=== PATIENT | female | born 1995 | race Caucasian/White ===

== ENCOUNTER 2019-04-26 07:29 | Inpatient (IN) | payer OTHER, SELFPAY ==
[2019-04-26] VITALS (140 sets, daily range): BP systolic 74–145; BP diastolic 38–105; PULSE 49–146; TEMP 36.6–37.9; O2SAT 97–100; BMI 32.9
--- NOTE | 2019-04-26 07:29 | OBADM ---
This patient, Kaylee Melchor, admitted to the OB room Labor/Delivery/Recovery 105 for observation. Patient/family oriented to hospital policies and general routines including ID bracelet, bed and alarms, visiting hours, pain management, procedures, bathroom and other care routines, personal items, smoking policy, room service/diet, and visiting hours. Patient/Family are encouraged to report perceived risks to care and to ask questions if they do not understand what they are told or what they should do.
[2019-04-26 09:44] LABS: Add Urine Microscopic? YES; Appearance Urine Clear (Clear); Bilirubin Urine Negative (Negative); Blood Urine 2+ (Negative); Color Urine Straw (Yellow); Glucose Urine UA Negative (Negative); Ketones Urine Negative (Negative); Leukocyte Esterase Ur Negative LEU/UL (NEGATIVE); Nitrate Urine Negative (Negative); Protein Urine Negative (Negative); RBC Urine 0-2 /hpf (0-2); Specific Grav Ur 1.003 (1.001-1.035); Squamous Epithelial Cell Urine Rare /hpf (Few); Urobilinogen Urine Negative mg/dL (<2.0); WBC Urine 0-3 /hpf (0-3)
[2019-04-26] MEDS: LACTATED RINGERS 1,000 ML 999 ML IV CONT (10:00)
[2019-04-26] MEDS: ONDANSETRON INJ 4 MG/2 ML VIAL IV PUSH (13:13)
[2019-04-26 13:25] LABS: Basophils Percent Auto 0.2 % (0.2-1.2); Eosinophils Absolute Auto 0.1 K/mm3 (0-0.3); Eosinophils Percent Auto 0.3 % (0-4.4); Hematocrit 37.3 % (37.0-47.0); Hemoglobin 12.7 g/dL (12.0-15.0); Immature Granulocyte Absolute 0.07 K/mm3 (0.00-0.031); Immature Granulocyte Percent A 0.4 % (0-0.5); Lymphocytes Absolute Auto 1.53 K/mm3 (0.9-3.2); Lymphocytes Percent Auto 8.5 % (18.3-44.2); Mean Corpuscular Hemoglobin 29.3 pg (26-34); Mean Corpuscular Volume 86.1 fl (80-100); Monocytes Absolute Auto 0.8 K/mm3 (0.1-0.6); Monocytes Percent Auto 4.3 % (2.6-8.5); Neutrophils Absolute Auto 15.6 K/mm3 (1.3-6.7); Neutrophils Percent Auto 86.3 % (45.5-73.1); Platelet Count Result 179 k/mm3 (150-375); Red Blood Count 4.33 M/mm3 (4.2-5.4); Red Cell Distribution Width 13.1 % (11.5-14.5); White Blood Count 18.1 K/mm3 (4.5-10.0)
[2019-04-26] MEDS: LACTATED RINGERS 1,000 ML 125 ML IV CONT ×3 (14:30→19:30)
--- NOTE | 2019-04-26 15:24 | WPDHPUPDATE1 ---
History and Physical Update Update Date/Time: 04/26/19 15:24 23 yo at 39w1d who present with regular contractions. She denies vaginal bleeding or LOF. FHT were non-reactive. Pt was extremely uncomfortable and tearful. History and Physical has been reviewed, including an updated exam of the patient. There are NO changes in the patient's condition. Risks, benefits, and alternatives have been discussed and questions answered. Patient agrees to proceed with procedure. A/P: 23 yo at 39w1d admitted for early labor with non-reactive FHT at term admit to L&D routine admission orders Rh + GBS neg FHT 145, mod ty, neg acels, neg decels pt painfully miguel cvx 250/-3 expectant managmeent
--- NOTE | 2019-04-26 15:46 | WPDANESEPP ---
Anes - Eval Pre Procedure Procedure: labor epidural Date/Time: 04/26/19 15:46 Surgeon: yariel Pre Op Diagnosis: Contractions Patient Data Age: 23 Gender: F Height: 1.63 m Weight: 87 kg Last Vital Signs Pulse 74 04/26/19 15:43 BP 74/61 L 04/26/19 15:43 Pulse Ox 100 04/26/19 15:41 Allergies Allergy/AdvReac Type Severity Reaction Status Date / Time No Known Allergies Allergy Verified 04/09/19 12:41 Home Medications Medication Instructions Recorded Confirmed Type PNV cmb#95-ferrous fumarate-FA 1 tablet PO DAILY 04/09/19 04/26/19 History [] Laboratory Tests 04/26/19 04/26/19 04/26/19 09:34 13:03 13:03 WBC 18.1 K/mm3 H K/mm3 (4.5-10.0) RBC 4.33 M/mm3 M/mm3 (4.2-5.4) Hgb 12.7 g/dL g/dL (12.0-15.0) Hct 37.3 % % (37.0-47.0) MCV 86.1 fl fl (80-100) MCH 29.3 pg pg (26-34) MCHC 34.0 g/dl g/dl (32-36) RDW 13.1 % % (11.5-14.5) Plt Count 179 k/mm3 k/mm3 (150-375) MPV 13.0 fl H fl (7.4-10.4) Immature Gran % (Auto) 0.4 % % (0-0.5) Neut % (Auto) 86.3 % H % (45.5-73.1) Lymph % (Auto) 8.5 % L % (18.3-44.2) [place] % (Auto) 4.3 % % (2.6-8.5) Eos % (Auto) 0.3 % % (0-4.4) Baso % (Auto) 0.2 % % (0.2-1.2) Lymph # (Auto) 1.53 K/mm3 K/mm3 (0.9-3.2) [place] # (Auto) 0.8 K/mm3 H K/mm3 (0.1-0.6) Eos # (Auto) 0.1 K/mm3 K/mm3 (0-0.3) Baso # (Auto) 0.0 K/mm3 K/mm3 (0.0-0.1) Abs Immat Gran (auto) 0.07 K/mm3 H K/mm3 (0.00-0.031) Absolute Neuts (auto) 15.6 K/mm3 H K/mm3 (1.3-6.7) Absolute Nucleated RBC 0.0 K/mm3 K/mm3 (0.0-0.012) Nucleated RBC % 0.0 % % (0.0-0.2) Urine Color Straw (Yellow) Urine Appearance Clear (Clear) Urine pH 7.0 (5.0-9.0) Ur Specific [place] 1.003 (1.001-1.035) Urine Protein Negative mg/dL mg/dL (Negative) Urine Glucose (UA) Negative mg/dL mg/dL (Negative) Urine Ketones Negative mg/dL mg/dL (Negative) Ur Blood (Man) 2+ H (Negative) Urine Nitrate Negative (Negative) Urine Bilirubin Negative (Negative) Urine Urobilinogen Negative mg/dL mg/dL (<2.0) Ur Leukocyte Esterase Negative KATIE/UL KATIE/UL (NEGATIVE) Urine RBC 0-2 /hpf /hpf (0-2) Urine WBC 0-3 /hpf /hpf (0-3) Ur Squamous Epith Cells Rare /hpf /hpf (Few) RPR Pending Blood Type Antibody Screen 04/26/19 13:03 WBC RBC Hgb Hct MCV MCH MCHC RDW Plt Count MPV Immature Gran % (Auto) Neut % (Auto) Lymph % (Auto) [place] % (Auto) Eos % (Auto) Baso % (Auto) Lymph # (Auto) [place] # (Auto) Eos # (Auto) Baso # (Auto) Abs Immat Gran (auto) Absolute Neuts (auto) Absolute Nucleated RBC Nucleated RBC % Urine Color Urine Appearance Urine pH Ur Specific [place] Urine Protein Urine Glucose (UA) Urine Ketones Ur Blood (Man) Urine Nitrate Urine Bilirubin Urine Urobilinogen Ur Leukocyte Esterase Urine RBC Urine WBC Ur Squamous Epith Cells RPR Blood Type A Positive Antibody Screen Negative Patient hx anesthesia problems: none Family hx anesthesia problems: none [facility] Family History Family History (Updated 04/09/19 @ 12:42 by Kirill Steve RN) Father Hypertension Social History Social History Smoking status: Never smoker Second hand tobacco smoke exposure: No Substance use: never Gender identity (if verbalized by the patient): Female Exam Day of Procedure 04/26/19 1
--- NOTE | 2019-04-26 19:42 | PM.OBPNLAB ---
Pain Control Date/time seen: 04/26/19 19:12 Pain control: epidural Pelvic Exam Dilation (cm): 4 Effacement (%): 90 station: -2 Amniotic membrane status: Intact Contractions Monitor mode: External Contraction frequency: 5 Contraction pattern: Regular Status status: Category ll Assessment and Plan Assessment: active labor Plan: continuous present management and begin patient augmentation (AROM for clear fluid, IUPC placed)
--- NOTE | 2019-04-26 22:57 | PM.OBPRVD ---
OB - Delivery Note Procedure Procedure: Patient pushed for a spontaneous vaginal delivery. The fetus was delivered atraumatically and placed on the maternal abdomen. The cord was clamped and cut after 1 minute of life. The cord was double clamped and cut and a segment of cord was collected for cord gases. Cord blood was collected for blood type and Coomb's testing. The placenta delivered spontaneously and was noted to be intact. The perineum was inspected and there were no lacerations noted. The uterus was firm and good hemostasis was noted. The patient and fetus were stable in the delivery room. events: Labor Augmentation Intrapartal events: None and Deceleration Induction method: none Delivery augmentation: rupture of membranes and pitocin Delivery monitor: external FHT and internal uterine Route of delivery: Episiotomy description: None Laceration description: None Specimen: No Estimated blood loss (mL): 200 Anesthesia type: Epidural Disposition: floor () Complications: No immediate complications [place] Baby Date of : 04/26/19 Time of : 22:49 Weeks of gestation at delivery: 39 Infant gender: Male Weight (pounds): 6 Weight (ounces): 15 presentation: vertex position: Right Occiput Anterior Placenta delivery description: Spontaneous cord vessel description: 3 Vessels score one minute: 9 score five minutes: 9
[2019-04-27 01:33] VITALS: BP 99/51; PULSE 74
[2019-04-27 01:45] VITALS: BP 114/65; PULSE 86; RESP 16; TEMP 36.9; O2SAT 100
--- NOTE | 2019-04-27 01:45 | OBPPTRN ---
Patient transferred to post room #286 via wheelchair. Support person present. Oriented to unit, room, information board, rooming in, admission packet and security measures. Patient verbalizes understanding. in nursery downstairs, getting a bath.
[2019-04-27 05:37] LABS: Hematocrit 33.1 % (37.0-47.0); Hemoglobin 11.3 g/dL (12.0-15.0)
--- NOTE | 2019-04-27 06:53 | PM.OBPNVD ---
OB - PN: Subj Subjective Date/time seen: 04/27/19 06:53 Patient comments: no complaints, pain well controlled and tolerating diet feeding status: exclusively breast feeding Narrative: patient doing well this AM. No complaints. Pain is well controlled. She reports minimal bleeding. She is ambulating and voiding without difficulty. She is tolerating PO. She denies N/V, fever, chills. OB - PN: Obj Data Labs CBC & Chem 7: 04/27/19 04:08 Labs: Laboratory Results - last 24 hr 04/26/19 04/26/19 04/26/19 09:34 13:03 13:03 WBC 18.1 H RBC 4.33 Hgb 12.7 Hct 37.3 MCV 86.1 MCH 29.3 MCHC 34.0 RDW 13.1 Plt Count 179 MPV 13.0 H Immature Gran % (Auto) 0.4 Neut % (Auto) 86.3 H Lymph % (Auto) 8.5 L [place] % (Auto) 4.3 Eos % (Auto) 0.3 Baso % (Auto) 0.2 Lymph # (Auto) 1.53 [place] # (Auto) 0.8 H Eos # (Auto) 0.1 Baso # (Auto) 0.0 Abs Immat Gran (auto) 0.07 H Absolute Neuts (auto) 15.6 H Absolute Nucleated RBC 0.0 Nucleated RBC % 0.0 Urine Color Straw Urine Appearance Clear Urine pH 7.0 Ur Specific [place] 1.003 Urine Protein Negative Urine Glucose (UA) Negative Urine Ketones Negative Ur Blood (Man) 2+ H Urine Nitrate Negative Urine Bilirubin Negative Urine Urobilinogen Negative Ur Leukocyte Esterase Negative Urine RBC 0-2 Urine WBC 0-3 Ur Squamous Epith Cells Rare Blood Type A Positive Antibody Screen Negative 04/27/19 04:08 WBC RBC Hgb 11.3 L Hct 33.1 L MCV MCH MCHC RDW Plt Count MPV Immature Gran % (Auto) Neut % (Auto) Lymph % (Auto) [place] % (Auto) Eos % (Auto) Baso % (Auto) Lymph # (Auto) [place] # (Auto) Eos # (Auto) Baso # (Auto) Abs Immat Gran (auto) Absolute Neuts (auto) Absolute Nucleated RBC Nucleated RBC % Urine Color Urine Appearance Urine pH Ur Specific [place] Urine Protein Urine Glucose (UA) Urine Ketones Ur Blood (Man) Urine Nitrate Urine Bilirubin Urine Urobilinogen Ur Leukocyte Esterase Urine RBC Urine WBC Ur Squamous Epith Cells Blood Type Antibody Screen OB - PN A/P Plan day: 1 Plan: routine care Comments: patient doing well H/H stable plan for infant circumcision today anticipate d/c tomorrow continue routine care Time Spent With Patient Time: Total time spent is greater than 50% in coordination of care (as documented) at patient's floor/unit and/or counseling patient: Time with patient: less than 15 minutes Review of Systems Review of Systems: All systems reviewed & are unremarkable except as noted in HPI and below Exam Const: General: comfortable and no acute distress Resp: Effort & Inspection: normal respiratory effort Cardio: Rate: regular rate GI: GI Palp: Yes Soft to palpation and No Tenderness to palpation present (GI) Auscultation: normal bowel sounds Other: fundus firm and below umbilicus. Psych: Affect: normal affect
[2019-04-27 07:26] LABS: Rapid Plasma Reagin Non-Reactive (NonReactive)
[2019-04-27 08:00] VITALS: BP 107/66; PULSE 69; RESP 18; TEMP 36.4; O2SAT 100
[2019-04-27] MEDS: IBUPROFEN 600 MG TABLET PO ×2 (10:02→16:09)
[2019-04-27] MEDS: DOCUSATE SODIUM 100 MG CAPSULE PO ×2 (10:03→16:10)
[2019-04-27] MEDS: MULTIVIT/MIN/PREN/FOL AC/IRON TABLET 1 TAB PO (10:03)
[2019-04-27] MEDS: LANOLIN (LANSINOH) 7.5 GM CREAM 1 APPLIC TOPICAL (10:03)
--- NOTE | 2019-04-27 10:58 | WPDANLDPN2 ---
Anes-Prog Note L&D Date/Time: 04/27/19 10:58 Comfortable throughout: labor and delivery Neuraxial method: epidural Epidural/Spinal procedure site: clean & non-tender Neuro status: Neuro function grossly intact. Cardiovascular status: normal Respiratory status: normal Airway patency: baseline Mental status: baseline Post-Op hydration status: normal Vital Signs: Last Vital Signs Temp 36.4 C 04/27/19 08:00 Pulse 69 04/27/19 08:00 Resp 18 04/27/19 08:00 BP 107/66 04/27/19 08:00 Pulse Ox 100 04/27/19 08:00 I/O: Intake & Output 04/26/19 04/27/19 04/27/19 23:59 07:59 15:59 Intake Total 1000 600 Output Total 60 Balance 1000 540 Patient feedback: Patient satisfied with anesthetic care.
[2019-04-27 21:47] VITALS: BP 95/54; PULSE 60; RESP 17; TEMP 37.2
--- NOTE | 2019-04-28 07:51 | P.DS_ITS ---
OB - DS: Summary OB Procedures : None OB Procedures Intrapartum: Spontaneous Vag Delivery OB Procedures: : None Status at Discharge Functional status at discharge: independent ambulation Overall status at discharge: patient is back to baseline Time Spent with Patient Time attestation: Total time spent providing and/or coordinating discharge services: Time spent: Less than 30 minutes Exam Const: General: comfortable and no acute distress Resp: Effort & Inspection: normal respiratory effort Auscultation: clear to auscultation bilaterally Cardio: Rate: regular rate GI: GI Palp: Yes Soft to palpation Auscultation: normal bowel sounds Other: Fundus firm below umbilicus Psych: Appearance: grossly normal Mental Status: mental status grossly normal Affect: normal affect Discharge Plan Discharge Discharging Clinician: Placido Patel Patient Disposition: Home, Self-Care Activity: as tolerated and pelvic rest Diet: regular Discharge Instructions: call office for bleeding >2 pad/hr for 2 hrs, pain not controlled by medications, fever > 100.4, signs/symptoms of mastitis Patient Instructions: Antibiotic Form Stand Alone Forms: General Discharge Information Follow-up/Referrals: Emory Erazo MD [Physician] - 4 Weeks Discharge Medications: New acetaminophen [Mapap (acetaminophen)] 325 mg Tablet 650 mg PO Q6H PRN (Reason: Mild Pain (1-3) Or Headache) Qty: 30 RF: 0 ibuprofen 600 mg Tablet 600 mg PO Q6H PRN (Reason: Cramping) Qty: 30 RF: 0 Amu-A-Rvgarz Cream 1 applic topical PRN PRN (Reason: Sore Nipples) Qty: 1 RF: 0 Continued PNV cmb#95-ferrous fumarate-FA [] 28 mg iron- 800 mcg Tablet 1 tablet PO DAILY RF: 0 Date of admission: 04/26/19 07:30 Primary Care Provider: PHYSICIAN,SENIOR UX DEVELOPER Admitting Provider: Emory Erazo Attending physician on admission: Emory Erazo
[2019-04-28 08:00] VITALS: BP 120/66; PULSE 60; RESP 20; TEMP 36.4; O2SAT 100
[2019-04-28] MEDS: MULTIVIT/MIN/PREN/FOL AC/IRON TABLET 1 TAB PO (08:21)
[2019-04-28] MEDS: DOCUSATE SODIUM 100 MG CAPSULE PO (08:21)
[2019-04-28] MEDS: IBUPROFEN 600 MG TABLET PO (08:21)
--- NOTE | 2019-04-28 10:08 | PC.NURSE ---
Self care and infant care discharge instructions given including follow up visit date and time. Mother verbalized understanding. No questions or concerns verbalized. Very pleasant and cooperative.
[2019-04-28] MEDS: TETANUS,DIPHTHERIA,AC PERTUSSIS ADULT 0.5 ML (ADACEL) IM (11:34)
[2019-04-29 08:46] VITALS: BP 114/63; PULSE 67; RESP 16; TEMP 36.8
== END 2019-04-28 12:00 | disposition home or self-care (01) | DRG 807 ==
LOC: ANHLDR 10:16 → ANHOB2 04-27 11:30 → ANHLDR 04-29 08:33 → ANHOB2 04-29 08:33
PROVIDERS: Admitting Provider Student in an Organized Health Care Education/Training Program; Visit Provider Student in an Organized Health Care Education/Training Program
DX: O36.8330 Maternal care for abnormalities of the fetal heart rate or rhythm, third trimester, not applicable or unspecified (principal); Z37.0 Single live birth; Z3A.39 39 weeks gestation of pregnancy
CPT/HCPCS: 36415; 81001; 85014; 85018; 85025; 86592; 86850; 86900; 86901; 87086; 87088; 90715; A9270; J2405; J2590; J2795; J3010; J7120

== ENCOUNTER 2024-02-16 10:28 | Outpatient (CLI) | payer SELFPAY ==
--- NOTE | 2024-02-16 11:58 | ECG_ITS ---
Test Date: 2024-02-16 12:37:09 Measurements Intervals [place] Rate: 77 P: 27 OR: 130 QRS: 23 QRSD: 80 T: 3 QT: 378 QTc: 429 Interpretive Statements SINUS RHYTHM NONSPECIFIC T-WAVE ABNORMALITY No previous ECG available for comparison Electronically Signed On 02-16-2024 15:04:53 [employer] by Neo Shane M.D.
--- NOTE | 2024-02-16 12:09 | PC.NURSE ---
Dr. Erazo notified of patient's arrival on unit with complaints of back pain, pressure, nausea, and feeling weird . SVE 360/-2. Reactive NST and minimal contractions noted on tracing. Belly soft. Declines leaking of fluid and vaginal bleeding. Patient with history of elevated HR this . Orders received per Dr. Erazo to send UA, CMP, and CBC. Ordered 12 lead EKG.
[2024-02-16 12:12] LABS: Basophils Percent Auto 0.2 % (0.2-1.2); Eosinophils Absolute Auto 0.1 K/mm3 (0-0.3); Eosinophils Percent Auto 0.5 % (0-4.4); Hematocrit 34.5 % (37.0-47.0); Hemoglobin 11.9 g/dL (12.0-15.0); Immature Granulocyte Absolute 0.08 K/mm3 (0.00-0.031); Immature Granulocyte Percent A 0.7 % (0-0.5); Lymphocytes Absolute Auto 1.48 K/mm3 (0.9-3.2); Lymphocytes Percent Auto 13.1 % (18.3-44.2); Mean Corpuscular HGB Conc 34.5 g/dl (32-36); Mean Corpuscular Hemoglobin 29.7 pg (26-34); Mean Platelet Volume 11.8 fl (7.4-10.4); Monocytes Absolute Auto 0.7 K/mm3 (0.1-0.6); Monocytes Percent Auto 6.1 % (2.6-8.5); Neutrophils Percent Auto 79.4 % (45.5-73.1); Platelet Count Result 195 k/mm3 (150-375); Red Blood Count 4.01 M/mm3 (4.2-5.4); Red Cell Distribution Width 13.6 % (11.5-14.5); White Blood Count 11.3 K/mm3 (4.5-10.0)
[2024-02-16 12:22] LABS: Alanine Aminotransferase 26 U/L (6-35); Albumin Level 3.8 g/dL (3.5-5.1); Alkaline Phosphatase 163 U/L (38-126); Anion Gap 5 mmol/L (4-12); Aspartate Amino Transferase 41 U/L (14-36); Bilirubin,Total 0.7 mg/dL (0.2-1.3); Blood Urea Nitrogen 5 mg/dL (7-17); Carbon Dioxide 20 mmol/L (22-30); Chloride 110 mmol/L (98-107); Estimated Glomerular Filt Rate > 60; Glucose 80 mg/dL (65-110); Potassium 3.9 mmol/L (3.4-5.0); Sodium 135 mmol/L (137-145)
[2024-02-16 12:27] LABS: Add Urine Microscopic? YES; Appearance Urine Cloudy (Clear); Bacteria Urine None Seen /hpf; Bilirubin Urine Negative (Negative); Blood Urine Negative (Negative); Color Urine Yellow (Yellow); Glucose Urine UA Negative (Negative); Ketones Urine 2+ mg/dL (Negative); Leukocyte Esterase Ur Negative LEU/UL (Negative); Need Manual Microscopic Reviewed; Nitrate Urine Negative (Negative); Protein Urine 3+ mg/dL (Negative); RBC Urine 0-2 /hpf (0-2); Specific Grav Ur 1.012 (1.001-1.035); Squamous Epithelial Cell Urine Occasional /hpf (Few); Urobilinogen Urine 0.2 mg/dL (<2.0); pH Urine 7.5 (5.0-9.0)
[2024-02-16 12:51] LABS: Creatinine Urine 45.7 mg/dL
[2024-02-16 13:10] LABS: Total Protein Urine Random 441 mg/dL; Ur Ttl Prot Creatinine Ratio 9.65 mg/mg (0-0.20)
--- NOTE | 2024-02-16 13:54 | PC.NURSE ---
Dr. Erazo updated on lab results, SVE, FHT and increase back pain. Orders received to discharge patient with 24 hour urine, precautions given. Patient has appt with provider on 02/17.
== END 2024-02-16 13:55 | disposition home or self-care (01) ==
PROVIDERS: Visit Provider Obstetrics & Gynecology
DX: R80.9 Proteinuria, unspecified (principal)
CPT/HCPCS: 36415; 80053; 81001; 82570; 84156; 85025; 87086; 93005

== ENCOUNTER 2024-02-17 13:00 | Outpatient (NON) | payer SELFPAY ==
[2024-02-17 13:33] VITALS: BMI 36.9
[2024-02-17 15:20] LABS: Total Volume 24 Hour Urine 1850 ml
[2024-02-17 15:29] LABS: Total Protein Urine 24 Hr 259 mg/24hr (28-141); Total Protein Urine Random 14 mg/dL
== END 2024-02-17 13:01 | disposition home or self-care (01) ==
LOC: ANHOBOP 13:09
PROVIDERS: Visit Provider Obstetrics & Gynecology
DX: R80.9 Proteinuria, unspecified (principal)
CPT/HCPCS: 81050; 84156

== ENCOUNTER 2024-02-19 00:49 | Inpatient (IN) | payer OTHER, SELFPAY ==
[2024-02-19] VITALS (200 sets, daily range): BP systolic 62–128; BP diastolic 17–96; PULSE 28–176; RESP 14–16; TEMP 36.4–37.1; O2SAT 76–100; BMI 36.3
[2024-02-19 01:24] LABS: Basophils Percent Auto 0.2 % (0.2-1.2); Eosinophils Absolute Auto 0.1 K/mm3 (0-0.3); Eosinophils Percent Auto 0.9 % (0-4.4); Hematocrit 34.2 % (37.0-47.0); Hemoglobin 11.8 g/dL (12.0-15.0); Immature Granulocyte Absolute 0.08 K/mm3 (0.00-0.031); Immature Granulocyte Percent A 0.6 % (0-0.5); Lymphocytes Absolute Auto 2.04 K/mm3 (0.9-3.2); Lymphocytes Percent Auto 15.4 % (18.3-44.2); Mean Corpuscular HGB Conc 34.5 g/dl (32-36); Mean Corpuscular Hemoglobin 29.4 pg (26-34); Mean Corpuscular Volume 85.3 fl (80-100); Mean Platelet Volume 12.2 fl (7.4-10.4); Monocytes Absolute Auto 0.9 K/mm3 (0.1-0.6); Monocytes Percent Auto 6.7 % (2.6-8.5); Neutrophils Absolute Auto 10.1 K/mm3 (1.3-6.7); Neutrophils Percent Auto 76.2 % (45.5-73.1); Platelet Count Result 207 k/mm3 (150-375); Red Blood Count 4.01 M/mm3 (4.2-5.4); Red Cell Distribution Width 13.6 % (11.5-14.5); White Blood Count 13.2 K/mm3 (4.5-10.0)
--- NOTE | 2024-02-19 01:24 | PC.NURSE ---
Patient arrives to OB unit with complaints of blurred vision, headache, and back pain. Patient states she has been diagnosed with pre-clampsia with this based off a 24 hour urine that was done. Patient states her headache is a 4/10 and took tylenol at 1800 yesterday. Patient states her blurred vision comes and goes and has been consistent for about a week. Patient states her back pain is a 2/10 at rest, but 7/10 at most. Patient states she had mucous blood discharge yesterday, but no other vaginal bleeding. Patient states she has no leaking of fluid and has positive movement.
[2024-02-19 01:35] LABS: Alanine Aminotransferase 19 U/L (6-35); Albumin Level 3.7 g/dL (3.5-5.1); Alkaline Phosphatase 155 U/L (38-126); Anion Gap 6 mmol/L (4-12); Aspartate Amino Transferase 23 U/L (14-36); Bilirubin,Total 0.5 mg/dL (0.2-1.3); Blood Urea Nitrogen 9 mg/dL (7-17); Calcium 9.1 mg/dL (8.4-10.2); Carbon Dioxide 18 mmol/L (22-30); Chloride 110 mmol/L (98-107); Estimated Glomerular Filt Rate > 60; Glucose 89 mg/dL (65-110); Potassium 3.8 mmol/L (3.4-5.0); Sodium 134 mmol/L (137-145)
[2024-02-19 01:44] LABS: Uric Acid 4.2 mg/dL (2.5-7.5)
[2024-02-19] MEDS: LACTATED RINGERS 500 ML 999 ML IV CONT (01:45)
[2024-02-19] MEDS: ACETAMINOPHEN/BUTALBITAL/CAFFEINE 325-50-40 MG TABLET (FIORICET) 2 TAB PO (02:02)
[2024-02-19 02:03] LABS: Rapid Plasma Reagin Non-Reactive (NonReactive)
[2024-02-19] MEDS: LACTATED RINGERS 1,000 ML 125 ML IV CONT ×3 (02:05→10:20)
--- NOTE | 2024-02-19 02:12 | P.PNAN_ITS ---
Anes - Initial Pre Proc Eval Procedure: labor epidural Date/Time: 02/19/24 02:12 Surgeon: Emory Erazo MD Pre Op Diagnosis: labor pain Pre Op Diagnosis: IOL Patient Data Age: 28 Gender: F Height: Weight: Last Vital Signs Pulse 67 02/19/24 02:05 BP 113/68 02/19/24 02:05 Pulse Ox 84 L 02/19/24 02:07 Allergies Allergy/AdvReac Type Severity Reaction Status Date / Time No Known Allergies Allergy Verified 02/19/24 02:13 Home Medications ?Medication ?Instructions ?Recorded ?Confirmed ?Type vit no.95-ferrous 1 tablet PO DAILY 04/09/19 01/29/24 History fumarate 28 mg-folic acid 800 mcg tablet () fluoxetine 40 mg capsule 40 mg PO DAILY 01/29/24 01/29/24 History Laboratory Tests 02/19/24 01:17 WBC 13.2 H K/mm3 (4.5-10.0) RBC 4.01 L M/mm3 (4.2-5.4) Hgb 11.8 L g/dL (12.0-15.0) Hct 34.2 L % (37.0-47.0) MCV 85.3 fl (80-100) MCH 29.4 pg (26-34) MCHC 34.5 g/dl (32-36) RDW 13.6 % (11.5-14.5) Plt Count 207 k/mm3 (150-375) MPV 12.2 H fl (7.4-10.4) Immature Gran % (Auto) 0.6 H % (0-0.5) Neut % (Auto) 76.2 H % (45.5-73.1) Lymph % (Auto) 15.4 L % (18.3-44.2) [place] % (Auto) 6.7 % (2.6-8.5) Eos % (Auto) 0.9 % (0-4.4) Baso % (Auto) 0.2 % (0.2-1.2) Lymph # (Auto) 2.04 K/mm3 (0.9-3.2) [place] # (Auto) 0.9 H K/mm3 (0.1-0.6) Eos # (Auto) 0.1 K/mm3 (0-0.3) Baso # (Auto) 0.0 K/mm3 (0.0-0.1) Abs Immat Gran (auto) 0.08 H K/mm3 (0.00-0.031) Absolute Neuts (auto) 10.1 H K/mm3 (1.3-6.7) Absolute Nucleated RBC 0.000 K/mm3 (0.0-0.012) Nucleated RBC % 0.0 % (0.0-0.2) Sodium 134 L mmol/L (137-145) Potassium 3.8 mmol/L (3.4-5.0) Chloride 110 H mmol/L (98-107) Carbon Dioxide 18 L mmol/L (22-30) Anion Gap 6 mmol/L (4-12) BUN 9 mg/dL (7-17) Creatinine 0.40 L mg/dL (0.7-1.0) Estim Creat Clear Calc Not Reportable Estimated GFR > 60 (59 - ) Glucose 89 mg/dL (65-110) Uric Acid 4.2 mg/dL (2.5-7.5) Calcium 9.1 mg/dL (8.4-10.2) Total Bilirubin 0.5 mg/dL (0.2-1.3) AST 23 U/L (14-36) ALT 19 U/L (6-35) Alkaline Phosphatase 155 H U/L (38-126) Total Protein 7.0 g/dL (6.3-8.2) Albumin 3.7 g/dL (3.5-5.1) RPR Non-reactive (NonReactive) HIV 1&2 Ab/P24 Ag 4thGn Pending Blood Type A Positive Antibody Screen Pending Patient hx anesthesia problems: none Family hx anesthesia problems: none Results Review: All pre-operative results and documents have been reviewed as part of the pre-operative evaluation. [facility] Family History Family History Father Hypertension Diabetes mellitus Mother Depression Sibling ADHD Social History Social History Smoking status: Never smoker Second hand tobacco smoke exposure: No Substance use: never Gender identity (if verbalized by the patient): Female Spiritual care concerns: No Anes - Eval Final PreProcedure Day of Procedure 02/19/24 02:12 Heart: regular rate and rhythm Lungs: clear to auscultation and normal air movement Airway: Mallampati scale class II Neurological: alert and oriented ASA classification: II Results Review: All pre-operative results and documents have been reviewed as part of the pre- operative evaluation. Informed Consent: The patient's anesthetic plan and its attendant risks and benefits were discussed with the patient/family/POA. Questions were solicited and answers provided to the satisfaction of the patient/family/POA.
[2024-02-19 02:15] LABS: HIV 1/2 Ab P24 Ag Result Negative (Negative)
--- NOTE | 2024-02-19 02:15 | LDADM ---
This patient, Kaylee Melchor, was admitted to Labor/Delivery/Recovery 105 on 02/19/24 at 00:49. Plans for labor, pain management and were discussed with patient. Patient/family oriented to hospital policies and general routines including ID bracelet, bed and alarms, visiting hours, pain management, procedures, bathroom and other care routines, personal items, smoking policy, room service/diet and guest tray routines, security routines, and visiting hours. Patient/Family are encouraged to report perceived risks to care and to ask questions if they do not understand what they are told or what they should do. See OBIX for further documentation.
[2024-02-19] MEDS: ONDANSETRON INJ 4 MG/2 ML VIAL IV PUSH (03:16)
[2024-02-19] MEDS: OXYTOCIN 30 UNITS/NS 500 ML 30 UNITS/500 ML BAG IV CONT (05:13)
--- NOTE | 2024-02-19 08:58 | WPDOBADMIT ---
Obstetrics - Admit Note Admission Note: record reviewed. Additions to the history and/or subsequent changes in the physical findings follow. 28 y/o here with headache and contractions. Cervix found to be 4 cm. She was admitted. Now comfortable with epidural. Now augmenting labor with oxytocin. Headache resolved after a dose of Fioricet. AVSS NST reactive TOCO: contractions every 2-4 min ABD soft, nontender, gravid, vertex EXT nontender Cervix 4/90/-2. AROM with clear fluid. IUPC placed A: IUP at term with labor. P: Augment labor as needed. Anticipate .
--- NOTE | 2024-02-19 09:59 | P.PCNOB_ITS ---
OB - Vaginal Delivery Note Procedure Delivery date: 02/19/24 Events: Other (Labor at 38 6/7 weeks, headache) Induction method: None Delivery augmentation: Rupture of Membranes and Pitocin Delivery monitor: External FHT, External Uterine and Internal Uterine Route of delivery: Episiotomy description: None Laceration Description: None Specimen: Yes (cord blood) Quantitative Blood Loss (ml): 220 Anesthesia type: Epidural Disposition: PACU Complications: None Narrative: 28 y/o at 38 6/7 weeks gestation who presented to the hospital with headache and contractions. Headache responded to Fioricet. Admitted for labor. Oxytocin was administered intravenously. Amniotomy was performed with return of clear fluid. She received an epidural for pain control. Her labor progresse d and her cervix dilated completely. She pushed with good effort and delivered the 's head to the perineum, followed by the body. The nose and mouth were bulb suctioned. After a delay, the cord was clamped and cut. The infant was handed off the field. Cord blood was collected. The placenta delivered spontaneously and was grossly normal in appearance. The usual 3 vessel cord was noted. There were no lacerations. Needle and instrument counts were correct. The patient was taken to recovery room in stable condition. The went to the nursery in stable condition. I was present and scrubbed for the entire delivery. [place] Baby Date of : 02/19/24 Time of : 19:48 Gestational Age by Date: 38 Infant gender: Male presentation: vertex position: Left Occiput Anterior Placenta delivery description: Spontaneous and Normal Configuration Cord Vessel Description: 3 Vessels and Delayed Cord Clamping score one minute: 9 score five minutes: 9
--- NOTE | 2024-02-19 10:01 | PM.OBDSVD ---
DS: Admitting Diagnosis Discharge Date 02/20/24 Admitting Diagnosis IUP at 38 6/7 weeks Labor Headache DS: Discharge Diagnosis Discharge Diagnosis (1) (normal spontaneous vaginal delivery): Code(s): O80 - Encounter for full-term uncomplicated delivery Status: Acute OB - DS: Summary OB Procedures : None OB Procedures Intrapartum: Spontaneous Vag Delivery OB Procedures: : None Peripartum Data Laceration Description: None Episiotomy description: None Time Spent with Patient Time attestation: Total time spent providing and/or coordinating discharge services: DS: Data Data Completed and Pending Labs on day of discharge: Labs from last 24 hours 02/19/24 01:17 WBC 13.2 H RBC 4.01 L Hgb 11.8 L Hct 34.2 L MCV 85.3 MCH 29.4 MCHC 34.5 RDW 13.6 Plt Count 207 MPV 12.2 H Immature Gran % (Auto) 0.6 H Neut % (Auto) 76.2 H Lymph % (Auto) 15.4 L [place] % (Auto) 6.7 Eos % (Auto) 0.9 Baso % (Auto) 0.2 Lymph # (Auto) 2.04 [place] # (Auto) 0.9 H Eos # (Auto) 0.1 Baso # (Auto) 0.0 Abs Immat Gran (auto) 0.08 H Absolute Neuts (auto) 10.1 H Absolute Nucleated RBC 0.000 Nucleated RBC % 0.0 Sodium 134 L Potassium 3.8 Chloride 110 H Carbon Dioxide 18 L Anion Gap 6 BUN 9 Creatinine 0.40 L Estim Creat Clear Calc Not Reportable Estimated GFR > 60 Glucose 89 Uric Acid 4.2 Calcium 9.1 Total Bilirubin 0.5 AST 23 ALT 19 Alkaline Phosphatase 155 H Total Protein 7.0 Albumin 3.7 RPR Non-reactive HIV 1&2 Ab/P24 Ag 4thGn Negative Blood Type A Positive Antibody Screen Negative Discharge Plan Discharge Attending physician on discharge: Emory Erazo Discharging Clinician: Emory Erazo Patient Disposition: Home, Self-Care Activity: pelvic rest Diet: regular Discharge Instructions: Call or return if temperature above 100.4? F, increased abdominal pain, increased vaginal bleeding or any new problems. Patient Language: [place] Stand Alone Forms: General Discharge Information Follow-up/Referrals: Emory Erazo MD [Physician] - 6 Weeks Discharge Medications: New ibuprofen 600 mg tablet 600 mg PO Q6H PRN (Reason: cramps) Qty: 30 0RF Continued fluoxetine 40 mg Capsule 40 mg PO DAILY PNV cmb#95-ferrous fumarate-FA [] 28 mg iron- 800 mcg Tablet 1 tablet PO DAILY Date of admission: 02/19/24 00:49 Primary Care Provider: PHYSICIAN,FIELD CANE SCALER HELPER Admitting Provider: Emory Erazo Attending physician on admission: Emory Erazo Condition: Stable
[2024-02-19] MEDS: OXYTOCIN 30 UNITS/NS 500 ML 30 UNITS/500 ML BAG 125 UNITS IV CONT (10:19)
--- NOTE | 2024-02-19 12:20 | PC.NURSE ---
Patient transferred to post room #292 via wheelchair. Support person present. Oriented to unit, room, information board, rooming in, admission packet and security measures. Patient verbalizes understanding.
[2024-02-19] MEDS: IBUPROFEN 600 MG TABLET PO ×2 (14:22→22:05)
[2024-02-19] MEDS: DOCUSATE SODIUM 100 MG CAPSULE PO (16:41)
[2024-02-20] MEDS: WITCH HAZEL 40 PADS 1 PAD TOPICAL (04:31)
[2024-02-20 05:18] LABS: Hematocrit 30.6 % (37.0-47.0); Hemoglobin 10.2 g/dL (12.0-15.0)
[2024-02-20 07:25] VITALS: BP 113/59; PULSE 70; RESP 16; TEMP 36.6; O2SAT 99
--- NOTE | 2024-02-20 07:52 | WPDANLDPN2 ---
Anes-Prog Note L&D Date/Time: 02/20/24 07:52 Comfortable throughout: labor and delivery Neuraxial method: epidural Epidural/Spinal procedure site: clean & non-tender Neuro status: Neuro function grossly intact. Cardiovascular status: normal Respiratory status: normal Airway patency: baseline Mental status: baseline Post-Op hydration status: normal Vital Signs: Last Vital Signs Temp 97.9 F 02/19/24 23:46 Pulse 62 02/19/24 23:46 Resp 16 02/19/24 23:46 BP 108/61 02/19/24 23:46 Pulse Ox 100 02/19/24 23:46 O2 Del Method Room Air 02/19/24 20:00 Pain score (VAS): 0/10 I/O: Intake & Output 02/19/24 02/19/24 02/20/24 15:59 23:59 07:59 Intake Total 854.2 Output Total 420 Balance 434.2 Post-procedural complaints: none Patient feedback: Patient satisfied with anesthetic care.
[2024-02-20] MEDS: DOCUSATE SODIUM 100 MG CAPSULE PO (09:02)
[2024-02-20] MEDS: MULTIVIT/MIN/PREN/FOL AC/IRON TABLET 1 TAB PO (09:02)
[2024-02-20] MEDS: FLUoxetine HCL 20 MG CAPSULE 40 MG PO (09:02)
--- NOTE | 2024-02-20 12:51 | P.PNOB_ITS ---
OB - PN: Subj Subjective Date/time seen: 02/20/24 12:51 Narrative: Pain OK. Would like circumcision for son. Would like to go home. OB - PN: Obj Data Labs 02/20/24 04:32 02/19/24 01:17 Labs: Laboratory Results - last 24 hr 02/20/24 04:32 Hgb 10.2 L Hct 30.6 L OB - PN A/P Plan day: 1 Comments: A: PPD#1, doing well. P: Reviewed circ. Home to f/u 6 weeks. Exam 2 Psych: Other: AVSS ABD soft, nontender, fundus firm EXT nontender
--- NOTE | 2024-02-20 13:25 | PC.NURSE ---
[id number] Introductions were made, then consulted with patient to assess needs related to . Discussed with mother her?plans to feed?her infant and the?experience so far. Mother plans to exclusively breastfeed and wants assistance with latching. Mother to call out when baby is due to breastfeed. Resources provided for inpatient and outpatient services with the feeding sheet, mom/baby guide and name written on the communication board. Mother voiced understanding of information and will call if there is a request for assistance. Reported to the Primary RN. 1217 Consulted with patient to assess needs related to . Discussed with mother her successes, concerns and any questions she has. We reviewed working with the infant, supporting breast, protecting her nipples with an optimal deep latch, good positioning, and good hand washing. Encouraged understanding the benefits of skin to skin, responding to feeding cues, frequencies of feeding 8-12 times in 24 hours (approximately 2-3 hours), duration of feedings, milk production, intake/output feeding sheet and signs of adequate intake encouraging swallowing at the breast. Reviewed positioning and alignment, supporting breast, off-centered (asymmetrical latch) and leading with the chin with big, open, wide gape. Infant latched optimally to the [left] breast in [football] position. Education given to the mother of how to visualize the suckling (with good rocking jaw motion) swallows (dropping of the lower jaw) and how to listen for drinking at the breast (the ka sound). The was [able] to maintain latch without discomfort to mother for 5 mins. Nipple care reviewed with optimal latch, good positioning and using clean hands when touching her breast. Resources used to facilitate learning were used from the [visual handouts/ tool/mom and baby guide]. Mother voiced understanding of the education shared, to call for assistance if the infant does not latch or if there is discomfort with . Reported to the Primary RN.
[2024-02-22 10:10] VITALS: BP 112/62; PULSE 63; RESP 18; TEMP 36.6; O2SAT 99
== END 2024-02-20 16:20 | disposition home or self-care (01) | DRG 807 ==
LOC: ANHLDR 10:02 → ANHOB2 12:51
PROVIDERS: Admitting Provider Obstetrics & Gynecology; Visit Provider Obstetrics & Gynecology
DX: O14.94 Unspecified pre-eclampsia, complicating childbirth (principal); Z37.0 Single live birth; Z3A.38 38 weeks gestation of pregnancy
CPT/HCPCS: 36415; 80053; 84550; 85014; 85018; 85025; 86592; 86703; 86850; 86900; 86901; A9270; G0432; J2405; J2590; J2795; J7120

== ENCOUNTER 2024-03-04 16:23 | Emergency (ER) | payer OTHER, SELFPAY ==
--- NOTE | ~2024-03-04 | US_ITS ---
EXAMINATION: US pelvic complete DATE: 03/04/2024 20:20 INDICATION: bleeding. TECHNIQUE: Real-time transabdominal pelvic ultrasound was performed. COMPARISON: None. FINDINGS: The uterus measures 10.6 x 6.4 x 8.0 cm. The endometrial complex measures 26 mm in thickness with int ernal vascular flow. The right ovary measures 2.5 x 1.0 x 1.8 cm. The left ovary measures 2.8 x 1.2 x 1.5 cm. There is normal vascular flow in the ovaries. There is physiologic free fluid in the pelvis. IMPRESSION: 1. Thickened endometrial complex without internal vascular flow, consistent with retained products o f conception. Reviewed, dictated and finalized at location A. [employer] IMPRESSION: 1. Thickened endometrial complex without internal vascular flow, consistent wi th retained products of conception.
[2024-03-04 16:25] VITALS: BP 130/91; PULSE 99; RESP 18; TEMP 36.8; O2SAT 98
[2024-03-04 18:08] LABS: Basophils Percent Auto 0.4 % (0.2-1.2); Eosinophils Absolute Auto 0.2 K/mm3 (0-0.3); Hematocrit 38.4 % (37.0-47.0); Hemoglobin 12.8 g/dL (12.0-15.0); Immature Granulocyte Absolute 0.02 K/mm3 (0.00-0.031); Immature Granulocyte Percent A 0.3 % (0-0.5); Lymphocytes Absolute Auto 2.09 K/mm3 (0.9-3.2); Lymphocytes Percent Auto 27.5 % (18.3-44.2); Mean Corpuscular HGB Conc 33.3 g/dl (32-36); Mean Corpuscular Hemoglobin 28.7 pg (26-34); Mean Corpuscular Volume 86.1 fl (80-100); Mean Platelet Volume 11.3 fl (7.4-10.4); Monocytes Absolute Auto 0.6 K/mm3 (0.1-0.6); Monocytes Percent Auto 7.4 % (2.6-8.5); Neutrophils Absolute Auto 4.8 K/mm3 (1.3-6.7); Neutrophils Percent Auto 62.4 % (45.5-73.1); Platelet Count Result 238 k/mm3 (150-375); Red Blood Count 4.46 M/mm3 (4.2-5.4); Red Cell Distribution Width 12.8 % (11.5-14.5); White Blood Count 7.6 K/mm3 (4.5-10.0)
[2024-03-04 18:13] LABS: Add Urine Microscopic? YES; Appearance Urine Cloudy (Clear); Bacteria Urine None Seen /hpf; Bilirubin Urine Negative (Negative); Blood Urine 3+ (Negative); Color Urine Yellow (Yellow); Glucose Urine UA Negative (Negative); Ketones Urine Trace mg/dL (Negative); Leukocyte Esterase Ur 1+ LEU/UL (Negative); Nitrate Urine Negative (Negative); Non Pathogenic Casts 0-2; Protein Urine 1+ mg/dL (Negative); RBC Urine >100 /hpf (0-2); Specific Grav Ur 1.022 (1.001-1.035); Squamous Epithelial Cell Urine Few /hpf (Few); pH Urine 6.5 (5.0-9.0)
[2024-03-04 18:20] LABS: Alanine Aminotransferase 16 U/L (6-35); Albumin Level 4.2 g/dL (3.5-5.1); Alkaline Phosphatase 93 U/L (38-126); Anion Gap 5 mmol/L (4-12); Aspartate Amino Transferase 22 U/L (14-36); Bilirubin,Total 0.3 mg/dL (0.2-1.3); Blood Urea Nitrogen 14 mg/dL (7-17); Calcium 9.2 mg/dL (8.4-10.2); Carbon Dioxide 25 mmol/L (22-30); Chloride 108 mmol/L (98-107); Estimated CRCL calculation 98 ml/min; Estimated Glomerular Filt Rate > 60; Glucose 99 mg/dL (65-110); Sodium 138 mmol/L (137-145)
[2024-03-04 18:22] LABS: Prothrombin Time 13.6 Seconds (11.1-14.7)
[2024-03-04 18:23] LABS: Partial Thromboplastin Time 26.6 Seconds (22.3-36.8)
[2024-03-04 19:19] VITALS: BP 117/76; PULSE 64; RESP 18; O2SAT 98
--- NOTE | 2024-03-04 19:31 | ED_ITS ---
HPI - General Chief complaint: Vaginal Bleeding Stated complaint: vaginal delivery 02/18 reports heavy bleeding Time Seen by Provider: 03/04/24 17:37 Source: patient Mode of arrival: ambulatory Limitations: no limitations History of Present Illness HPI Narrative: Patient is a 28-year-old female with the ED with report of vaginal bleeding. Patient reports she is 14 days status post spontaneous vaginal delivery. This was complicated by preeclampsia, but otherwise had a normal delivery. States she has had minimal bleeding afterwards and has been doing well, but had a ?gush of vaginal bleeding today. States she has been passing large clots and going through a pad nearly every hour. OBGYN is Dr Erazo. Denies abdominal pain or cramping. Denies dizziness or lightheadedness. Denies fevers. Related Data Home Medications ?Medication ?Instructions ?Recorded ?Confirmed ?Last Taken ?Type vit no.95-ferrous 1 tablet PO DAILY 04/09/19 01/29/24 1 Day Ago History fumarate 28 mg-folic acid 800 mcg ~01/28/24 tablet () fluoxetine 40 mg capsule 40 mg PO DAILY 01/29/24 01/29/24 1 Day Ago History ~01/28/24 Allergies Allergy/AdvReac Type Severity Reaction Status Date / Time No Known Allergies Allergy Verified 02/19/24 02:13 Review of Systems 2 Review of Systems: All systems reviewed & are unremarkable except as noted in HPI. All systems reviewed & are unremarkable except as noted in HPI and below PMFSH Family History Family History Father Hypertension Diabetes mellitus Mother Depression Sibling ADHD Social History Social History Smoking status: Never smoker Second hand tobacco smoke exposure: No Substance use: never Do You Feel Safe in your Home?: Yes Lack of Transportation: No Lack of Food: Never True Current Housing: I Have Housing Concerned About Future Housing: No Difficulty Paying Gas/Electric Bills: No Difficulty Paying for Meds: No Currently Unemployed: No Education: Bachelor's Degree Difficulty w/ Childcare or Family Care: No Gender identity (if verbalized by the patient): Female Spiritual care concerns: No Exam 2 Narrative: GENERAL: Well appearing, obese with BMI of 34.2, non-toxic, in no acute distress. HEAD: Normocephalic, atraumatic. RESPIRATORY: Airway patent, respirations nonlabored. Clear to auscultation bilaterally, no rales, rhonchi, wheezing. CARDIOVASCULAR: Regular rate and rhythm without murmurs, rubs, or gallops. ABDOMINAL: Soft, no significant tenderness throughout abdomen, nondistended. Normoactive BS. MUSCULOSKELETAL: Moves all extremities. No gross deformities. SKIN: Warm, dry, normal color. NEURO: A&O X3. Speech clear. Cranial nerves II-XII grossly intact. Steady gait. No ataxic movements. PSYCHIATRIC: Appropriate mood and affect. Normal interaction. Course Vital Signs Vital signs: Vital Signs Temperature 98.2 F 03/04/24 16:25 Pulse Rate 99 03/04/24 16:25 Respiratory Rate 18 03/04/24 16:25 Blood Pressure 130/91 H 03/04/24 16:25 Pulse Oximetry 98 03/04/24 16:25 Oxygen Delivery Room Air 03/04/24 16:25 Temperature 98.2 F 03/04/24 16:25 Pulse Rate 88 03/04/24 21:43 Respiratory Rate 18 03/04/24 21:43 Blood Pressure 121/78 03/04/24 21:43 Pulse Oximetry 99 03/04/24 21:43 Oxygen Delivery Room Air 03/04/24 16:25 MDM - OB/Uterine Contractions MDM Narrative Medical decision making narrative: Patient presented to ED 14 days status post vaginal delivery, reporting heavy vaginal bleeding today. Vital signs are stable upon arrival. Patient is in no acute distress. No evidence of hemodynamic instability. Cbc is unremarkable. No leukocytosis. Stable H&H, hemoglobin 12.8. Uptrending from post delivery. CMP is unremarkable. Beta hCG is minimally elevated to 37. UA with lots of blood, no significant signs of infection. Patient's blood type is A positive. Ultrasound was obtained and consistent with retained products of conception. Discussed lab and imaging findings with patient. She does report the bleeding has improved. She continues to deny any abdominal pain or cramping. She has otherwise remained stable throughout ED stay. Will discuss with OB. Discussed case with Dr. Erazo OBGYN, advised can being normal bleeding post delivery/placental site bleeding, does fit with timeline of bleeding being 2 weeks out. Advised if patient comfortable with home and bleeding continues to be improved, can D/C home and have close follow-up in office next week. Advised to call office tomorrow to make appointment. Patient is in agreement with this plan. She feels comfortable going home. Advised to continue to monitor bleeding, given strict return precautions. Discharged in stable condition. Vital signs stable at time of D/C. Medical Records Attestation: I reviewed the patient's medical records. Lab Data Attestation: I reviewed the patient's lab results. 03/04/24 17:53 03/04/24 17:53 Labs: Lab Results 03/04/24 Range/Units 17:53 WBC 7.6 (4.5-10.0) K/mm3 RBC 4.46 (4.2-5.4) M/mm3 Hgb 12.8 (12.0-15.0) g/dL Hct 38.4 (37.0-47.0) % MCV 86.1 (80-100) fl MCH 28.7 (26-34) pg MCHC 33.3 (32-36) g/dl RDW 12.8 (11.5-14.5) % Plt Count 238 (150-375) k/mm3 MPV 11.3 H (7.4-10.4) fl Immature Gran % (Auto) 0.3 (0-0.5) % Neut % (Auto) 62.4 (45.5-73.1) % Lymph % (Auto) 27.5 (18.3-44.2) % [place] % (Auto) 7.4 (2.6-8.5) % Eos % (Auto) 2.0 (0-4.4) % Baso % (Auto) 0.4 (0.2-1.2) % Lymph # (Auto) 2.09 (0.9-3.2) K/mm3 [place] # (Auto) 0.6 (0.1-0.6) K/mm3 Eos # (Auto) 0.2 (0-0.3) K/mm3 Baso # (Auto) 0.0 (0.0-0.1) K/mm3 Abs Immat Gran (auto) 0.02 (0.00-0.031) K/mm3 Absolute Neuts (auto) 4.8 (1.3-6.7) K/mm3 Absolute Nucleated RBC 0.000 (0.0-0.012) K/mm3 Nucleated RBC % 0.0 (0.0-0.2) % PT 13.6 (11.1-14.7) Seconds INR 1.0 APTT 26.6 (22.3-36.8) Seconds Sodium 138 (137-145) mmol/L Potassium 4.0 (3.4-5.0) mmol/L Chloride 108 H (98-107) mmol/L Carbon Dioxide 25 (22-30) mmol/L Anion Gap 5 (4-12) mmol/L BUN 14 D (7-17) mg/dL Creatinine 0.80 (0.7-1.0) mg/dL Estim Creat Clear Calc 98 ml/min Estimated GFR > 60 (59 - ) Glucose 99 (65-110) mg/dL Calcium 9.2 (8.4-10.2) mg/dL Total Bilirubin 0.3 (0.2-1.3) mg/dL AST 22 (14-36) U/L ALT 16 (6-35) U/L Alkaline Phosphatase 93 (38-126) U/L Total Protein 8.0 (6.3-8.2) g/dL Albumin 4.2 (3.5-5.1) g/dL Beta HCG, Quant 37.80 mIU/ML Urine Color Yellow (Yellow) Urine Appearance Cloudy H (Clear) Urine pH 6.5 (5.0-9.0) Ur Specific [place] 1.022 (1.001-1.035) Urine Protein 1+ H (Negative) mg/dL Urine Glucose (UA) Negative (Negative) mg/dL Urine Ketones Trace H (Negative) mg/dL Ur Blood (Man) 3+ H (Negative) Urine Nitrate Negative (Negative) Urine Bilirubin Negative (Negative) Urine Urobilinogen 1.0 (<2.0) mg/dL Leukocyte Esterase Rfl 1+ H (Negative) KATIE/UL Urine RBC >100 H (0-2) /hpf Urine WBC 6-10 H (0-3) /hpf Ur Squamous Epith Cells Few (Few) /hpf Urine Bacteria None seen /hpf Urine Casts 0-2 Blood Type A Positive Antibody Screen Negative Screen TNP Doses of RhIg Required 0 Imaging Data Attestation: I personally reviewed and interpreted this imaging study as follows: Radiologist's impression: ITS Impressions Pelvis Ultrasound 03/04/24 20:31 IMPRESSION: 1. Thickened endometrial complex without internal vascular flow, consistent with retained products of conception. ADDENDUM: 03/04/242117 The impression should read, Thickened endometrial complex with internal vascular flow, consistent with retained products of conception. Discharge Plan Discharge Clinical Impression: Dysfunctional uterine bleeding, History of vaginal delivery Patient Disposition: Home, Self-Care Condition: Stable Instructions: Antibiotic Form, Abnormal (Dysfunctional) Uterine Bleeding (ED), Hemorrhage (DC) Additional Instructions: Continue to monitor bleeding. Recommend pelvic rest until seen by OBGYN - no heavy lifting or strenuous activity, intercourse, tampons. Contact [facility] office tomorrow to make follow-up appointment next week. Dr. Erazo is aware of your ED visit. Return to the ED if you experience worsening or severe bleeding, feeling dizzy or lightheaded, passing out, severe pain, unable to keep down food or drink, fevers, or any other symptoms of concern. Patient Language: Armenian Prescriptions: No Action fluoxetine 40 mg Capsule 40 mg PO DAILY ibuprofen 600 mg tablet 600 mg PO Q6H PRN (Reason: cramps) Qty: 30 0RF PNV cmb#95-ferrous fumarate-FA [] 28 mg iron- 800 mcg Tablet 1 tablet PO DAILY Follow-up/Referrals: Emory Erazo MD [Physician] - (OBGYN) PHYSICIAN,MYSQL DBA [Primary Care Provider] - Time of Disposition: 21:24
[2024-03-04 21:43] VITALS: BP 121/78; PULSE 88; RESP 18; O2SAT 99
--- OUTSIDE RECORDS SUMMARY | 2024-03-11 20:23 | XMS_ITS | Encounter Summary ---
Author Organization [facility] Address [address] [place] [address] Phone Care Team Providers Care Combat Systems Engineer Name Role Phone [place] Saavedra APRN, CNP Primary Care Provid er Emory Erazo MD Unavailable [phone] Encounter Details Date Type Department Care Team (Late st Contact Info) Description 04/08/2023 11:10 AM TRANS ROUTER Lab [facility] [address] [place] [id number] [facility] Lab/Ancillary Other fatigue Discharge Disposition: Discharged to home or Selfcare Social History Tobacco Use Types Packs/Day Years Used Date Smoking Tobacco: Never Smokeless Tobacco: Never Alcohol Use Standard Drinks/Week Comments Yes 0 (1 standard drink = 0.6 oz pur e alcohol) Social-holiday events etc [facility] Utilities Answer Date Recorded In the past 12 months has [email or web address], gas, oil, or water [employer] threatened to shut off services in your home? No 04/07/2023 Social Connection and Isolat ion Panel [NHANES] Answer Date Recorded In a typical week, how many times do you talk on the phone with family, friends, or neighbors? More than three times a week 04/07/2023 How often do you get togethe r with friends or relatives? Once a week 04/07/2023 How often do you attend [facility] or temple services? More than 4 times per year 04/07/2023 Do you belong to any clubs o r organizations such as sabianist groups, unions, fraternal or athletic groups, or school groups? Patient declined 04/07/2023 How often do you attend meet ings of the clubs or organizations you belong to? Never 04/07/2023 Are you , , di vorced, , never , or living with a partner? 04/07/2023 AUDIT-C Answer Date Recorded Q1: How often do you have a drink containing alc ohol? Monthly or less 04/07/2023 Q2: How many drinks containi ng alcohol do you have on a typical day when you are drinking? 1 or 2 04/07/2023 Q3: How often do you have si x or more drinks on one occasion? Never 04/07/2023 Overall Financial Resource Strain (CARDIA) Answe r Date Recorded How hard is it for you to pa y for the very basics like food, housing, medical care, and heating? Not very hard 04/07/2023 PHQ-2 Answer Date Recorded Total Score - Questions 1-9 0 04/0 08/2022 [facility] - Occupational Stress Questionnaire Answer Date Recorded Do you feel stress - tense, restless, nervous, or anxious, or unable to sleep at night because your mind is troubled all the time - these days? Only a little 04/07/2023 Exercise Vital Sign Answer Date Recorde d On average, how many days pe r week do you engage in moderate to strenuous exercise (like a brisk walk)? 5 days 04/07/2023 On average, how many minutes do you engage in exercise at this level? 30 min 04/07/2023 Hunger Vital Sign Answer Date Recorded Within the past 12 months, y ou worried that your food would run out before you got the money to buy more. Never true 04/07/19 24 Within the past 12 months, t he food you bought just didn't last and you didn't have money to get more. Never true 04/07/2023 PRAPARE - Transportation Answer Date Re corded In the past 12 months, has l ack of transportation kept you from medical appointments or from getting medications? No 03/12 In the past 12 months, has l ack of transportation kept you from meetings, work, or from getting things needed for daily living? No 04/07/2023 Housing Stability Vital Sign Answer Nitesh e Recorded In the last 12 months, was t here a time when you were not able to pay the mortgage or rent on time? No 04/07/2023 Number of Places Lived in the Last Year Not on f ile 04/07/2023 In the last 12 months, was t here a time when you did not have a steady place to sleep or slept in a retirement (including now)? No 04/07/2023 Education Answer Date Recorded What is the highest level of school you have completed or the highest degree you have received? Bachelor's degree (e.g., BA, AB, BS) 05/17/2021 Sexually Active Control Partners Comments Yes Implant Male Comments No Sex and Gender Information Value Date Recorded Sex Assigned at Female 04/04/2023 7:31 PM TRANS ROUTER Legal Sex Female 4:36 PM CDT Gender Identity Female 04/04/2023 7:31 PM TRANS ROUTER Sexual Orientation Not on file documented as of this encounter Progress Notes * Wiliam Velez RMA - 04/08/2023 11:10 AM CST Kaylee presents for lab draw per order of [place] Saavedra APN, IT SERVICE TECHNICIAN dated 04/08/23. Specimen collected from right antecubital without incident. QUEST: Vit D, Vit B12, TSH, CMP, CBC S ROUTER S ROUTER documented in this encounter Plan of Treatment Not on file documented as of this encounter Goals Goal Patient Goal Type Associated Problems Recent Progress Patient-Stated? Author I would like ways to control my anxiety and learn coping skills . Behavioral Health On track( 022 1:47 PM TRANS ROUTER) No Ananya Crenshaw, SAMPLES AND REPAIRS PREPARER Note: Goal Reviewed with: patient today Readiness to change: Ready to change Department associated with goal: [facility] Steps to achieve goal: will identify at least two coping skills/activities/habits that have helped to manage anxiety in the past. will identify at least three new coping skills/activities/habits that may help to prevent and/or cope with anxiety. 3. Will attend individual and/or group therapy at least 1x/month Anxiety astress Depression On track( 022 1:47 PM TRANS ROUTER) Yes Reina Laguna, SAMPLES AND REPAIRS PREPARER Note: Kaylee will report an improved management of anxiety symptoms Goal Reviewed with: patient today Readiness to change: Ready to change Department associated with goal: [facility] Steps to achieve goal: will identify at least two coping skills/activities/habits that have helped to manage anxiety in the past. will identify at least three new coping skills/activities/habits that may help to prevent and/or cope with anxiety 3. Will attend individual and/or group therapy at least 1x/month documented as of this encounter Visit Diagnoses Diagnosis Other fatigue documented in this encounter Additional Health Concerns Assessment Noted Time PHQ-9 Depression Total Score: 0 06/15/19 23 2:00 PM CDT documented as of this encounter Care Teams Combat Systems Engineer Relationship Specialty Start Date End Date [place] Saavedra APRN, KRISTINE #[address] [id number] PCP - General Advanced Practice Nurse 01/26/21 Emory Erazo MD [id number] [address] Obstetrics & Gynecology 06/30/21 documented as of this encounter
--- OUTSIDE RECORDS SUMMARY | 2024-03-11 20:23 | XMS_ITS | Encounter Summary ---
Author Organization [facility] Address [address] [place] [address] Phone Care Team Providers Care Senior It Architect Name Role Phone Jamaica Saavedra APRN, CNP Primary Care Provid er Emory Erazo MD Unavailable [phone] Reason for Visit * Reason Comments Headache She is here for a 1 month follow up for headaches Encounter Details Date Type Department Care Team (Late st Contact Info) Description 05/28/2023 5:45 PM CDT Office Visit [facility] - Family Medicine [facility] [address] [place] [address] Jamaica Saavedra APRN, CNP [address] [address] Frequent headaches (Primary Dx); Generalized anxiety disorder; Major depressive disorder, recurrent, mild (HCC) Discharge Disposition: Discharged to home or Selfcare Social History Tobacco Use Types Packs/Day Years Used Date Smoking Tobacco: Never Smokeless Tobacco: Never Tobacco Cessation:Counseling Given: Yes Alcohol Use Standard Drinks/Week Comments Yes 0 (1 standard drink = 0.6 oz pur e alcohol) Social-holiday events etc C Utilities Answer Date Recorded In the past 12 months has e electric, gas, oil, or water company threatened to shut off services in your home? No 05/28/2023 Social Connection and Isolat ion Panel [NHANES] Answer Date Recorded In a typical week, how many times do you talk on the phone with family, friends, or neighbors? More than three times a week 05/28/2023 How often do you get togethe r with friends or relatives? Twice a week 05/28/2023 How often do you attend chur ch or buddhist services? More than 4 times per year 05/28/2023 Do you belong to any clubs o r organizations such as cheondoism groups, unions, fraternal or athletic groups, or school groups? No 05/28/2023 How often do you attend meet ings of the clubs or organizations you belong to? Patient declined 05/28/2023 Are you , , di vorced, , never , or living with a partner? 05/28/2023 AUDIT-C Answer Date Recorded Q1: How often do you have a drink containing alc ohol? Monthly or less 05/28/2023 Q2: How many drinks containi ng alcohol do you have on a typical day when you are drinking? 1 or 2 05/28/2023 Q3: How often do you have si x or more drinks on one occasion? Never 05/28/2023 Overall Financial Resource Strain (CARDIA) Answe r Date Recorded How hard is it for you to pa y for the very basics like food, housing, medical care, and heating? Not hard at all 05/28/2023 PHQ-2 Answer Date Recorded Total Score - Questions 1-9 0 04/0 08/2022 [facility] - Occupational Stress Questionnaire Answer Date Recorded Do you feel stress - tense, restless, nervous, or anxious, or unable to sleep at night because your mind is troubled all the time - these days? Only a little 05/28/2023 Exercise Vital Sign Answer Date Recorde d On average, how many days pe r week do you engage in moderate to strenuous exercise (like a brisk walk)? 3 days 05/28/2023 On average, how many minutes do you engage in exercise at this level? 30 min 05/28/2023 Hunger Vital Sign Answer Date Recorded Within the past 12 months, y ou worried that your food would run out before you got the money to buy more. Never true 05/28/19 24 Within the past 12 months, t he food you bought just didn't last and you didn't have money to get more. Never true 05/28/2023 PRAPARE - Transportation Answer Date Re corded In the past 12 months, has l ack of transportation kept you from medical appointments or from getting medications? No 05/09 In the past 12 months, has l ack of transportation kept you from meetings, work, or from getting things needed for daily living? No 05/28/2023 Housing Stability Vital Sign Answer Nitesh e Recorded In the last 12 months, was t here a time when you were not able to pay the mortgage or rent on time? No 05/28/2023 Number of Places Lived in the Last Year Not on f ile 05/28/2023 In the last 12 months, was t here a time when you did not have a steady place to sleep or slept in a [facility] (including now)? No 05/28/2023 Education Answer Date Recorded What is the highest level of school you have completed or the highest degree you have received? Bachelor's degree (e.g., BA, AB, BS) 05/17/2021 Sexually Active Control Partners Comments Yes Implant Male Comments No Sex and Gender Information Value Date Recorded Sex Assigned at Female 04/04/2023 7:31 PM SEAFOOD HARVESTER Legal Sex Female 4:36 PM CDT Gender Identity Female 04/04/2023 7:31 PM SEAFOOD HARVESTER Sexual Orientation Not on file documented as of this encounter Last Filed Vital Signs Vital Sign Reading Time Taken Comments Blood Pressure 114/70 05/28/2023 5:41 PM CDT Pulse 78 05/28/2023 5:41 PM CDT Temperature 36 ??C (96.8 ??F) 05/28/2023 5:41 PM CDT Respiratory Rate 14 05/28/2023 5:41 PM CDT Oxygen Saturation 100% 05/28/2023 5:41 PM CDT Inhaled Oxygen Concentration - - Weight 90.7 kg (200 lb) 05/28/2023 5:41 PM CDT Height 162.6 cm (5' 4 ) 05/28/2023 5:41 PM CDT Body Mass Index 34.33 05/28/2023 5:41 PM CDT documented in this encounter Functional Status * Audit-C Score Answer Date of Assessment Author 1 05/28/2023 3:53 PM CDT Mychart, System Background * Within the last year, have you been humiliated or emotionally abused in other ways by your partner or ex-partner? Answer Date of Assessment Author No 05/28/2023 3:53 PM CDT Mychart, System Background * Within the last year, have you been afraid of your partner or ex-partner? Answer Date of Assessment Author No 05/28/2023 3:53 PM CDT Mychart, System Background * Within the last year, have you been raped or forced to have any kind of sexual activity by your partner or ex-partner? Answer Date of Assessment Author No 05/28/2023 3:53 PM CDT Mychart, System Background * Within the last year, have you been kicked, hit, slapped, or otherwise physically hurt by your partner or ex-partner? Answer Date of Assessment Author No 05/28/2023 3:53 PM CDT Mychart, System Background * Q1: How often do you have a drink containing alcohol? Answer Date of Assessment Author Monthly or less 05/28/2023 3:53 PM CDT Mychart, System Background * Q2: How many drinks containing alcohol do you have on a typical day when you are drinking? Answer Date of Assessment Author 1 or 2 05/28/2023 3:53 PM CDT Mychart, System Background * Q3: How often do you have six or more drinks on one occasion? Answer Date of Assessment Author Never 05/28/2023 3:53 PM CDT Mychart, System Background documented as of this encounter Progress Notes * Kathy Fierro - 05/28/2023 5:45 PM CDT Kaylee Melchor is a 27 y.o. female with current BMI: Body mass index is 34.33 kg/m??. Interventions discussed including: encourage daily physical activity and well- balanced diet. * Kathy Fierro - 05/28/2023 5:45 PM CDT Kaylee Melchor, 27 y.o., female is here for Headache (She is here for a 1 month follow up for headaches) Medication Refills: Patient reports/denies need for medication refills. Orders Pended: no Requested Prescriptions No prescriptions requested or ordered in this encounter Home Medications Medication Sig Start Date End Date Taking? Authorizing Provider azelastine (ASTELIN) 0.1 % Solution 2 Sprays by Nasal route 2 times daily. Use in each nostril as directed 06/30/21 Yes Jamaica Saavedra APRN, CNP carBAMazepine (TEGretol) 100 MG Chewable Tablet Take 1 Tablet by mouth 3 times daily. 12/15/22 Yes Provider, MD David FLUoxetine (PROZAC) 40 MG Capsule TAKE 1 CAPSULE BY MOUTH EVERY DAY 05/06/23 Yes Jamaica Saavedra APRN, CNP topiramate (TOPAMAX) 25 MG Tablet Take 1 Tablet by mouth nightly. 05/10/23 Yes Jamaica Saavedra APRN, CNP There are no discontinued medications. I have reviewed the home medication list with the patient and have reconciled discrepancies. The list is accurate to the best of my knowledge. Smoking Status: Social History Tobacco Use Smoking status: Never Smokeless tobacco: Never Vaping Use Vaping Use: Never used Substance Use Topics Alcohol use: Yes Comment: Social-holiday events etc Drug use: Never Smoking Cessation Counseling Given: yes Health Care Maintenance: Health Maintenance Due Topic Date Due Hepatitis B Immunization (1 of 3 - 3-dose series) Never done Hepatitis C Virus (HCV) Screening Never done SARS-COV-2 Immunization ( season) 2022 Orders Pended: no The following BPA's have been addressed with the patient today: Mammogram, Pap, Smoking, Depression, Fall Risk, Nutrition, Advanced Care Planning, and HCC * Jamaica Saavedra APRN, CNP - 05/28/2023 5:45 PM CDT [facility] [address] [facility] [address] Dept: [phone] Dept Loc: [phone] Loc Patient: Kaylee Melchor : 1995 Sex: female Subjective Subjective: HPI: Kaylee Melchor presents for Headache (She is here for a 1 month follow up for headaches) . Patient presents today for follow up for headaches. She was started on Topiramate for two weeks. She has chronic headaches for years. No previous workup. Reports usually temples to unilateral. Shestates she has headaches everyday but will have migraines monthly where she is has nausea, vomiting, and vison changes. She started tracking her headaches and she was having them almost daily. She has not had headaches since starting Topiramate. She continues to have dizziness, feeling that the room is spinning. She states it lasts just a few seconds. She had her Nexplanon removed on 05/03. Past Medical History Positives Diagnosis Date Frequent headaches 05/28/2023 Generalized anxiety disorder 03/27/2021 Major depressive disorder, recurrent, mild (HCC) 03/27/2021 Current Outpatient Medications on File Prior to Visit Medication Sig Dispense Refill azelastine (ASTELIN) 0.1 % Solution 2 Sprays by Nasal route 2 times daily. Use in each nostril as directed 30 mL 3 Black Elderberry 50 MG/5ML Syrup Take 200 mg by mouth daily. carBAMazepine (TEGretol) 100 MG Chewable Tablet Take 1 Tablet by mouth 3 times daily. FLUoxetine (PROZAC) 40 MG Capsule TAKE 1 CAPSULE BY MOUTH EVERY DAY 90 Capsule 1 Lackey 3 1000 MG Capsule Take 224 mg by mouth daily. topiramate (TOPAMAX) 25 MG Tablet Take 1 Tablet by mouth nightly. 90 Tablet 0 No current facility-administered medications on file prior to visit. Allergies Allergen Reactions Other-Food Allergen (Not Found In Search) Hives SKIN GLUE Prednisone Palpitations Past Surgical History: Procedure Laterality Date KNEE SURGERY Left TONSILLECTOMY Social History Tobacco Use Smoking status: Never Smokeless tobacco: Never Vaping Use Vaping Use: Never used Substance Use Topics Alcohol use: Yes Comment: Social-holiday events etc Drug use: Never Review of Systems Constitutional: Negative for activity change, appetite change, chills, diaphoresis, fatigue and fever. Respiratory: Negative for cough, chest tightness, shortness of breath and wheezing. Cardiovascular: Negative for chest pain, palpitations and leg swelling. Gastrointestinal: Negative for constipation, diarrhea, nausea and vomiting. Neurological: Positive for dizziness. Negative for tremors, seizures, syncope, speech difficulty, light-headedness and headaches. Psychiatric/Behavioral: Negative for agitation, behavioral problems, confusion, decreased concentration, dysphoric mood, hallucinations, self-injury, sleep disturbance and suicidal ideas. The patientis not nervous/anxious and is not hyperactive. Objective Objective: BP 114/70 (BP Location: Left Arm, BP Position: Sitting, BP Cuff Size: Regular) Pulse 78 Temp 96.8 ??F (36 ??C) (Temporal) Resp 14 Ht 5' 4 (1.626 m) Wt 200 lb (90.7 kg) LMP 05/28/2023 (Exact Date) SpO2 100% BMI 34.33 kg/m?? Physical Exam Constitutional: General: She is not in acute distress. Appearance: She is well-developed. She is not diaphoretic. HENT: Head: Normocephalic and atraumatic. Right Ear: External ear normal. Left Ear: External ear normal. Eyes: Pupils: Pupils are equal, round, and reactive to light. Neck: Vascular: No carotid bruit. Trachea: No tracheal deviation. Cardiovascular: Rate and Rhythm: Normal rate and regular rhythm. Pulses: Normal pulses. Heart sounds: Normal heart sounds. No murmur heard. No friction rub. No gallop. Pulmonary: Effort: Pulmonary effort is normal. No respiratory distress. Breath sounds: Normal breath sounds. No stridor. No wheezing, rhonchi or rales. Abdominal: General: Bowel sounds are normal. There is no distension. Palpations: Abdomen is soft. Tenderness: There is no abdominal tenderness. There is no guarding or rebound. Musculoskeletal: General: No tenderness. Normal range of motion. Cervical back: Normal range of motion. Skin: General: Skin is dry. Neurological: Mental Status: She is alert and oriented to person, place, and time. Mental status is at baseline. Psychiatric: Mood and Affect: Mood normal. Behavior: Behavior normal. Thought Content: Thought content normal. Judgment: Judgment normal. Medical Decision Making: Assessment & Plan Diagnoses and all orders for this visit: Frequent headaches Generalized anxiety disorder Major depressive disorder, recurrent, mild (HCC) Other orders - Black Elderberry 50 MG/5ML Syrup; Take 200 mg by mouth daily. - Lackey 3 1000 MG Capsule; Take 224 mg by mouth daily. Patient is doing well on topiramate. Dizziness likely from this. She states that she would rather being to see then have headaches so will leave her on the topiramate at current dose. Hopefully this improves over the next couple of weeks. Patient follow-up in 3 months. Return in about 3 months (around 08/28/2023). documented in this encounter Plan of Treatment Not on file documented as of this encounter Goals Goal Patient Goal Type Associated Problems Recent Progress Patient-Stated? Author I would like ways to control my anxiety and learn coping skills . Behavioral Health On track( 1:47 PM SEAFOOD HARVESTER) No Ananya Crenshaw, SENIOR WEB SERVICES DEVELOPER Note: Goal Reviewed with: patient today Readiness to change: Ready to change Department associated with goal: [facility] Steps to achieve goal: will identify at least two coping skills/activities/habits that have helped to manage anxiety in the past. will identify at least three new coping skills/activities/habits that may help to prevent and/or cope with anxiety. 3. Will attend individual and/or group therapy at least 1x/month Anxiety astress Depression On track( 1:47 PM SEAFOOD HARVESTER) Yes Reina Laguna, SENIOR WEB SERVICES DEVELOPER Note: Kaylee will report an improved management of anxiety symptoms Goal Reviewed with: patient today Readiness to change: Ready to change Department associated with goal: [facility] Steps to achieve goal: will identify at least two coping skills/activities/habits that have helped to manage anxiety in the past. will identify at least three new coping skills/activities/habits that may help to prevent and/or cope with anxiety 3. Will attend individual and/or group therapy at least 1x/month documented as of this encounter Visit Diagnoses Diagnosis Frequent headaches- Primary Generalized anxiety disorder Major depressive disorder, recurrent, mild (HCC) Major depressive disorder, recurrent episode, mild documented in this encounter Additional Health Concerns Assessment Noted Time PHQ-9 Depression Total Score: 0 06/15/19 23 2:00 PM CDT documented as of this encounter Care Teams Senior It Architect Relationship Specialty Start Date End Date Jamaica Saavedra APRN, KRISTINE [address] [address] PCP - General Advanced Practice Nurse 01/26/21 Emoyr Erazo MD [id number] [address] Obstetrics & Gynecology 06/30/21 documented as of this encounter
--- OUTSIDE RECORDS SUMMARY | 2024-03-11 20:23 | XMS_ITS | Encounter Summary ---
Author Organization [facility] Address [address] [place] [address] Phone Care Team Providers Care Metal Bonding Worker Name Role Phone Jamaica Saavedra APRN, CNP Primary Care Provid er Emory Erazo MD Unavailable [phone] Reason for Visit * Reason Comments Medication Refill Encounter Details Date Type Department Care Team (Late st Contact Info) Description 11/01/2021 Refill [facility] [address] [place] [address] Jamaica Saavedra APRN, CNP [address] [id number] Medication Refill Social History Tobacco Use Types Packs/Day Years Used Date Smoking Tobacco: Never Smokeless Tobacco: Never Alcohol Use Standard Drinks/Week Comments Yes 0 (1 standard drink = 0.6 oz pur e alcohol) Social-holiday events etc PHQ-2 Answer Date Recorded Total Score - Questions 1-9 0 03/12 Education Answer Date Recorded What is the highest level of school you have completed or the highest degree you have received? Bachelor's degree (e.g., BA, AB, BS) 05/17/2021 Sexually Active Control Partners Comments Yes Implant Male Comments No Sex and Gender Information Value Date Recorded Sex Assigned at Female 04/04/2023 7:31 PM FURNITURE ASSEMBLER Legal Sex Female 4:36 PM CDT Gender Identity Female 04/04/2023 7:31 PM FURNITURE ASSEMBLER Sexual Orientation Not on file COVID-19 Exposure Response Date Recorded In the last 10 days, have yo u been in contact with someone who was confirmed or suspected to have Coronavirus/COVID-19? No / Unsure 10/03/2021 9:58 AM CDT documented as of this encounter Miscellaneous Notes * Telephone Encounter - Reyna Frazier RN - 11/01/2021 2:04 PM CDT Medication failed the protocol, provider to review and approve the medication order if appropriate. Requested Prescriptions Pending Prescriptions Disp Refills busPIRone (BUSPAR) 5 MG Tablet [Pharmacy Med Name: busPIRone HCl 5 MG Oral Tablet] 270 Tablet 0 Sig: TAKE 1 TABLET BY MOUTH THREE TIMES DAILY Buspirone (6 Month Refill Only) Protocol Failed - 11/01/2021 11:40 AM Failed - Patient has established therapy with Buspirone for at least 6 months Passed - No test in the past 12 months or most recent test was negative Passed - No active on record Passed - Visit with relevant provider in past 6 months or upcoming 90 days Recent Visits Date Type Provider Dept 10/03/21 Office Visit Jamaica Saavedra APRN, KRISTINE [facility] [place] 06/30/21 Office Visit Jamiaca Saavedra APRN, KRISTINE [facility] [place] 05/19/21 Office Visit Jamaica Saavedra APRN, KRISTINE [facility] [place] Showing recent visits within past 182 days and meeting all other requirements Future Appointments Date Type Provider Dept 11/14/21 Appointment Jamaica Saavedra APRN, KRISTINE [facility] [place] Showing future appointments within next 90 days and meeting all other requirements Passed - Has an encounter in the past 6 months with a depression or anxiety visit diagnosis documented in this encounter Plan of Treatment Not on file documented as of this encounter Goals Goal Patient Goal Type Associated Problems Recent Progress Patient-Stated? Author I would like ways to control my anxiety and learn coping skills . Behavioral Health On track( 1:47 PM FURNITURE ASSEMBLER) No Ananya Crenshaw, MID TEACHER Note: Goal Reviewed with: patient today Readiness to change: Ready to change Department associated with goal: [facility] Steps to achieve goal: will identify at least two coping skills/activities/habits that have helped to manage anxiety in the past. will identify at least three new coping skills/activities/habits that may help to prevent and/or cope with anxiety. 3. Will attend individual and/or group therapy at least 1x/month Anxiety astress Depression On track( 1:47 PM FURNITURE ASSEMBLER) Yes Reina Laguna, MID TEACHER Note: Kaylee will report an improved management of anxiety symptoms Goal Reviewed with: patient today Readiness to change: Ready to change Department associated with goal: [facility] Steps to achieve goal: will identify at least two coping skills/activities/habits that have helped to manage anxiety in the past. will identify at least three new coping skills/activities/habits that may help to prevent and/or cope with anxiety 3. Will attend individual and/or group therapy at least 1x/month documented as of this encounter Visit Diagnoses Diagnosis Generalized anxiety disorder Major depressive disorder, recurrent, mild (HCC) Major depressive disorder, recurrent episode, mild documented in this encounter Care Teams Metal Bonding Worker Relationship Specialty Start Date End Date Jamaica Saavedra APRN, CNP #[address] [id number] PCP - General Advanced Practice Nurse 01/26/21 Emory Erazo MD [id number] [id number] Obstetrics & Gynecology 06/30/21 documented as of this encounter
--- OUTSIDE RECORDS SUMMARY | 2024-03-11 20:23 | XMS_ITS | Encounter Summary ---
Author Organization [employer] Care Team Providers Care Referral Manager Name Role Phone [place] Saavedra APRN, CNP Primary Care Provid er Emory Erazo MD Unavailable Encounter Details Date Type Department Care Team (Latest Contact Info) Description 12/13/2023 Travel Social History Tobacco Use Types Packs/Day Years Used Date Smoking Tobacco: Never Smokeless Tobacco: Never Alcohol Use Standard Drinks/Week Comments Yes 0 (1 standard drink = 0.6 oz pur e alcohol) Social-holiday events etc C Utilities Answer Date Recorded In the past 12 months has [employer] electric, gas, oil, or water company threatened [...] often do you attend chur ch or scientologist services? More than 4 times per year 05/28/2023 Do you belong to any clubs o r organizations such as taoism groups, unions, fraternal or athletic groups, or [...] Score - Questions 1-9 0 04/0 08/2022 [facility] - Occupational Stress [...] place to sleep or slept in a long term (including now)? No 05/28/2023 Education Answer Date Recorded What is the highest level of school you have completed or the highest degree you have received? Bachelor's degree (e.g., BA, AB, BS) 05/17/2021 Sexually Active Control Partners Comments Yes Implant Male Comments No Sex and Gender Information Value Date Recorded Sex Assigned at Female 04/04/2023 7:31 PM ELECTROPLATER AUTOMATIC Legal Sex Female 4:36 PM CDT Gender Identity Female 04/04/2023 7:31 PM ELECTROPLATER AUTOMATIC Sexual Orientation Not on file documented as of this encounter Plan of Treatment Not on file documented as of this encounter Goals Goal Patient Goal Type Associated Problems Recent Progress Patient-Stated? Author I would like ways to control my anxiety and learn coping skills . Behavioral Health On track( 1:47 PM ELECTROPLATER AUTOMATIC) No Ananya Crenshaw, EXPRESSIVE MUSIC THERAPIST Note: Goal Reviewed with: patient today Readiness to change: Ready to change Department associated with goal: [facility] Steps to achieve goal: will identify at least two coping skills/activities/habits that have helped to manage anxiety in the past. will identify at least three new coping skills/activities/habits that may help to prevent and/or cope with anxiety. 3. Will attend individual and/or group therapy at least 1x/month Anxiety astress Depression On track( 1:47 PM ELECTROPLATER AUTOMATIC) Yes Reina Laguna, EXPRESSIVE MUSIC THERAPIST Note: Kaylee will report an improved management of anxiety symptoms Goal Reviewed with: patient today Readiness to change: Ready to change Department associated with goal: [facility] Steps to achieve goal: will identify at least two coping skills/activities/habits that have helped to manage anxiety in the past. will identify at least three new coping skills/activities/habits that may help to prevent and/or cope with anxiety 3. Will attend individual and/or group therapy at least 1x/month documented as of this encounter Visit Diagnoses Not on filedocumented in this encounter Additional Health Concerns Assessment Noted Time PHQ-9 Depression Total Score: 0 06/15/19 23 2:00 PM CDT documented as of this encounter Care Teams Referral Manager Relationship Specialty Start Date End Date [place] Saavedra APRN, CONTINUOUS PROCESS MACHINE OPERATOR #[address] [phone] PCP - General Advanced Practice Nurse 01/26/21 Emory Erazo MD [address] [address] Obstetrics & Gynecology 06/30/21 documented as of this encounter
--- OUTSIDE RECORDS SUMMARY | 2024-03-11 20:23 | XMS_ITS | Encounter Summary ---
Author Organization [employer] Care Team Providers Care Human Resources Services Specialist Name Role Phone [place] Saavedra APRN, CNP Primary Care Provid er Emory Erazo MD Unavailable [phone] Encounter Details Date Type Department Care Team (Latest Contact Info) Description 04/07/2023 Travel Social History Tobacco Use Types Packs/Day Years Used Date Smoking Tobacco: Never Smokeless Tobacco: Never Alcohol Use Standard Drinks/Week Comments Yes 0 (1 standard drink = 0.6 oz pur e alcohol) Social-holiday events etc C Utilities Answer Date Recorded In the past 12 months has [employer] electric, gas, oil, or water company threatened [...] week 04/07/2023 How often do you attend chur ch or mosque services? More than 4 times per year [...] Score - Questions 1-9 0 04/0 08/2022 [facility] Occup[facility] ional Health - Occupational Stress [...] place to sleep or slept in a detention (including now)? No 04/07/2023 Education Answer Date Recorded What is the highest level of school you have completed or the highest degree you have received? Bachelor's degree (e.g., BA, AB, BS) 05/17/2021 Sexually Active Control Partners Comments Yes Implant Male Comments No Sex and Gender Information Value Date Recorded Sex Assigned at Female 04/04/2023 7:31 PM TOP STEEP TENDER Legal Sex Female 4:36 PM CDT Gender Identity Female 04/04/2023 7:31 PM TOP STEEP TENDER Sexual Orientation Not on file documented as of this encounter Functional Status * Audit-C Score Answer Date of Assessment Author 1 04/07/2023 5:39 PM TOP STEEP TENDER Mychart, System Background * Within the last year, have you been humiliated or emotionally abused in other ways by your partner or ex-partner? Answer Date of Assessment Author No 04/07/2023 5:39 PM TOP STEEP TENDER Mychart, System Background * Within the last year, have you been afraid of your partner or ex-partner? Answer Date of Assessment Author No 04/07/2023 5:39 PM TOP STEEP TENDER Mychart, System Background * Within the last year, have you been raped or forced to have any kind of sexual activity by your partner or ex-partner? Answer Date of Assessment Author No 04/07/2023 5:39 PM TOP STEEP TENDER Mychart, System Background * Within the last year, have you been kicked, hit, slapped, or otherwise physically hurt by your partner or ex-partner? Answer Date of Assessment Author No 04/07/2023 5:39 PM TOP STEEP TENDER Mychart, System Background * Q1: How often do you have a drink containing alcohol? Answer Date of Assessment Author Monthly or less 04/07/2023 5:39 PM TOP STEEP TENDER Mychart, System Background * Q2: How many drinks containing alcohol do you have on a typical day when you are drinking? Answer Date of Assessment Author 1 or 2 04/07/2023 5:39 PM TOP STEEP TENDER Mychart, System Background * Q3: How often do you have six or more drinks on one occasion? Answer Date of Assessment Author Never 04/07/2023 5:39 PM TOP STEEP TENDER Mychart, System Background documented as of this encounter Plan of Treatment Not on file documented as of this encounter Goals Goal Patient Goal Type Associated Problems Recent Progress Patient-Stated? Author I would like ways to control my anxiety and learn coping skills . Behavioral Health On track( 1:47 PM TOP STEEP TENDER) No Ananya Crenshaw, CHANGE CONTROL SPECIALIST Note: Goal Reviewed with: patient today Readiness to change: Ready to change Department associated with goal: [facility] Steps to achieve goal: will identify at least two coping skills/activities/habits that have helped to manage anxiety in the past. will identify at least three new coping skills/activities/habits that may help to prevent and/or cope with anxiety. 3. Will attend individual and/or group therapy at least 1x/month Anxiety astress Depression On track( 1:47 PM TOP STEEP TENDER) Yes Reina Laguna, CHANGE CONTROL SPECIALIST Note: Kaylee will report an improved management of anxiety symptoms Goal Reviewed with: patient today Readiness to change: Ready to change Department associated with goal: [facility] Steps to achieve goal: [...] documented as of this encounter Care Teams Human Resources Services Specialist Relationship Specialty Start Date End Date [place] Saavedra APRN, DAIRY MANAGER #[address] [phone] PCP - General Advanced Practice Nurse 01/26/21 Emory Erazo MD [address] [phone] Obstetrics & Gynecology 06/30/21 documented as of this encounter
--- OUTSIDE RECORDS SUMMARY | 2024-03-11 20:23 | XMS_ITS | Encounter Summary ---
Author Organization [facility] Address [address] [place] [address] Phone Care Team Providers Care S3B Multi Sensor Operator Name Role Phone [place] Saavedra APRN, CNP Primary Care Provid er Emory Erazo MD Unavailable [phone] Reason for Visit * Reason Onset Date Comments Medication Refill 04/30/2022 Encounter Details Date Type Department Care Team (Late st Contact Info) Description 04/30/2022 Refill [facility] - [facility] - [place] [address] [place] [address] [place] Saavedra APRN, CNP [address] [address] Medication Refill Social History Tobacco [...] Sex Assigned at Female 04/04/2023 7:31 PM ACID LEVELER Legal Sex Female 4:36 PM CDT Gender Identity Female 04/04/2023 7:31 PM ACID LEVELER Sexual Orientation Not on file documented as of this encounter Miscellaneous Notes * Telephone Encounter - Reyna Frazier RN - 05/01/2022 8:13 AM CST Medication(s) refilled and signed per [facility] Chronic Medication Refill Standing Order for Pediatricand Adult Patients. Requested Prescriptions Pending Prescriptions Disp Refills ??? FLUoxetine (PROZAC) 40 MG Capsule 90 Capsule 0 Sig: Take 1 Capsule by mouth daily. SSRI (6 Month Refill Only) Protocol Passed - 04/30/2022 3:53 PM Passed - No test in the past 12 months or most recent test was negative Passed - No active on record Passed - Visit with relevant provider in past 6 months or upcoming 90 days Recent Visits Date Type Provider Dept 11/14/21 Office Visit [place] Saavedra APRN, FILM SPOOLER [facility] Showing recent visits within past 182 days and meeting all other requirements Future Appointments No visits were found meeting these conditions. Showing future appointments within next 90 days and meeting all other requirements Passed - Patient has established therapy with SSRI for at least 6 months Passed - Has an encounter in the past 6 months with a depression, anxiety, adjustment disorder, OCD, or PTSD visit diagnosis Refused Prescriptions Disp Refills ??? busPIRone (BUSPAR) 5 MG Tablet 270 Tablet 0 Sig: Take 1 Tablet by mouth 3 times daily. Buspirone (6 Month Refill Only) Protocol Failed - 04/30/2022 3:53 PM Failed - Active on medication list Passed - No test in the past 12 months or most recent test was negative Passed - No active on record Passed - Visit with relevant provider in past 6 months or upcoming 90 days Recent Visits Date Type Provider Dept 11/14/21 Office Visit Jamaica Saavedra APRN, FILM SPOOLER [facility] [place] Showing recent visits within past 182 days and meeting all other requirements Future Appointments No visits were found meeting these conditions. Showing future appointments within next 90 days and meeting all other requirements Passed - Has an encounter in the past 6 months with a depression or anxiety visit diagnosis Passed - Patient has established therapy with Buspirone for at least 6 months LEVELER * Telephone Encounter - Reyna Frazier RN - 05/01/2022 8:11 AM CST busPIRone (BUSPAR) 5 MG Tablet The original prescription was discontinued on 11/14/2021 by [place] Saavedra APRN, FILM SPOOLER Per 11/14/21 [facility] note - discontinued due to side effects LEVELER * Telephone Encounter - Jeanine Crook - 04/30/2022 3:39 PM CST Pharmacy called requested refill LEVELER documented in this encounter Plan of Treatment Not on file documented as of this encounter Goals Goal Patient Goal Type Associated Problems Recent Progress Patient-Stated? Author I would like ways to control my anxiety and learn coping skills . Behavioral Health On track( 1:47 PM ACID LEVELER) No Ananya Crenshaw, CAR INSTALLATIONS SUPERVISOR Note: Goal Reviewed with: patient today Readiness to change: Ready to change Department associated with goal: [facility] Steps to achieve goal: will identify at least two coping skills/activities/habits that have helped to manage anxiety in the past. will identify at least three new coping skills/activities/habits that may help to prevent and/or cope with anxiety. 3. Will attend individual and/or group therapy at least 1x/month Anxiety astress Depression On track( 1:47 PM ACID LEVELER) Yes Reina Laguna CAR INSTALLATIONS SUPERVISOR Note: Kaylee will report an improved management of anxiety symptoms Goal Reviewed with: patient today Readiness to change: Ready to change Department associated with goal: [facility] Steps to achieve [...] mild documented in this encounter Care Teams S3B Multi Sensor Operator Relationship Specialty Start Date End Date [place] Saavedra APRN, CNP #[address] [phone] PCP - General Advanced Practice Nurse 01/26/21 Emory Erazo MD [address] [address] Obstetrics & Gynecology 06/30/21 documented as of this encounter
--- OUTSIDE RECORDS SUMMARY | 2024-03-11 20:23 | XMS_ITS | Encounter Summary ---
Author Organization [facility] Address [address] [place] [address] Phone Care Team Providers Care Solar Installation Crew Supervisor Name Role Phone Jamaica Saavedra APRN, CNP Primary Care Provid er Emory Erazo MD Unavailable [phone] Reason for Visit * Reason Comments Cough Patient is here for a cough x 3 weeks, has taken weekly covid tests all are negative Encounter Details Date Type Department Care Team (Late st Contact Info) Description 06/14/2022 3:30 PM CDT Office Visit [facility] - Family Medicine [facility] [address] [place] [phone] Jamaica Saavedra APRN, CNP [address] [phone] Bronchitis (Primary Dx) Discharge Disposition: Discharged to home or Selfcare Social History Tobacco Use Types Packs/Day Years Used Date Smoking Tobacco: Never Smokeless Tobacco: Never Tobacco Cessation:Counseling Given: Yes Alcohol Use Standard Drinks/Week Comments Yes 0 (1 standard drink = 0.6 oz pur e alcohol) Social-holiday events etc PHQ-2 Answer Date Recorded Total Score - Questions 1-9 0 0408/2022 Education Answer Date Recorded What is the highest level of school you have completed or the highest degree you have received? Bachelor's degree (e.g., BA, AB, BS) 05/17/2021 Sexually Active Control Partners Comments Yes Implant Male Comments No Sex and Gender Information Value Date Recorded Sex Assigned at Female 04/04/2023 7:31 PM NEWS WRITER Legal Sex Female 4:36 PM CDT Gender Identity Female 04/04/2023 7:31 PM NEWS WRITER Sexual Orientation Not on file COVID-19 Exposure Response Date Recorded In the last 10 days, have yo u been in contact with someone who was confirmed or suspected to have Coronavirus/COVID-19? No / Unsure 06/14/2022 2:46 PM CDT documented as of this encounter Last Filed Vital Signs Vital Sign Reading Time Taken Comments Blood Pressure 122/78 06/14/2022 2:52 PM CDT Pulse 88 06/14/2022 2:52 PM CDT Temperature 36.6 ??C (97.9 ??F) 06/14/2022 2:52 PM CD T Respiratory Rate 14 06/14/2022 2:52 PM CDT Oxygen Saturation 99% 06/14/2022 2:52 PM CDT Inhaled Oxygen Concentration - - Weight 87.1 kg (192 lb) 06/14/2022 2:52 PM CDT Height 162.6 cm (5' 4 ) 06/14/2022 2:52 PM CDT Body Mass Index 32.96 06/14/2022 2:52 PM CDT documented in this encounter Functional Status * Question Answer Date of Assessment Author Little interest or pleasure in doing things Not at all 06/14/2022 2:00 PM CDT Kathy Fierro Feeling down, depressed, or hopeless Not at all 06/14/2022 2:00 PM CDT Kathy Fierro * Over the past 2 weeks, how often have you been bothered by any of the following problems? Question Answer Date of Assessment Author Patient Health Questionnaire-2 Score 0 08/2022 2:00 PM CDT Kathy Fierro documented as of this encounter Progress Notes * Kathy Fierro - 06/14/2022 3:30 PM CDT Kaylee Darshana Melchor, 26 y.o., female is here for Cough (Patient is here for a cough x 3 weeks, has takenweekly covid tests all are negative) Medication Refills: Patient reports/denies need for medication refills. Orders Pended: no Requested Prescriptions No prescriptions requested or ordered in this encounter Home Medications Medication Sig Start Date End Date Taking? Authorizing Provider azelastine (ASTELIN) 0.1 % Solution 2 Sprays by Nasal route 2 times daily. Use in each nostril as directed 06/30/21 Yes Jamaica Saavedra APRN, CNP FLUoxetine (PROZAC) 40 MG Capsule Take 1 Capsule by mouth daily. 05/01/22 Yes Jamaica Saavedra APRN, CNP traMADol (ULTRAM) 50 MG Tablet Take 1 Tablet by mouth every 6 hours as needed for Moderate or more severe pain. Patient not taking: Reported on 06/14/2022 05/26/22 Jeffrey Rojas MD There are no discontinued medications. I have reviewed the home medication list with the patient and have reconciled discrepancies. The list is accurate to the best of my knowledge. Smoking Status: Social History Tobacco Use ??? Smoking status: Never ??? Smokeless tobacco: Never Vaping Use ??? Vaping Use: Never used Substance Use Topics ??? Alcohol use: Yes Comment: Social-holiday events etc ??? Drug use: Never Smoking Cessation Counseling Given: yes Health Care Maintenance: Health Maintenance Due Topic Date Due ??? Hepatitis B Immunization (1 of 3 - 3-dose series) Never done ??? SARS-COV-2 Immunization (4 - Booster for Pfizer series) 05/10/2021 ??? Pap Smear 10/06/2021 Orders Pended: no The following BPA's have been addressed with the patient today: Mammogram, Pap, Smoking, Depression, Fall Risk, Nutrition, Advanced Care Planning and HCC * Jamaica Saavedra APRN, CNP - 06/14/2022 3:30 PM CDT [facility] [facility] [id number] Dept: [phone] Dept Loc: [phone] Loc Patient: Kaylee Melchor : 1995 Sex: female Subjective Subjective: HPI: Kaylee Melchor presents for Cough (Patient is here for a cough x 3 weeks, has taken weekly covid tests all are negative) . Patient presents today with a productive cough and follow up for ruptured ear drum. She tested negative for COVID. She has a productive cough and ear pain still. She was placed on Augmentin for 10 days which helped but then once it was finished it came back. History reviewed. No pertinent past medical history. Current Outpatient Medications on File Prior to Visit Medication Sig Dispense Refill ??? azelastine (ASTELIN) 0.1 % Solution 2 Sprays by Nasal route 2 times daily. Use in each nostril as directed 30 mL 3 ??? FLUoxetine (PROZAC) 40 MG Capsule Take 1 Capsule by mouth daily. 90 Capsule 0 ??? traMADol (ULTRAM) 50 MG Tablet Take 1 Tablet by mouth every 6 hours as needed for Moderate or more severe pain. (Patient not taking: Reported on 06/14/2022) 20 Tablet 0 No current facility-administered medications on file prior to visit. Allergies Allergen Reactions ??? Other-Food Allergen (Not Found In Search) Hives SKIN GLUE ??? Prednisone Palpitations Past Surgical History: Procedure Laterality Date ??? KNEE SURGERY Left ??? TONSILLECTOMY Social History Tobacco Use ??? Smoking status: Never ??? Smokeless tobacco: Never Vaping Use ??? Vaping Use: Never used Substance Use Topics ??? Alcohol use: Yes Comment: Social-holiday events etc ??? Drug use: Never Review of Systems Constitutional: Positive for activity change, chills, diaphoresis and fatigue. Negative for fever. HENT: Positive for congestion, ear pain (right), postnasal drip and rhinorrhea. Negative for dentalproblem, drooling, ear discharge, facial swelling, hearing loss, mouth sores, nosebleeds, sinus pressure, sinus pain, sneezing, sore throat, tinnitus, trouble swallowing and voice change. Eyes: Negative for pain and redness. Respiratory: Positive for cough, chest tightness, shortness of breath and wheezing. Negative for choking. Cardiovascular: Negative for chest pain and palpitations. Gastrointestinal: Negative for constipation, diarrhea, nausea and vomiting. Musculoskeletal: Negative for myalgias. Neurological: Positive for headaches. Negative for dizziness and light-headedness. Objective Objective: BP 122/78 (BP Location: Left Arm, BP Position: Sitting, BP Cuff Size: Regular) Pulse 88 Temp 97.9 ??F (36.6 ??C) (Temporal) Resp 14 Ht 5' 4 (1.626 m) Wt 192 lb (87.1 kg) LMP 06/12/2022 (Exact Date) SpO2 99% BMI 32.96 kg/m?? Physical Exam Vitals and nursing note reviewed. Constitutional: General: She is not in acute distress. Appearance: Normal appearance. She is well-developed. She is not diaphoretic. HENT: Head: Normocephalic and atraumatic. Right Ear: Tympanic membrane, ear canal and external ear normal. Left Ear: Tympanic membrane, ear canal and external ear normal. Nose: Congestion and rhinorrhea present. Mouth/Throat: Mouth: Mucous membranes are moist. Pharynx: Oropharynx is clear. Posterior oropharyngeal erythema present. Eyes: Conjunctiva/sclera: Conjunctivae normal. Pupils: Pupils are equal, round, and reactive to light. Neck: Vascular: No carotid bruit. Trachea: No tracheal deviation. Cardiovascular: Rate and Rhythm: Normal rate and regular rhythm. Pulses: Normal pulses. Heart sounds: Normal heart sounds. No murmur heard. No friction rub. No gallop. Pulmonary: Effort: Pulmonary effort is normal. No respiratory distress. Breath sounds: No stridor. Examination of the right-upper field reveals wheezing. Examination of the left-upper field reveals wheezing. Wheezing present. No rhonchi or rales. Musculoskeletal: General: Normal range of motion. Cervical back: Normal range of motion and neck supple. No tenderness. Lymphadenopathy: Cervical: No cervical adenopathy. Skin: General: Skin is warm and dry. Neurological: General: No focal deficit present. Mental Status: She is alert and oriented to person, place, and time. Mental status is at baseline. Cranial Nerves: No cranial nerve deficit. Medical Decision Making: Assessment & Plan Diagnoses and all orders for this visit: Bronchitis - ipratropium-albuterol (DUO-NEB) 0.5-2.5 (3) MG/3ML nebulizer solution 3 mL - methylPREDNISolone (MEDROL DOSPACK) 4 MG Tablet Therapy Pack; Use as per instructions on package. - doxycycline hyclate (VIBRAMYCIN) 100 MG Capsule; Take 1 Capsule by mouth 2 times daily for 10 days. - Benzonatate 200 MG Capsule; Take 1 Capsule by mouth 3 times daily as needed for Cough for up to 14 days. wheezes noted, duo neb administered which improved aeration. Patient to start medrol dose pack, doxycyline and tessalon Perles. Continue OTC medication as well. Return if symptoms worsen or fail to improve. * Tova Fish MA - 06/14/2022 3:30 PM CDT Patient admistered duo neb per Jamaica Saavedra orders documented in this encounter Plan of Treatment Not on file documented as of this encounter Goals Goal Patient Goal Type Associated Problems Recent Progress Patient-Stated? Author I would like ways to control my anxiety and learn coping skills . Behavioral Health On track( 1:47 PM NEWS WRITER) No Ananya Crenshaw LCSW Note: Goal Reviewed with: patient today Readiness to change: Ready to change Department associated with goal: [facility] Steps to achieve goal: will identify at least two coping skills/activities/habits that have helped to manage anxiety in the past. will identify at least three new coping skills/activities/habits that may help to prevent and/or cope with anxiety. 3. Will attend individual and/or group therapy at least 1x/month Anxiety astress Depression On track( 1:47 PM NEWS WRITER) Yes Reina Laguna LCSW Note: Kaylee will report an improved management of anxiety symptoms Goal Reviewed with: patient today Readiness to change: Ready to change Department associated with goal: [facility] Steps to achieve goal: will identify at least two coping skills/activities/habits that have helped to manage anxiety in the past. will identify at least three new coping skills/activities/habits that may help to prevent and/or cope with anxiety 3. Will attend individual and/or group therapy at least 1x/month documented as of this encounter Visit Diagnoses Diagnosis Bronchitis- Primary Bronchitis, not specified as acute or chronic documented in this encounter Administered Medications Inactive Administered Medications - up to 3 most recent administrations Medication Order MAR Action Action Date Dose Rate Site ipratropium-albuterol (DUO-NEB) 0.5-2.5 (3) MG/3ML nebulizer solution 3 mL 3 mL, Nebulization, ONCE, 1 dose, On Angella 06/14/22 at 1530Indications:Bronchitis Given 06/14/2022 3:15 PM CDT 3 mL documented in this encounter Additional Health Concerns Assessment Noted Time PHQ-9 Depression Total Score: 0 06/15/19 23 2:00 PM CDT documented as of this encounter Care Teams Solar Installation Crew Supervisor Relationship Specialty Start Date End Date Jamaica Saavedra APRN, QA REVIEWER #[address] [phone] PCP - General Advanced Practice Nurse 01/26/21 Emory Erazo MD [address] [id number] Obstetrics & Gynecology 06/30/21 documented as of this encounter
--- OUTSIDE RECORDS SUMMARY | 2024-03-11 20:23 | XMS_ITS | Encounter Summary ---
Author Organization [facility] Address [address] [place] [address] Phone Care Team Providers Care Environmental Planning Engineer Name Role Phone Jamaica Saavedra APRN, CNP Primary Care Provid er Emory Erazo MD Unavailable [phone] Reason for Referral * Radiology Services (Routine) - Closed Specialty Diagnoses / Procedures Referred By Contac t Referred To Contact Radiology Diagnoses Gestational edema, antepartum Procedures US LEFT DUPLEX LOWER EXTREMITY VEINS Emory Erazo MD [address] [address] Phone: tel: fax: Referral ID Status Reason Start Date Expiration Date Visits Re quested Visits Authorized [id number] Closed 12/13/2023 1 1 Reason for Visit * Radiology Services (Routine) - Closed Specialty Diagnoses / Procedures Referred By Contac t Referred To Contact Radiology Diagnoses Gestational edema, antepartum Procedures US LEFT DUPLEX LOWER EXTREMITY VEINS Emory Erazo MD [address] [address] Phone: tel: fax: Referral ID Status Reason Start Date Expiration Date Visits Re quested Visits Authorized [id number] Closed 12/13/2023 1 1 Encounter Details Date Type Department Care Team (Latest Contact Info) Description 12/13/2023 4:30 PM CDT - 12/13/2023 11:59 PM CDT Hospital Encounter [facility] Ultrasound [address] [place] [address] Emory Erazo MD [address] [place] [address] Discharge Disposition: Discharged to home or Selfcare Social History Tobacco Use Types Packs/Day Years Used Date Smoking Tobacco: Never Smokeless Tobacco: Never Alcohol Use Standard Drinks/Week Comments Yes 0 (1 standard drink = 0.6 oz pur e alcohol) Social-holiday events etc [facility] Utilities Answer Date Recorded In the past 12 months has e Events Core, gas, oil, or water company threatened to [...] often do you attend chur ch or spiritism services? More than 4 times per year 05/28/2023 Do you belong to any clubs o r organizations such as restorationism groups, unions, fraternal or athletic groups, or [...] Score - Questions 1-9 0 04/0 08/2022 [facility] - Occupational Stress Questionnaire Answer Date Recorded [...] place to sleep or slept in a fdc (including now)? No 05/28/2023 Education Answer Date Recorded What is the highest level of school you have completed or the highest degree you have received? Bachelor's degree (e.g., BA, AB, BS) 05/17/2021 Sexually Active Control Partners Comments Yes Implant Male Comments No Sex and Gender Information Value Date Recorded Sex Assigned at Female 04/04/2023 7:31 PM BARREL RIFLER Legal Sex Female 4:36 PM CDT Gender Identity Female 04/04/2023 7:31 PM BARREL RIFLER Sexual Orientation Not on file documented as of this encounter Medications at Time of Discharge azelastine (ASTELIN) 0.1 % SolutionIndicatio ns:Sinus congestion 2 Sprays by Nasal route 2 times daily. Use in each nostril as directed 30 mL 3 06/30/2021 Black Elderberry 50 MG/5ML Syrup Take 200 mg by mouth daily. carBAMazepine (TEGretol) 100 MG Chewable Tablet Take 1 Tablet by mouth 3 times daily. 12/15/2022 FLUoxetine (PROZAC) 40 MG CapsuleIndication s:Generalized anxiety disorder,Major depressive disorder, recurrent, mild (HCC) TAKE 1 CAPSULE BY MOUTH EVERY DAY 90 Capsule 1 05/06/2023 Fritch 3 1000 MG Capsule Take 224 mg by mouth daily. topiramate (TOPAMAX) 25 MG TabletIndications :Frequent headaches Take 1 Tablet by mouth nightly. 90 Tablet 05/10/2023 documented as of this encounter Plan of Treatment Not on file documented as of this encounter Goals Goal Patient Goal Type Associated Problems Recent Progress Patient-Stated? Author I would like ways to control my anxiety and learn coping skills . Behavioral Health On track( 1:47 PM BARREL RIFLER) No Ananya Crenshaw LCSW Note: Goal Reviewed with: patient today Readiness to change: Ready to change Department associated with goal: [facility] Steps to achieve goal: will identify at least two coping skills/activities/habits that have helped to manage anxiety in the past. will identify at least three new coping skills/activities/habits that may help to prevent and/or cope with anxiety. 3. Will attend individual and/or group therapy at least 1x/month Anxiety astress Depression On track( 1:47 PM BARREL RIFLER) Yes Reina Laguna LCSW Note: Kaylee will report an improved management of anxiety symptoms Goal Reviewed with: patient today Readiness to change: Ready to change Department associated with goal: [facility] Steps to achieve goal: will identify at least two coping skills/activities/habits that have helped to manage anxiety in the past. will identify at least three new coping skills/activities/habits that may help to prevent and/or cope with anxiety 3. Will attend individual and/or group therapy at least 1x/month documented as of this encounter Procedures Procedure Name Priority Date/Time Associated Diagnosis Comments US LEFT DUPLEX LOWER EXTREMITY VEINS STAT 12/13/2023 4:48 PM CDT Gestational edema, antepartum documented in this encounter Results * US LEFT DUPLEX LOWER EXTREMITY VEINS (12/13/2023 4:48 PM CDT) Anatomical Region Laterality Modality vascular Left Ultrasound 12/13/2023 5:22 PM CDT Impressions 12/13/2023 5:25 PM CDT IMPRESSION: ?? No evidence of left lower extremity deep venous thrombosis. Narrative 12/13/2023 5:25 PM CDT EXAM DESCRIPTION: ?? US LEFT DUPLEX LOWER EXTREMITY VEINS REASON FOR STUDY: ?? Left leg swelling with . ??1 day TECHNIQUE: Duplex scan using the B-mode, spectral Doppler, and color-flow Doppler of the deep venous system of the ??left ??lower extremity was performed. Images stored on PACS. COMPARISON: ?? None FINDINGS: The common femoral, common femoral-saphenous vein confluence, visualized profunda femoral, superficial femoral, and popliteal veins are readily compressible with no intraluminal thrombus on rivas scale images. ??There is normal color and spectral Doppler signal, including augmentation. ??Greater saphenous vein appears patent. Visualized calf veins are patent. THIS IS AN ELECTRONICALLY VERIFIED FINAL REPORT 12/13/2023 5:22 PM - Electronically signed by ??Joe Haile M.D. LL: KORINA D: ??12/13/2023 5:22 PM T: ??12/13/2023 5:22 PM Report ID: [id number] Reading Location: ??[id number] Procedure Note Joe Haile MD - 12/13/2023 EXAM DESCRIPTION: US LEFT DUPLEX LOWER EXTREMITY VEINS REASON FOR STUDY: Left leg swelling with . 1 day TECHNIQUE: Duplex scan using the B-mode, spectral Doppler, and color-flow Doppler of the deep venous system of the left lower extremity was performed. Images stored on PACS. COMPARISON: None FINDINGS: The common femoral, common femoral-saphenous vein confluence, visualized profunda femoral, superficial femoral, and popliteal veins are readily compressible with no intraluminal thrombus on rivas scale images. There is normal color and spectral Doppler signal, including augmentation. Greater saphenous vein appears patent. Visualized calf veins are patent. THIS IS AN ELECTRONICALLY VERIFIED FINAL REPORT 12/13/2023 5:22 PM - Electronically signed by Joe Haile M.D. LL: KORINA Report ID: [id number] Reading Location: [id number] IMPRESSION: No evidence of left lower extremity deep venous thrombosis. Emory Erazo MD [facility] US ORDERABLES Final Result documented in this encounter Visit Diagnoses Diagnosis Gestational edema, antepartum Edema or excessive weight gain, antepartum documented in this encounter Additional Health Concerns Assessment Noted Time PHQ-9 Depression Total Score: 0 06/15/19 23 2:00 PM CDT documented as of this encounter Care Teams Environmental Planning Engineer Relationship Specialty Start Date End Date Jamaica Saavedra APRN, DIRECTOR AND PROFESSOR #[address] [phone] PCP - General Advanced Practice Nurse 01/26/21 Emory Erazo MD [address] [address] Obstetrics & Gynecology 06/30/21 documented as of this encounter
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
--- OUTSIDE RECORDS SUMMARY | 2024-03-11 20:23 | XMS_ITS | Encounter Summary ---
Author Organization [employer] Care Team Providers Care Microsoft Dynamics Ax Developer Name Role Phone Jamaica Saavedra APRN, CNP Primary Care Provid er Emory Erazo MD Unavailable [phone] Encounter Details Date Type Department Care Team (Latest Contact Info) Description 02/06/2022 Travel Social History Tobacco Use Types Packs/Day [...] Sex Assigned at Female 04/04/2023 7:31 PM TIRE SERVICER Legal Sex Female 4:36 PM CDT Gender Identity Female 04/04/2023 7:31 PM TIRE SERVICER Sexual Orientation Not on file COVID-19 Exposure Response Date Recorded In the last 10 days, have yo u been in contact with someone who was confirmed or suspected to have Coronavirus/COVID-19? No / Unsure 02/06/2022 12:04 PM TIRE SERVICER documented as of this encounter Plan of Treatment Not on file documented as of this encounter Goals Goal Patient Goal Type Associated Problems Recent Progress Patient-Stated? Author I would like ways to control my anxiety and learn coping skills . Behavioral Health On track( 1:47 PM TIRE SERVICER) No Ananya Crenshaw, COMMUNITY ORGANIZER Note: Goal Reviewed with: patient today Readiness to change: Ready to change Department associated with goal: [facility] Steps to achieve goal: will identify at least two coping skills/activities/habits that have helped to manage anxiety in the past. will identify at least three new coping skills/activities/habits that may help to prevent and/or cope with anxiety. 3. Will attend individual and/or group therapy at least 1x/month Anxiety astress Depression On track( 022 1:47 PM TIRE SERVICER) Yes Reina Laguna, COMMUNITY ORGANIZER Note: Kaylee will report an improved management of anxiety symptoms Goal Reviewed with: patient today Readiness to change: Ready to change Department associated with goal: [facility] Steps to achieve goal: will identify at least two coping skills/activities/habits that have helped to manage anxiety in the past. will identify at least three new coping skills/activities/habits that may help to prevent and/or cope with anxiety 3. Will attend individual and/or group therapy at least 1x/month documented as of this encounter Visit Diagnoses Not on filedocumented in this encounter Care Teams Microsoft Dynamics Ax Developer Relationship Specialty Start Date End Date Jamaica Saavedra APRN, CNP #[address] [phone] PCP - General Advanced Practice Nurse 01/26/21 Emory Erazo MD [address] [id number] Obstetrics & Gynecology 06/30/21 documented as of this encounter
--- OUTSIDE RECORDS SUMMARY | 2024-03-11 20:23 | XMS_ITS | Encounter Summary ---
Author Organization [employer] Care Team Providers Care Manager Documentation Name Role Phone Jamaica Saavedra APRN, CNP Primary Care Provid er Emory Erazo MD Unavailable [phone] Encounter Details Date Type Department Care Team (Latest Contact Info) Description 06/14/2022 Travel Social History Tobacco Use Types Packs/Day Years Used Date Smoking Tobacco: Never Smokeless Tobacco: Never Alcohol Use Standard Drinks/Week Comments Yes 0 (1 standard drink = 0.6 oz pur e alcohol) Social-holiday events etc PHQ-2 Answer Date Recorded Total Score - Questions 1-9 0 08/2022 Education Answer Date Recorded What is the highest level of school you have completed or the highest degree you have received? Bachelor's degree (e.g., BA, AB, BS) 05/17/2021 Sexually Active Control Partners Comments Yes Implant Male Comments No Sex and Gender Information Value Date Recorded Sex Assigned at Female 04/04/2023 7:31 PM GAS METER REPAIR SUPERVISOR Legal Sex Female 4:36 PM CDT Gender Identity Female 04/04/2023 7:31 PM GAS METER REPAIR SUPERVISOR Sexual Orientation Not on file COVID-19 Exposure Response Date Recorded In the last 10 days, have yo u been in contact with someone who was confirmed or suspected to have Coronavirus/COVID-19? No / Unsure 06/14/2022 2:46 PM CDT documented as of this encounter Functional Status * Question Answer Date of Assessment Author Little interest or pleasure in doing things Not at all 06/14/2022 2:00 PM CDKathy Wisdom Feeling down, depressed, or hopeless Not at all 06/14/2022 2:00 PM CDT Kathy Fierro * Over the past 2 weeks, how often have you been bothered by any of the following problems? Question Answer Date of Assessment Author Patient Health Questionnaire-2 Score 0 04/0 08/2022 2:00 PM CDT Vadim Kathysherri Mayer documented as of this encounter Plan of Treatment Not on file documented as of this encounter Goals Goal Patient Goal Type Associated Problems Recent Progress Patient-Stated? Author I would like ways to control my anxiety and learn coping skills . Behavioral Health On track( 1:47 PM GAS METER REPAIR SUPERVISOR) No Ananya Crenshaw, STONE DRILLER Note: Goal Reviewed with: patient today Readiness to change: Ready to change Department associated with goal: [facility] Steps to achieve goal: will identify at least two coping skills/activities/habits that have helped to manage anxiety in the past. will identify at least three new coping skills/activities/habits that may help to prevent and/or cope with anxiety. 3. Will attend individual and/or group therapy at least 1x/month Anxiety astress Depression On track( 1:47 PM GAS METER REPAIR SUPERVISOR) Yes Reina Laguna LCSW Note: Kaylee will report an improved management of anxiety symptoms Goal Reviewed with: patient today Readiness to change: Ready to change Department associated with goal: [facility] Steps to achieve goal: [...] documented as of this encounter Care Teams Manager Documentation Relationship Specialty Start Date End Date Jamaica Saavedra APRN, KRISTINE #[address] [phone] PCP - General Advanced Practice Nurse 01/26/21 Emory Erazo MD [address] [address] Obstetrics & Gynecology 06/30/21 documented as of this encounter
--- OUTSIDE RECORDS SUMMARY | 2024-03-11 20:23 | XMS_ITS | Encounter Summary ---
Author Organization [facility] Care Team Providers Care Workers Compensation Examiner Name Role Phone Jamaica Saavedra APRN, CNP Primary Care Provid er Emory Erazo MD Unavailable [phone] Encounter Details Date Type Department Care Team (Latest Contact Info) Description 11/14/2021 Travel Social History Tobacco Use Types Packs/Day [...] Sex Assigned at Female 04/04/2023 7:31 PM FRAME BENDER Legal Sex Female 4:36 PM CDT Gender Identity Female 04/04/2023 7:31 PM FRAME BENDER Sexual Orientation Not on file COVID-19 Exposure Response Date Recorded In the last 10 days, have yo u been in contact with someone who was confirmed or suspected to have Coronavirus/COVID-19? No / Unsure 11/14/2021 9:56 AM CDT documented as of this encounter Plan of Treatment Not on file documented as of this encounter Goals Goal Patient Goal Type Associated Problems Recent Progress Patient-Stated? Author I would like ways to control my anxiety and learn coping skills . Behavioral Health On track( 1:47 PM FRAME BENDER) No Ananya Crenshaw, TERRA COTTA SETTER Note: Goal Reviewed with: patient today Readiness to change: Ready to change Department associated with goal: [facility] Steps to achieve goal: will identify at least two coping skills/activities/habits that have helped to manage anxiety in the past. will identify at least three new coping skills/activities/habits that may help to prevent and/or cope with anxiety. 3. Will attend individual and/or group therapy at least 1x/month Anxiety astress Depression On track( 022 1:47 PM FRAME BENDER) Yes Reina Laguna, TERRA COTTA SETTER Note: Kaylee will report an improved management of anxiety symptoms Goal Reviewed with: patient today Readiness to change: Ready to change Department associated with goal: [facility] Steps to achieve goal: [...] on filedocumented in this encounter Care Teams Workers Compensation Examiner Relationship Specialty Start Date End Date Jamaica Saavedra APRN, CNP #[address] [phone] PCP - General Advanced Practice Nurse 01/26/21 Emory Erazo MD [address] [phone] Obstetrics & Gynecology 06/30/21 documented as of this encounter
--- OUTSIDE RECORDS SUMMARY | 2024-03-11 20:23 | XMS_ITS | Encounter Summary ---
Author Organization [facility] Address [address] [place] [address] Phone Care Team Providers Care Fire Alarm Repairer Name Role Phone Jamaica Saavedra APRN, CNP Primary Care Provid er Emory Erazo MD Unavailable [phone] Encounter Details Date Type Department Care Team (Late st Contact Info) Description 11/15/2021 Telephone [facility] - Family Medicine - [facility] [address] [place] [address] Jamaica Saavedra APRN, CNP #[address] [phone] Social History Tobacco Use Types Packs/Day Years [...] Sex Assigned at Female 04/04/2023 7:31 PM PATIENT MANAGER Legal Sex Female 4:36 PM CDT Gender Identity Female 04/04/2023 7:31 PM PATIENT MANAGER Sexual Orientation Not on file COVID-19 Exposure Response Date Recorded In the last 10 days, have yo u been in contact with someone who was confirmed or suspected to have Coronavirus/COVID-19? No / Unsure 11/14/2021 9:56 AM CDT documented as of this encounter Miscellaneous Notes * Telephone Encounter - Sondra Degroot RN - 11/15/2021 2:[address] Erazo office and asked for copies of patient's last pap. They stated they would fax them over. documented in this encounter Plan of Treatment Not on file documented as of this encounter Goals Goal Patient Goal Type Associated Problems Recent Progress Patient-Stated? Author I would like ways to control my anxiety and learn coping skills . Behavioral Health On track( 1:47 PM PATIENT MANAGER) No Ananya Crenshaw, CYNTHIA Note: Goal Reviewed with: patient today Readiness to change: Ready to change Department associated with goal: [facility] Steps to achieve goal: will identify at least two coping skills/activities/habits that have helped to manage anxiety in the past. will identify at least three new coping skills/activities/habits that may help to prevent and/or cope with anxiety. 3. Will attend individual and/or group therapy at least 1x/month Anxiety astress Depression On track( 022 1:47 PM PATIENT MANAGER) Yes Reina Laguna LCSW Note: Kaylee will report an improved management of anxiety symptoms Goal Reviewed with: patient today Readiness to change: Ready to change Department associated with goal: [facility] Steps to achieve [...] on filedocumented in this encounter Care Teams Fire Alarm Repairer Relationship Specialty Start Date End Date Jamaica Saavedra APRN, KRISTINE #[address] [phone] PCP - General Advanced Practice Nurse 01/26/21 Emory Erazo MD [address] [address] Obstetrics & Gynecology 06/30/21 documented as of this encounter
--- OUTSIDE RECORDS SUMMARY | 2024-03-11 20:23 | XMS_ITS | Encounter Summary ---
Author Organization [facility] Address [address] [place] [address] Phone Care Team Providers Care Group Exercise Instructor Name Role Phone Jamaica Saavedra APRN, CNP Primary Care Provid er Emory Erazo MD Unavailable [phone] Reason for Visit * Reason Comments Medication Refill Encounter Details Date Type Department Care Team (Late st Contact Info) Description 05/05/2023 [facility]ill [facility] #[address] [place] [address] Jasson Bustos MD #[address] [address] Medication Refill Social History Tobacco Use Types Packs/Day Years Used Date Smoking Tobacco: Never Smokeless Tobacco: Never Alcohol Use Standard Drinks/Week Comments Yes 0 (1 standard drink = 0.6 oz pur e alcohol) Social-holiday events etc [facility] Utilities Answer Date Recorded In the past 12 months has [employer], gas, oil, or water company threatened to shut off services in your home? No 05/07/2023 Social Connection and Isolat ion Panel [NHANES] Answer Date Recorded In a typical week, how many times do you talk on the phone with family, friends, or neighbors? More than three times a week 05/07/2023 How often do you get togethe r with friends or relatives? Twice a week 05/07/2023 How often do you attend chur ch or quaker services? More than 4 times per year 05/07/2023 Do you belong to any clubs o r organizations such as christianity groups, unions, fraternal or athletic groups, or school groups? No 05/07/2023 How often do you attend meet ings of the clubs or organizations you belong to? Patient declined 05/07/2023 Are you , , di vorced, , never , or living with a partner? 05/07/2023 AUDIT-C Answer Date Recorded Q1: How often do you have a drink containing alc ohol? Monthly or less 05/07/2023 Q2: How many drinks containi ng alcohol do you have on a typical day when you are drinking? 1 or 2 05/07/2023 Q3: How often do you have si x or more drinks on one occasion? Never 05/07/2023 Overall Financial Resource Strain (CARDIA) Answe r Date Recorded How hard is it for you to pa y for the very basics like food, housing, medical care, and heating? Not hard at all 05/07/2023 PHQ-2 Answer Date Recorded Total Score - Questions 1-9 0 04/0 08/2022 [facility] - Occupational Stress Questionnaire Answer Date Recorded Do you feel stress - tense, restless, nervous, or anxious, or unable to sleep at night because your mind is troubled all the time - these days? Only a little 05/07/2023 Exercise Vital Sign Answer Date Recorde d On average, how many days pe r week do you engage in moderate to strenuous exercise (like a brisk walk)? 3 days 05/07/2023 On average, how many minutes do you engage in exercise at this level? 30 min 05/07/2023 Hunger Vital Sign Answer Date Recorded Within the past 12 months, y ou worried that your food would run out before you got the money to buy more. Never true 05/07/19 24 Within the past 12 months, t he food you bought just didn't last and you didn't have money to get more. Never true 05/07/2023 PRAPARE - Transportation Answer Date Re corded In the past 12 months, has l ack of transportation kept you from medical appointments or from getting medications? No 04/12 In the past 12 months, has l ack of transportation kept you from meetings, work, or from getting things needed for daily living? No 05/07/2023 Housing Stability Vital Sign Answer Nitesh e Recorded In the last 12 months, was t here a time when you were not able to pay the mortgage or rent on time? No 05/07/2023 Number of Places Lived in the Last Year Not on f ile 05/07/2023 In the last 12 months, was t here a time when you did not have a steady place to sleep or slept in a jail (including now)? No 05/07/2023 Education Answer Date Recorded What is the highest level of school you have completed or the highest degree you have received? Bachelor's degree (e.g., BA, AB, BS) 05/17/2021 Sexually Active Control Partners Comments Yes Implant Male Comments No Sex and Gender Information Value Date Recorded Sex Assigned at Female 04/04/2023 7:31 PM FELLER SEAM OPERATOR Legal Sex Female 4:36 PM CDT Gender Identity Female 04/04/2023 7:31 PM FELLER SEAM OPERATOR Sexual Orientation Not on file documented as of this encounter Miscellaneous Notes * Telephone Encounter - Reyna Frazier RN - 05/06/2023 1:42 PM CST Medication(s) refilled and signed per [facility] Chronic Medication Refill Standing Order for Pediatricand Adult Patients. Requested Prescriptions Pending Prescriptions Disp Refills ??? FLUoxetine (PROZAC) 40 MG Capsule [Pharmacy Med Name: FLUOXETINE HCL 40 MG CAPSULE] 90 Capsule 1 Sig: TAKE 1 CAPSULE BY MOUTH EVERY DAY SSRI (6 Month Refill Only) Protocol Passed - 05/05/2023 2:21 PM Passed - No test in the past 12 months or most recent test was negative Passed - No active on record Passed - Visit with relevant provider in past 6 months or upcoming 90 days Recent Visits Date Type Provider Dept 04/08/23 Office Visit Jamaica Saavedra APRN, ABORIGINAL CEREMONIAL CELE[facility] Showing recent visits within past 182 days and meeting all other requirements Future Appointments Date Type Provider Dept 05/09/23 Appointment Jamaica Saavedra APRN, K[facility] Showing future appointments within next 90 days and meeting all other requirements Passed - Patient has established therapy with [facility] for at least 6 months Passed - Has an encounter in the past 6 months with a depression, anxiety, adjustment disorder, OCD, or PTSD visit diagnosis ER SEAM OPERATOR documented in this encounter Plan of Treatment Not on file documented as of this encounter Goals Goal Patient Goal Type Associated Problems Recent Progress Patient-Stated? Author I would like ways to control my anxiety and learn coping skills . Behavioral Health On track( 1:47 PM FELLER SEAM OPERATOR) No Ananya Crenshaw, ELECTRICAL AND INSTRUMENT MECHANIC Note: Goal Reviewed with: patient today Readiness to change: Ready to change Department associated with goal: [facility] Steps to achieve goal: will identify at least two coping skills/activities/habits that have helped to manage anxiety in the past. will identify at least three new coping skills/activities/habits that may help to prevent and/or cope with anxiety. 3. Will attend individual and/or group therapy at least 1x/month Anxiety astress Depression On track( 1:47 PM FELLER SEAM OPERATOR) Yes Reina Laguna, ELECTRICAL AND INSTRUMENT MECHANIC Note: Kaylee will report an improved management of anxiety symptoms Goal Reviewed with: patient today Readiness to change: Ready to change Department associated with goal: [facility] Steps to achieve [...] documented as of this encounter Care Teams Group Exercise Instructor Relationship Specialty Start Date End Date Jamaica Saavedra APRN, KRISTINE #[address] [address] PCP - General Advanced Practice Nurse 01/26/21 Emory Erazo MD [address] [id number] Obstetrics & Gynecology 06/30/21 documented as of this encounter
--- OUTSIDE RECORDS SUMMARY | 2024-03-11 20:23 | XMS_ITS | Encounter Summary ---
Author Organization [facility] Address [address] [place] [address] Phone Care Team Providers Care Cd Mixer Name Role Phone Jamaica Saavedra APRN, CNP Primary Care Provid er Emory Erazo MD Unavailable [phone] Reason for Visit * Reason Comments Depression * Auth/Cert Specialty Diagnoses / Procedures Referred By Contlara t Referred To Contact Referral ID Status Reason Start Date Expiration Date Visits Re quested Visits Authorized [id number] 1 1 Encounter Details Date Type Department Care Team (Latest Contact Info) Description 01/01/2022 10:30 AM CDT [facility] [address] [place] [phone] Estefania Valera, CASHIER SUPERVISOR Generalized anxiety disorder (Primary Dx); Major depressive [...] Sex Assigned at Female 04/04/2023 7:31 PM EMBROIDERY DESIGNER Legal Sex Female 4:36 PM CDT Gender Identity Female 04/04/2023 7:31 PM EMBROIDERY DESIGNER Sexual Orientation Not on file COVID-19 Exposure Response Date Recorded In the last 10 days, have yo u been in contact with someone who was confirmed or suspected to have Coronavirus/COVID-19? No / Unsure 01/01/2022 10:28 AM CDT documented as of this encounter Progress Notes * Estefania Valera, CASHIER SUPERVISOR - 01/01/2022 10:30 AM CDT [facility] BEHAVIOR[facility] HE[facility] CLINICAL PROGRESS NOTE NAME: Kaylee Melchor AGE: 26 y.o. DATE OF : 1995 DATE OF SERVICE: 01/01/2022 START TIME: 10:30 am END TIME: 11:15 am DIAGNOSIS: 1. Generalized anxiety disorder 2. Major depressive disorder, recurrent, mild (HCC) TREATMENT PLAN: Goals Addressed This Visit's Progress ??? I would like ways to control my anxiety and learn coping skills . On track Goal Reviewed with: patient today Readiness to change: Ready to change Department associated with goal: [facility] Steps to achieve goal: 1. will identify at least two coping skills/activities/habits that have helped to manage anxiety inthe past. 2. will identify at least three new coping skills/activities/habits that may help to prevent and/orcope with anxiety. 3. Will attend individual and/or group therapy at least 1x/month PROBLEM STATUS: Kaylee was seen today due to the following concerns: Anxiety: difficulties concentrating fatigue nervousness restlessness stress worry Depression: decreased motivation loss of interest/pleasure in activities mood regulation difficulties Based upon the presenting problem the following treatment modalities were utilized: Structured Problem Solving Psycho-education Supportive/Client Centered Therapy THERAPEUTIC INTERVENTIONS USED: This clinician provided therapeutic interventions for: Anxiety: coping skills for reducing anxiety training on use of diaphragmatic breathing training on use of grounding techniques training on use of guided imagery identifying exercise/physical activity to be implemented in daily/weekly routine identifying, verbalizing, and processing feelings effectively Depression: increasing insight into current difficulties identifying and decreasing cognitive distortions/negative automatic thoughts contributing negatively to depressed mood and behavior identifying, verbalizing, and processing feelings effectively learning positive coping skills and utilizing them at appropriate times/when needed consistent medication adherence . Kaylee verbalized an understanding and responded well to interventions provided during treatment session. PROGRESS TOWARDS GOALS: Kaylee reported slight improvement of symptoms. Kaylee is sleeping better but still experiencing a lot of anxiety. We discussed deep breathing and other tools to manage it. We also started talking about noticing her thinking that is associated with the anxious thoughts. She described three stories of her past week. The positive one was going to the pumpkin patch with her parents. They were fighting and that is typical. She reports her father being difficult and demanding and in denial. MENTAL STATUS EXAM: Kaylee is: friendly open. Affect is: appropriate to context mood congruent. Mood is: depressed. There is: no history of suicidal ideation.. There is: no history of homicidal ideation.. TREATMENT RECOMMENDATIONS/FOLLOW UP: Recommendations for follow up treatment plan: Continue individual therapy as needed for support and guidance. Estefania Valera LCSW documented in this encounter Plan of Treatment Not on file documented as of this encounter Goals Goal Patient Goal Type Associated Problems Recent Progress Patient-Stated? Author I would like ways to control my anxiety and learn coping skills . Behavioral Health On track( 1:47 PM EMBROIDERY DESIGNER) No Ananya Crenshaw LCSW Note: Goal Reviewed with: patient today Readiness to change: Ready to change Department associated with goal: [facility] Steps to achieve goal: will identify at least two coping skills/activities/habits that have helped to manage anxiety in the past. will identify at least three new coping skills/activities/habits that may help to prevent and/or cope with anxiety. 3. Will attend individual and/or group therapy at least 1x/month Anxiety astress Depression On track( 1:47 PM EMBROIDERY DESIGNER) Yes Reina Laguna LCSW Note: Kaylee will report an improved management of anxiety symptoms Goal Reviewed with: patient today Readiness to change: Ready to change Department associated with goal: [facility] Steps to achieve [...] mild documented in this encounter Care Teams Cd Mixer Relationship Specialty Start Date End Date Jamaica Saavedra APRN, CNP #[address] [phone] PCP - General Advanced Practice Nurse 01/26/21 Emory Erazo MD [address] [address] Obstetrics & Gynecology 06/30/21 documented as of this encounter
--- OUTSIDE RECORDS SUMMARY | 2024-03-11 20:23 | XMS_ITS | Encounter Summary ---
Author Organization [employer] Care Team Providers Care Medical Records Director Name Role Phone Jamaica Saavedra APRN, CNP Primary Care Provid er Emory Erazo MD Unavailable [phone] Encounter Details Date Type Department Care Team (Latest Contact Info) Description 05/28/2023 Travel Social History Tobacco Use Types Packs/Day Years Used Date Smoking Tobacco: Never Smokeless Tobacco: Never Alcohol Use Standard Drinks/Week Comments Yes 0 (1 standard drink = 0.6 oz pur e alcohol) Social-holiday events etc C Utilities Answer Date Recorded In the past 12 months has [employer] electric, gas, oil, or water company threatened [...] often do you attend chur ch or latter day services? More than 4 times per year 05/28/2023 Do you belong to any clubs o r organizations such as roman catholic groups, unions, fraternal or athletic groups, or [...] Score - Questions 1-9 0 04/0 08/2022 [facility]at [facility] Health - [...] place to sleep or slept in a chcf (including now)? No 05/28/2023 Education Answer Date Recorded What is the highest level of school you have completed or the highest degree you have received? Bachelor's degree (e.g., BA, AB, BS) 05/17/2021 Sexually Active Control Partners Comments Yes Implant Male Comments No Sex and Gender Information Value Date Recorded Sex Assigned at Female 04/04/2023 7:31 PM SALES PROJECT ADMINISTRATOR Legal Sex Female 4:36 PM CDT Gender Identity Female 04/04/2023 7:31 PM SALES PROJECT ADMINISTRATOR Sexual Orientation Not on file documented as [...] . Behavioral Health On track( 1:47 PM SALES PROJECT ADMINISTRATOR) No Ananya Crenshaw, DIRECTOR OF ENTERTAINMENT Note: Goal Reviewed with: patient today Readiness to change: Ready to change Department associated with goal: [facility] Steps to achieve goal: will identify at least two coping skills/activities/habits that have helped to manage anxiety in the past. will identify at least three new coping skills/activities/habits that may help to prevent and/or cope with anxiety. 3. Will attend individual and/or group therapy at least 1x/month Anxiety astress Depression On track( 1:47 PM SALES PROJECT ADMINISTRATOR) Yes Reina Laguna, DIRECTOR OF ENTERTAINMENT Note: Kaylee will report an improved management of anxiety symptoms Goal Reviewed with: patient today Readiness to change: Ready to change Department associated with goal: [facility] Steps to [...] documented as of this encounter Care Teams Medical Records Director Relationship Specialty Start Date End Date Jamaica Saavedra APRN, TELEMARKETER #[address] [phone] PCP - General Advanced Practice Nurse 01/26/21 Emory Erazo MD [address] [phone] Obstetrics & Gynecology 06/30/21 documented as of this encounter
--- OUTSIDE RECORDS SUMMARY | 2024-03-11 20:23 | XMS_ITS | Encounter Summary ---
Author Organization [email or web address] Care Team Providers Care Limited Radiology Technician Name Role Phone Jamaica Saavedra APRN, CNP Primary Care Provid er Emory Erazo MD Unavailable [phone] Encounter Details Date Type Department Care Team (Latest Contact Info) Description 11/29/2021 Travel Social History Tobacco Use Types Packs/Day [...] Sex Assigned at Female 04/04/2023 7:31 PM RANGE AID Legal Sex Female 4:36 PM CDT Gender Identity Female 04/04/2023 7:31 PM RANGE AID Sexual Orientation Not on file COVID-19 Exposure Response Date Recorded In the last 10 days, have yo u been in contact with someone who was confirmed or suspected to have Coronavirus/COVID-19? No / Unsure 11/29/2021 1:02 PM CDT documented as of this encounter Plan of Treatment Not on file documented as of this encounter Goals Goal Patient Goal Type Associated Problems Recent Progress Patient-Stated? Author I would like ways to control my anxiety and learn coping skills . Behavioral Health On track( 1:47 PM RANGE AID) No Ananya Crenshaw, SPECIAL NEEDS CAREGIVER Note: Goal Reviewed with: patient today Readiness to change: Ready to change Department associated with goal: [facility]IOR[facility] HE[facility] Steps to achieve goal: will identify at least two coping skills/activities/habits that have helped to manage anxiety in the past. will identify at least three new coping skills/activities/habits that may help to prevent and/or cope with anxiety. 3. Will attend individual and/or group therapy at least 1x/month Anxiety astress Depression On track( 022 1:47 PM RANGE AID) Yes Reina Laguna, SPECIAL NEEDS CAREGIVER Note: Kaylee will report an improved management of anxiety symptoms Goal Reviewed with: patient today Readiness to change: Ready to change Department associated with goal: [facility] Steps to achieve goal: [...] on filedocumented in this encounter Care Teams Limited Radiology Technician Relationship Specialty Start Date End Date Jamaica Saavedra APRN, CNP #[address] [phone] PCP - General Advanced Practice Nurse 01/26/21 Emory Erazo MD [address] [id number] Obstetrics & Gynecology 06/30/21 documented as of this encounter
--- OUTSIDE RECORDS SUMMARY | 2024-03-11 20:23 | XMS_ITS | Encounter Summary ---
Author Organization [facility] Address [address] [place] [address] Phone Care Team Providers Care Punching Machine Operator Name Role Phone Jamaica Saavedra APRN, KRISTINE Primary Care Provid er Emory Erazo MD Unavailable [phone] Reason for Visit * Reason Onset Date Comments Medication Refill 10/14/2022 Encounter Details Date Type Department Care Team (Late st Contact Info) Description 10/14/2022 MyChart RX Renewal [facility] - [facility] - [place] [address] [place] [address] Jamaica Saavedra APRN, BANK COURIER #[address] [address] Medication Renewal Reviewed Social History Tobacco Use Types Packs/Day Years [...] Sex Assigned at Female 04/04/2023 7:31 PM METAL FURNITURE GLAZIER Legal Sex Female 4:36 PM CDT Gender Identity Female 04/04/2023 7:31 PM METAL FURNITURE GLAZIER Sexual Orientation Not on file documented as of this encounter Miscellaneous Notes * Telephone Encounter - Reyna Frazier RN - 10/15/2022 11:57 AM CDT Medication failed the protocol, provider to review and approve the medication order if appropriate. Requested Prescriptions Pending Prescriptions Disp Refills FLUoxetine (PROZAC) 40 MG Capsule 90 Capsule 1 Sig: Take 1 Capsule by mouth daily. SSRI (6 Month Refill Only) Protocol Failed - 10/14/2022 4:53 PM Failed - Has an encounter in the past 6 months with a depression, anxiety, adjustment disorder, OCD, or PTSD visit diagnosis Passed - No test in the past 12 months or most recent test was negative Passed - No active on record Passed - Visit with relevant provider in past 6 months or upcoming 90 days Recent Visits Date Type Provider Dept 06/14/22 Office Visit Jamaica Saavedra, TURNER MACHINE, BANK COURIER [facility] Showing recent visits within past 182 days and meeting all other requirements Future Appointments No visits were found meeting these conditions. Showing future appointments within next 90 days and meeting all other requirements Passed - Patient has established therapy with [facility] for at least 6 months documented in this encounter Plan of Treatment Not on file documented as of this encounter Goals Goal Patient Goal Type Associated Problems Recent Progress Patient-Stated? Author I would like ways to control my anxiety and learn coping skills . Behavioral Health On track( 022 1:47 PM METAL FURNITURE GLAZIER) No Ananya Crenshaw LCSW Note: Goal Reviewed with: patient today Readiness to change: Ready to change Department associated with goal: [facility] Steps to achieve goal: will identify at least two coping skills/activities/habits that have helped to manage anxiety in the past. will identify at least three new coping skills/activities/habits that may help to prevent and/or cope with anxiety. 3. Will attend individual and/or group therapy at least 1x/month Anxiety astress Depression On track( 022 1:47 PM METAL FURNITURE GLAZIER) Yes Reina Laguna, RESEARCH ANIMAL ATTENDANT Note: Kaylee will report an improved management of anxiety symptoms Goal Reviewed with: patient today Readiness to change: Ready to change Department associated with goal: [facility] Steps to achieve [...] documented as of this encounter Care Teams Punching Machine Operator Relationship Specialty Start Date End Date Jamaica Saavedra APRN, BANK COURIER #[address] [phone] PCP - General Advanced Practice Nurse 01/26/21 Emory Erazo MD [address] [address] Obstetrics & Gynecology 06/30/21 documented as of this encounter
--- OUTSIDE RECORDS SUMMARY | 2024-03-11 20:23 | XMS_ITS | Encounter Summary ---
Author Organization [facility] Address [address] [place] [address] Phone Care Team Providers Care Book Binder Name Role Phone Jamaica Saavedra APRN, CNP Primary Care Provid er Emory Erazo MD Unavailable [phone] Reason for Visit * Reason Comments Depression Anxiety * Auth/Cert (Routine) Specialty Diagnoses / Procedures Referred By Contlara t Referred To Contact Referral ID Status Reason Start Date Expiration Date Visits Re quested Visits Authorized [id number] 1 1 Encounter Details Date Type Department Care Team (Latest Contact Info) Description 02/06/2022 1:45 PM STONE REPAIRER [facility] [address] [place] [phone] Estefania Valera, CYNTHIA Generalized anxiety disorder (Primary Dx); Major depressive [...] Sex Assigned at Female 04/04/2023 7:31 PM STONE REPAIRER Legal Sex Female 4:36 PM CDT Gender Identity Female 04/04/2023 7:31 PM STONE REPAIRER Sexual Orientation Not on file COVID-19 Exposure Response Date Recorded In the last 10 days, have yo u been in contact with someone who was confirmed or suspected to have Coronavirus/COVID-19? No / Unsure 02/06/2022 12:04 PM STONE REPAIRER documented as of this encounter Progress Notes * Estefania Valera, INSPECTOR SCREEN PRINTING - 02/06/2022 1:45 PM CST Images from the original note were not included. [facility] CLINICAL PROGRESS NOTE NAME: Kaylee Melchor AGE: 26 y.o. DATE OF : 1995 DATE OF SERVICE: 02/06/2022 START TIME: 1:45 pm END TIME: 2:30 pm DIAGNOSIS: 1. Generalized anxiety disorder 2. Major depressive disorder, recurrent, mild (HCC) TREATMENT PLAN: Goals Addressed This Visit's Progress ??? I would like ways to control my anxiety and learn coping skills . On track Goal Reviewed with: patient today Readiness to change: Ready to change Department associated with goal: [facility] Steps to achieve goal: 1. will identify at least two coping skills/activities/habits that have helped to manage anxiety inthe past. 2. will identify at least three new coping skills/activities/habits that may help to prevent and/orcope with anxiety. 3. Will attend individual and/or group therapy at least 1x/month ??? Anxiety astress (pt-stated) On track Kaylee will report an improved management of anxiety symptoms Goal Reviewed with: patient today Readiness to change: Ready to change Department associated with goal: [facility] Steps to achieve goal: 1. will identify at least two coping skills/activities/habits that have helped to manage anxiety inthe past. 2. will identify at least three new coping skills/activities/habits that may help to prevent and/orcope with anxiety 3. Will attend individual and/or [...] Kaylee reported slight improvement of symptoms. Kaylee reported struggles with family over Thanksgiving. There were two incidents, one where her dog was barking in his crate while she was shopping with her mom and another when her dad changed plans about selling her a car. Both times she described frustration with her dad but could not verbalize frustration I was just frustrated with the situtation, . We discussed getting a journal and noticing each day one time when she cared for herself and one time when she lost herself. MENTAL STATUS EXAM: Kaylee is: friendly open. Affect is: appropriate to context mood congruent. Mood is: depressed. There is: no history of suicidal ideation.. There is: no history of homicidal ideation.. TREATMENT RECOMMENDATIONS/FOLLOW UP: Recommendations for follow up treatment plan: Continue individual therapy as needed for support and guidance. Estefania Valera LCSW E REPAIRER documented in this encounter Plan of Treatment Not on file documented as of this encounter Goals Goal Patient Goal Type Associated Problems Recent Progress Patient-Stated? Author I would like ways to control my anxiety and learn coping skills . Behavioral Health On track( 022 1:47 PM STONE REPAIRER) No Ananya Crenshaw LCSW Note: Goal Reviewed with: patient today Readiness to change: Ready to change Department associated with goal: [facility] Steps to achieve goal: will identify at least two coping skills/activities/habits that have helped to manage anxiety in the past. will identify at least three new coping skills/activities/habits that may help to prevent and/or cope with anxiety. 3. Will attend individual and/or group therapy at least 1x/month Anxiety astress Depression On track( 022 1:47 PM STONE REPAIRER) Yes Reina Laguna, INSPECTOR SCREEN PRINTING Note: Kaylee will report an improved management of anxiety symptoms Goal Reviewed with: patient today Readiness to change: Ready to change Department associated with goal: [facility] Steps to [...] mild documented in this encounter Care Teams Book Binder Relationship Specialty Start Date End Date Jamaica Saavedra APRN, KRISTINE #[address] [phone] PCP - General Advanced Practice Nurse 01/26/21 Emory Erazo MD [address] [address] Obstetrics & Gynecology 06/30/21 documented as of this encounter
--- OUTSIDE RECORDS SUMMARY | 2024-03-11 20:23 | XMS_ITS | Encounter Summary ---
Author Organization [facility] Address [address] [place] [address] Phone Care Team Providers Care Manager Brand Name Role Phone Jamaica Saavedra APRN, CNP Primary Care Provid er Emory Erazo MD Unavailable [phone] Reason for Visit * Reason Comments Medication Problem She is here to discu ss side effects from medication. She says it's causing her dizziness and fatigue. Encounter Details Date Type Department Care Team (Late st Contact Info) Description 04/08/2023 9:45 AM STEAM BOX TENDER Office Visit [facility] [address] [place] [id number] Jamaica Saavedra APRN, CNP [address] [phone] Fatigue, unspecified type (Primary Dx); Generalized anxiety disorder; Frequent headaches Discharge Disposition: Discharged to home or Selfcare Social History Tobacco Use Types Packs/Day Years Used Date Smoking Tobacco: Never Smokeless Tobacco: Never Tobacco Cessation:Counseling Given: Yes Alcohol Use Standard Drinks/Week Comments Yes 0 (1 standard drink = 0.6 oz pur e alcohol) Social-holiday events etc C Utilities Answer Date Recorded In the past 12 months has [employer] electric, gas, oil, or water company threatened [...] often do you attend chur ch or jewish services? More than 4 times per year 04/07/2023 Do you belong to any clubs o r organizations such as yazdanism groups, unions, fraternal or athletic groups, or [...] Score - Questions 1-9 0 04/0 08/2022 [facility] - Occupational Stress [...] the money to buy more. Never true 01/28/20 24 Within the past 12 months, t [...] place to sleep or slept in a group home (including now)? No 04/07/2023 Education Answer Date Recorded What is the highest level of school you have completed or the highest degree you have received? Bachelor's degree (e.g., BA, AB, BS) 05/17/2021 Sexually Active Control Partners Comments Yes Implant Male Comments No Sex and Gender Information Value Date Recorded Sex Assigned at Female 04/04/2023 7:31 PM STEAM BOX TENDER Legal Sex Female 4:36 PM CDT Gender Identity Female 04/04/2023 7:31 PM STEAM BOX TENDER Sexual Orientation Not on file documented as of this encounter Last Filed Vital Signs Vital Sign Reading Time Taken Comments Blood Pressure 114/74 04/08/2023 9:47 AM STEAM BOX TENDER Pulse 66 04/08/2023 9:47 AM STEAM BOX TENDER Temperature 36.3 ??C (97.4 ??F) 04/08/2023 9:47 AM CS T Respiratory Rate 14 04/08/2023 9:47 AM STEAM BOX TENDER Oxygen Saturation 99% 04/08/2023 9:47 AM STEAM BOX TENDER Inhaled Oxygen Concentration - - Weight 91 kg (200 lb 9.6 oz) 04/08/2023 9:47 AM STEAM BOX TENDER Height 162.6 cm (5' 4 ) 04/08/2023 9:47 AM STEAM BOX TENDER Body Mass Index 34.43 04/08/2023 9:47 AM STEAM BOX TENDER documented in this encounter Progress Notes * Kathy Fierro - 04/08/2023 9:45 AM CST Kaylee Melchor, 27 y.o., female is here for Medication Problem (She is here to discuss side effectsfrom medication. She says it's causing her dizziness and fatigue. ) Medication Refills: Patient reports/denies need for medication refills. Orders Pended: no Requested Prescriptions No prescriptions requested or ordered in this encounter Home Medications Medication Sig Start Date End Date Taking? Authorizing Provider azelastine (ASTELIN) 0.1 % Solution 2 Sprays by Nasal route 2 times daily. Use in each nostril as directed 06/30/21 Jamaica Saavedra APRN, CNP FLUoxetine (PROZAC) 40 MG Capsule Take 1 Capsule by mouth daily. 10/15/22 Jasson Bustos MD traMADol (ULTRAM) 50 MG Tablet Take 1 [...] 3 - 3-dose series) Never done ??? Hepatitis C Virus (HCV) Screening Never done ??? Pap Smear 10/06/2021 ??? Influenza Immunization (1) 11/09/2022 ??? SARS-COV-2 Immunization ( season) 2022 Orders Pended: no The following BPA's have been addressed with the patient today: Mammogram, Pap, Smoking, Depression, Fall Risk, Nutrition, Advanced Care Planning and HCC M BOX TENDER * Jamaica Saavedra APRN, CNP - 04/08/2023 9:45 AM CST [facility] [address] [place] [facility] [id number] Dept: [phone] Dept Loc: [phone] Loc Patient: Kaylee Melchor : 1995 Sex: female Subjective Subjective: HPI: Kaylee Melchor presents for Medication Problem (She is here to discuss side effects from medication. She says it's causing her dizziness and fatigue. ) . Patient presents today to discuss concerns for fatigue and dizziness for the past month. She is also concerned about her weight gain. She states she has gained 20 lbs since November she was 175. Shereports that she has been monitoring her diet, working out four days a week HIIT program. She did get a new job which is less stressful. She reports the dizziness is more that she is on a boat. She reports it comes and goes. She reportsits just a couple of seconds. She does have a Nexplanon implant. She has chronic headaches for years. No previous workup. Reports usually temples to unilateral. Shestates she has headaches everyday but will have migraines monthly where she is has nausea, vomiting, and vison changes. History reviewed. No pertinent past medical history. Current Outpatient Medications on File Prior to Visit Medication Sig Dispense Refill ??? azelastine (ASTELIN) 0.1 % Solution 2 Sprays by Nasal route 2 times daily. Use in each nostril as directed 30 mL 3 ??? carBAMazepine (TEGretol) 100 MG Chewable Tablet Take 1 Tablet by mouth 3 times daily. ??? FLUoxetine (PROZAC) 40 MG Capsule Take 1 Capsule by mouth daily. 90 Capsule 1 No current facility-administered medications on file prior to visit. Allergies Allergen Reactions ??? Other-Food Allergen (Not Found In Search) Hives SKIN GLUE ??? Prednisone Palpitations Past Surgical History: Procedure Laterality Date ??? KNEE SURGERY Left ??? TONSILLECTOMY Review of Systems Constitutional: Positive for fatigue and unexpected weight change (weight gain). Negative for activity change, appetite change, chills and fever. Respiratory: Negative for cough, chest tightness, shortness of breath and wheezing. Cardiovascular: Negative for chest pain, palpitations and leg swelling. Gastrointestinal: Negative for constipation, diarrhea, nausea and vomiting. Neurological: Positive for dizziness and headaches. Negative for light-headedness. Psychiatric/Behavioral: Positive for agitation and sleep disturbance. Negative for behavioral problems, confusion, decreased concentration, dysphoric mood, hallucinations, self-injury and suicidal ideas. The patient is nervous/anxious. The patient is not hyperactive. Objective Objective: BP 114/74 (BP Location: Left Arm, BP Position: Sitting, BP Cuff Size: Regular) Pulse 66 Temp 97.4 ??F (36.3 ??C) (Temporal) Resp 14 Ht 5' 4 (1.626 m) Wt 200 lb 9.6 oz (91 kg) LMP 06/12/2022 (Exact Date) Comment: IMPLANT unsure when period was. SpO2 99% BMI 34.43 kg/m?? Physical Exam Vitals and nursing note reviewed. Constitutional: General: She is not in acute distress. Appearance: Normal appearance. She is well-developed. She is not diaphoretic. HENT: Head: Normocephalic and atraumatic. Right Ear: Tympanic membrane, ear canal and external ear normal. Left Ear: Tympanic membrane, ear canal and external ear normal. Nose: Nose normal. Mouth/Throat: Mouth: Mucous membranes are moist. Pharynx: Oropharynx is clear. Eyes: Conjunctiva/sclera: Conjunctivae normal. Pupils: Pupils are equal, round, and reactive to light. Neck: Vascular: No carotid bruit. Trachea: No tracheal deviation. Cardiovascular: Rate and Rhythm: Normal rate and regular rhythm. Pulses: Normal pulses. Heart sounds: Normal heart sounds. No murmur heard. No friction rub. Pulmonary: Effort: Pulmonary effort is normal. No respiratory distress. Breath sounds: Normal breath sounds. No stridor. No wheezing, rhonchi or rales. Abdominal: General: Bowel sounds are normal. There is no distension. Palpations: Abdomen is soft. Tenderness: There is no abdominal tenderness. There is no guarding or rebound. Musculoskeletal: General: Normal range of motion. Cervical back: Normal range of motion and neck supple. No tenderness. Lymphadenopathy: Cervical: No cervical adenopathy. Skin: General: Skin is warm and dry. Neurological: General: No focal deficit present. Mental Status: She is alert and oriented to person, place, and time. Mental status is at baseline. Cranial Nerves: No cranial nerve deficit. Motor: No weakness. Coordination: Coordination normal. Gait: Gait normal. Deep Tendon Reflexes: Reflexes normal. Psychiatric: Mood and Affect: Mood normal. Behavior: Behavior normal. Thought Content: Thought content normal. Judgment: Judgment normal. Medical Decision Making: Assessment & Plan Diagnoses and all orders for this visit: Fatigue, unspecified type - CMP (COMPREHENSIVE METABOLIC PANEL); Future - COMPLETE BLOOD COUNT (CBC) WITH DIFF; Future - THYROID STIMULATING HORMONE (TSH); Future - VITAMIN B12; Future - VITAMIN D, 25 HYDROXY TOTAL; Future - POCT URINE HCG () Generalized anxiety disorder Frequent headaches Other orders - carBAMazepine (TEGretol) 100 MG Chewable Tablet; Take 1 Tablet by mouth 3 times daily. Discussion with patient regarding symptoms. Will send her for lab workup. If labs normal will consider weaning her off Prozac as she is concerned it could be causing her symptoms. Point of care negative. Discussed with patient regarding frequent headaches. No previous workup. Discussed her monitoring her headaches and returning in 1 month with documentation to further evaluate her headaches due to lack of time. M BOX TENDER * Kathy Fierro - 04/08/2023 9:45 AM CST Urine test performed and the results were Negative. Provider informed and results enteredin the system. M BOX TENDER documented in this encounter Plan of Treatment Not on file documented as of this encounter Goals Goal Patient Goal Type Associated Problems Recent Progress Patient-Stated? Author I would like ways to control my anxiety and learn coping skills . Behavioral Health On track( 022 1:47 PM STEAM BOX TENDER) No Ananya Crenshaw, CYNTHIA Note: Goal Reviewed with: patient today Readiness to change: Ready to change Department associated with goal: [facility] Steps to achieve goal: will identify at least two coping skills/activities/habits that have helped to manage anxiety in the past. will identify at least three new coping skills/activities/habits that may help to prevent and/or cope with anxiety. 3. Will attend individual and/or group therapy at least 1x/month Anxiety astress Depression On track( 022 1:47 PM STEAM BOX TENDER) Yes Reina Laguna, CYNTHIA Note: Kaylee will report an improved management of anxiety symptoms Goal Reviewed with: patient today Readiness to change: Ready to change Department associated with goal: [facility] Steps to achieve [...] Procedure Name Priority Date/Time Associated Diagnosis Comments POCT URINE HCG () Routine 04/08/2023 10:26 AM STEAM BOX TENDER Fatigue, unspecified type documented in this encounter Results * POCT URINE HCG () (04/08/2023 10:26 AM STEAM BOX TENDER) POC URINE Negative POC URINE CONTROL Lan Specialist Pass Urine 04/08/2023 10:2 6 AM STEAM BOX TENDER Jamaica Saavedra APRN, CNP POINT OF CARE TESTIN G (MANUAL) Final Result * VITAMIN D, 25 HYDROXY TOTAL (04/08/2023) Blood 04/08/2023 Jamaica Saavedra APRN WORLD DESIGNER CHEMISTRY ORDERABLES Final Result * VITAMIN B12 (04/08/2023) Blood 04/08/2023 Jamaica Saavedra APRN, WORLD DESIGNER CHEMISTRY ORDERABLES Final Result * THYROID STIMULATING HORMONE (TSH) (04/08/2023) Blood 04/08/2023 Jamaica Saavedra APRN, CNP CHEMISTRY ORDERABLES Final Result * COMPLETE BLOOD COUNT (CBC) WITH DIFF (04/08/2023) Blood 04/08/2023 Jamaica Saavedra APRN, CNP HEMATOLOGY ORDERABLE S Final Result * CMP (COMPREHENSIVE METABOLIC PANEL) (04/08/2023) Blood 04/08/2023 Result [facility] Jamaica Saavedra APRN, CNP CHEMISTRY ORDERABLES Final Result documented in this encounter Visit Diagnoses Diagnosis Fatigue, unspecified type- Primary Generalized anxiety disorder Frequent headaches documented in this encounter Additional Health Concerns Assessment Noted Time PHQ-9 Depression Total Score: 0 06/15/19 23 2:00 PM CDT documented as of this encounter Care Teams Manager Brand Relationship Specialty Start Date End Date Jamaica Saavedra APRN, CNP #[address] [phone] PCP - General Advanced Practice Nurse 01/26/21 Emory Erazo MD [address] [address] Obstetrics & Gynecology 06/30/21 documented as of this encounter
--- OUTSIDE RECORDS SUMMARY | 2024-03-11 20:23 | XMS_ITS | Encounter Summary ---
Author Organization [employer] Care Team Providers Care Software Engineering Supervisor Name Role Phone Jamaica Saavedra APRN, CNP Primary Care Provid er Emory Erazo MD Unavailable [phone] Encounter Details Date Type Department Care Team (Latest Contact Info) Description 05/26/2022 Travel Social History Tobacco Use Types Packs/Day [...] Sex Assigned at Female 04/04/2023 7:31 PM SUPERVISOR ADVERTISING DISPATCH CLERKS Legal Sex Female 4:36 PM CDT Gender Identity Female 04/04/2023 7:31 PM SUPERVISOR ADVERTISING DISPATCH CLERKS Sexual Orientation Not on file COVID-19 Exposure Response Date Recorded In the last 10 days, have yo u been in contact with someone who was confirmed or suspected to have Coronavirus/COVID-19? No / Unsure 05/26/2022 7:07 AM CDT documented as of this encounter Plan of Treatment Not on file documented as of this encounter Goals Goal Patient Goal Type Associated Problems Recent Progress Patient-Stated? Author I would like ways to control my anxiety and learn coping skills . Behavioral Health On track( 1:47 PM SUPERVISOR ADVERTISING DISPATCH CLERKS) No Ananya Crenshaw, PROFESSOR OF ART HISTORY Note: Goal Reviewed with: patient today Readiness to change: Ready to change Department associated with goal: [facility] Steps to achieve goal: will identify at least two coping skills/activities/habits that have helped to manage anxiety in the past. will identify at least three new coping skills/activities/habits that may help to prevent and/or cope with anxiety. 3. Will attend individual and/or group therapy at least 1x/month Anxiety astress Depression On track( 022 1:47 PM SUPERVISOR ADVERTISING DISPATCH CLERKS) Yes Reina Laguna, PROFESSOR OF ART HISTORY Note: Kaylee will report an improved management of anxiety symptoms Goal Reviewed with: patient today Readiness to change: Ready to change Department associated with goal: [facility] Steps to achieve [...] on filedocumented in this encounter Care Teams Software Engineering Supervisor Relationship Specialty Start Date End Date Jamaica Saavedra APRN, CNP #[address] [phone] PCP - General Advanced Practice Nurse 01/26/21 Emory Erazo MD [address] [id number] Obstetrics & Gynecology 06/30/21 documented as of this encounter
--- OUTSIDE RECORDS SUMMARY | 2024-03-11 20:23 | XMS_ITS | Encounter Summary ---
Author Organization [facility] Address [address] [place] [address] Phone Care Team Providers Care Duty Manager Name Role Phone Jamaica Saavedra APRN, CNP Primary Care Provid er Emory Erazo MD Unavailable [phone] Reason for Visit * Reason Comments Ear Pain Cough Encounter Details Date Type Department Care Team (Late st Contact Info) Description 05/26/2022 7:11 AM CDT - 05/26/2022 7:40 AM CDT Emergency [facility] Emergency [address] [place] [id number] Jeffrey Rojas MD [address] [place] [address] Tympanic membrane perforation, marginal, right Discharge Disposition: Discharged to home or Selfcare [...] Sex Assigned at Female 04/04/2023 7:31 PM SHANK PAPERER Legal Sex Female 4:36 PM CDT Gender Identity Female 04/04/2023 7:31 PM SHANK PAPERER Sexual Orientation Not on file COVID-19 Exposure Response Date Recorded In the last 10 days, have yo u been in contact with someone who was confirmed or suspected to have Coronavirus/COVID-19? No / Unsure 05/26/2022 7:07 AM CDT documented as of this encounter Last Filed Vital Signs Vital Sign Reading Time Taken Comments Blood Pressure 127/81 05/26/2022 7:06 AM CDT Pulse 67 05/26/2022 7:06 AM CDT Temperature 36.3 ??C (97.3 ??F) 05/26/2022 7:06 AM CD T Respiratory Rate 16 05/26/2022 7:06 AM CDT Oxygen Saturation 97% 05/26/2022 7:06 AM CDT Inhaled Oxygen Concentration - - Weight 85 kg (187 lb 6.3 oz) 05/26/2022 7:06 AM CDT Height 162.6 cm (5' 4 ) 05/26/2022 7:06 AM CDT Body Mass Index 32.17 05/26/2022 7:06 AM CDT documented in this encounter Discharge Instructions * Attachments The following attachments cannot be sent through Care Everywhere. * Eardrum Rupture [id number]-[id number] (Syriac) * Otitis Media Adult Wnul-oj-Iqlj (Syriac) documented in this encounter Medications at Time of Discharge azelastine (ASTELIN) 0.1 % SolutionIndicatio ns:Sinus congestion 2 Sprays by Nasal route 2 times daily. Use in each nostril as directed 30 mL 3 06/30/2021 amoxicillin-clavu lanate (Augmentin) 875-125 MG Tablet Take 1 Tablet by mouth 2 times daily for 10 days. 20 Tablet 05/26/2022 3 FLUoxetine (PROZAC) 40 MG CapsuleIndication s:Generalized anxiety disorder,Major depressive disorder, recurrent, mild (HCC) Take 1 Capsule by mouth daily. 90 Capsule 05/01/2022 3 traMADol (ULTRAM) 50 MG TabletIndications :Acute otitis media, unspecified otitis media type,Tympanic membrane perforation, marginal, right Take 1 Tablet by mouth every 6 hours as needed for Moderate or more severe pain. 20 Tablet 05/26/2022 4 documented as of this encounter ED Notes * Kusum Ahmadi RN - 05/26/2022 7:38 AM CDT Patient discharged. Discharge instructions and patient educational material reviewed with patient; questions and concerns addressed; patient verbalizes understanding, using teach back. Patient was given 2 prescriptions. Patient was informed no drinking alcohol, driving or operating heavy machinery while taking narcotics or muscle relaxants. Patient ambulatory with steady gait; no distress noted. * Jeffrey Rojas MD - 05/26/2022 7:33 AM CDT Chief Complaint Patient presents with ??? Ear Pain ??? Cough Patient is a very pleasant 26-year-old female who presents with complaint of right ear pain that started this morning. Patient states she woke up with it. Patient also reports that she has had a cough productive of scant sputum for the last week, runny nose and URI symptoms. She reports mild shortness of breath with ambulation but none at rest. No other complaints. No current facility-administered medications for this encounter. Current Outpatient Medications Medication Sig Dispense Refill ??? amoxicillin-clavulanate (Augmentin) 875-125 MG Tablet Take 1 Tablet by mouth 2 times daily for 10 days. 20 Tablet 0 ??? azelastine (ASTELIN) 0.1 % Solution 2 Sprays by Nasal route 2 times daily. Use in each nostril as directed 30 mL 3 ??? FLUoxetine (PROZAC) 40 MG Capsule Take 1 Capsule by mouth daily. 90 Capsule 0 ??? traMADol (ULTRAM) 50 MG Tablet Take 1 Tablet by mouth every 6 hours as needed for Moderate or more severe pain. 20 Tablet 0 Allergies Allergen Reactions ??? Other-Food Allergen (Not Found In Search) Hives SKIN GLUE ??? Prednisone Palpitations History reviewed. No pertinent past medical history. Past Surgical History: Procedure Laterality Date ??? KNEE SURGERY Left ??? TONSILLECTOMY Social History Socioeconomic History ??? Marital status: Spouse name: Not on file ??? Number of children: Not on file ??? Years of education: Not on file ??? Highest education level: Bachelor's degree (e.g., BA, AB, BS) Occupational History ??? Not on file Tobacco Use ??? Smoking status: Never ??? Smokeless tobacco: Never Vaping Use ??? Vaping Use: Never used Substance and Sexual Activity ??? Alcohol use: Yes Comment: Social-holiday events etc ??? Drug use: Never ??? Sexual activity: Yes Partners: Male control/protection: Implant Other Topics Concern ??? Not on file Social History Narrative ??? Not on file BP 127/81 Pulse 67 Temp 97.3 ??F (36.3 ??C) (Tympanic) Resp 16 Ht 5' 4 (1.626 m) Wt 187 lb 6.3 oz (85 kg) LMP 05/12/2022 SpO2 97% BMI 32.17 kg/m?? Review of Systems Constitutional: Negative for chills and fatigue. All other systems reviewed and are negative. Physical Exam Vitals and nursing note reviewed. Constitutional: General: She is not in acute distress. Appearance: Normal appearance. She is well-developed. She is not ill-appearing or diaphoretic. HENT: Head: Normocephalic and atraumatic. Right Ear: Ear canal and external ear normal. Left Ear: Tympanic membrane, ear canal and external ear normal. Ears: Comments: There is erythema of the right tympanic membrane and there is a small rupture of the tympanic membrane localized at approximately 4:00 o'clock position. No drainage noted Nose: Nose normal. Eyes: Extraocular Movements: Extraocular movements intact. Conjunctiva/sclera: Conjunctivae normal. Pupils: Pupils are equal, round, and reactive to light. Neck: Trachea: No tracheal deviation. Cardiovascular: Rate and Rhythm: Normal rate and regular rhythm. Heart sounds: Normal heart sounds. No murmur heard. Pulmonary: Effort: Pulmonary effort is normal. No respiratory distress. Breath sounds: Normal breath sounds. No wheezing or rales. Musculoskeletal: General: Normal range of motion. Cervical back: Normal range of motion. Skin: General: Skin is warm and dry. Neurological: Mental Status: She is alert and oriented to person, place, and time. Psychiatric: Mood and Affect: Mood normal. Procedures Imaging Results None Labs Reviewed - No data to display MDM Coding Clinical Impression 1. Acute otitis media, unspecified otitis media type 2. Tympanic membrane perforation, marginal, right ED Course as of 05/26/22 0740 Sat May 26, 2022 0739 Patient is a very pleasant 26-year-old female who presents with URI type symptoms for the lastweek and acute pain in the right ear with observed tympanic membrane perforation. Differential diagnosis includes viral illness, bacterial otitis media, otitis externa, pneumonia, bronchitis. Patient's vital signs are stable, she is oxygenating normally. She will be treated with antibiotics for herotitis media and given analgesia. No further emergent workup is indicated. [DK] ED Course User Index [DK] Jeffrey Rojas MD * Kusum Ahmadi RN - 05/26/2022 7:[address] Rojas at bedside for assessment. No changes in pt condition since triage. Pt reports severe right ear pain since she woke up this morning; denies known drainage. * Beto Medrano RN - 05/26/2022 7:09 AM CDT pt has had problems with productive cough for the last week. the cough worsened last night and alsohas new right ear pain. she reports green secretions with cough and green drainage from nose. she denies sore throat. resp unlabored. noted occasional coarse sounding cough in triage. documented in this encounter Plan of Treatment Not on file documented as of this encounter Goals Goal Patient Goal Type Associated Problems Recent Progress Patient-Stated? Author I would like ways to control my anxiety and learn coping skills . Behavioral Health On track( 1:47 PM SHANK PAPERER) No Ananya Crenshaw, CESSATION SYSTEMS OUTREACH SPECIALIST Note: Goal Reviewed with: patient today Readiness to change: Ready to change Department associated with goal: [facility] Steps to achieve goal: will identify at least two coping skills/activities/habits that have helped to manage anxiety in the past. will identify at least three new coping skills/activities/habits that may help to prevent and/or cope with anxiety. 3. Will attend individual and/or group therapy at least 1x/month Anxiety astress Depression On track( 022 1:47 PM SHANK PAPERER) Yes Reina Laguna, CESSATION SYSTEMS OUTREACH SPECIALIST Note: Kaylee will report an improved management of anxiety symptoms Goal Reviewed with: patient today Readiness to change: Ready to change Department associated with goal: [facility] Steps to achieve goal: will identify at least two coping skills/activities/habits that have helped to manage anxiety in the past. will identify at least three new coping skills/activities/habits that may help to prevent and/or cope with anxiety 3. Will attend individual and/or group therapy at least 1x/month documented as of this encounter Visit Diagnoses Diagnosis Acute otitis media, unspecified otitis media type- Primary Tympanic membrane perforation, marginal, right documented in this encounter Care Teams Duty Manager Relationship Specialty Start Date End Date Jamaica Saavedra APRN, KRISTINE [address] [id number] PCP - General Advanced Practice Nurse 01/26/21 Emory Erazo MD [id number] [id number] Obstetrics & Gynecology 06/30/21 documented as of this encounter
--- OUTSIDE RECORDS SUMMARY | 2024-03-11 20:23 | XMS_ITS | Encounter Summary ---
Author Organization [facility] Address [address] [place] [address] Phone Care Team Providers Care Coding Team Lead Name Role Phone Jamaica Saavedra APRN, CNP Primary Care Provid er Emory Erazo MD Unavailable [phone] Reason for Referral * Consult, Test & Initiate Treatment (Less Than 4 Weeks) - Closed Specialty Diagnoses / Procedures Referred By Contlara t Referred To Contact Behavioral Health Diagnoses Generalized anxiety disorder Major depressive disorder, recurrent, mild (HCC) Jamaica Saavedra APRN, CNP [address] [address] Phone: tel: fax: Estefania Valera LCSW Referral ID Status Reason Start Date Expiration Date Visits Re quested Visits Authorized [id number] Closed 11/14/2021 1 1 Scheduling Instructions Kaylee is being referred for ADHD screening. Please contact patient for scheduling questions or concerns. Reason for Visit * Reason Comments Follow-up 6 week follow up for anxiety. Encounter Details Date Type Department Care Team ([facility] st Contact Info) Description 11/14/2021 10:00 AM CDT Office Visit [facility] Medical [facility] [address] [place] [address] Jamaica Saavedra APRN, FASHION DIRECTOR [employer] [address] [address] Generalized anxiety disorder (Primary Dx); Major depressive disorder, recurrent, mild (HCC); Encounter for immunization Discharge Disposition: Discharged to home or Selfcare [...] Sex Assigned at Female 04/04/2023 7:31 PM CAPACITY PLANNER Legal Sex Female 4:36 PM CDT Gender Identity Female 04/04/2023 7:31 PM CAPACITY PLANNER Sexual Orientation Not on file COVID-19 Exposure Response Date Recorded In the last 10 days, have yo u been in contact with someone who was confirmed or suspected to have Coronavirus/COVID-19? No / Unsure 11/14/2021 9:56 AM CDT documented as of this encounter Last Filed Vital Signs Vital Sign Reading Time Taken Comments Blood Pressure 132/84 11/14/2021 10:21 AM CDT Pulse 66 11/14/2021 10:21 AM CDT Temperature 36.4 ??C (97.6 ??F) 11/14/2021 10:21 AM C DT Respiratory Rate 14 11/14/2021 10:21 AM CDT Oxygen Saturation 99% 11/14/2021 10:21 AM CDT Inhaled Oxygen Concentration - - Weight 81.3 kg (179 lb 3.2 oz) 11/14/2021 10:21 AM CDT Height 162.6 cm (5' 4 ) 11/14/2021 10:21 AM CDT Body Mass Index 30.76 11/14/2021 10:21 AM CDT documented in this encounter Progress Notes * Kathy Fierro - 11/14/2021 10:00 AM CDT Kaylee Melchor, 26 y.o., female is here for Follow-up (6 week follow up for anxiety. ) Medication Refills: Patient reports/denies need for medication refills. Orders Pended: no Requested Prescriptions No prescriptions requested or ordered in this encounter Home Medications Medication Sig Start Date End Date Taking? Authorizing Provider azelastine (ASTELIN) 0.1 % Solution 2 Sprays by Nasal route 2 times daily. Use in each nostril as directed 06/30/21 Jamaica Saavedra APRN, CNP busPIRone (BUSPAR) 5 MG Tablet TAKE 1 TABLET BY MOUTH THREE TIMES DAILY Patient not taking: Reported on 11/14/2021 11/01/21 Natasha Garsia PAC FLUoxetine (PROzac) 20 MG Capsule Take 20 mg by mouth daily. 10/31/21 Provider, MD David FLUoxetine (PROZAC) 40 MG Capsule Take 1 Capsule by mouth daily. 10/03/21 Yes Jamaica Saavedra APRN, CNP ondansetron (Zofran) 4 MG Tablet Take 1 Tablet by mouth every 6 hours as needed for Nausea - 1st line. 09/21/21 Jamaica Saavedra APRN, CNP There are no discontinued medications. I have reviewed the home medication list with the patient and have reconciled discrepancies. The list is accurate to the best of my knowledge. Smoking Status: Social History Tobacco Use ??? Smoking status: Never Smoker ??? Smokeless tobacco: Never Used Vaping Use ??? Vaping Use: Never used Substance Use Topics ??? Alcohol use: Yes Comment: Social-holiday events etc ??? Drug use: Never Smoking Cessation Counseling Given: yes Health Care Maintenance: Health Maintenance Due Topic Date Due ??? Hepatitis B Immunization (1 of 3 - 3-dose series) Never done ??? Pap Smear Never done ??? Influenza Immunization (1) 11/09/2021 Orders Pended: no The following BPA's have been addressed with the patient today: Mammogram, Pap, Smoking, Depression, Fall Risk, Nutrition, Advanced Care Planning and HCC * Jamaica Saavedra APRN, KRISTINE - 11/14/2021 10:00 AM CDT [facility] [address] [facility] [address] Dept: [phone] Dept Loc: [phone] Loc Patient: Kaylee Melchor : 1995 Sex: female Subjective Subjective: HPI: Kaylee Melchor presents for Follow-up (6 week follow up for anxiety. ) . Patient presents today for follow up for depression and anxiety. She states that when we increased her Prozac to 40 mg the buspar made her shaky. She stopped the buspar about a week ago and her symptoms subsided. She also feels less anxious. She is still battling the difficulty focusing, racing thoughts, feeling of losing control, and dizziness. She is still having forgetfulness and not completing tasks. Denies suicidal or homicidal ideation. Denies intrusive thoughts. History reviewed. No pertinent past medical history. Current Outpatient Medications on File Prior to Visit Medication Sig Dispense Refill ??? azelastine (ASTELIN) 0.1 % Solution 2 Sprays by Nasal route 2 times daily. Use in each nostril as directed 30 mL 3 ??? FLUoxetine (PROZAC) 40 MG Capsule Take 1 Capsule by mouth daily. 90 Capsule 0 No current facility-administered medications on file prior to visit. Allergies Allergen Reactions ??? Other-Food Allergen (Not Found In Search) Hives SKIN GLUE ??? Prednisone Palpitations Past Surgical History: Procedure Laterality Date ??? KNEE SURGERY Left ??? TONSILLECTOMY Review of Systems Constitutional: Negative for activity change, appetite change, chills, fatigue and fever. Respiratory: Negative for cough, chest tightness, shortness of breath and wheezing. Cardiovascular: Negative for chest pain, palpitations and leg swelling. Gastrointestinal: Negative for constipation, diarrhea, nausea and vomiting. Neurological: Negative for dizziness, light-headedness and headaches. Psychiatric/Behavioral: Positive for decreased concentration. Negative for agitation, behavioral problems, confusion, dysphoric mood, hallucinations, self- injury, sleep disturbance and suicidal ideas. The patient is nervous/anxious and is hyperactive. Objective Objective: BP 132/84 (BP Location: Left Arm, BP Position: Sitting, BP Cuff Size: Regular) Pulse 66 Temp 97.6 ??F (36.4 ??C) (Temporal) Resp 14 Ht 5' 4 (1.626 m) Wt 179 lb 3.2 oz (81.3 kg) LMP 06/23/2021 SpO2 99% BMI 30.76 kg/m?? Physical Exam Vitals and nursing note reviewed. Constitutional: General: She is not in acute distress. Appearance: Normal appearance. She is well-developed. She is not diaphoretic. HENT: Head: Normocephalic and atraumatic. Right Ear: External ear normal. Left Ear: External ear normal. Mouth/Throat: Mouth: Mucous membranes are moist. [...] No stridor. No wheezing, rhonchi or rales. Musculoskeletal: General: Normal range of motion. Cervical back: Normal range of motion. Skin: General: Skin is warm and dry. Capillary Refill: Capillary refill takes less than 2 seconds. Neurological: General: No focal deficit present. Mental Status: She is alert and oriented to person, place, and time. Mental status is at baseline. Cranial Nerves: No cranial nerve deficit. Psychiatric: Mood and Affect: Mood normal. Behavior: Behavior normal. Thought Content: Thought content normal. Medical Decision Making: Assessment & Plan Diagnoses and all orders for this visit: Generalized anxiety disorder - BEHAVIORAL HEALTH REFERRAL; Future Major depressive disorder, recurrent, mild (HCC) - BEHAVIORAL HEALTH REFERRAL; Future Encounter for immunization - INFLUENZA VACCINE QUAD IM - INFLUENZA (>3) IMMUNIZATION QUESTIONS Other orders - Discontinue: FLUoxetine (PROzac) 20 MG Capsule; Take 20 mg by mouth daily. Patient is on BuSpar due to side effects. Will discontinue. Continue Prozac at 40 mg. Will refer her to Behavioral Health for evaluation for ADHD. Influenza immunization today. Follow-up pending testresults. Also need records from her OBGYN Jeremi for up-to-date Pap. She states she has had 1 in the last 3 years which was normal. Return for pending testing . * Verenice Dominguez RMA - 11/14/2021 10:00 AM CDT Kaylee is here for Flu immunizations per order of Jamaica Saavedra BOWLING PIN REFINISHER-BC dated 11/14/21. Administered in left deltoid . Vaccine Information Sheet(s) were given on 11/14/21. Verbal consent was obtained. Kaylee tolerated the immunization well without incident. See Immunization activity for details. documented in this encounter Plan of Treatment Scheduled Referrals Name Type Priority Associated Diagnoses Order Schedule BEHAVIORAL HEALTH REFERRAL Outpatient Referral Less Than 4 weeks Generalized anxiety disorder Major depressive disorder, recurrent, mild (HCC) Expected: 11/14/2021, Expires: 11/14/2022 documented as of this encounter Goals Goal Patient Goal Type Associated Problems Recent Progress Patient-Stated? Author I would like ways to control my anxiety and learn coping skills . Behavioral Health On track( 022 1:47 PM CAPACITY PLANNER) No Ananya Crenshaw, AIR BRUSH OPERATOR Note: Goal Reviewed with: patient today Readiness [...] at least 1x/month Anxiety astress Depression On track(11/29/2 022 1:47 PM CAPACITY PLANNER) Yes Reina Laguna, AIR BRUSH OPERATOR Note: Kaylee will report an improved management [...] (HCC) Major depressive disorder, recurrent episode, mild Encounter for immunization Need for other specified prophylactic vaccination against single bacterial disease documented in this encounter Care Teams Coding Team Lead Relationship Specialty Start Date End Date Jamaica Saavedra APRN, CNP [address] [phone] PCP - General Advanced Practice Nurse 01/26/21 Emory Erazo MD [address] [address] Obstetrics & Gynecology 06/30/21 documented as of this encounter
--- OUTSIDE RECORDS SUMMARY | 2024-03-11 20:23 | XMS_ITS | Encounter Summary ---
Author Organization [facility] Address [address] [place] [address] Phone Care Team Providers Care Acid Concentrator Name Role Phone Jamaica Saavedra APRN, CNP Primary Care Provid er Emory Erazo MD Unavailable [phone] Reason for Referral * Radiology Services (Routine) - Closed Specialty Diagnoses / Procedures Referred By Contac t Referred To Contact Radiology Diagnoses Gestational edema, antepartum Procedures US LEFT DUPLEX LOWER EXTREMITY VEINS Emory Erazo MD [address] [facility] [address] [address] Phone: tel: fax: Referral ID Status Reason Start Date Expiration Date Visits Re quested Visits Authorized [id number] Closed 12/13/2023 1 1 Encounter Details Date Type Department Care Team (Latest Contact Info) Description 12/13/2023 Transcribe Orders [facility] Central Scheduling 1 [place] [address] Emory Erazo MD [address] [facility] [address] [address] Gestational edema, antepartum (Primary Dx) Social History Tobacco Use Types Packs/Day Years Used Date Smoking Tobacco: Never Smokeless Tobacco: Never Alcohol Use Standard Drinks/Week Comments Yes 0 (1 standard drink = 0.6 oz pur e alcohol) Social-holiday events etc [facility] Utilities Answer Date Recorded In the past 12 months has th e electric, gas, oil, or water company [...] often do you attend chur ch or alevism services? More than 4 times per year 05/28/2023 Do you belong to any clubs o r organizations such as moravian groups, unions, fraternal or athletic groups, or [...] Score - Questions 1-9 0 04/0 08/2022 [facility] of Occupat ional Health - Occupational Stress [...] place to sleep or slept in a intermediate (including now)? No 05/28/2023 Education Answer Date Recorded What is the highest level of school you have completed or the highest degree you have received? Bachelor's degree (e.g., BA, AB, BS) 05/17/2021 Sexually Active Control Partners Comments Yes Implant Male Comments No Sex and Gender Information Value Date Recorded Sex Assigned at Female 04/04/2023 7:31 PM RUG CLIPPER Legal Sex Female 4:36 PM CDT Gender Identity Female 04/04/2023 7:31 PM RUG CLIPPER Sexual Orientation Not on file documented as of this encounter Plan of Treatment Not on file documented as of this encounter Goals Goal Patient Goal Type Associated Problems Recent Progress Patient-Stated? Author I would like ways to control my anxiety and learn coping skills . Behavioral Health On track( 022 1:47 PM RUG CLIPPER) No Ananya Crenshaw, STARS ANALYTICAL LEAD Note: Goal Reviewed with: patient today Readiness to change: Ready to change Department associated with goal: [facility] Steps to achieve goal: will identify at least two coping skills/activities/habits that have helped to manage anxiety in the past. will identify at least three new coping skills/activities/habits that may help to prevent and/or cope with anxiety. 3. Will attend individual and/or group therapy at least 1x/month Anxiety astress Depression On track( 022 1:47 PM RUG CLIPPER) Yes Reina Laguna, STARS ANALYTICAL LEAD Note: Kaylee will report an improved management of anxiety symptoms Goal Reviewed with: patient today Readiness to change: Ready to change Department associated with goal: [facility] Steps to achieve goal: will identify at least two coping skills/activities/habits that have helped to manage anxiety in the past. will identify at least three new coping skills/activities/habits that may help to prevent and/or cope with anxiety 3. Will attend individual and/or group therapy at least 1x/month documented as of this encounter Results * US LEFT DUPLEX [...] Electronically signed by ??Joe Haile M.D. LL: LL D: ??12/13/2023 5:22 PM T: ??12/13/2023 5:22 PM Report ID: [id number] Reading Location: ??[id number] Procedure Note Joe Haile MD - 12/13/2023 [...] Electronically signed by Joe Haile M.D. LL: LL Report ID: [id number] Reading Location: [id number] IMPRESSION: No evidence of left lower extremity deep venous thrombosis. Emory Erazo MD [facility] US ORDERABLES Final Result documented in this encounter Visit Diagnoses Diagnosis Gestational edema, antepartum- Primary Edema or excessive weight gain, antepartum Gestational edema, antepartum Edema or excessive weight gain, antepartum documented in this encounter Additional Health Concerns Assessment Noted Time PHQ-9 Depression Total Score: 0 06/15/19 23 2:00 PM CDT documented as of this encounter Care Teams Acid Concentrator Relationship Specialty Start Date End Date Jamaica Saavedra APRN, CLAY DRY PRESS MIXER OPERATOR #[address] [address] PCP - General Advanced Practice Nurse 01/26/21 Emory Erazo MD [address] [place] [address] Obstetrics & Gynecology 06/30/21 documented as of this encounter
--- OUTSIDE RECORDS SUMMARY | 2024-03-11 20:23 | XMS_ITS | Encounter Summary ---
Author Organization [employer] Care Team Providers Care Sales Assistant Name Role Phone Jamaica Saavedra APRN, CNP Primary Care Provid er Emory Erazo MD Unavailable [phone] Encounter Details Date Type Department Care Team (Latest Contact Info) Description 01/01/2022 Travel Social History Tobacco Use Types Packs/Day [...] Sex Assigned at Female 04/04/2023 7:31 PM LENS ASSISTANT Legal Sex Female 4:36 PM CDT Gender Identity Female 04/04/2023 7:31 PM LENS ASSISTANT Sexual Orientation Not on file COVID-19 Exposure [...] . Behavioral Health On track( 1:47 PM LENS ASSISTANT) No Ananya Crenshaw, POULTRY RAISER Note: Goal Reviewed with: patient today Readiness to change: Ready to change Department associated with goal: [facility] Steps to achieve goal: will identify at least two coping skills/activities/habits that have helped to manage anxiety in the past. will identify at least three new coping skills/activities/habits that may help to prevent and/or cope with anxiety. 3. Will attend individual and/or group therapy at least 1x/month Anxiety astress Depression On track( 022 1:47 PM LENS ASSISTANT) Yes Reina Laguna, POULTRY RAISER Note: Kaylee will report an improved management of anxiety symptoms Goal Reviewed with: patient today Readiness to change: Ready to change Department associated with goal: [facility] Steps to achieve [...] on filedocumented in this encounter Care Teams Sales Assistant Relationship Specialty Start Date End Date Jamaica Saavedra APRN, CNP #[address] [id number] PCP - General Advanced Practice Nurse 01/26/21 Emory Erazo MD [address] [id number] Obstetrics & Gynecology 06/30/21 documented as of this encounter
--- OUTSIDE RECORDS SUMMARY | 2024-03-11 20:23 | XMS_ITS | Encounter Summary ---
Author Organization [employer] Care Team Providers Care Supervisor Production Department Name Role Phone Jamaica Saavedra APRN, CNP Primary Care Provid er Emory Erazo MD Unavailable [phone] Encounter Details Date Type Department Care Team (Latest Contact Info) Description 01/14/2022 Travel Social History Tobacco Use Types Packs/Day [...] Sex Assigned at Female 04/04/2023 7:31 PM TIE BINDER Legal Sex Female 4:36 PM CDT Gender Identity Female 04/04/2023 7:31 PM TIE BINDER Sexual Orientation Not on file COVID-19 Exposure Response Date Recorded In the last 10 days, have yo u been in contact with someone who was confirmed or suspected to have Coronavirus/COVID-19? No / Unsure 01/14/2022 9:54 AM TIE BINDER documented as of this encounter Plan of Treatment Not on file documented as of this encounter Goals Goal Patient Goal Type Associated Problems Recent Progress Patient-Stated? Author I would like ways to control my anxiety and learn coping skills . Behavioral Health On track( 1:47 PM TIE BINDER) No Ananya Crenshaw, WOOLEN MILL UTILITY WORKER Note: Goal Reviewed with: patient today Readiness to change: Ready to change Department associated with goal: [facility] Steps to achieve goal: will identify at least two coping skills/activities/habits that have helped to manage anxiety in the past. will identify at least three new coping skills/activities/habits that may help to prevent and/or cope with anxiety. 3. Will attend individual and/or group therapy at least 1x/month Anxiety astress Depression On track( 022 1:47 PM TIE BINDER) Yes Reina Laguna, WOOLEN MILL UTILITY WORKER Note: Kaylee will report an improved management of anxiety symptoms Goal Reviewed with: patient today Readiness to change: Ready to change Department associated with goal: [facility] Steps [...] on filedocumented in this encounter Care Teams Supervisor Production Department Relationship Specialty Start Date End Date Jamaica Saavedra APRN, CNP #[address] [phone] PCP - General Advanced Practice Nurse 01/26/21 Emory Erazo MD [address] [phone] Obstetrics & Gynecology 06/30/21 documented as of this encounter
--- OUTSIDE RECORDS SUMMARY | 2024-03-11 20:23 | XMS_ITS | Encounter Summary ---
Author Organization [employer] Care Team Providers Care Hitcher Name Role Phone Jamaica Saavedra APRN, CNP Primary Care Provid er Emory Erazo MD Unavailable [phone] Encounter Details Date Type Department Care Team (Latest Contact Info) Description 05/07/2023 Travel Social History Tobacco Use Types Packs/Day Years Used Date Smoking Tobacco: Never Smokeless Tobacco: Never Alcohol Use Standard Drinks/Week Comments Yes 0 (1 standard drink = 0.6 oz pur e alcohol) Social-holiday events etc C Utilities Answer Date Recorded In the past 12 months has [employer] electric, gas, oil, or water company threatened [...] often do you attend chur ch or congregation services? More than 4 times per year 05/07/2023 Do you belong to any clubs o r organizations such as yazidi groups, unions, fraternal or athletic groups, or [...] Score - Questions 1-9 0 04/0 08/2022 [facility] of Occupat ional Health - Occupational Stress [...] in a long term (including now)? No 05/07/2023 Education Answer Date Recorded What is the highest level of school you have completed or the highest degree you have received? Bachelor's degree (e.g., BA, AB, BS) 05/17/2021 Sexually Active Control Partners Comments Yes Implant Male Comments No Sex and Gender Information Value Date Recorded Sex Assigned at Female 04/04/2023 7:31 PM COMPUTER SERVICE TECHNICIAN Legal Sex Female 4:36 PM CDT Gender Identity Female 04/04/2023 7:31 PM COMPUTER SERVICE TECHNICIAN Sexual Orientation Not on file documented as of this encounter Functional Status * Audit-C Score Answer Date of Assessment Author 1 05/07/2023 9:34 AM Martha Starks MA * Within the last year, have you been humiliated or emotionally abused in other ways by your partner or ex-partner? Answer Date of Assessment Author No 05/07/2023 9:34 AM Martha Starks MA * Within the last year, have you been afraid of your partner or ex-partner? Answer Date of Assessment Author No 05/07/2023 9:34 AM Martha Starks MA * Within the last year, have you been raped or forced to have any kind of sexual activity by your partner or ex-partner? Answer Date of Assessment Author No 05/07/2023 9:34 AM Martha Starks MA * Within the last year, have you been kicked, hit, slapped, or otherwise physically hurt by your partner or ex-partner? Answer Date of Assessment Author No 05/07/2023 9:34 AM Martha Starks MA * Q1: How often do you have a drink containing alcohol? Answer Date of Assessment Author Monthly or less 05/07/2023 9:34 AM Martha Starks MA * Q2: How many drinks containing alcohol do you have on a typical day when you are drinking? Answer Date of Assessment Author 1 or 2 05/07/2023 9:34 AM Martha Starks MA * Q3: How often do you have six or more drinks on one occasion? Answer Date of Assessment Author Tera 05/07/2023 9:34 AM COMPUTER SERVICE TECHNICIAN Twyla ryan, Martha Ortiz MA documented as of this encounter Plan of Treatment Not on file documented as of this encounter Goals Goal Patient Goal Type Associated Problems Recent Progress Patient-Stated? Author I would like ways to control my anxiety and learn coping skills . Behavioral Health On track( 1:47 PM COMPUTER SERVICE TECHNICIAN) No Ananya Crenshaw, POULTRY FARM LABORER Note: Goal Reviewed with: patient today Readiness to change: Ready to change Department associated with goal: [facility] Steps to achieve goal: will identify at least two coping skills/activities/habits that have helped to manage anxiety in the past. will identify at least three new coping skills/activities/habits that may help to prevent and/or cope with anxiety. 3. Will attend individual and/or group therapy at least 1x/month Anxiety astress Depression On track( 1:47 PM COMPUTER SERVICE TECHNICIAN) Yes Reina Laguna, POULTRY FARM LABORER Note: Kaylee will report an improved management of anxiety symptoms Goal Reviewed with: patient today Readiness to change: Ready to change Department associated with goal: [facility] Steps to achieve [...] documented as of this encounter Care Teams Hitcher Relationship Specialty Start Date End Date Jamaica Saavedra APRN, CNP #[address] [phone] PCP - General Advanced Practice Nurse 01/26/21 Emory Erazo MD [address] [facility] [address] [address] Obstetrics & Gynecology 06/30/21 documented as of this encounter
--- OUTSIDE RECORDS SUMMARY | 2024-03-11 20:23 | XMS_ITS | Clinical Summary ---
Author Organization [facility] Address [address] [place] [address] Phone Care Team Providers Care Fire Alarm Repairer Name Role Phone Jamaica Saavedra APRN, CNP Primary Care Provid er Emory Erazo MD Unavailable [phone] Allergies Active Allergy Reactions Criticality Noted Date Comments Other-Food Allergen (Not Fou nd In Search) Hives 09/02/2019 SKIN GLUE Prednisone Palpitations 01/26/2021 Medications azelastine (ASTELIN) 0.1 % SolutionIndicat ions:Sinus congestion 2 Sprays by Nasal route 2 times daily. Use in each nostril as directed 30 mL 3 06/30/2021 Active carBAMazepine (TEGretol) 100 MG Chewable Tablet Take 1 Tablet by mouth 3 times daily. 12/15/2022 Active FLUoxetine (PROZAC) 40 MG CapsuleIndicati ons:Generalized anxiety disorder,Major depressive disorder, recurrent, mild (HCC) TAKE 1 CAPSULE BY MOUTH EVERY DAY 90 Capsule 1 05/06/2023 Active topiramate (TOPAMAX) 25 MG TabletIndicatio ns:Frequent headaches Take 1 Tablet by mouth nightly. 90 Tablet 05/10/2023 Active Black Elderberry 50 MG/5ML Syrup Take 200 mg by mouth daily. Active Heath 3 1000 MG Capsule Take 224 mg by mouth daily. Active Active Problems Problem Noted Date Diagnosed Date Frequent headaches 05/28/2023 Generalized anxiety disorder 03/27/2021 Major depressive disorder, recurrent, mild 03/27 Encounters Date Type Department Care Team Description 12/13/2023 4:30 PM CDT - 12/13/2023 11:59 PM CDT Hospital Encounter [facility] Ultrasound 1 [place] [address] Emory Erazo MD Discharge Disposition: Discharged to home or Selfcare 12/13/2023 Travel 12/13/2023 Transcribe Orders [facility] Central Scheduling 1 [place] [address] Emory Erazo MD Gestational edema, antepartum (Primary Dx) from Last 3 Months Immunizations Immunization Administration Dates Next Due Covid-19, Mrna, Lnp-s, Pf, 3 0 Mcg/0.3 Ml Dose (Tapshot, [employer] Videok[employer]) 03/15/2021,03/18/2020,02/29/2020 Influenza Vaccine 12/13/2022 Influenza Vaccine, Quadrivalent, PF 11/14/2021,1 ,12/24/2018 Influenza,Split Virus,Trivalent,Injectable,PF 12/18/2023 TDAP Vaccine 04/28/2019 Family History Medical History Relation Name Comments ADD / ADHD Brother Ed (34) Diabetes Father Ron Glaucoma Father Ron Hypertension Father Ron Thyroid Disease Father Ron No Known Problems Maternal Aunt No Known Problems Maternal Grandfather No Known Problems Maternal Grandmother No Known Problems Maternal Uncle ADD / ADHD Mother Vannessa Anxiety disorder Mother Vannessa Depression Mother Vannessa Mental Disorder, Other Mother Vannessa No Known Problems Other No Known Problems Paternal Aunt No Known Problems Paternal Grandfather No Known Problems Paternal Grandmother No Known Problems Paternal Uncle Relation Name Status Comments Brother Ed (34) Father Ron Alive Maternal Aunt Maternal Grandfather Maternal Grandmother Maternal Uncle Mother Vannessa Alive Other Paternal Aunt Paternal Grandfather Paternal Grandmother Paternal Uncle Social History Tobacco Use Types Packs/Day Years Used Date Smoking Tobacco: Never Smokeless Tobacco: Never Tobacco Cessation:Counseling Given: Yes Alcohol Use Standard Drinks/Week Comments Yes 0 (1 standard drink = 0.6 oz pur e alcohol) Social-holiday events etc [employer] Utilities Answer Date Recorded In the past 12 months has th e [employer], gas, oil, or water [employer] threatened to shut off services in your [...] 05/28/2023 How often do you attend chur or mormon services? More than 4 times per year [...] Score - Questions 1-9 0 04/0 08/2022 [facility] of Occupat ional Health - Occupational [...] place to sleep or slept in a care home (including now)? No 05/28/2023 Education Answer Date Recorded What is the highest level of school you have completed or the highest degree you have received? Bachelor's degree (e.g., BA, AB, BS) 05/17/2021 Sexually Active Control Partners Comments Yes Implant Male Comments No Sex and Gender Information Value Date Recorded Sex Assigned at Female 04/04/2023 7:31 PM TRANSPORTATION OPERATIONS MANAGER Legal Sex Female 4:36 PM CDT Gender Identity Female 04/04/2023 7:31 PM TRANSPORTATION OPERATIONS MANAGER Sexual Orientation Not on file Last Filed Vital Signs Vital Sign Reading [...] Mass Index 34.33 05/28/2023 5:41 PM CDT Plan of Treatment Health Maintenance Due Date Last Done Comments Hepatitis C Virus (HCV) Screening 1994 Hepatitis B Immunization (1 of 3 - 19+ 3-dose series) 2013 SARS-COV-2 Immunization ( season) 2023 03/15/2021, 03/18/2020, 02/29/2020 Pap Smear 06/20/2024 06/20/2021, 09/09, 10/06/2018 Td Immunization Every 10 Years (Adults With 1 Tdap) 04/28/2029 04/28/2019 Respiratory Syncytial Virus (RSV) Immunization (Adult) (1 - 1-dose 75+ series) 2069 DTaP/Tdap/Td Immunization Discontinued 04/28/2019 Influenza Immunization Completed 4, 12/13/2022, 11/14/2021, Additional history exists Meningococcal Immunization (ACWY) Aged Out No longer eligible based on patient's age to complete this topic Pneumococcal Immunization Combined Aged Out No longer eligible based on patient's age to complete this topic Rotavirus Immunization Aged Out No lo nger eligible based on patient's age to complete this topic Goals Goal Patient Goal Type Associated Problems Recent Progress Patient-Stated? Author I would like ways to control my anxiety and learn coping skills . Behavioral Health On track( 1:47 PM TRANSPORTATION OPERATIONS MANAGER) No Ananya Crenshaw LCSW Note: Goal Reviewed with: patient today Readiness to change: Ready to change Department associated with goal: [facility] Steps to achieve goal: will identify at least two coping skills/activities/habits that have helped to manage anxiety in the past. will identify at least three new coping skills/activities/habits that may help to prevent and/or cope with anxiety. 3. Will attend individual and/or group therapy at least 1x/month Anxiety astress Depression On track( 1:47 PM TRANSPORTATION OPERATIONS MANAGER) Yes Reina Laguna LCSW Note: Kaylee will report an improved management of anxiety symptoms Goal Reviewed with: patient today Readiness to change: Ready to change Department associated with goal: [facility] Steps to achieve goal: will identify at least two coping skills/activities/habits that have helped to manage anxiety in the past. will identify at least three new coping skills/activities/habits that may help to prevent and/or cope with anxiety 3. Will attend individual and/or group therapy at least 1x/month Procedures Procedure Name Priority Date/Time Associated Diagnosis Comments US LEFT DUPLEX LOWER EXTREMITY VEINS STAT 12/13/2023 4:48 PM CDT Gestational edema, antepartum PATHOLOGY CYTOLOGY FRONT LINE LEADER 10/06/2018 12:00 AM CDT from Last 3 Months or Most Recently Relevant to Health Maintenance Results * US LEFT DUPLEX LOWER EXTREMITY [...] PM T: ??12/13/2023 5:22 PM Report ID: [id number] Reading Location: ??[id number] Procedure Note Joe Haile MD - 12/13/2023 [...] Joe Haile M.D. LL: KORINA Report ID: [id number] Reading Location: [id number] IMPRESSION: No evidence of left lower extremity deep venous thrombosis. us Emory Erazo MD [facility] US ORDERABLES Final Result * PATHOLOGY CYTOLOGY FRONT LINE LEADER (10/06/2018 12:00 AM CDT) 10/06/2018 us Not On File Provider PATHOLOGY/CYTOLOGY ORDERABL ES Final Result [facility] NON-[facility] from Last 3 Months or Most Recently Relevant to Health [place] [address] [place] [address] [facility] [place] [address] [employer] [facility] Care Teams Fire Alarm Repairer Relationship Specialty Start Date End Date Jamaica Saavedra APRN, INSIDE SALES TRAINER #[address] [phone] PCP - General Advanced Practice Nurse 01/26/21 Emory Erazo MD [address] [phone] Obstetrics & Gynecology 06/30/21
--- OUTSIDE RECORDS SUMMARY | 2024-03-11 20:24 | XMS_ITS | Encounter Summary ---
Author Organization [employer] [facility] Care Team Providers Care Sander Hand Name Role Phone Provider, None Primary Care Provider Unavailabl e Encounter Details Date Type Department Care Team (Latest Contact Info) Description 04/17/2019 Travel Social History Tobacco Use Types Packs/Day Years Used Date Smoking Tobacco: Never Assessed Comments Unknown Sex and Gender Information Value Date Recorded Sex Assigned at Female 04/04/2023 7:31 PM ROUTE CARRIER Legal Sex Female 4:36 PM CDT Gender Identity Female 04/04/2023 7:31 PM ROUTE CARRIER Sexual Orientation Not on file documented as of this encounter Plan of Treatment Not on file documented as of this encounter Visit Diagnoses Not on filedocumented in this encounter Care Teams Sander Hand Relationship Specialty Start Date End Date Provider, Rosina DEE PCP - General 06/17/17 01/25/21 documented as of this encounter
--- OUTSIDE RECORDS SUMMARY | 2024-03-11 20:24 | XMS_ITS | Encounter Summary ---
Author Organization [employer] Care Team Providers Care Production Underwriter Name Role Phone Jamaica Saavedra APRN, CNP Primary Care Provid er Emory Erazo MD Unavailable [phone] Encounter Details Date Type Department Care Team (Latest Contact Info) Description 06/30/2021 Travel Social History Tobacco Use Types Packs/Day [...] Sex Assigned at Female 04/04/2023 7:31 PM DRILLING AND PRODUCTION SUPERINTENDENT Legal Sex Female 4:36 PM CDT Gender Identity Female 04/04/2023 7:31 PM DRILLING AND PRODUCTION SUPERINTENDENT Sexual Orientation Not on file COVID-19 Exposure Response Date Recorded In the last 10 days, have yo u been in contact with someone who was confirmed or suspected to have Coronavirus/COVID-19? No / Unsure 06/30/2021 10:11 AM CDT documented as of this encounter Plan of Treatment Not on file documented as of this encounter Goals Goal Patient Goal Type Associated Problems Recent Progress Patient-Stated? Author I would like ways to control my anxiety and learn coping skills . Behavioral Health On track( 1:47 PM DRILLING AND PRODUCTION SUPERINTENDENT) No Ananya Crenshaw, TANK WAGON DRIVER Note: Goal Reviewed with: patient today Readiness to change: Ready to change Department associated with goal: [facility] Steps to achieve goal: will identify at least two coping skills/activities/habits that have helped to manage anxiety in the past. will identify at least three new coping skills/activities/habits that may help to prevent and/or cope with anxiety. 3. Will attend individual and/or group therapy at least 1x/month Anxiety astress Depression On track( 022 1:47 PM DRILLING AND PRODUCTION SUPERINTENDENT) Yes Reina Laguna, TANK WAGON DRIVER Note: Kaylee will report an improved management of anxiety symptoms Goal Reviewed with: patient today Readiness to change: Ready to change Department associated with goal: [facility] Steps to [...] on filedocumented in this encounter Care Teams Production Underwriter Relationship Specialty Start Date End Date Jamaica Saavedra APRN, CNP #[address] [phone] PCP - General Advanced Practice Nurse 01/26/21 Emory Erazo MD [address] [id number] Obstetrics & Gynecology 06/30/21 documented as of this encounter
--- OUTSIDE RECORDS SUMMARY | 2024-03-11 20:24 | XMS_ITS | Encounter Summary ---
Author Organization [employer] Care Team Providers Care Proj Mgr Name Role Phone Provider, None Primary Care Provider Unavailabl e Encounter Details Date Type Department Care Team (Latest Contact Info) Description 10/09/2020 Travel Social History Tobacco Use Types Packs/Day Years Used Date Smoking Tobacco: Never Smokeless Tobacco: Never Comments Unknown Sex and Gender Information Value Date Recorded Sex Assigned at Female 04/04/2023 7:31 PM CEMENT TESTER ASSISTANT Legal Sex Female 4:36 PM CDT Gender Identity Female 04/04/2023 7:31 PM CEMENT TESTER ASSISTANT Sexual Orientation Not on file COVID-19 Exposure Response Date Recorded In the last month, have you been in contact with someone who was confirmed or suspected to have Coronavirus / COVID-19? Yes 10/09/2020 9:31 AM CDT documented as of this encounter Plan of Treatment Not on file documented as of this encounter Visit Diagnoses Not on filedocumented in this encounter Additional Health Concerns Infection Onset Date Last Indicated Resolved Time COVID - 19 10/09/2020 10/09/2020 10/12/2020 9:04 AM CDT documented as of this encounter Care Teams Proj Mgr Relationship Specialty Start Date End Date Provider, None [place] PCP - General 06/17/17 01/25/21 documented as of this encounter
--- OUTSIDE RECORDS SUMMARY | 2024-03-11 20:24 | XMS_ITS | Encounter Summary ---
Author Organization [facility] Care Team Providers Care Claim Attorney Name Role Phone Jamaica Saavedra APRN, CNP Primary Care Provid er Encounter Details Date Type Department Care Team (Latest Contact Info) Description 03/22/2021 Travel Social History Tobacco Use Types Packs/Day Years Used Date Smoking Tobacco: Never Smokeless Tobacco: Never Alcohol Use Standard Drinks/Week Comments Yes 0 (1 standard drink = 0.6 oz pur e alcohol) Social-holiday events etc PHQ-2 Answer Date Recorded Total Score - Questions 1-9 1 01/09 Sexually Active Control Partners Comments Yes Implant Male Comments No Sex and Gender Information Value Date Recorded Sex Assigned at Female 04/04/2023 7:31 PM PRESS BREAKER Legal Sex Female 4:36 PM CDT Gender Identity Female 04/04/2023 7:31 PM PRESS BREAKER Sexual Orientation Not on file COVID-19 Exposure Response Date Recorded In the last month, have you been in contact with someone who was confirmed or suspected to have Coronavirus / COVID-19? Yes 03/22/2021 10:42 AM PRESS BREAKER documented as of this encounter Plan of Treatment Not on file documented as of this encounter Goals Goal Patient Goal Type Associated Problems Recent Progress Patient-Stated? Author I would like ways to control my anxiety and learn coping skills . Behavioral Health On track( 022 1:47 PM PRESS BREAKER) No Ananya Crenshaw LCSW Note: Goal Reviewed with: patient today Readiness to change: Ready to change Department associated with goal: [facility] Steps to [...] on filedocumented in this encounter Care Teams Claim Attorney Relationship Specialty Start Date End Date Jamaica Saavedra APRN, NURSE SITTER #[address] [phone] PCP - General Advanced Practice Nurse 01/26/21 documented as of this encounter
--- OUTSIDE RECORDS SUMMARY | 2024-03-11 20:24 | XMS_ITS | Encounter Summary ---
Author Organization [facility] Address [address] [place] [address] Phone Care Team Providers Care Oil Plant Operator Name Role Phone Provider, None Primary Care Provider Unavailabl e Encounter Details Date Type Department Care Team (Late st Contact Info) Description 01/25/2020 Telephone [facility] - [facility] [place] [address] [place] [phone] Chris So MD Social History Tobacco Use Types Packs/Day Years Used Date Smoking Tobacco: Never Assessed Comments Unknown Sex and Gender Information Value Date Recorded Sex Assigned at Female 04/04/2023 7:31 PM ROOFING MACHINE TENDER Legal Sex Female 4:36 PM CDT Gender Identity Female 04/04/2023 7:31 PM ROOFING MACHINE TENDER Sexual Orientation Not on file documented as of this encounter Miscellaneous Notes * Telephone Encounter - Toña Lancaster RN - 01/25/2020 3:37 PM CST Pt was given the results of the rapid covid swab test. Pt verbalized understanding; denied having any questions or concerns when asked. No signs of distress noted. ING MACHINE TENDER documented in this encounter Plan of Treatment Not on file documented as of this encounter Visit Diagnoses Not on filedocumented in this encounter Additional Health Concerns Infection Onset Date Last Indicated Resolved Time COVID - 19 01/25/2020 01/25/2020 02/14/2020 12:1 8 AM ROOFING MACHINE TENDER documented as of this encounter Care Teams Oil Plant Operator Relationship Specialty Start Date End Date Provider, None [place] PCP - General 06/17/17 01/25/21 documented as of this encounter
--- OUTSIDE RECORDS SUMMARY | 2024-03-11 20:24 | XMS_ITS | Encounter Summary ---
Author Organization [facility] Care Team Providers Care Bobcat Operator Name Role Phone Jamaica Saavedra APRN, CNP Primary Care Provid er Encounter Details Date Type Department Care Team (Latest Contact Info) Description 03/27/2021 Travel Social History Tobacco Use Types Packs/Day [...] Sex Assigned at Female 04/04/2023 7:31 PM FIRE SPRINKLER SERVICE TECHNICIAN Legal Sex Female 4:36 PM CDT Gender Identity Female 04/04/2023 7:31 PM FIRE SPRINKLER SERVICE TECHNICIAN Sexual Orientation Not on file COVID-19 Exposure Response Date Recorded In the last month, have you been in contact with someone who was confirmed or suspected to have Coronavirus / COVID-19? Yes 03/27/2021 2:50 PM FIRE SPRINKLER SERVICE TECHNICIAN documented as of this encounter Plan of Treatment Not on file documented as of this encounter Goals Goal Patient Goal Type Associated Problems Recent Progress Patient-Stated? Author I would like ways to control my anxiety and learn coping skills . Behavioral Health On track( 022 1:47 PM FIRE SPRINKLER SERVICE TECHNICIAN) No Ananya Crenshaw LCSW Note: Goal Reviewed [...] astress Depression On track( 022 1:47 PM FIRE SPRINKLER SERVICE TECHNICIAN) Yes Reina Laguna, FRONT END MANAGER Note: Kaylee will report an improved management of anxiety symptoms Goal Reviewed with: patient today Readiness to change: Ready to change Department associated with goal: [facility] Steps to [...] on filedocumented in this encounter Care Teams Bobcat Operator Relationship Specialty Start Date End Date Jamaica Saavedra APRN, KRISTINE #[address] [phone] PCP - General Advanced Practice Nurse 01/26/21 documented as of this encounter
--- OUTSIDE RECORDS SUMMARY | 2024-03-11 20:24 | XMS_ITS | Encounter Summary ---
Author Organization [employer] Care Team Providers Care Cryptographic Vulnerability Analyst Name Role Phone Provider, None Primary Care Provider Unavailabl e Encounter Details Date Type Department Care Team (Latest Contact Info) Description 09/02/2019 Travel Social History Tobacco Use Types Packs/Day Years Used Date Smoking Tobacco: Never Assessed Comments Unknown Sex and Gender Information Value Date Recorded Sex Assigned at Female 04/04/2023 7:31 PM FULFILLMENT SPECIALIST Legal Sex Female 4:36 PM CDT Gender Identity Female 04/04/2023 7:31 PM FULFILLMENT SPECIALIST Sexual Orientation Not on file COVID-19 Exposure Response Date Recorded In the last month, have you been in contact with someone who was confirmed or suspected to have Coronavirus / COVID-19? No / Unsure 09/02/2019 5:15 PM CDT documented as of this encounter Plan of Treatment Not on file documented as of this encounter Visit Diagnoses Not on filedocumented in this encounter Care Teams Cryptographic Vulnerability Analyst Relationship Specialty Start Date End Date Provider, None [place] PCP - General 06/17/17 01/25/21 documented as of this encounter
--- OUTSIDE RECORDS SUMMARY | 2024-03-11 20:24 | XMS_ITS | Encounter Summary ---
Author Organization [facility] Address [address] [place] [address] Phone Care Team Providers Care Viticulturist Name Role Phone Jamaica Saavedra APRN, KRISTINE Primary Care Provid er Emory Erazo MD Unavailable Reason for Visit * Reason Comments Follow-up 6 week f/u Encounter Details Date Type Department Care Team (Late st Contact Info) Description 06/30/2021 10:30 AM CDT Office Visit [facility] - [facility] [address] [place] [phone] Jamaica Saavedra APRN, OVERHEAD CLEANER #[address] [phone] Sinus congestion (Primary Dx); Major depressive disorder, recurrent, mild (HCC); Generalized anxiety disorder Discharge Disposition: Discharged to home or Selfcare Social History Tobacco Use Types Packs/Day Years Used Date Smoking Tobacco: Never Smokeless Tobacco: Never Tobacco Cessation:Counseling Given: No Alcohol Use Standard Drinks/Week Comments Yes 0 [...] Sex Assigned at Female 04/04/2023 7:31 PM DOLLY PUSHER Legal Sex Female 4:36 PM CDT Gender Identity Female 04/04/2023 7:31 PM DOLLY PUSHER Sexual Orientation Not on file COVID-19 Exposure Response Date Recorded In the last 10 days, have yo u been in contact with someone who was confirmed or suspected to have Coronavirus/COVID-19? No / Unsure 06/30/2021 10:11 AM CDT documented as of this encounter Last Filed Vital Signs Vital Sign Reading Time Taken Comments Blood Pressure 108/66 06/30/2021 10:14 AM CDT Pulse 99 06/30/2021 10:14 AM CDT Temperature 36.7 ??C (98.1 ??F) 06/30/2021 10:14 AM C DT Respiratory Rate 16 06/30/2021 10:14 AM CDT Oxygen Saturation 99% 06/30/2021 10:14 AM CDT Inhaled Oxygen Concentration - - Weight 81 kg (178 lb 9.6 oz) 06/30/2021 10:14 AM CDT Height 162.6 cm (5' 4 ) 06/30/2021 10:14 AM CDT Body Mass Index 30.66 06/30/2021 10:14 AM CDT documented in this encounter Progress Notes * Lamar Ruggiero, SEGUNDOA - 06/30/2021 10:30 AM CDT Kaylee Darshana Melchor, 26 y.o., female is here for Follow-up (6 week f/u) Medication Refills: Patient reports/denies need for medication refills. Orders Pended: yes Requested Prescriptions No prescriptions requested or ordered in this encounter Home Medications Medication Sig Start Date End Date Taking? Authorizing Provider busPIRone (BUSPAR) 5 MG Tablet Take 1 Tablet by mouth 3 times daily. 05/19/21 Yes Jamaica Saavedra APRN, CNP FLUoxetine (PROzac) 20 MG Capsule Take 1 Capsule by mouth daily. 04/06/21 Yes Jamaica Saavedra APRN, KRISTINE There are no discontinued medications. I have [...] Drug use: Never Smoking Cessation Counseling Given: no Health Care Maintenance: Health Maintenance Due Topic Date Due ??? Pap Smear Never done Orders Pended: no The following BPA's have been addressed with the patient today: Pap * Jamaica Saavedra APRN, CNP - 06/30/2021 10:30 AM CDT [facility] [place] [address] [facility] [id number] Dept: [phone] Dept Loc: [phone] Loc Patient: Kaylee Melchor : 1995 Sex: female Subjective Subjective: HPI: Kaylee Melchor presents for Follow-up (6 week f/u) . Patient presents today for 6 week follow-up for anxiety and depression. She also reports she has a URI. Patient reports she has been battling URI persistent cough for approximately 4 weeks. She has been on Augmentin and then developed candidiasis and required Diflucan. She reports that she has been taking Mucinex, Tylenol sinus, Zyrtec without improvement. Her symptoms include ear pressure, cough, sinus pressure, headache and thick green nasal discharge. Patient is also following up on Prozac and additional BuSpar to manage anxiety. She reports she hasnoted a massive improvement her anxiety. She states she feels more relaxed and feels like she is able to handle her issues more thoroughly. She denies suicidal or homicidal ideation. No past medical history on file. Current Outpatient Medications on File Prior to Visit Medication Sig Dispense Refill ??? busPIRone (BUSPAR) 5 MG Tablet Take 1 Tablet by mouth 3 times daily. 270 Tablet 0 No current facility-administered medications on [...] Social-holiday events etc ??? Drug use: Never Family History Problem Relation Age of Onset ??? Mental Disorder, Other Mother ??? Anxiety disorder Mother ??? Depression Mother ??? Hypertension Father ??? Diabetes Father ??? Thyroid Disease Father ??? Glaucoma Father ??? ADD / ADHD Brother ??? No Known Problems Maternal Aunt ??? No Known Problems Maternal Uncle ??? No Known Problems Paternal Aunt ??? No Known Problems Paternal Uncle ??? No Known Problems Maternal Grandmother ??? No Known Problems Maternal Grandfather ??? No Known Problems Paternal Grandmother ??? No Known Problems Paternal Grandfather ??? No Known Problems Other Review of Systems Constitutional: Positive for activity change. Negative for chills, diaphoresis, fatigue and fever. HENT: Positive for congestion, ear pain, postnasal drip, rhinorrhea, sinus pressure and sore throat. Negative for dental problem, drooling, ear discharge, facial swelling, hearing loss, mouth sores, nosebleeds, sinus pain, sneezing, tinnitus, trouble swallowing and voice change. Eyes: Negative for pain and redness. Respiratory: Positive for cough and chest tightness. Negative for choking, shortness of breath and wheezing. Cardiovascular: Negative for chest pain and palpitations. Gastrointestinal: Negative for constipation, diarrhea, nausea and vomiting. Musculoskeletal: Negative for myalgias. Neurological: Positive for headaches (sinus headache ). Negative for dizziness and light-headedness. Psychiatric/Behavioral: Negative for agitation, behavioral problems, confusion, decreased concentration, hallucinations, self-injury and sleep disturbance. The patient is not nervous/anxious and is not hyperactive. Objective Objective: BP 108/66 (BP Location: Right Arm, BP Position: Sitting, BP Cuff Size: Regular) Pulse 99 Temp 98.1 ??F (36.7 ??C) (Temporal) Resp 16 Ht 5' 4 (1.626 m) Wt 178 lb 9.6 oz (81 kg) LMP 06/23/2021 SpO2 99% BMI 30.66 kg/m?? Physical Exam Vitals and nursing note reviewed. Constitutional: General: She is not in acute distress. Appearance: Normal appearance. She is well-developed. She is not diaphoretic. HENT: Head: Normocephalic and atraumatic. Right Ear: External ear normal. Left Ear: External ear normal. Nose: Congestion and rhinorrhea present. Rhinorrhea is clear. Right Turbinates: Swollen. Left Turbinates: Swollen. Right Sinus: No maxillary sinus tenderness or frontal sinus tenderness. Left Sinus: No maxillary sinus tenderness or frontal sinus tenderness. Mouth/Throat: Mouth: Mucous membranes are moist. Pharynx: [...] Diagnoses and all orders for this visit: Sinus congestion - azelastine (ASTELIN) 0.1 % Solution; 2 Sprays by Nasal route 2 times daily. Use in each nostril as directed Major depressive disorder, recurrent, mild (HCC) - FLUoxetine (PROzac) 20 MG Capsule; Take 1 Capsule by mouth daily. Generalized anxiety disorder - FLUoxetine (PROzac) 20 MG Capsule; Take 1 Capsule by mouth daily. Discussed with patient that I believe she is suffering from sinus congestion likely related to her recent URI. Will start her on Astelin as she has taken Flonase without improvement. Follow-up if symptoms fail to improve in the next 2 weeks. In regards to patient's anxiety depression this has been well controlled now with the addition of BuSpar. Will continue on her current management for now and then follow-up in 3 months. Return in about 3 months (around 09/29/2021). documented in this encounter Plan of Treatment Not on file documented as of this encounter Goals Goal Patient Goal Type Associated Problems Recent Progress Patient-Stated? Author I would like ways to control my anxiety and learn coping skills . Behavioral Health On track( 1:47 PM DOLLY PUSHER) No Ananya Crenshaw LCSW Note: Goal Reviewed with: patient today Readiness to change: Ready to change Department associated with goal: [facility] Steps to achieve goal: will identify at least two coping skills/activities/habits that have helped to manage anxiety in the past. will identify at least three new coping skills/activities/habits that may help to prevent and/or cope with anxiety. 3. Will attend individual and/or group therapy at least 1x/month Anxiety astress Depression On track( 022 1:47 PM DOLLY PUSHER) Yes Reina Laguna LCSW Note: Kaylee will report an improved management of anxiety symptoms Goal Reviewed with: patient today Readiness to change: Ready to change Department associated with goal: [facility] Steps to achieve goal: will identify at least two coping skills/activities/habits that have helped to manage anxiety in the past. will identify at least three new coping skills/activities/habits that may help to prevent and/or cope with anxiety 3. Will attend individual and/or group therapy at least 1x/month documented as of this encounter Visit Diagnoses Diagnosis Sinus congestion- Primary Other diseases of nasal cavity and sinuses Major depressive disorder, recurrent, mild (HCC) Major depressive disorder, recurrent episode, mild Generalized anxiety disorder documented in this encounter Care Teams Viticulturist Relationship Specialty Start Date End Date Jamaica Saavedra APRN, OVERHEAD CLEANER #[address] [phone] PCP - General Advanced Practice Nurse 01/26/21 Emory Erazo MD [address] [address] Obstetrics & Gynecology 06/30/21 documented as of this encounter
--- OUTSIDE RECORDS SUMMARY | 2024-03-11 20:24 | XMS_ITS | Encounter Summary ---
Author Organization [facility] Address [address] [place] [address] Phone Care Team Providers Care Strawhat Blocking Operator Name Role Phone Provider, None Primary Care Provider Unavailabl e Reason for Visit * Reason Onset Date Comments Results 03/12/2020 Encounter Details Date Type Department Care Team (Late st Contact Info) Description 03/12/2020 Telephone [facility] - [facility] - [place] [address] [place] [phone] Donnell Donnelly, TIARRA [address] [place] [address] Results Social History Tobacco Use Types Packs/Day Years Used Date Smoking Tobacco: Never Assessed Comments Unknown Sex and Gender Information Value Date Recorded Sex Assigned at Female 04/04/2023 7:31 PM MULTI DISCIPLINED LANGUAGE ANALYST Legal Sex Female 4:36 PM CDT Gender Identity Female 04/04/2023 7:31 PM MULTI DISCIPLINED LANGUAGE ANALYST Sexual Orientation Not on file documented as of this encounter Miscellaneous Notes * Telephone Encounter - Radha Spangler RN - 03/12/2020 8:29 AM CST Patient notified of negative results. I DISCIPLINED LANGUAGE ANALYST * Telephone Encounter - Radha Spangler RN - 03/12/2020 8:28 AM CST ----- Message from TIARRA Leslie sent at 03/12/2020 8:03 AM MULTI DISCIPLINED LANGUAGE ANALYST ----- Please call and let the patient know that her covid testing was negative. Thank you! I DISCIPLINED LANGUAGE ANALYST documented in this encounter Plan of Treatment Not on file documented as of this encounter Visit Diagnoses Not on filedocumented in this encounter Care Teams Strawhat Blocking Operator Relationship Specialty Start Date End Date Provider, None [place] PCP - General 06/17/17 01/25/21 documented as of this encounter
--- OUTSIDE RECORDS SUMMARY | 2024-03-11 20:24 | XMS_ITS | Encounter Summary ---
Author Organization [facility] Care Team Providers Care Air Export Coordinator Name Role Phone Jamaica Saavedra APRN, CNP Primary Care Provid er Encounter Details Date Type Department Care Team (Latest Contact Info) Description 03/09/2021 Travel Social History Tobacco Use Types Packs/Day [...] Sex Assigned at Female 04/04/2023 7:31 PM PAID INTERN Legal Sex Female 4:36 PM CDT Gender Identity Female 04/04/2023 7:31 PM PAID INTERN Sexual Orientation Not on file COVID-19 Exposure Response Date Recorded In the last month, have you been in contact with someone who was confirmed or suspected to have Coronavirus / COVID-19? No / Unsure 03/09/2021 12:04 PM PAID INTERN documented as of this encounter Plan of Treatment Not on file documented as of this encounter Goals Goal Patient Goal Type Associated Problems Recent Progress Patient-Stated? Author I would like ways to control my anxiety and learn coping skills . Behavioral Health On track( 022 1:47 PM PAID INTERN) No Ananya Crenshaw, HONEY BLENDER Note: Goal Reviewed with: patient today Readiness to change: Ready to change Department associated with goal: [facility] Steps to achieve [...] on filedocumented in this encounter Care Teams Air Export Coordinator Relationship Specialty Start Date End Date Jamaica Saavedra APRN, SLIP COVER ESTIMATOR #[address] [phone] PCP - General Advanced Practice Nurse 01/26/21 documented as of this encounter
--- OUTSIDE RECORDS SUMMARY | 2024-03-11 20:24 | XMS_ITS | Encounter Summary ---
Author Organization [facility] Address [address] [place] [address] Phone Care Team Providers Care Manufacturing Engineering Intern Name Role Phone Provider, None Primary Care Provider Unavailabl e Reason for Visit * Reason Comments Sore Throat Encounter Details Date Type Department Care Team (Latest Contact Info) Description 10/09/2020 9:35 AM CDT Urgent Care Visit [facility] [place] [address] [place] [id number] Julita Andersen, ERGONOMICS TECHNICIAN, HAND ORNAMENT MAKER [address] [place] [address] Loss of taste (Primary Dx); Sore throat Discharge Disposition: Discharged to home or Selfcare Social History Tobacco Use Types Packs/Day Years Used Date Smoking Tobacco: Never Smokeless Tobacco: Never Comments Unknown Sex and Gender Information Value Date Recorded Sex Assigned at Female 04/04/2023 7:31 PM COMPUTER ENGINEERING TECHNOLOGIST Legal Sex Female 4:36 PM CDT Gender Identity Female 04/04/2023 7:31 PM COMPUTER ENGINEERING TECHNOLOGIST Sexual Orientation Not on file COVID-19 Exposure Response Date Recorded In the last month, have you been in contact with someone who was confirmed or suspected to have Coronavirus / COVID-19? Yes 10/09/2020 9:31 AM CDT documented as of this encounter Last Filed Vital Signs Vital Sign Reading Time Taken Comments Blood Pressure 110/62 10/09/2020 9:43 AM CDT Pulse 73 10/09/2020 9:43 AM CDT Temperature 36.9 ??C (98.5 ??F) 10/09/2020 9:43 AM CD T Respiratory Rate - - Oxygen Saturation 99% 10/09/2020 9:43 AM CDT Inhaled Oxygen Concentration - - Weight - - Height - - Body Mass Index - - documented in this encounter Patient Instructions * Patient Instructions* Julita Andersen, MT, KRISTINE - 10/09/2020 9:35 AM CDT Images from the original note were not included. Acute Viral Pharyngitis (Sore Throat) You or your child have a sore throat (pharyngitis). This infection is caused by a virus. It??can cause throat pain that is worse when swallowing, aching all over, headache,??and fever. The infection may be spread by coughing, kissing,??or touching others after touching your mouth or nose. Antibiotic medicines don't work against viruses. They are not used for treating this illness. Home care ?? If symptoms are severe, you or your child should rest at home. Return to work or school when you, or your child, feel well enough.? You or your child should drink plenty of fluids to prevent dehydration. ?? Adults, and children 5 years and older, can use throat lozenges or numbing throat sprays to helpreduce pain. Gargling with warm salt water will also help reduce throat pain. Dissolve 1/2 teaspoonof salt in 1 glass of warm water. Children can sip on juice or an ice pop. Children 5 years and older can also suck on a lollipop or hard candy. (Hard candy and lozenges can be a choking hazard in children younger than 5 years.) ?? Don???t eat salty or spicy foods or give them to your child. These can be irritating to the throat. Medicines for a child: You can give your child acetaminophen for fever, fussiness, or discomfort. In babies over 6 months of age, you may use ibuprofen as well as acetaminophen. If your child has chronic liver or kidney disease or ever had a stomach ulcer or gastrointestinal bleeding, talk with your child???s healthcare provider before giving these medicines. Aspirin should never be used by any child under 18 years of age who has a fever. It may cause severe liver damage and . Don't give your child any other medicine without first asking your child's healthcare provider, especially the first time. Medicines for an adult: You may use acetaminophen, naproxen, or ibuprofen to control pain or fever,unless another medicine was prescribed for this. If you have chronic liver or kidney disease or ever had a stomach ulcer or gastrointestinal bleeding, talk with your healthcare provider before using these medicines. Follow-up care Follow up with a healthcare provider or as advised if you or your child are not getting better overthe next week. When to get medical advice Call your healthcare provider right away if any of these occur: ?? Fever (see Fever and children, below)? New or worsening ear pain, sinus pain, or headache ?? Painful lumps in the back of neck ?? Stiff neck ?? Lymph nodes are getting larger ?? Can???t open mouth wide due to throat pain ?? New rash ?? Other symptoms are getting worse Call 911 Call 911 or get medical care right away if any of these occur: ?? Trouble breathing or noisy breathing ?? Muffled voice ?? Can't swallow liquids, a lot of drooling, or any other symptoms that may mean worsening swellingin the throat ?? Signs of dehydration such as very dark urine or no urine, sunken eyes, dizziness Fever and children Use a digital thermometer to check your child???s temperature. Don???t use a mercury thermometer. There are different kinds and uses of digital thermometers. They include: ?? Rectal. For children younger than 3 years, a rectal temperature is the most accurate. ?? Forehead (temporal). This works for children age 3 months and older. If a child under 3 months old has signs of illness, this can be used for a first pass. The provider may want to confirm with a rectal temperature. ?? Ear (tympanic). Ear temperatures are accurate after 6 months of age, but not before. ?? Armpit (axillary). This is the least reliable but may be used for a first pass to check a child of any age with signs of illness. The provider may want to confirm with a rectal temperature. ?? Mouth (oral). Don???t use a thermometer in your child???s mouth until he or she is at least 4 years old. Use the rectal thermometer with care. Follow the product maker???s directions for correct use. Insert it gently. Label it and make sure it???s not used in the mouth. It may pass on germs from the stool. If you don???t feel OK using a rectal thermometer, ask the healthcare provider what type to use instead. When you talk with any healthcare provider about your child???s fever, tell him or her which type you used. Below are guidelines to know if your young child has a fever. Your child???s healthcare provider may give you different numbers for your child. Follow your provider???s specific instructions. Fever readings for a baby under 3 months old: ?? First, ask your child???s healthcare provider how you should take the temperature. ?? Rectal or forehead: 100.4??F (38??C) or higher ?? Armpit: 99??F (37.2??C) or higher Fever readings for a child age 3 months to 36 months (3 years): ?? Rectal, forehead, or ear: 102??F (38.9??C) or higher ?? Armpit: 101??F (38.3??C) or higher Call the healthcare provider in these cases: ?? Repeated temperature of 104??F (40??C) or higher in a child of any age ?? Fever of 100.4 or higher in baby younger than 3 months ?? Fever that lasts more than 24 hours in a child under age 2 ?? Fever that lasts for 3 days in a child age 2 or older [employer] last reviewed this educational content on 04/11/2019 ?? 6299-6520 [employer]. All rights reserved. This information is not intended as a substitute for professional medical care. Always follow your healthcare professional's instructions. Increase the amount of fluids that you are drinking. Water and gatorade or powerade are the best choices. Rest or nap frequently to help your body recover. Care as instructed on AVS If medication was prescribed it was sent to the pharmacy. Take all medication as prescribed. Do not skip a dose and take until completed. Follow up with PCP if the symptoms do not improve Go to the ER if symptoms become severe documented in this encounter Progress Notes * Damian Siegel - 10/09/2020 9:35 AM CDT Kaylee Melchor complains of Pt complains of sore throat, loss of taste and runny nose. Pt states sore throat started yesterday and loss of taste started today. Sore Throat This is a new problem. The current episode started yesterday. The problem has been gradually worsening. Neither side of throat is experiencing more pain than the other. There has been no fever. The pain is at a severity of 6/10. The pain is moderate. She has tried NSAIDs for the symptoms. The treatment provided mild relief. Today's Review of Systems HENT: Positive for sore throat. Loss of taste * Julita Andersen APN, KRISTINE - 10/09/2020 9:35 AM CDT Images from the original note were not included. HPI: Kaylee Melchor is a 25 y.o. female in the prompt care today for sore throat. Symptoms started yesterday Severity of symptoms is moderate with pain level of 6/10 Associated symptoms include loss of taste and runny nose Patient is currently taking over the counter NSAIDs for the symptoms. Smoker: No Has had COVID vaccine No pertinent Past, family, or social history was noted There is no problem list on file for this patient. ROS: Review of Systems Constitutional: Negative for chills and fever. HENT: Positive for rhinorrhea and sore throat. Negative for ear pain. Loss of taste Respiratory: Negative for cough. Gastrointestinal: Negative for diarrhea, nausea and vomiting. PE: BP 110/62 (BP Location: Right Arm, BP Position: Sitting, BP Cuff Size: Regular) Pulse 73 Temp 98.5 ??F (36.9 ??C) (Temporal) SpO2 99% Physical Exam Vitals and nursing note reviewed. Constitutional: General: She is not in acute distress. Appearance: Normal appearance. She is normal weight. She is not ill-appearing. HENT: Head: Normocephalic and atraumatic. Right Ear: Tympanic membrane normal. Left Ear: Tympanic membrane normal. Nose: Rhinorrhea present. Mouth/Throat: Mouth: Mucous membranes are moist. Pharynx: Oropharynx is clear. Posterior oropharyngeal erythema present. Cardiovascular: Rate and Rhythm: Normal rate and regular rhythm. Pulses: Normal pulses. Heart sounds: Normal heart sounds. Pulmonary: Effort: Pulmonary effort is normal. No respiratory distress. Breath sounds: Normal breath sounds. Musculoskeletal: Cervical back: Normal range of motion and neck supple. Lymphadenopathy: Cervical: No cervical adenopathy. Skin: General: Skin is warm and dry. Neurological: Mental Status: She is alert and oriented to person, place, and time. ASSESSMENT/PLAN: 1. Loss of taste - POCT SARS ANTIGEN AFSHAN Negative - SARS-COV-2 BY MOLECULAR 2. Sore throat - POCT GROUP A STREP SCREEN RAPID Negative - Warm salt water gargles 3-4 times a day - Increase PO fluids AVS from today was printed, discussed with patient/family and given to patient/family Patient Instructions Acute Viral Pharyngitis (Sore Throat) You or your child have a sore throat (pharyngitis). This infection is caused by a virus. It??can cause throat pain that is worse when swallowing, aching all over, headache,??and fever. The infection may be spread by coughing, kissing,??or touching others after touching your mouth or nose. Antibiotic medicines don't work against viruses. They are not used for treating this illness. Home care ?? If symptoms are severe, you or your child should rest at home. Return to work or school when you, or your child, feel well enough.? You or your child should drink plenty of fluids to prevent dehydration. ?? Adults, and children 5 years and older, can use throat lozenges or numbing throat sprays to helpreduce pain. Gargling with warm salt water will also help reduce throat pain. Dissolve 1/2 teaspoonof salt in 1 glass of warm water. Children can sip on juice or an ice pop. Children 5 years and older can also suck on a lollipop or hard candy. (Hard candy and lozenges can be a choking hazard in children younger than 5 years.) ?? Don???t eat salty or spicy foods or give them to your child. These can be irritating to the throat. Medicines for a child: You can give your child acetaminophen for fever, fussiness, or discomfort. In babies over 6 months of age, you may use ibuprofen as well as acetaminophen. If your child has chronic liver or kidney disease or ever had a stomach ulcer or gastrointestinal bleeding, talk with your child???s healthcare provider before giving these medicines. Aspirin should never be used by any child under 18 years of age who has a fever. It may cause severe liver damage and . Don't give your child any other medicine without first asking your child's healthcare provider, especially the first time. Medicines for an adult: You may use acetaminophen, naproxen, or ibuprofen to control pain or fever,unless another medicine was prescribed for this. If you have chronic liver or kidney disease or ever had a stomach ulcer or gastrointestinal bleeding, talk with your healthcare provider before using these medicines. Follow-up care Follow up with a healthcare provider or as advised if you or your child are not getting better overthe next week. When to get medical advice Call your healthcare provider right away if any of these occur: ?? Fever (see Fever and children, below)? New or worsening ear pain, sinus pain, or headache ?? Painful lumps in the back of neck ?? Stiff neck ?? Lymph nodes are getting larger ?? Can???t open mouth wide due to throat pain ?? New rash ?? Other symptoms are getting worse Call 911 Call 911 or get medical care right away if any of these occur: ?? Trouble breathing or noisy breathing ?? Muffled voice ?? Can't swallow liquids, a lot of drooling, or any other symptoms that may mean worsening swellingin the throat ?? Signs of dehydration such as very dark urine or no urine, sunken eyes, dizziness Fever and children Use a digital thermometer to check your child???s temperature. Don???t use a mercury thermometer. There are different kinds and uses of digital thermometers. They include: ?? Rectal. For children younger than 3 years, a rectal temperature is the most accurate. ?? Forehead (temporal). This works for children age 3 months and older. If a child under 3 months old has signs of illness, this can be used for a first pass. The provider may want to confirm with a rectal temperature. ?? Ear (tympanic). Ear temperatures are accurate after 6 months of age, but not before. ?? Armpit (axillary). This is the least reliable but may be used for a first pass to check a child of any age with signs of illness. The provider may want to confirm with a rectal temperature. ?? Mouth (oral). Don???t use a thermometer in your child???s mouth until he or she is at least 4 years old. Use the rectal thermometer with care. Follow the product maker???s directions for correct use. Insert it gently. Label it and make sure it???s not used in the mouth. It may pass on germs from the stool. If you don???t feel OK using a rectal thermometer, ask the healthcare provider what type to use instead. When you talk with any healthcare provider about your child???s fever, tell him or her which type you used. Below are guidelines to know if your young child has a fever. Your child???s healthcare provider may give you different numbers for your child. Follow your provider???s specific instructions. Fever readings for a baby under 3 months old: ?? First, ask your child???s healthcare provider how you should take the temperature. ?? Rectal or forehead: 100.4??F (38??C) or higher ?? Armpit: 99??F (37.2??C) or higher Fever readings for a child age 3 months to 36 months (3 years): ?? Rectal, forehead, or ear: 102??F (38.9??C) or higher ?? Armpit: 101??F (38.3??C) or higher Call the healthcare provider in these cases: ?? Repeated temperature of 104??F (40??C) or higher in a child of any age ?? Fever of 100.4 or higher in baby younger than 3 months ?? Fever that lasts more than 24 hours in a child under age 2 ?? Fever that lasts for 3 days in a child age 2 or older [employer] last reviewed this educational content on 04/11/2019 ?? [id number] [employer]. All rights reserved. This information is not intended as a substitute for professional medical care. Always follow your healthcare professional's instructions. Increase the amount of fluids that you are drinking. Water and gatorade or powerade are the best choices. Rest or nap frequently to help your body recover. Care as instructed on AVS If medication was prescribed it was sent to the pharmacy. Take all medication as prescribed. Do not skip a dose and take until completed. Follow up with PCP if the symptoms do not improve Go to the ER if symptoms become severe Chief complaint and all history documented by ancillary staff were reviewed and verified, with additions or corrections, as appropriate. documented in this encounter Plan of Treatment Not on file documented as of this encounter Procedures Procedure Name Priority Date/Time Associated Diagnosis Comments POCT GROUP A STREP SCREEN RAPID Routine 10/09/2020 10:34 AM CDT Sore throat SARS-COV-2 BY MOLECULAR Routine 10/09/2020 10:24 AM CDT Loss of taste POCT SARS ANTIGEN AFSHAN Routine 10/09/2020 9:46 AM CDT Loss of taste documented in this encounter Results * POCT GROUP A STREP SCREEN RAPID (10/09/2020 10:34 AM CDT) POC STREP SCRN Presumptive negative POC STREP SCREEN CONTROL Liner Assembler Pass 10/09/2020 10:3 4 AM CDT Julita Andersen ERGONOMICS TECHNICIAN, HAND ORNAMENT MAKER POINT OF CARE TESTI NG (MANUAL) Final Result * SARS-COV-2 BY MOLECULAR (10/09/2020 10:24 AM CDT) SARSCOV2 NOT DETECTED (Referen ce Range for this test is Not Detected ) [facility] FAST DX 10/10/2020 12:04 PM CDT [facility] Comment:This test was perfor med by a RT-PCR method. Other NASAL STRUCTURE / Unknown Non-Phlebotomy Collection / Unknown 10/09/2020 10:24 AM CDT 10/09/2020 10:24 AM CDT Narrative [facility] - 10/10/2020 12:04 PM CDT Authorized Fact Sheets about this test for providers and patients are available at: https://www.fda.gov/medical-devices/ncnrzuywc-vhbfddwwki-ciavyxj-devices/emergen cy-us e-authorizations us Julita Andersen APRN, HAND ORNAMENT MAKER MICROBIOLOGY - GENE RAL ORDERABLES Final Result [facility] [address] [place] [address], [place] * POCT SARS ANTIGEN AFSHAN (10/09/2020 9:46 AM CDT) POC SARS ANTIGEN AFSHAN Negative Negative POC SARS ANTIGEN AFSHAN CONTROL Liner Assembler Pass Swab NASAL STRUCTURE / Unknown 10/09/2020 9:46 AM CDT Julita Andersen APRN, KRISTINE POINT OF CARE TESTI NG (MANUAL) Final Result documented in this encounter Visit Diagnoses Diagnosis Loss of taste- Primary Disturbances of sensation of smell and taste Sore throat Acute pharyngitis documented in this encounter Care Teams Manufacturing Engineering Intern Relationship Specialty Start Date End Date Provider, None [place] PCP - General 06/17/17 01/25/21 documented as of this encounter
--- OUTSIDE RECORDS SUMMARY | 2024-03-11 20:24 | XMS_ITS | Encounter Summary ---
Author Organization [facility] Address [address] [place] [address] Phone Care Team Providers Care Mobile Homes Repairer Name Role Phone Provider, None Primary Care Provider Unavailabl e Reason for Visit * Reason Comments COVID-19 symptomatic Encounter Details Date Type Department Care Team (Late st Contact Info) Description 03/10/2020 8:50 AM MISSILE TRACKING TECHNICIAN [facility] [place] [address] [place] [id number] Testing, [facility] Nurse [place] Encounter for screening laboratory testing for COVID-19 virus Discharge Disposition: Discharged to home or Selfcare Social History Tobacco Use Types Packs/Day Years Used Date Smoking Tobacco: Never Assessed Comments Unknown Sex and Gender Information Value Date Recorded Sex Assigned at Female 04/04/2023 7:31 PM MISSILE TRACKING TECHNICIAN Legal Sex Female 4:36 PM CDT Gender Identity Female 04/04/2023 7:31 PM MISSILE TRACKING TECHNICIAN Sexual Orientation Not on file documented as of this encounter Progress Notes * Katheryn Goldstein RN - 03/10/2020 8:50 AM CST Pt arrived for Covid testing in personal vehicle. Both nares swabbed with no difficulty per Vannessa Strong RN. Information sheet given. PCR sent to [facility] Lab ILE TRACKING TECHNICIAN documented in this encounter Plan of Treatment Not on file documented as of this encounter Procedures Procedure Name Priority Date/Time Associated Diagnosis Comments SARS-COV-2 BY MOLECULAR Routine 03/10/2020 8:34 AM MISSILE TRACKING TECHNICIAN Encounter for screening laboratory testing for COVID-19 virus documented in this encounter Results * SARS-COV-2 BY MOLECULAR (03/10/2020 8:34 AM MISSILE TRACKING TECHNICIAN) SARSCOV2 NOT DETECTED (Referen ce Range for this test is Not Detected ) [facility] FAST DX 03/11/2020 6:58 PM MISSILE TRACKING TECHNICIAN [facility] Comment:This test was perfor med by a PCR method. Other NASOPHARYNGEAL STRUCTURE / Unknown Non-Phlebotomy Collection / Unknown 03/10/2020 8:34 AM MISSILE TRACKING TECHNICIAN 03/10/2020 8:34 AM MISSILE TRACKING TECHNICIAN Narrative [facility] - 03/11/2020 6:58 PM MISSILE TRACKING TECHNICIAN Authorized Fact Sheets about this test for providers and patients are available at: https://www.fda.gov/medical-devices/qhaygwyvp-yertubjtst-ljcueeo-devices/emergen cy-us e-authorizations us Chris So MD MICROBIOLOGY - GENERAL ORDER ROGER Final Result [facility] [address] [place] [address], documented in this encounter Visit Diagnoses Diagnosis Encounter for screening laboratory testing for COVID-19 virus documented in this encounter Additional Health Concerns Infection Onset Date Last Indicated Resolved Time COVID - 19 03/10/2020 03/10/2020 03/11/2020 12:4 7 PM MISSILE TRACKING TECHNICIAN documented as of this encounter Care Teams Mobile Homes Repairer Relationship Specialty Start Date End Date Provider, None [place] PCP - General 06/17/17 01/25/21 documented as of this encounter
--- OUTSIDE RECORDS SUMMARY | 2024-03-11 20:24 | XMS_ITS | Encounter Summary ---
Author Organization [facility] Care Team Providers Care Memorandum Statement Clerk Name Role Phone [place] Saavedra APRN, CNP Primary Care Provid er Emory Erazo MD Unavailable [phone] Encounter Details Date Type Department Care Team (Latest Contact Info) Description 10/03/2021 Travel Social History Tobacco Use Types Packs/Day [...] Sex Assigned at Female 04/04/2023 7:31 PM FOOD SERVICE TRAY ATTENDANT Legal Sex Female 4:36 PM CDT Gender Identity Female 04/04/2023 7:31 PM FOOD SERVICE TRAY ATTENDANT Sexual Orientation Not on file COVID-19 Exposure [...] . Behavioral Health On track( 1:47 PM FOOD SERVICE TRAY ATTENDANT) No Ananya Crenshaw, SALES PLANNING COORDINATOR Note: Goal Reviewed with: patient today Readiness [...] astress Depression On track( 022 1:47 PM FOOD SERVICE TRAY ATTENDANT) Yes Reina Laguna, SALES PLANNING COORDINATOR Note: Kaylee will report an improved management [...] on filedocumented in this encounter Care Teams Memorandum Statement Clerk Relationship Specialty Start Date End Date [place] Saavedra APRN, CNP [address] [phone] PCP - General Advanced Practice Nurse 01/26/21 Emory Erazo MD [address] [id number] Obstetrics & Gynecology 06/30/21 documented as of this encounter
--- OUTSIDE RECORDS SUMMARY | 2024-03-11 20:24 | XMS_ITS | Encounter Summary ---
Author Organization [facility] Address [address] [place] [address] Phone Care Team Providers Care Superintendent Concrete Mixing Plant Name Role Phone Jamaica Saavedra APRN, CNP Primary Care Provid er Reason for Referral * Consult, Test & Initiate Treatment (Routine) - Closed Specialty Diagnoses / Procedures Referred By Anamaria lay Referred To Contact Behavioral Health Diagnoses Post depression Jamaica Saavedra APRN, CNP [address] [address] Phone: tel: fax: Ananya Crenshaw, [facility] Phone: tel: fax: Referral ID Status Reason Start Date Expiration Date Visits Re quested Visits Authorized [id number] Closed 01/26/2021 1 1 Scheduling Instructions Kaylee is being referred for anxiety, post depression. See below for Kaylee's current medications, allergies and problem list. Please contact patient for scheduling questions or concerns. CURRENT MEDS: No current outpatient medications on file. No current facility-administered medications for this visit. ALLERGIES: -- Other-Food Allergen (Not Found In Search) -- Hives -- SKIN GLUE -- Prednisone -- Palpitations PROBLEM LIST: There is no problem list on file for this patient. PRODUCTION WORKER Reason for Visit * Reason Comments New Patient Patient is here to e [facility]. Encounter Details Date Type Department Care Team (Late st Contact Info) Description 01/26/2021 10:00 AM FOOD PRODUCTION WORKER Office Visit [facility] - Family Medicine [facility] [address] [place] [phone] Jamaica Saavedra APRN, HEAVY DUTY TRUCK MECHANIC [address] [phone] Post depression (Primary Dx); BMI 30.0-30.9,adult; Other fatigue Discharge Disposition: Discharged to home [...] Assigned at Female 04/04/2023 7:31 PM FOOD PRODUCTION WORKER Legal Sex Female 4:36 PM CDT Gender Identity Female 04/04/2023 7:31 PM FOOD PRODUCTION WORKER Sexual Orientation Not on file COVID-19 Exposure Response Date Recorded In the last month, have you been in contact with someone who was confirmed or suspected to have Coronavirus / COVID-19? No / Unsure 01/26/2021 9:40 AM FOOD PRODUCTION WORKER documented as of this encounter Last Filed Vital Signs Vital Sign Reading Time Taken Comments Blood Pressure 110/64 01/26/2021 10:09 AM FOOD PRODUCTION WORKER Pulse 90 01/26/2021 10:09 AM FOOD PRODUCTION WORKER Temperature 37.2 ??C (98.9 ??F) 01/26/2021 10:[address] Respiratory Rate 16 01/26/2021 10:09 AM FOOD PRODUCTION WORKER Oxygen Saturation 99% 01/26/2021 10:09 AM FOOD PRODUCTION WORKER Inhaled Oxygen Concentration - - Weight 81 kg (178 lb 9.6 oz) 01/26/2021 10:09 AM FOOD PRODUCTION WORKER Height 162.6 cm (5' 4 ) 01/26/2021 10:09 AM FOOD PRODUCTION WORKER Body Mass Index 30.66 01/26/2021 10:09 AM FOOD PRODUCTION WORKER documented in this encounter Progress Notes * Verenice Dominguez RMA - 01/26/2021 10:00 AM CST Kaylee Melchor is a 25 y.o. female with current BMI: Body mass index is 30.66 kg/m??. Interventions discussed including: encourage daily physical activity and well- balanced diet. PRODUCTION WORKER * Verenice Dominguez RMA - 01/26/2021 10:00 AM CST Kaylee Melchor, 25 y.o., female is here for New Patient (Patient is here to establish care.) Medication Refills: Patient reports/denies need for medication refills. Orders Pended: no Requested Prescriptions No prescriptions requested or ordered in this encounter Home Medications Not on File There are no discontinued medications. I have [...] Health Maintenance Due Topic Date Due ??? Human Papillomavirus (HPV) Immunization (1 - 2-dose series) Never done ??? Pap Smear Never done ??? DTaP/Tdap/Td Immunization (2 - Td or Tdap) 05/26/2019 Orders Pended: no The following BPA's have been addressed with the patient today: BMI, TDAP, Depression, Fall Risk, Nutrition and Advanced Care Planning PRODUCTION WORKER * Jamaica Saavedra APRN, CNP - 01/26/2021 10:00 AM CST [facility] - [facility]ILY MEDICINE - [facility] [address]2 [facility] [id number] Dept: [phone] Dept Loc: [phone] Loc Patient: Kaylee Melchor : 1995 Sex: female Subjective Subjective: HPI: Kaylee Melchor presents for New Patient (Patient is here to establish care.) . Patient presents today for new patient to establish care. Patient reports that her last PCP was several years ago in [facility]. She reports that her OBGYN is Dr. Manuel at [facility]. Reports her last Pap smear was 2 years ago. Patient seen a dentist and opto metrist in last couple of years. Patient is with 1 child who is [id number]. She works as an ER nurse. Patient reports thather family is 3 hours away. Patient also reports that she has been suffering from depression. States that she was not able to see a counselor due to COVID-19. Kaylee Melchor is a 25 y.o. female who presents for evaluation of depression and anxiety. She is accompanied by no one. She complains of depressed mood, insomnia, fatigue and difficulty concentrating. Other symptoms include racing thoughts, feelings of losing control, difficulty concentrating, and panic attacks. Onset was approximately several months ago, and is worsening since that time. She denies current and past suicidal and homicidal intent and plan. Family history significant for anxiety,depression and undiagnosed but suspected mental illness. Risk factors: positive family history in patient's mother and post depression without treatment. She reports that she does very well ather job. Reports that her primary issues is when she is at home. She denies thoughts of wanting to hurt herself or her child. History reviewed. No pertinent past medical history. No current outpatient medications on file prior to visit. No current facility-administered medications on file prior [...] History Problem Relation Age of Onset ??? Hypertension Mother ??? Mental Disorder, Other Mother ??? Hypertension Father ??? Diabetes Father ??? Thyroid Disease Father ??? No Known Problems Sister ??? No Known Problems Brother ??? No Known Problems Maternal Aunt ??? No Known Problems Maternal Uncle ??? No Known Problems Paternal Aunt ??? No Known Problems Paternal Uncle ??? No Known Problems Maternal Grandmother ??? No Known Problems Maternal Grandfather ??? No Known Problems Paternal Grandmother ??? No Known Problems Paternal Grandfather ??? No Known Problems Other Review of Systems Constitutional: Negative for activity change, appetite change, chills, fatigue and fever. Eyes: Negative for visual disturbance. Respiratory: Negative for cough, chest tightness, shortness of breath and wheezing. Cardiovascular: Negative for chest pain, palpitations and leg swelling. Gastrointestinal: Negative for constipation, diarrhea, nausea and vomiting. Endocrine: Negative for polydipsia, polyphagia and polyuria. Genitourinary: Negative for difficulty urinating, flank pain, frequency and urgency. Musculoskeletal: Negative for back pain, gait problem, joint swelling, myalgias and neck pain. Skin: Negative for rash and wound. Neurological: Negative for dizziness, light-headedness and headaches. Psychiatric/Behavioral: Positive for agitation and sleep disturbance. Negative for behavioral problems, confusion, decreased concentration, dysphoric mood, hallucinations, self-injury and suicidal ideas. The patient is nervous/anxious. The patient is not hyperactive. Objective Objective: BP 110/64 Pulse 90 Temp 98.9 ??F (37.2 ??C) (Temporal) Resp 16 Ht 5' 4 (1.626 m) Wt 178 lb 9.6 oz (81 kg) LMP 01/23/2021 SpO2 99% BMI 30.66 kg/m?? Physical Exam [...] is no distension. Palpations: Abdomen is soft. There is no mass. Tenderness: There is no abdominal tenderness. There is no guarding or rebound. Hernia: No hernia is present. Musculoskeletal: General: Normal range of motion. Cervical back: Normal range of motion and neck supple. No tenderness. Right lower leg: No edema. Left lower leg: No edema. Lymphadenopathy: Cervical: No cervical adenopathy. Skin: General: Skin is warm and dry. Capillary Refill: Capillary refill takes less than 2 seconds. Neurological: General: No focal deficit present. Mental Status: She is alert and oriented to person, place, and time. Mental status is at baseline. Cranial Nerves: No cranial nerve deficit. Psychiatric: Attention and Perception: Attention and perception normal. Mood and Affect: Mood normal. Affect is tearful. Speech: Speech normal. Behavior: Behavior normal. Behavior is cooperative. Thought Content: Thought content normal. Cognition and Memory: Cognition and memory normal. Judgment: Judgment normal. PHQ-2 Have You [place] Little Interest or Pleasure in Doing Things?: 1 - Several days Have You [place] Down, Depressed or Hopeless?: 0 - Not at all Initial Score - If the score is 2 or higher, please proceed with the additional evaluation.: 1 PHQ-9 Medical Decision Making: Assessment & Plan Diagnoses and all orders for this visit: Post depression - escitalopram (LEXAPRO) 10 MG Tablet; Take 1 Tablet by mouth daily. - BEHAVIORAL HEALTH REFERRAL; Future BMI 30.0-30.9,adult - THYROID STIMULATING HORMONE (TSH); Future - THYROXINE (T4) FREE; Future - TRIIODOTHYRININE (T3) FREE; Future - CMP (COMPREHENSIVE METABOLIC PANEL); Future - COMPLETE BLOOD COUNT (CBC) WITH DIFF; Future Other fatigue - THYROID STIMULATING HORMONE (TSH); Future - THYROXINE (T4) FREE; Future - TRIIODOTHYRININE (T3) FREE; Future - CMP (COMPREHENSIVE METABOLIC PANEL); Future - COMPLETE BLOOD COUNT (CBC) WITH DIFF; Future Patient could be suffering from depression. Start her on Lexapro 10 mg as she is no longer . Also would refer her to counselor. Patient turned in 6 weeks to see a medications working. Anticipatory guidelines reviewed. Patient reports she is up-to-date on her Pap smear and HPV testing. Patient due for fasting lab work. Ordered. Patient also complains of fatigue. Reports family history of thyroid issues. Will check. Return in about 6 weeks (around 03/09/2021). PRODUCTION WORKER documented in this encounter Plan of Treatment Scheduled Orders Name Type Priority Associated Diagnoses Orde r Schedule THYROID STIMULATING HORMONE (TSH) Lab Routine BMI 30.0-30.9,adult Other fatigue Expected: 01/24/2022, Expires: 03/10/2022 THYROXINE (T4) FREE Lab Routine BMI 30.0-30.9,adult Other fatigue Expected: 01/26/2021 (Approximate), Expires: 02/16/2021 TRIIODOTHYRININE (T3) FREE Lab Routine BMI 30.0-30.9,adult Other fatigue Expected: 03/02/2021, Expires: 01/31/2022 CMP (COMPREHENSIVE METABOLIC PANEL) Lab Routine BMI 30.0-30.9,adult Other fatigue Expected: 08/03/2021, Expires: 02/03/2022 COMPLETE BLOOD COUNT (CBC) WITH DIFF Lab Routine BMI 30.0-30.9,adult Other fatigue Expected: 09/25/2021 (Approximate), Expires: 02/26/2022 Scheduled Referrals Name Type Priority Associated Diagnoses Order Schedule BEHAVIORAL HEALTH REFERRAL Outpatient Referral Routine Post depression Expected: 01/26/2021, Expires: 04/26/2021 documented as of this encounter Visit Diagnoses Diagnosis Post depression- Primary Mental disorders of mother, complicating , childbirth, or the puerperium, unspecified as to episode of care BMI 30.0-30.9,adult Body Mass Index 30.0-30.9, adult Other fatigue documented in this encounter Care Teams Superintendent Concrete Mixing Plant Relationship Specialty Start Date End Date Jamaica Saavedra APRN, KRISTINE [address] [phone] PCP - General Advanced Practice Nurse 01/26/21 documented as of this encounter
--- OUTSIDE RECORDS SUMMARY | 2024-03-11 20:24 | XMS_ITS | Encounter Summary ---
Author Organization [facility] Address [address] [place] [address] Phone Care Team Providers Care Venue Coordinator Name Role Phone Provider, None Primary Care Provider Unavailabl e Encounter Details Date Type Department Care Team (Late st Contact Info) Description 03/10/2020 11:30 AM HEALTH SERVICES RN Lab [facility] [address] [place] [phone] Clinic, [place] Runny nose (Primary Dx); Loss of taste Discharge Disposition: Discharged to home or Selfcare Social History Tobacco Use Types Packs/Day Years Used Date Smoking Tobacco: Never Assessed Comments Unknown Sex and Gender Information Value Date Recorded Sex Assigned at Female 04/04/2023 7:31 PM HEALTH SERVICES RN Legal Sex Female 4:36 PM CDT Gender Identity Female 04/04/2023 7:31 PM HEALTH SERVICES RN Sexual Orientation Not on file documented as of this encounter Progress Notes * Estefania Nguyen RN - 03/10/2020 11:30 AM CST Patient presents to [facility] for drive up nasal POCT Covid swab. Patient swabbed with no difficulty and patient tolerated well. Written instruction given on care at home, and home isolation. Pt given POCT negative results via telephone call. TH SERVICES RN documented in this encounter Plan of Treatment Not on file documented as of this encounter Procedures Procedure Name Priority Date/Time Associated Diagnosis Comments POCT SARS ANTIGEN AFSHAN Routine 03/10/2020 12:07 PM HEALTH SERVICES RN Runny nose Loss of taste documented in this encounter Results * POCT SARS ANTIGEN AFSHAN (03/10/2020 12:07 PM HEALTH SERVICES RN) POC SARS ANTIGEN AFSHAN Negative Negative POC SARS ANTIGEN AFSHAN CONTROL Strategic Account Director Pass Swab NASAL STRUCTURE / Unknown 03/10/2020 12:07 PM HEALTH SERVICES RN Alyson Enriquez HOUSE WIRER HELPER, BARKEEPER POINT OF CARE LIDA TING (MANUAL) Final Result documented in this encounter Visit Diagnoses Diagnosis Runny nose- Primary Other diseases of nasal cavity and sinuses Loss of taste Disturbances of sensation of smell and taste documented in this encounter Additional Health Concerns Infection Onset Date Last Indicated Resolved Time COVID - 19 03/10/2020 03/10/2020 03/11/2020 12:4 7 PM HEALTH SERVICES RN documented as of this encounter Care Teams Venue Coordinator Relationship Specialty Start Date End Date Provider, None [place] PCP - General 06/17/17 01/25/21 documented as of this encounter
--- OUTSIDE RECORDS SUMMARY | 2024-03-11 20:24 | XMS_ITS | Encounter Summary ---
Author Organization [facility] Address [address] [place] [address] Phone Care Team Providers Care Carbon Brush Maker Name Role Phone Jamaica Saavedra APRN, CNP Primary Care Provid er Emory Erazo MD Unavailable [phone] Reason for Visit * Reason Comments Medication Refill Encounter Details Date Type Department Care Team (Late st Contact Info) Description 08/20/2021 Refill [facility] - Family Medicine [facility] [address] [place] [address] Jamaica Saavedra APRN, CNP #[address] [phone] Medication Refill Social History Tobacco [...] Sex Assigned at Female 04/04/2023 7:31 PM DRY CANS OPERATOR Legal Sex Female 4:36 PM CDT Gender Identity Female 04/04/2023 7:31 PM DRY CANS OPERATOR Sexual Orientation Not on file documented as of this encounter Miscellaneous Notes * Telephone Encounter - Reyna Frazier RN - 08/21/2021 1:35 PM CDT Medication failed the protocol, provider to review and approve the medication order if appropriate. Requested Prescriptions Pending Prescriptions Disp Refills busPIRone (BUSPAR) 5 MG Tablet [Pharmacy Med Name: busPIRone HCl 5 MG Oral Tablet] 228 Tablet 1 Sig: TAKE 1 TABLET BY MOUTH THREE TIMES DAILY Buspirone (6 Month Refill Only) Protocol Failed - 08/20/2021 6:23 PM Failed - Patient has established therapy with Buspirone for at least 6 months Passed - No test in the past 12 months or most recent test was negative Passed - No active on record Passed - Visit with relevant provider in past 6 months or upcoming 90 days Recent Visits Date Type Provider Dept 06/30/21 Office Visit Jamaica Saavedra APRN, KRISTINE [facility] 05/19/21 Office Visit Jamaica Saavedra APRN, KRISTINE [facility] 04/06/21 Office Visit Jamaica Saavedra APRN, KRISTINE [facility] Showing recent visits within past 182 days and meeting all other requirements Future Appointments Date Type Provider Dept 09/28/21 Appointment Jamaica Saavedra APRN, KRISTINE [facility] Showing future appointments within next 90 days [...] Behavioral Health On track( 022 1:47 PM DRY CANS OPERATOR) No Ananya Crenshaw LCSW Note: Goal Reviewed with: patient today Readiness to change: Ready to change Department associated with goal: [facility] Steps to achieve goal: will identify at least two coping skills/activities/habits that have helped to manage anxiety in the past. will identify at least three new coping skills/activities/habits that may help to prevent and/or cope with anxiety. 3. Will attend individual and/or group therapy at least 1x/month Anxiety astress Depression On track( 022 1:47 PM DRY CANS OPERATOR) Yes Reina Laguna, CYNTHIA Note: Kaylee will report an improved management of anxiety symptoms Goal Reviewed with: patient today Readiness to change: Ready to change Department associated with goal: [facility] Steps to achieve [...] mild documented in this encounter Care Teams Carbon Brush Maker Relationship Specialty Start Date End Date Jamaica Saavedra APRN, TEASEL GIG OPERATOR #[address] [phone] PCP - General Advanced Practice Nurse 01/26/21 Emory Erazo MD [address] [address] Obstetrics & Gynecology 06/30/21 documented as of this encounter
--- OUTSIDE RECORDS SUMMARY | 2024-03-11 20:24 | XMS_ITS | Encounter Summary ---
Author Organization [facility] Address [address] [place] [address] Phone Care Team Providers Care Folder Hand Name Role Phone Provider, None Primary Care Provider Unavailabl e Reason for Visit * Reason Onset Date Comments Need Order 03/10/2020 Encounter Details Date Type Department Care Team (Late st Contact Info) Description 03/10/2020 Telephone [facility] - Family Medicine - [place] [address] [place] [phone] Alyson Enriquez APRN, CONSTRUCTION REPRESENTATIVE [address] [place] [address] Need Order Social History Tobacco Use Types Packs/Day Years Used Date Smoking Tobacco: Never Assessed Comments Unknown Sex and Gender Information Value Date Recorded Sex Assigned at Female 04/04/2023 7:31 PM PROJECT FACILITATOR Legal Sex Female 4:36 PM CDT Gender Identity Female 04/04/2023 7:31 PM PROJECT FACILITATOR Sexual Orientation Not on file documented as of this encounter Miscellaneous Notes * Telephone Encounter - Estefania Nguyen RN - 03/10/2020 12:03 PM CST Order entered per Meghann, okay to enter prompt care SEISMOMETER OPERATOR for order as pt had prompt care visit there today for PCR. ECT FACILITATOR documented in this encounter Plan of Treatment Not on file documented as of this encounter Visit Diagnoses Diagnosis Loss of taste- Primary Disturbances of sensation of smell and taste Runny nose Other diseases of nasal cavity and sinuses documented in this encounter Additional Health Concerns Infection Onset Date Last Indicated Resolved Time COVID - 19 03/10/2020 03/10/2020 03/11/2020 12:4 7 PM PROJECT FACILITATOR documented as of this encounter Care Teams Folder Hand Relationship Specialty Start Date End Date Provider, None [place] PCP - General 06/17/17 01/25/21 documented as of this encounter
--- OUTSIDE RECORDS SUMMARY | 2024-03-11 20:24 | XMS_ITS | Encounter Summary ---
Author Organization [employer] [facility] Care Team Providers Care Car Wash Attendant Automatic Name Role Phone Jamaica Saavedra APRN, CNP Primary Care Provid er Encounter Details Date Type Department Care Team (Latest Contact Info) Description 01/26/2021 Travel Social History Tobacco Use Types Packs/Day [...] Sex Assigned at Female 04/04/2023 7:31 PM MICROFILM MACHINE OPERATOR Legal Sex Female 4:36 PM CDT Gender Identity Female 04/04/2023 7:31 PM MICROFILM MACHINE OPERATOR Sexual Orientation Not on file COVID-19 Exposure Response Date Recorded In the last month, have you been in contact with someone who was confirmed or suspected to have Coronavirus / COVID-19? No / Unsure 01/26/2021 9:40 AM MICROFILM MACHINE OPERATOR documented as of this encounter Plan of Treatment Not on file documented as of this encounter Visit Diagnoses Not on filedocumented in this encounter Care Teams Car Wash Attendant Automatic Relationship Specialty Start Date End Date Jamaica Saavedra APRN, CNP #[address] [phone] PCP - General Advanced Practice Nurse 01/26/21 documented as of this encounter
--- OUTSIDE RECORDS SUMMARY | 2024-03-11 20:24 | XMS_ITS | Encounter Summary ---
Author Organization [facility] Address [address] [place] [address] Phone Care Team Providers Care Impregnating Machine Operator Name Role Phone Jamaica Little APRN, CNP Primary Care Provid er Encounter Details Date Type Department Care Team (Late st Contact Info) Description 01/26/2021 11:10 AM CAN REPAIRER Lab [facility] [address] [facility] [address] [place] [address] Lab [place] [facility]/Anc[facility] Other fatigue; Body mass index 30.0-30.9, adult Discharge Disposition: Discharged to home or Selfcare [...] Sex Assigned at Female 04/04/2023 7:31 PM CAN REPAIRER Legal Sex Female 4:36 PM CDT Gender Identity Female 04/04/2023 7:31 PM CAN REPAIRER Sexual Orientation Not on file COVID-19 Exposure Response Date Recorded In the last month, have you been in contact with someone who was confirmed or suspected to have Coronavirus / COVID-19? No / Unsure 01/26/2021 9:40 AM CAN REPAIRER documented as of this encounter Progress Notes * Patricia Moreno 01/26/2021 11:10 AM CST Kaylee presents for lab draw per order of jamaica little dated [id number]. Specimen collected fromleft antecubital without incident. [facility] - cbc, cmp, free t3, free t4, tsh REPAIRER documented in this encounter Plan of Treatment Not on file documented as of this encounter Visit Diagnoses Diagnosis Other fatigue Body mass index 30.0-30.9, adult Body Mass Index 30.0-30.9, adult documented in this encounter Care Teams Impregnating Machine Operator Relationship Specialty Start Date End Date Jamaica Little APRN, EXERCISE INSTRUCTOR #[address] [phone] PCP - General Advanced Practice Nurse 01/26/21 documented as of this encounter
--- OUTSIDE RECORDS SUMMARY | 2024-03-11 20:24 | XMS_ITS | Encounter Summary ---
Author Organization [facility] Care Team Providers Care Master Ocean Name Role Phone Jamaica Saavedra APRN, CNP Primary Care Provid er Encounter Details Date Type Department Care Team (Latest Contact Info) Description 04/06/2021 Travel Social History Tobacco Use Types Packs/Day Years Used Date Smoking Tobacco: Never Smokeless Tobacco: Never Alcohol Use Standard Drinks/Week Comments Yes 0 (1 standard drink = 0.6 oz pur e alcohol) Social-holiday events etc PHQ-2 Answer Date Recorded Total Score - Questions 1-9 0 03/12 Sexually Active Control Partners Comments Yes Implant Male Comments No Sex and Gender Information Value Date Recorded Sex Assigned at Female 04/04/2023 7:31 PM ONCOLOGY SOCIAL WORKER Legal Sex Female 4:36 PM CDT Gender Identity Female 04/04/2023 7:31 PM ONCOLOGY SOCIAL WORKER Sexual Orientation Not on file COVID-19 Exposure Response Date Recorded In the last month, have you been in contact with someone who was confirmed or suspected to have Coronavirus / COVID-19? Yes 04/06/2021 9:42 AM ONCOLOGY SOCIAL WORKER documented as of this encounter Plan of Treatment Not on file documented as of this encounter Goals Goal Patient Goal Type Associated Problems Recent Progress Patient-Stated? Author I would like ways to control my anxiety and learn coping skills . Behavioral Health On track( 022 1:47 PM ONCOLOGY SOCIAL WORKER) No Ananya Crenshaw LCSW Note: Goal Reviewed with: patient today Readiness to change: Ready to change Department associated with goal: [facility] Steps to achieve goal: will identify at least two coping skills/activities/habits that have helped to manage anxiety in the past. will identify at least three new coping skills/activities/habits that may help to prevent and/or cope with anxiety. 3. Will attend individual and/or group therapy at least 1x/month Anxiety astress Depression On track( 022 1:47 PM ONCOLOGY SOCIAL WORKER) Yes Reina Laguna, CARBURIZING FURNACE OPERATOR Note: Kaylee will report an improved management of anxiety symptoms Goal Reviewed with: patient today Readiness to change: Ready to change Department associated with goal: [facility] Steps to [...] on filedocumented in this encounter Care Teams Master Ocean Relationship Specialty Start Date End Date Jamaica Saavedra APRN, KRISTINE [address] [address] PCP - General Advanced Practice Nurse 01/26/21 documented as of this encounter
--- OUTSIDE RECORDS SUMMARY | 2024-03-11 20:24 | XMS_ITS | Encounter Summary ---
Author Organization [facility] Address [address] [place] [address] Phone Care Team Providers Care Track Superintendent Name Role Phone Jamaica Saavedra APRN, CNP Primary Care Provid er Emory Erazo MD Unavailable [phone] Reason for Visit * Reason Comments Follow-up 3 mo Encounter Details Date Type Department Care Team (Late st Contact Info) Description 10/03/2021 10:15 AM CDT Office Visit [facility] - [facility] [address] [place] [address] Jamaica Saavedra APRN, CNP [address] [address] Generalized anxiety disorder (Primary Dx); [...] Sex Assigned at Female 04/04/2023 7:31 PM RACK WASHER Legal Sex Female 4:36 PM CDT Gender Identity Female 04/04/2023 7:31 PM RACK WASHER Sexual Orientation Not on file COVID-19 Exposure Response Date Recorded In the last 10 days, have yo u been in contact with someone who was confirmed or suspected to have Coronavirus/COVID-19? No / Unsure 10/03/2021 9:58 AM CDT documented as of this encounter Last Filed Vital Signs Vital Sign Reading Time Taken Comments Blood Pressure 114/66 10/03/2021 10:06 AM CDT Pulse 89 10/03/2021 10:06 AM CDT Temperature 36.3 ??C (97.3 ??F) 10/03/2021 1 0:06 AM CDT Respiratory Rate 18 10/03/2021 10:0 6 AM CDT Oxygen Saturation 98% 10/03/2021 10: 06 AM CDT Inhaled Oxygen Concentration - - Weight 83.8 kg (184 lb 11.2 oz) 022 10:06 AM CDT Height 162.6 cm (5' 4 ) 10/03/2021 10:0 6 AM CDT Body Mass Index 31.7 10/03/2021 10:06 AM CDT documented in this encounter Progress Notes * Tova Fish MA - 10/03/2021 10:15 AM CDT Kaylee Melchor, 26 y.o., female is here for Follow-up (3 mo) Medication Refills: Patient reports/denies need for medication refills. Orders Pended: no Requested Prescriptions No prescriptions requested or ordered in this encounter Home Medications Medication Sig Start Date End Date Taking? Authorizing Provider azelastine (ASTELIN) 0.1 % Solution 2 Sprays by Nasal route 2 times daily. Use in each nostril as directed 06/30/21 Jamaica Saavedra APRN, KRISTINE busPIRone (BUSPAR) 5 MG Tablet TAKE 1 TABLET BY MOUTH THREE TIMES DAILY 08/21/21 Yes Jamaica Saavedra APRN, CNP FLUoxetine (PROzac) 20 MG Capsule Take 1 Capsule by mouth daily. 06/30/21 Yes Jamaica Saavedra APRN, CNP ondansetron (Zofran) 4 MG Tablet Take 1 Tablet by mouth every 6 hours as needed for Nausea - 1st line. 09/21/21 Yes Jamaica Saavedra APRN, CNP There are [...] Never done ??? Pap Smear Never done Orders Pended: no The following BPA's have been addressed with the patient today: No BPA's at this time * Jamaica Saavedra APRN, CNP - 10/03/2021 10:15 AM CDT [facility] [address] [address] Dept: [phone] Dept Loc: [phone] Loc Patient: Kaylee Melchor : 1995 Sex: female Subjective Subjective: HPI: Kaylee Melchor presents for Follow-up (3 mo) . Depression/Anxiety Kaylee Melchor is a 26 y.o. femalewho presents for follow-up of anxiety and depression. She is accompanied by no one. She complains of difficulty concentrating. Other symptoms include palpitations, chest pain, shortness of breath, dizziness, racing thoughts, feelings of losing control, difficulty co ncentrating. She is dealing with a lot of stress with issues at her house. She recently had COVID as well. Since the last visit, the symptoms are worsening. She denies current and past suicidal and homicidal intent and plan. Current treatment includes antidepressants (Prozac) and other psychiatric medications (Buspar). She complains of the following treatment side effects: none. She reports that her mother and brother were recently diagnosed with ADHD. She is concerned due to not completing tasks, difficulty focusing. She does not have this issue at work. She states that she struggled as a child as well with Difficulty focusing. Review of Systems Constitutional: Negative for activity [...] disturbance and suicidal ideas. The patient is nervous/anxious. The patient is not hyperactive. Objective Objective: BP 114/66 (BP Location: Left Arm, BP Position: Sitting, BP Cuff Size: Regular) Pulse 89 Temp 97.3 ??F (36.3 ??C) (Temporal) Resp 18 Ht 5' 4 (1.626 m) Wt 184 lb 11.2 oz (83.8 kg) LMP 06/23/2021 SpO2 98% BMI 31.70 kg/m?? Physical Exam Vitals and nursing note [...] No wheezing, rhonchi or rales. Musculoskeletal: General: No tenderness. Normal range of motion. Cervical back: Normal range of motion and neck supple. Skin: General: Skin is dry. Neurological: General: No focal deficit present. Mental Status: She is alert and oriented to person, place, and time. Mental status is at baseline. Psychiatric: Attention and Perception: Attention and perception normal. Mood and Affect: Affect normal. Mood is anxious. Speech: Speech normal. Behavior: Behavior normal. Behavior is cooperative. Thought Content: Thought content normal. Cognition and Memory: Cognition and memory normal. Judgment: Judgment normal. Medical Decision Making: Assessment & Plan Diagnoses and all orders for this visit: Generalized anxiety disorder - FLUoxetine (PROZAC) 40 MG Capsule; Take 1 Capsule by mouth daily. Major depressive disorder, recurrent, mild (HCC) - FLUoxetine (PROZAC) 40 MG Capsule; Take 1 Capsule by mouth daily. Will increase patient's Prozac to 40 mg. ADHD self report screening completed. Patient borderline for possible ADHD. Will try increasing her Prozac 1st and if no improvement will refer for ADHD evaluation. Patient agreeable. Will follow-up sooner if needed. Return in 6 weeks. Return in about 6 weeks (around 11/14/2021). documented in this encounter Plan of Treatment Not on file documented as of this encounter Goals Goal Patient Goal Type Associated Problems Recent Progress Patient-Stated? Author I would like ways to control my anxiety and learn coping skills . Behavioral Health On track( 022 1:47 PM RACK WASHER) No Ananya Crenshaw LCSW Note: Goal Reviewed [...] astress Depression On track( 022 1:47 PM RACK WASHER) Yes Reina Laguna LCSW Note: Kaylee will [...] mild documented in this encounter Care Teams Track Superintendent Relationship Specialty Start Date End Date Jamaica Saavedra APRN, KRISTINE #[address] [address] PCP - General Advanced Practice Nurse 01/26/21 Emory Erazo MD [id number] [address] Obstetrics & Gynecology 06/30/21 documented as of this encounter
--- OUTSIDE RECORDS SUMMARY | 2024-03-11 20:24 | XMS_ITS | Encounter Summary ---
Author Organization [facility] Address [address] [place] [address] Phone Care Team Providers Care Nursing Professor Name Role Phone Jamaica Saavedra APRN, CNP Primary Care Provid er Reason for Visit * Reason Comments Anxiety * Auth/Cert Specialty Diagnoses / Procedures Referred By Anamaria lay Referred To Contact Referral ID Status Reason Start Date Expiration Date Visits Re quested Visits Authorized [id number] 1 1 Encounter Details Date Type Department Care Team (Latest Contact Info) Description 03/27/2021 3:00 PM RESPIRATORY THERAPIST Outpatient Clinic Visit [facility] [address] [place] [address] Dez Nieves, BRIDGE MAINTENANCE WORKER [address] [place] [address] Major depressive disorder, recurrent, mild (HCC) (Primary Dx); Generalized anxiety disorder Discharge Disposition: Discharged to [...] Sex Assigned at Female 04/04/2023 7:31 PM RESPIRATORY THERAPIST Legal Sex Female 4:36 PM CDT Gender Identity Female 04/04/2023 7:31 PM RESPIRATORY THERAPIST Sexual Orientation Not on file COVID-19 Exposure Response Date Recorded In the last month, have you been in contact with someone who was confirmed or suspected to have Coronavirus / COVID-19? Yes 03/27/2021 2:50 PM RESPIRATORY THERAPIST documented as of this encounter Patient Instructions * Patient Instructions* Dez Nieves, BRIDGE MAINTENANCE WORKER - 03/27/2021 3:00 PM RESPIRATORY THERAPIST The One Muscle That Does Not Need Strengthening Located behind those flab or maulik abs is a little known but oh so powerful muscle called your PSOAS (pronounced so-as). The only muscle to connect your spine to your leg, the psoas influences everything from low back pain and anxiety, to full body orgasms and pure pleasure. It is a supple, juicy dynamic muscle. So why don???t people know about the psoas and why do so few physicians ever mention it? Subtle to sense, the psoas is not easy to locate and because it is so deep within the human core, it can not easily be palpated (nor is it a good idea to have your psoas manipulated!). A part of the flee/fight/freeze response, invasive techniques can exacerbate psoas problems. A primal messenger of the central nervous system the psoas is an emotional muscle expressing what is felt deep within the belly core - what is commonly referred to as ???gut feelings?? . A tense psoas can disturb digestion, reproductive functioning and create a host of other aliments. Released and vital it fosters feelings of pleasure and comfort. Constructive rest is an easy position for releasing tension in your psoas muscle. After work and before your evening meal take 10 - 20 minutes to rest in constructive rest and feel the benefits. A safe and comfortable position, constructive rest helps to relieve back, pelvic and leg fatigue and tension. Begin by resting on your back. Knees bent and feet placed parallel to each other, the width apart of the front of your hip sockets. Place your heels approximately 12-16 inches away from your buttocks. Keep the trunk and head parallel with the floor. If not parallel place a folded, flat tow el under your head. DO NOT push your lower back to the floor or tuck your pelvis under in an attempt to flatten the spine. For best results keep the arms below the shoulder height letting them rest over the ribcage, to the sides of your body or on your belly. There is nothing to do; constructive rest is a BEING position. In this simple position gravity releases the psoas and you???ll feel more at peace with your self and the world. Identifying negative thoughts that add to depression or anxiety Knl-lg-pxlreeq thinking - Looking at things in nyjkp-wn-ckeed categories, with no middle ground (???If I fall short of perfection, I???m a total failure.?? ) Overgeneralization - Generalizing from a single negative experience, expecting it to hold true forever (???I can???t do anything right.?? ) The mental filter - Ignoring positive events and focusing on the negative. Noticing the one thing that went wrong, rather than all the things that went right. Diminishing the positive - Coming up with reasons why positive events don???t count (???She said she had a good time on our date, but I think she was just being nice.?? ) Jumping to conclusions - Making negative interpretations without actual evidence. You act like a mental health technician (???He must think I???m pathetic?? ) or a commercial roofer (???I???ll be stuck in this end job forever.?? ) Emotional reasoning - Believing that the way you feel reflects reality (???I feel like such a loser. I really am no good!?? ) ???Shoulds??? and ???should-nots??? - Holding yourself to a strict list of what you should and shouldn???t do, and beating yourself up if you don???t live up to your rules. Labeling - Labeling yourself based on mistakes and perceived shortcomings (???I???m a failure; an idiot; a loser.?? ) Ways to challenge negative thinking: ??? Think outside yourself. Ask yourself if you???d say what you???re thinking about yourself to a friend. ??? Allow yourself to be less than perfect. Many depressed people are perfectionists, holding themselves to impossibly high standards. ??? Socialize with positive people. Notice how they handle situations. ??? Ask yourself if there???s another way to view the situation. What is the REAL evidence of the situation? Does the REAL evidence support your negative thoughts? IRATORY THERAPIST documented in this encounter Progress Notes * Dez Nieves LCSW - 03/27/2021 3:00 PM CST [facility] PROGRESS NOTE NAME: Kaylee Melchor AGE: 25 y.o. DATE OF : 1995 DATE OF SERVICE: 03/27/2021 START TIME: 3:00pm END TIME: 3:45pm DIAGNOSIS: 1. Major depressive disorder, recurrent, mild (HCC) 2. Generalized anxiety disorder TREATMENT PLAN: Goals Addressed This Visit's Progress Behavioral Health ??? I would like ways to control my anxiety and learn coping skills . Improving Goal Reviewed with: patient today Readiness to [...] individual and/or group therapy at least 1x/month Depression ??? Depression Improving Kaylee will report an improved management of depressive symptoms Goal Reviewed with: patient today Readiness to change: Ready to change Department associated with goal: [facility] Steps to achieve goal: 1. will identify at least two coping skills/activities/habits that have helped to manage low mood in the past. 2. will identify at least three new coping skills/activities/habits that may help to prevent and/orcope with depression. 3. Will attend individual and/or group therapy at least 1x/month PROBLEM STATUS: Kaylee was seen today due to the following concerns: Anxiety: avoidance difficulties concentrating intrusive thoughts nervousness stress worry. Based upon the presenting problem the following treatment modalities were utilized: Cognitive Behavioral Therapy Supportive/Client Centered Therapy THERAPEUTIC INTERVENTIONS USED: This clinician provided therapeutic interventions for: Anxiety: increasing insight into current difficulties coping skills for reducing anxiety identifying and reducing avoidance behaviors contributing negatively to anxious mood and behavior identifying and decreasing cognitive distortions/negative automatic thoughts contributing negatively to anxious mood and behavior identifying, verbalizing, and processing feelings effectively. Kaylee verbalized an understanding and responded well to interventions provided during treatment session. PROGRESS TOWARDS GOALS: Kaylee reported no/minimal improvement of symptoms. MENTAL STATUS EXAM: Kaylee is open pleasant slightly anxious. Affect is mood congruent. Mood is anxious. There is no current suicidal ideation.. There is no current homicidal ideation.. FUNCTIONAL ASSESSMENT: Can the patient perform Activities of Daily Living (ADL'S)?: Patient is able to complete ADL's independantly. TREATMENT RECOMMENDATIONS/FOLLOW UP: Recommendations for follow up treatment plan: Return for next available follow up appointment. 3 weeks DEZ NIEVES LCSW IRATORY THERAPIST documented in this encounter Plan of Treatment Not on file documented as of this encounter Goals Goal Patient Goal Type Associated Problems Recent Progress Patient-Stated? Author I would like ways to control my anxiety and learn coping skills . Behavioral Health On track( 1:47 PM RESPIRATORY THERAPIST) No Ananya Crenshaw LCSW Note: Goal Reviewed [...] Anxiety astress Depression On track( 1:47 PM RESPIRATORY THERAPIST) Yes Dez Nieves LCSW Note: Kaylee will report an improved [...] as of this encounter Visit Diagnoses Diagnosis Major depressive disorder, recurrent, mild (HCC)- Primary Major depressive disorder, recurrent episode, mild Generalized anxiety disorder documented in this encounter Care Teams Nursing Professor Relationship Specialty Start Date End Date Jamaica Saavedra APRN, WELL CONTROL INSTRUCTOR [address] [id number] PCP - General Advanced Practice Nurse 01/26/21 documented as of this encounter
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
--- OUTSIDE RECORDS SUMMARY | 2024-03-11 20:24 | XMS_ITS | Encounter Summary ---
Author Organization [facility] Address [address] [place] [address] Phone Care Team Providers Care Assembler Musical Instruments Name Role Phone Jamaica Saavedra APRN, CNP Primary Care Provid er Reason for Visit * Reason Comments Follow-up Medication Management Encounter Details Date Type Department Care Team (Late st Contact Info) Description 04/06/2021 10:00 AM RADIAL DRILL PRESS SET UP OPERATOR Office Visit [facility] [address] [place] [id number] Jamaica Saavedra APRN, CNP [address] [phone] Major depressive disorder, recurrent, mild (HCC) (Primary [...] Sex Assigned at Female 04/04/2023 7:31 PM RADIAL DRILL PRESS SET UP OPERATOR Legal Sex Female 4:36 PM CDT Gender Identity Female 04/04/2023 7:31 PM RADIAL DRILL PRESS SET UP OPERATOR Sexual Orientation Not on file COVID-19 Exposure Response Date Recorded In the last month, have you been in contact with someone who was confirmed or suspected to have Coronavirus / COVID-19? Yes 04/06/2021 9:42 AM RADIAL DRILL PRESS SET UP OPERATOR documented as of this encounter Last Filed Vital Signs Vital Sign Reading Time Taken Comments Blood Pressure 112/62 04/06/2021 9:45 AM RADIAL DRILL PRESS SET UP OPERATOR Pulse 81 04/06/2021 9:45 AM RADIAL DRILL PRESS SET UP OPERATOR Temperature 36.3 ??C (97.3 ??F) 04/06/2021 9:45 AM CS T Respiratory Rate 18 04/06/2021 9:45 AM RADIAL DRILL PRESS SET UP OPERATOR Oxygen Saturation 98% 04/06/2021 9:45 AM RADIAL DRILL PRESS SET UP OPERATOR Inhaled Oxygen Concentration - - Weight 80.9 kg (178 lb 6.4 oz) 04/06/2021 9:45 A M RADIAL DRILL PRESS SET UP OPERATOR Height 162.6 cm (5' 4 ) 04/06/2021 9:45 AM RADIAL DRILL PRESS SET UP OPERATOR Body Mass Index 30.62 04/06/2021 9:45 AM RADIAL DRILL PRESS SET UP OPERATOR documented in this encounter Progress Notes * Tova Fish MA - 04/06/2021 10:00 AM CST Kaylee Melchor, 25 y.o., female is here for Follow-up and Medication Management Medication Refills: Patient reports/denies need for medication refills. Orders Pended: no Requested Prescriptions No prescriptions requested or ordered in this encounter Home Medications Medication Sig Start Date End Date Taking? Authorizing Provider escitalopram (LEXAPRO) 10 MG Tablet Take 1 Tablet by mouth daily. 01/26/21 Yes Jamaica Saavedra APRN, FREIGHT SORTER There are no discontinued medications. I have [...] have been addressed with the patient today: Depression AL DRILL PRESS SET UP OPERATOR * Jamaica Saavedra APRN, KRISTINE - 04/06/2021 10:00 AM CST [facility] [address] [facility] [address] Dept: [phone] Dept Loc: [phone] Loc Patient: Kaylee Melchor : 1995 Sex: female Subjective Subjective: HPI: Kaylee Melchor presents for Follow-up and Medication Management . Kaylee Melchor is a 25 y.o. femalewho presents for follow-up of depression. She is accompanied by no one. She complains of depressed mood, insomnia, fatigue and difficulty concentrating. Other symptoms include feelings of losing control, difficulty concentrating, and panic attacks. Since the last visit, the symptoms are improving. She denies current and past suicidal and homicidal thoughts, intent and plan. Current treatment includes antidepressants (Lexapro) and therapy. She complains of the following treatment side effects: fatigue.She is sleeping over 12 hours if she doesn't have anything to do. Otherwise she feels the medication is effective. No past medical history on file. No current outpatient medications on file prior to visit. No current facility-administered medications on file prior to visit. Allergies Allergen Reactions ??? Other-Food Allergen (Not Found In Search) Hives SKIN GLUE ??? Prednisone Palpitations Past Surgical History: Procedure Laterality Date ??? KNEE SURGERY Left ??? TONSILLECTOMY Review of Systems Constitutional: Positive for fatigue. Negative for activity change, appetite change, chills, diaphoresis and fever. Respiratory: Negative for cough, chest tightness, shortness of breath and wheezing. Cardiovascular: Negative for chest pain, palpitations and leg swelling. Gastrointestinal: Negative for constipation, diarrhea, nausea and vomiting. Neurological: Negative for dizziness, light-headedness and headaches. Psychiatric/Behavioral: Negative for agitation, behavioral problems, confusion, decreased concentration, dysphoric mood, hallucinations, self-injury, sleep disturbance and suicidal ideas. The patientis not nervous/anxious and is not hyperactive. Objective Objective: BP 112/62 (BP Location: Left Arm, BP Position: Sitting, BP Cuff Size: Regular) Pulse 81 Temp 97.3 ??F (36.3 ??C) (Temporal) Resp 18 Ht 5' 4 (1.626 m) Wt 178 lb 6.4 oz (80.9 kg) LMP 01/23/2021 SpO2 98% BMI 30.62 kg/m?? Physical Exam Vitals and nursing note [...] of motion and neck supple. No tenderness. Skin: General: Skin is dry. Neurological: Mental Status: She is alert and oriented to person, place, and time. Psychiatric: Attention and Perception: Attention and perception normal. Mood and Affect: Mood and affect normal. Speech: Speech normal. Behavior: Behavior normal. Behavior is cooperative. Thought Content: Thought content normal. Cognition and Memory: Cognition and memory normal. Judgment: Judgment normal. Vital Signs Vitals: 04/06/21 0945 BP: 112/62 BP Location: Left Arm BP Position: Sitting BP Cuff Size: Regular Pulse: 81 Resp: 18 Temp: 97.3 ??F (36.3 ??C) TempSrc: Temporal SpO2: 98% Weight: 178 lb 6.4 oz (80.9 kg) Height: 5' 4 (1.626 m) Lab Results No visits with results within 1 Month(s) from this visit. Latest known visit with results is: [facility] Visit on 10/09/2020 Component Date Value Ref Range Status ??? POC SARS ANTIGEN AFSHAN 10/09/2020 Negative Negative Final ??? POC SARS ANTIGEN AFSHAN CONTROL 10/09/2020 Completion Manager Pass Final ??? POC STREP SCRN 10/09/2020 Presumptive negative Final ??? POC STREP SCREEN CONTROL 10/09/2020 Completion Manager Pass Final ??? SARSCOV2 10/09/2020 NOT DETECTED (Reference Range for this test is Not Detected) Final This test was performed by a RT-PCR method. No results found for: WBC, HEMOGLOBIN, HEMATOCRIT, PLATELETCNT, CHOLESTEROL, TRIGLYCRIDES, HDLCHOLESTE, LDL, PSA, PSASCREEN, INR, HGBA1C, MACRRAND, TQVHSHRK62, FOLAT, ESR, VIT12 No results found for: SODIUM, POTASSIUM, CHLORIDE, CO2VEN, ANIONGAP, GLUCOSE, BUN, CREATININE, BCRATIO8, TOTALPROTEIN, ALBUMIN, AGRATIO, CALCIUM, TBIL, SGOTAST, SGPTALT, ALKALINEPHO, GFRNA, GFRA, VTMD, TSH, FREET3, T4FREE Please see results review for comprehensive lab results. Medical Decision Making: Assessment & Plan Diagnoses and all orders for this visit: Major depressive disorder, recurrent, mild (HCC) - FLUoxetine (PROzac) 20 MG Capsule; Take 1 Capsule by mouth daily. Generalized anxiety disorder - FLUoxetine (PROzac) 20 MG Capsule; Take 1 Capsule by mouth daily. Due to the side effects will change her to Prozac. Follow up in six weeks. Return in about 6 weeks (around 05/18/2021). AL DRILL PRESS SET UP OPERATOR documented in this encounter Plan of Treatment Not on file documented as of this encounter Goals Goal Patient Goal Type Associated Problems Recent Progress Patient-Stated? Author I would like ways to control my anxiety and learn coping skills . Behavioral Health On track( 022 1:47 PM RADIAL DRILL PRESS SET UP OPERATOR) No Annaya Crenshaw, TANNERY WORKER Note: Goal Reviewed with: patient today Readiness to change: Ready to change Department associated with goal: [facility] Steps to achieve goal: will identify at least two coping skills/activities/habits that have helped to manage anxiety in the past. will identify at least three new coping skills/activities/habits that may help to prevent and/or cope with anxiety. 3. Will attend individual and/or group therapy at least 1x/month Anxiety astress Depression On track( 022 1:47 PM RADIAL DRILL PRESS SET UP OPERATOR) Yes Reina Laguna, TANNERY WORKER Note: Kaylee will report an improved management of anxiety symptoms Goal Reviewed with: patient today Readiness to change: Ready to change Department associated with goal: [facility] Steps to achieve [...] disorder documented in this encounter Care Teams Assembler Musical Instruments Relationship Specialty Start Date End Date Jamaica Saavedra APRN, KRISTINE #[address] [phone] PCP - General Advanced Practice Nurse 01/26/21 documented as of this encounter
--- OUTSIDE RECORDS SUMMARY | 2024-03-11 20:24 | XMS_ITS | Encounter Summary ---
Author Organization [facility] Address [address] [place] [address] Phone Care Team Providers Care Senior Director Creative Services Name Role Phone Jamaica Saavedra APRN, CNP Primary Care Provid er Reason for Visit * Reason Comments Follow-up Encounter Details Date Type Department Care Team (Late st Contact Info) Description 05/19/2021 10:00 AM SALES MARKETING MANAGER Office Visit [facility] - Family [facility] [address] [place] [id number] Jamaica Saavedra APRN, CNP [address] [id number] Generalized anxiety disorder (Primary Dx); Major depressive [...] Assigned at Female 04/04/2023 7:31 PM SALES MARKETING MANAGER Legal Sex Female 4:36 PM CDT Gender Identity Female 04/04/2023 7:31 PM SALES MARKETING MANAGER Sexual Orientation Not on file COVID-19 Exposure Response Date Recorded In the last month, have you been in contact with someone who was confirmed or suspected to have Coronavirus / COVID-19? No / Unsure 05/19/2021 9:54 AM SALES MARKETING MANAGER documented as of this encounter Last Filed Vital Signs Vital Sign Reading Time Taken Comments Blood Pressure 102/64 05/19/2021 10:03 AM SALES MARKETING MANAGER Pulse 70 05/19/2021 10:03 AM SALES MARKETING MANAGER Temperature 36.7 ??C (98.1 ??F) 05/19/2021 10:[address] Respiratory Rate 16 05/19/2021 10:03 AM SALES MARKETING MANAGER Oxygen Saturation 100% 05/19/2021 10:03 AM SALES MARKETING MANAGER Inhaled Oxygen Concentration - - Weight 80.7 kg (178 lb) 05/19/2021 10:03 AM SALES MARKETING MANAGER Height 162.6 cm (5' 4 ) 05/19/2021 10:03 AM SALES MARKETING MANAGER Body Mass Index 30.55 05/19/2021 10:03 AM SALES MARKETING MANAGER documented in this encounter Progress Notes * Lamar Prasad, RUFINA - 05/19/2021 10:00 AM CST Kaylee Darshana Melchor, 25 y.o., female is here for Follow-up Medication Refills: Patient reports/denies need for medication refills. Orders Pended: no Requested Prescriptions No prescriptions requested or ordered in this encounter Home Medications Medication Sig Start Date End Date Taking? Authorizing Provider FLUoxetine (PROzac) 20 MG Capsule Take 1 Capsule by mouth daily. 04/06/21 Yes Jamaica Saavedra, CAPSULE MAKER, PESTICIDE CHEMIST There are no discontinued medications. I have [...] have been addressed with the patient today: Functional abuse assessment pap S MARKETING MANAGER * Jamaica Saavedra APRN, KRISTINE - 05/19/2021 10:00 AM CST [facility] [address] [facility] [id number] Dept: [phone] Dept Loc: [phone] Loc Patient: Kaylee Melchor : 1995 Sex: female Subjective Subjective: HPI: Kaylee Melchor presents for Follow-up . Depression/Anxiety Kaylee Melchor is a 25 y.o. femalewho presents for follow-up of anxiety and depression. She is accompanied by no one. She complains of depressed mood, insomnia, fatigue and difficulty concentrating. Other symptoms include feelings of losing control, difficulty concentrating, panic attacks. She was parenting increased fatigue while on the Lexapro so she was switched to Prozac. Since the last visit, the depression symptoms are improving. However she has had no improvement in her panic attacks or anxiety. She denies current and past suicidal and homicidal thoughts, intent and plan. Current treatment includes individual counselling with poor response and antidepressants (Prozac). She complains of the following treatment side effects: none. History reviewed. No pertinent past medical history. Current Outpatient Medications on File Prior to Visit Medication Sig Dispense Refill ??? FLUoxetine (PROzac) 20 MG Capsule Take 1 Capsule by mouth daily. 90 Capsule 0 No current facility-administered medications on file prior to visit. Allergies Allergen Reactions ??? Other-Food Allergen (Not Found In Search) Hives SKIN GLUE ??? Prednisone Palpitations Review of Systems Constitutional: Negative for activity change, appetite change, chills, fatigue and fever. Respiratory: Negative for cough, chest tightness, shortness of breath and wheezing. Cardiovascular: Negative for chest pain, palpitations and leg swelling. Gastrointestinal: Negative for constipation, diarrhea, nausea and vomiting. Neurological: Negative for dizziness, light-headedness and headaches. Psychiatric/Behavioral: Positive for dysphoric mood and sleep disturbance. Negative for agitation, behavioral problems, confusion, decreased concentration, hallucinations, self-injury and suicidal ideas. The patient is nervous/anxious. The patient is not hyperactive. Objective Objective: BP 102/64 Pulse 70 Temp 98.1 ??F (36.7 ??C) (Temporal) Resp 16 Ht 5' 4 (1.626 m) Wt 178 lb (80.7 kg) LMP 05/10/2021 SpO2 100% BMI 30.55 kg/m?? Physical Exam Vitals and nursing note reviewed. Constitutional: General: She is not in acute distress. Appearance: She is well-developed. She is not diaphoretic. HENT: Head: Normocephalic and atraumatic. Right Ear: External ear normal. Left Ear: External ear normal. Eyes: Conjunctiva/sclera: Conjunctivae normal. Pupils: Pupils are equal, round, and reactive to light. Neck: Trachea: No tracheal deviation. Cardiovascular: Rate and Rhythm: Normal rate and regular rhythm. Heart sounds: Normal heart sounds. No murmur heard. No friction rub. No gallop. Pulmonary: Effort: Pulmonary effort is normal. No respiratory distress. Breath sounds: Normal breath sounds. No stridor. No wheezing, rhonchi or rales. Abdominal: Tenderness: There is no guarding. Musculoskeletal: General: Normal range of motion. Cervical [...] Thought content normal. Cognition and Memory: Cognition normal. Judgment: Judgment normal. Vital Signs Vitals: 05/19/21 1003 BP: 102/64 Pulse: 70 Resp: 16 Temp: 98.1 ??F (36.7 ??C) TempSrc: Temporal SpO2: 100% Weight: 178 lb (80.7 kg) Height: 5' 4 (1.626 m) Lab Results No visits with results within 1 Month(s) from this visit. Latest known visit with results is: [facility] Visit on 10/09/2020 Component Date Value Ref Range Status ??? POC SARS ANTIGEN AFSHAN 10/09/2020 Negative Negative Final ??? POC SARS ANTIGEN AFSHAN CONTROL 10/09/2020 Pack Puller Pass Final ??? POC STREP SCRN 10/09/2020 Presumptive negative Final ??? POC STREP SCREEN CONTROL 10/09/2020 Pack Puller Pass Final ??? SARSCOV2 10/09/2020 NOT DETECTED (Reference Range for this test is Not Detected) Final This test was performed by a RT-PCR method. No results found for: WBC, HEMOGLOBIN, HEMATOCRIT, PLATELETCNT, CHOLESTEROL, TRIGLYCRIDES, HDLCHOLESTE, LDL, PSA, PSASCREEN, INR, HGBA1C, MACRRAND, NFVCCMDN52, FOLAT, ESR, VIT12 No results found for: SODIUM, POTASSIUM, CHLORIDE, CO2VEN, ANIONGAP, GLUCOSE, BUN, CREATININE, BCRATIO8, TOTALPROTEIN, ALBUMIN, AGRATIO, CALCIUM, TBIL, SGOTAST, SGPTALT, ALKALINEPHO, GFRNA, GFRA, VTMD, TSH, FREET3, T4FREE Please see results review for comprehensive lab results. Medical Decision Making: Assessment & Plan Diagnoses and all orders for this visit: Generalized anxiety disorder - busPIRone (BUSPAR) 5 MG Tablet; Take 1 Tablet by mouth 3 times daily. Major depressive disorder, recurrent, mild (HCC) - busPIRone (BUSPAR) 5 MG Tablet; Take 1 Tablet by mouth 3 times daily. Will add BuSpar to patient's medication regimen to help with anxiety. Continue Prozac. Will have her follow-up in 6 weeks. Return in about 6 weeks (around 06/30/2021). S MARKETING MANAGER documented in this encounter Plan of Treatment Not on file documented as of this encounter Goals Goal Patient Goal Type Associated Problems Recent Progress Patient-Stated? Author I would like ways to control my anxiety and learn coping skills . Behavioral Health On track( 1:47 PM SALES MARKETING MANAGER) No Ananya Crenshaw, HOSPICE BEREAVEMENT COORDINATOR Note: Goal Reviewed with: patient today Readiness to change: Ready to change Department associated with goal: [facility] Steps to achieve goal: will identify at least two coping skills/activities/habits that have helped to manage anxiety in the past. will identify at least three new coping skills/activities/habits that may help to prevent and/or cope with anxiety. 3. Will attend individual and/or group therapy at least 1x/month Anxiety astress Depression On track( 1:47 PM SALES MARKETING MANAGER) Yes Reina Laguna, HOSPICE BEREAVEMENT COORDINATOR Note: Kaylee will report an improved management of anxiety symptoms Goal Reviewed with: patient today Readiness to change: Ready to change Department associated with goal: [facility] Steps to achieve goal: [...] mild documented in this encounter Care Teams Senior Director Creative Services Relationship Specialty Start Date End Date Jamaica Saavedra APRN, PESTICIDE CHEMIST #[address] [phone] PCP - General Advanced Practice Nurse 01/26/21 documented as of this encounter
--- OUTSIDE RECORDS SUMMARY | 2024-03-11 20:24 | XMS_ITS | Encounter Summary ---
Author Organization [facility] Address [address] [place] [address] Phone Care Team Providers Care Finisher Hand Name Role Phone Provider, None Primary Care Provider Unavailabl e Reason for Visit * Reason Comments Cough Sore Throat Encounter Details Date Type Department Care Team (Late st Contact Info) Description 01/25/2020 9:40 AM MULTIPLE PUNCH PRESS OPERATOR Urgent Care Visit [facility] [place] [address] [place] [phone] Testing, [facility] Nurse [place] Sore throat (Primary Dx) Discharge Disposition: Discharged to home or Selfcare Social History Tobacco Use Types Packs/Day Years Used Date Smoking Tobacco: Never Assessed Comments Unknown Sex and Gender Information Value Date Recorded Sex Assigned at Female 04/04/2023 7:31 PM MULTIPLE PUNCH PRESS OPERATOR Legal Sex Female 4:36 PM CDT Gender Identity Female 04/04/2023 7:31 PM MULTIPLE PUNCH PRESS OPERATOR Sexual Orientation Not on file documented as of this encounter Progress Notes * Toña Lancaster RN - 01/25/2020 9:40 AM CST Patient presents to [facility] in personal car for drive up deep nasal COVID 19 swab. Bi-lateral nares swabbed with no difficulty and patient tolerated well. Written instruction given on care at home, and home isolation. Specimen tested at [facility] for rapid Covid 19. IPLE PUNCH PRESS OPERATOR documented in this encounter Plan of Treatment Not on file documented as of this encounter Procedures Procedure Name Priority Date/Time Associated Diagnosis Comments POCT SARS ANTIGEN AFSHAN Routine 01/25/2020 9:56 AM MULTIPLE PUNCH PRESS OPERATOR Sore throat documented in this encounter Results * POCT SARS ANTIGEN AFSHAN (01/25/2020 9:56 AM MULTIPLE PUNCH PRESS OPERATOR) POC SARS ANTIGEN AFSHAN Negative Negative POC SARS ANTIGEN AFSHAN CONTROL Mixer Machine Feeder Pass Swab NASAL STRUCTURE / Unknown 01/25/2020 9:56 AM MULTIPLE PUNCH PRESS OPERATOR us Chris So MD POINT OF CARE TESTING (MANUA L) Final Result documented in this encounter Visit Diagnoses Diagnosis Sore throat- Primary Acute pharyngitis documented in this encounter Additional Health Concerns Infection Onset Date Last Indicated Resolved Time COVID - 19 01/25/2020 01/25/2020 02/14/2020 12:1 8 AM MULTIPLE PUNCH PRESS OPERATOR documented as of this encounter Care Teams Finisher Hand Relationship Specialty Start Date End Date Provider, None [place] PCP - General 06/17/17 01/25/21 documented as of this encounter
--- OUTSIDE RECORDS SUMMARY | 2024-03-11 20:24 | XMS_ITS | Encounter Summary ---
Author Organization [facility] Address [address] [place] [address] Phone Care Team Providers Care Glass Curvature Gauger Name Role Phone Provider, None Primary Care Provider Unavailabl e Reason for Visit * Reason Comments Finger Injury Encounter Details Date Type Department Care Team (Late st Contact Info) Description 09/02/2019 5:17 PM CDT - 09/02/2019 7:10 PM CDT Emergency [facility] [address] [place] [address] Kelsea Mcginnis, PAC [address] [place] [address] Open fracture of tuft of distal phalanx of finger Discharge Disposition: Discharged to home or Selfcare Social History Tobacco Use Types Packs/Day Years Used Date Smoking Tobacco: Never Assessed Comments Unknown Sex and Gender Information Value Date Recorded Sex Assigned at Female 04/04/2023 7:31 PM MASSEUR/MASSEUSE Legal Sex Female 4:36 PM CDT Gender Identity Female 04/04/2023 7:31 PM MASSEUR/MASSEUSE Sexual Orientation Not on file COVID-19 Exposure Response Date Recorded In the last month, have you been in contact with someone who was confirmed or suspected to have Coronavirus / COVID-19? No / Unsure 09/02/2019 5:15 PM CDT documented as of this encounter Last Filed Vital Signs Vital Sign Reading Time Taken Comments Blood Pressure 142/90 09/02/2019 5:15 PM CDT Pulse 62 09/02/2019 5:15 PM CDT Temperature 36.5 ??C (97.7 ??F) 09/02/2019 5:15 PM CD T Respiratory Rate 18 09/02/2019 7:08 PM CDT Oxygen Saturation 98% 09/02/2019 5:15 PM CDT Inhaled Oxygen Concentration - - Weight - - Height - - Body Mass Index - - documented in this encounter Discharge Instructions * Discharge Instructions* Kelsea Mcginnis PAC - 09/02/2019 6:25 PM CDT Please keep wound dry. You can apply triple antibiotic ointment and wear the splint to protect it. Please elevate and ice. Monitor closely for signs of infection. * Attachments The following attachments cannot be sent through Care Everywhere. * Laceration, Extremity: Stitches, Staple, or Tape (Panamanian) documented in this encounter Medications at Time of Discharge cephALEXin (KEFLEX) 500 MG Capsule Take 1 Cap by mouth 2 times daily for 10 days. 20 Cap 09/02/2019 09/12/2019 documented as of this encounter ED Notes * Ruby Ortiz RN - 09/02/2019 7:08 PM CDT Pt medicated per provider orders. Pt educated on intended effects and side effects of medication and verbalized understanding, able to provide teach back of education. Patient discharged. Discharge instructions and patient educational material reviewed with patient; questions and concerns addressed; patient verbalizes understanding, using teach back. Patient was given 1 prescription. Patient ambulatory out with steady gait. No distress noted. * Kelsea Mcginnis PAC - 09/02/2019 5:48 PM CDTAssociated Order(s): Laceration Repair Chief Complaint Patient presents with ??? Finger Injury HPI Kaylee Melchor is a 24 y.o. female who presents due to a laceration to her R 4th digit which occurred while working just prior to arrival. Patient closed the bathroom door accidentally onto her finger. She states she had to open the door to release her finger. She denies numbness. She reports her tetanus is utd. No current facility-administered medications for this encounter. No current outpatient medications on file. Allergies Allergen Reactions ??? Other-Food Allergen (Not Found In Search) Hives SKIN GLUE History reviewed. No pertinent past medical history. No past surgical history on file. Social History Socioeconomic History ??? Marital status: Spouse name: Not on file ??? Number of children: Not on file ??? Years of education: Not on file ??? Highest education level: Not on file Occupational History ??? Not on file Social Needs ??? Financial resource strain: Not on file ??? Food insecurity: Worry: Not on file Inability: Not on file ??? Transportation needs: Medical: Not on file Non-medical: Not on file Tobacco Use ??? Smoking status: Not on file Substance and Sexual Activity ??? Alcohol use: Not on file ??? Drug use: Not on file ??? Sexual activity: Not on file Lifestyle ??? Physical activity: Days per week: Not on file Minutes per session: Not on file ??? Stress: Not on file Relationships ??? Social connections: Talks on phone: Not on file Gets together: Not on file Attends spiritism service: Not on file Active member of club or organization: Not on file Attends meetings of clubs or organizations: Not on file Relationship status: Not on file ??? Intimate partner violence: Fear of current or ex partner: Not on file Emotionally abused: Not on file Physically abused: Not on file Forced sexual activity: Not on file Other Topics Concern ??? Not on file Social History Narrative ??? Not on file BP 142/90 Pulse 62 Temp 97.7 ??F (36.5 ??C) (Tympanic) Resp 20 SpO2 98% Review of Systems Constitutional: Negative for chills and fever. HENT: Negative for congestion, ear pain and sore throat. Eyes: Negative for pain and discharge. Respiratory: Negative for cough, chest tightness and shortness of breath. Cardiovascular: Negative for chest pain, palpitations and leg swelling. Gastrointestinal: Negative for abdominal distention, abdominal pain, blood in stool, constipation, diarrhea, nausea and vomiting. Genitourinary: Negative for dysuria, frequency and vaginal discharge. Musculoskeletal: Negative for arthralgias and back pain. Skin: Positive for wound (R 4th digit laceration). Negative for color change and rash. Neurological: Negative for dizziness, weakness, light-headedness and headaches. Psychiatric/Behavioral: Negative for suicidal ideas. All other systems reviewed and are negative. Physical Exam Vitals signs and nursing note reviewed. Constitutional: General: She is not in acute distress. Appearance: She is well-developed. She is not diaphoretic. Comments: Tearful HENT: Head: Normocephalic and atraumatic. Right Ear: External ear normal. Left Ear: External ear normal. Eyes: Conjunctiva/sclera: Conjunctivae normal. Pupils: Pupils are equal, round, and reactive to light. Neck: Musculoskeletal: Normal range of motion. Trachea: No tracheal deviation. Cardiovascular: Rate and Rhythm: Normal rate and regular rhythm. Heart sounds: Normal heart sounds. No murmur. Pulmonary: Effort: Pulmonary effort is normal. No respiratory distress. Breath sounds: Normal breath sounds. No wheezing or rales. Abdominal: General: Bowel sounds are normal. There is no distension. Palpations: Abdomen is soft. Tenderness: There is no abdominal tenderness. There is no guarding or rebound. Musculoskeletal: Normal range of motion. Skin: General: Skin is warm and dry. Comments: R 4th digit with a 1 cm laceration to her palmar distal surface. Slow active bleeding. Notenderness over DIP or PIP joint. No limited ROM. Neurological: Mental Status: She is alert and oriented to person, place, and time. Cranial Nerves: No cranial nerve deficit. Labs Reviewed - No data to display XR HAND 3 OR MORE VIEWS RIGHT (Results Pending) Laceration Repair Performed by: Kelsea Mcginnis PAC Authorized by: Kelsea Mcginnis, TIARRA Consent: Verbal consent obtained. Risks and benefits: risks, benefits and alternatives were discussed Consent given by: patient Patient understanding: patient states understanding of the procedure being performed Patient consent: the patient's understanding of the procedure matches consent given Procedure consent: procedure consent matches procedure scheduled Relevant documents: relevant documents present and verified Test results: test results available and properly labeled Site marked: the operative site was marked Imaging studies: imaging studies available Required items: required blood products, implants, devices, and special equipment available Patient identity confirmed: verbally with patient Time out: Immediately prior to procedure a time out was called to verify the correct patient, procedure, equipment, customer support analyst and site/side marked as required. Body area: upper extremity Laceration length: 1 cm Foreign bodies: no foreign bodies Tendon involvement: none Nerve involvement: none Vascular damage: no Anesthesia: digital block Anesthesia: Local Anesthetic: lidocaine 1% without epinephrine Anesthetic total: 5 mL Sedation: Patient sedated: no Preparation: Patient was prepped and draped in the usual sterile fashion. Irrigation solution: saline Amount of cleaning: standard Debridement: none Degree of undermining: none Skin closure: 4-0 nylon Number of sutures: 4 Technique: simple Approximation: close Approximation difficulty: simple Dressinx4 sterile gauze Patient tolerance: Patient tolerated the procedure well with no immediate complications Aluminum finger splint applied to R 4th digit by director of digital technology. Pre and post application neurovascular intact. Imaging Results XR HAND 3 OR MORE VIEWS RIGHT (In process) MDM Coding Clinical Impression 1. Finger laceration Wound care instructions provided. Patient to have sutures removed in 7-10 days. Cosigned by Carlos Gifford MD at 09/03/2019 1:05 AM CDT * Ruby Ortiz RN - 09/02/2019 5:43 PM CDT Pt to ED room 11B with c/o laceration to distal right 4th finger after smashing the finger in a door. Bleeding controlled. 1cm laceration noted. Sutures placed per SUSAN Farr. Pt ambulatory to xray with steady gait. * Jayro Castro - 09/02/2019 5:17 PM CDT Bed: ED11- Expected date: Expected time: Means of arrival: Comments: documented in this encounter Plan of Treatment Not on file documented as of this encounter Procedures Procedure Name Priority Date/Time Associated Diagnosis Comments LACERATION REPAIR Routine 09/02/2019 5:4 8 PM CDT XR HAND 3 OR MORE VIEWS RIGHT STAT 09/02/2019 5:48 PM CDT documented in this encounter Results * Laceration Repair (09/02/2019 5:48 PM CDT) Narrative Carlos Gifford MD - 09/02/2019 5:48 PM CDT Kelsea Mcginnis PAC ? 09/02/2019 ??6:26 PM Laceration Repair Performed by: Kelsea Mcginnis PAC Authorized by: Kelsea Mcginnis PAC Consent: Verbal consent obtained. Risks and benefits: risks, benefits and alternatives were discussed Consent given by: patient Patient understanding: patient states understanding of the procedure being performed Patient consent: the patient's understanding of the procedure matches consent given Procedure consent: procedure consent matches procedure scheduled Relevant documents: relevant documents present and verified Test results: test results available and properly labeled Site marked: the operative site was marked Imaging studies: imaging studies available Required items: required blood products, implants, devices, and special equipment available Patient identity confirmed: verbally with patient Time out: Immediately prior to procedure a time out was called to verify the correct patient, procedure, equipment, customer support analyst and site/side marked as required. Body area: upper extremity Laceration length: 1 cm Foreign bodies: no foreign bodies Tendon involvement: none Nerve involvement: none Vascular damage: no Anesthesia: digital block Anesthesia: Local Anesthetic: lidocaine 1% without epinephrine Anesthetic total: 5 mL Sedation: Patient sedated: no Preparation: Patient was prepped and draped in the usual sterile fashion. Irrigation solution: saline Amount of cleaning: standard Debridement: none Degree of undermining: none Skin closure: 4-0 nylon Number of sutures: 4 Technique: simple Approximation: close Approximation difficulty: simple Dressinx4 sterile gauze Patient tolerance: Patient tolerated the procedure well with no immediate complications Kelsea MAYEN PROCEDURE/MINOR SURGICAL ORD ERABLES Final Result * XR HAND 3 OR MORE VIEWS RIGHT (09/02/2019 5:48 PM CDT) Anatomical Region Laterality Modality UPPER EXTREMITY, hand Right Digital Ra diography 09/02/2019 6:41 PM CDT Impressions 09/02/2019 6:44 PM CDT IMPRESSION: ?? Minimally displaced fracture of the 4th distal phalanx. Narrative 09/02/2019 6:44 PM CDT EXAM DESCRIPTION: ?? XR HAND 3 OR MORE VIEWS RIGHT REASON FOR STUDY: ?? R fourth digit laceration, finger smashed in door TECHNIQUE: ?? Frontal, lateral, and oblique radiographic views acquired of the right hand. COMPARISON: ?? None FINDINGS: ??BONES/JOINTS: ??Rim is placed fracture through the distal aspect of the 4th distal phalanx. ??No additional fracture or traumatic malalignment appreciated. ??Joint spaces are maintained. SOFT TISSUES: ??Soft tissue swelling about the 4th digit with irregularity over the palm are aspect of the 4th distal phalanx. OTHER: ??No other significant finding. THIS IS AN ELECTRONICALLY VERIFIED FINAL REPORT 09/02/2019 6:41 PM - Electronically signed by Eulalio Ly BG: BG D: ??09/02/2019 6:41 PM T: ??09/02/2019 6:41 PM Report ID: [id number] Reading Location: ??[id number] Procedure Note Eulalio Ly MD - 09/02/2019 EXAM DESCRIPTION: XR HAND 3 OR MORE VIEWS RIGHT REASON FOR STUDY: R fourth digit laceration, finger smashed in door TECHNIQUE: Frontal, lateral, and oblique radiographic views acquired of the right hand. COMPARISON: None FINDINGS: BONES/JOINTS: Rim is placed fracture through the distal aspect of the 4th distal phalanx. No additional fracture or traumatic malalignment appreciated. Joint spaces are maintained. SOFT TISSUES: Soft tissue swelling about the 4th digit with irregularity over the palm are aspect of the 4th distal phalanx. OTHER: No other significant finding. THIS IS AN ELECTRONICALLY VERIFIED FINAL REPORT 09/02/2019 6:41 PM - Electronically signed by Eulalio Ly BG: BG Report ID: [id number] Reading Location: [id number] IMPRESSION: Minimally displaced fracture of the 4th distal phalanx. us Kelsea [place] Page PAC IMG DIAGNOSTIC ORDERABLES Fi nal Result documented in this encounter Visit Diagnoses Diagnosis Open fracture of tuft of distal phalanx of fingerm fourth, minimally displaced- Primary documented in this encounter Administered Medications Inactive Administered Medications - up to 3 most recent administrations Medication Order MAR Action Action Date Dose Rate Site ceFAZolin (ANCEF) injection 1 g 1 g, Intravenous, ONCE, 1 dose, On Sat09/02/19 at 1900, Administer over 5 Minutes, Indications: open finger fractureIndications:open finger fracture Given 09/02/2019 7:03 PM CDT 1 g documented in this encounter Active and Recently Administered Medications Times are shown in CDT. Scheduled Medication Order 08/31/2019 09/01/2019 09/02/2019 ceFAZolin (ANCEF) injection 1 g (COMPLETED) 1 g, Intravenous, ONCE, 1 dose, On Sat09/02/19 at 1900, Administer over 5 Minutes, Indications: open finger fracture 1902 (Given - Provid er: Ruby Ortiz RN - Comment: GIVEN IM TO LEFT VENTROGLUTEAL) documented in this encounter Care Teams Glass Curvature Gauger Relationship Specialty Start Date End Date Provider, None [place] PCP - General 06/17/17 01/25/21 documented as of this encounter
--- OUTSIDE RECORDS SUMMARY | 2024-03-11 20:24 | XMS_ITS | Encounter Summary ---
Author Organization [facility] Care Team Providers Care Maintenance Engineer Oil Field Name Role Phone [place] Saavedra APRN, CNP Primary Care Provid er Encounter Details Date Type Department Care Team (Latest Contact Info) Description 05/19/2021 Travel Social History Tobacco Use Types Packs/Day [...] Sex Assigned at Female 04/04/2023 7:31 PM IN [place] Legal Sex Female 4:36 PM CDT Gender Identity Female 04/04/2023 7:31 PM IN [place] Sexual Orientation Not on file COVID-19 Exposure Response Date Recorded In the last month, have you been in contact with someone who was confirmed or suspected to have Coronavirus / COVID-19? No / Unsure 05/19/2021 9:54 AM IN [place] documented as of this encounter Plan of Treatment Not on file documented as of this encounter Goals Goal Patient Goal Type Associated Problems Recent Progress Patient-Stated? Author I would like ways to control my anxiety and learn coping skills . Behavioral Health On track( 022 1:47 PM IN [place]) No Ananya Crenshaw, CROP FARM HELPER Note: Goal Reviewed with: patient today Readiness to change: Ready to change Department associated with goal: [facility] Steps to achieve goal: will identify at least two coping skills/activities/habits that have helped to manage anxiety in the past. will identify at least three new coping skills/activities/habits that may help to prevent and/or cope with anxiety. 3. Will attend individual and/or group therapy at least 1x/month Anxiety astress Depression On track( 022 1:47 PM IN [place]) Yes Reina Laguna, CROP FARM HELPER Note: Kaylee will report an improved management of anxiety symptoms Goal Reviewed with: patient today Readiness to change: Ready to change Department associated with goal: [facility] Steps [...] on filedocumented in this encounter Care Teams Maintenance Engineer Oil Field Relationship Specialty Start Date End Date [place] Saavedra APRN, CNP [address] [phone] PCP - General Advanced Practice Nurse 01/26/21 documented as of this encounter
--- OUTSIDE RECORDS SUMMARY | 2024-03-11 20:25 | XMS_ITS | Encounter Summary ---
Author Organization [facility] Address [address] [place] [address] Care Team Providers Care Tax Representative Name Role Phone Unavailable Primary Care Provider Unavailabl e Encounter Details Date Type Department Care Team (Late st Contact Info) Description 11/05/2023 External Device Data [facility] ABSTRACTION Provider, Abstract NO ADDRESS ON FILE Social History Tobacco Use Types Packs/Day Years Used Date Smoking Tobacco: Never Passive Smoke Exposure: Never Smokeless Tobacco: Never Sex and Gender Information Value Date Recorded Sex Assigned at Not on file Gender Identity Not on file Sexual Orientation Not on file documented as of this encounter Plan of Treatment Not on file documented as of this encounter Visit Diagnoses Not on filedocumented in this encounter
--- OUTSIDE RECORDS SUMMARY | 2024-03-11 20:25 | XMS_ITS | Encounter Summary ---
Author Organization [facility] Address [address] [place] [address] Care Team Providers Care Mold Loft Worker Name Role Phone Unavailable Primary Care Provider Unavailabl e Encounter Details Date Type Department Care Team (Latest Contact Info) Description 11/10/2022 12:12 PM CDT - 11/10/2022 11:59 PM CDT Hospital Encounter [facility] Imaging Services [facility] [address] [facility] [address] [place] [address] Litzy Coombs, LOSS PREVENTION AND SAFETY MANAGER [address] [facility] [address] [place] [address] Discharge Disposition: Home or Self Care Social History Tobacco Use Types Packs/Day Years Used Date Smoking Tobacco: Never Passive Smoke Exposure: Never Smokeless Tobacco: Never Sex and Gender Information Value Date Recorded Sex Assigned at Not on file Gender Identity Not on file Sexual Orientation Not on file documented as of this encounter Medications at Time of Discharge Medication Sig Dispensed Refills Start Date End Date FLUoxetine (PROzac) 40 mg capsule Take 40 mg by mouth daily. 10/15/2022 documented as of this encounter Plan of Treatment Not on file documented as of this encounter Procedures Procedure Name Priority Date/Time Associated Diagnosis Comments XR FOOT 3+ VW RIGHT Stat 11/10/2022 1 2:18 PM CDT Injury of right foot, initial encounter documented in this encounter Results * XR FOOT 3+ VW RIGHT (11/10/2022 12:18 PM CDT) Anatomical Region Laterality Modality Ankle / Foot Computed Radiogr aphy 11/10/2022 12:1 8 PM CDT Impressions 11/10/2022 12:41 PM CDT IMPRESSION: Third metatarsal head fracture. Narrative 11/10/2022 12:41 PM CDT Exam: XR FOOT 3+ VW RIGHT Date/Time of Exam: 11/10/2022 12:18 PM Reason For Exam: See Diagnosis. Diagnosis: Injury of right foot, initial encounter. Comparison: None. Findings: There is an acute mildly displaced fracture involving the head of the third metatarsal. The osseous structures appear otherwise intact. The joints are anatomically aligned and appear well-maintained. The soft tissues appear grossly unremarkable. Procedure Note Federico Wills, DO - 11/10/2022 Exam: XR FOOT 3+ VW RIGHT Date/Time of Exam: 11/10/2022 12:18 PM Reason For Exam: See Diagnosis. Diagnosis: Injury of right foot, initial encounter. Comparison: None. Findings: There is an acute mildly displaced fracture involving the head of the third metatarsal. The osseous structures appear otherwise intact. The joints are anatomically aligned and appear well-maintained. The soft tissues appear grossly unremarkable. IMPRESSION: Third metatarsal head fracture. Litzy Coombs LOSS PREVENTION AND SAFETY MANAGER DIAGNOSTIC IMAG ING ORDERABLES documented in this encounter Visit Diagnoses Diagnosis Injury of right foot, initial encounter documented in this encounter
--- OUTSIDE RECORDS SUMMARY | 2024-03-11 20:25 | XMS_ITS | Encounter Summary ---
Author Organization [facility] Address [address] [place] [address] Care Team Providers Care Garbage Worker Name Role Phone Unavailable Primary Care Provider Unavailabl e Encounter Details Date Type Department Care Team (Late st Contact Info) Description 11/12/2023 External Device Data [facility] ABSTRACTION Provider, Abstract [...]
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
--- OUTSIDE RECORDS SUMMARY | 2024-03-11 20:25 | XMS_ITS | Encounter Summary ---
Author Organization [facility] Address [address] [place] [address] Care Team Providers Care Research Program Coordinator Name Role Phone Unavailable Primary Care Provider Unavailabl e Encounter Details Date Type Department Care Team (Late st Contact Info) Description 04/26/2023 External Device Data STL ABSTRACTION Provider, Abstract [...]
--- OUTSIDE RECORDS SUMMARY | 2024-03-11 20:25 | XMS_ITS | Clinical Summary ---
Author Organization [facility] [address] [place] [address] [address] [address] Care Team Providers Care Appellate Conferee Name Role Phone Unavailable Primary Care Provider Unavailabl e Allergies Active Allergy Reactions Criticality Noted Date Comments Prednisone Palpitations Low 01/26/2021 Medications Medication Sig Dispensed Refills Start Date End Date Status FLUoxetine (PROzac) 40 mg capsule Take 40 mg by mouth daily. 10/15/2022 Active Active Problems No known active problems Social History Tobacco Use Types Packs/Day Years Used Date Smoking Tobacco: Never Passive Smoke Exposure: Never Smokeless Tobacco: Never Tobacco Cessation:Counseling Given: No Sex and Gender Information Value Date Recorded Sex Assigned at Not on file Gender Identity Not on file Sexual Orientation Not on file Last Filed [...] - - Body Mass Index - - Plan of Treatment Health Maintenance Due Date Last Done Comments HEPATITIS B VACCINES (1 of 3 - 19+ 3-dose series) 2013 CERVICAL CANCER SCREENING 06/25/2015 INFLUENZA VACCINE (#1) 2023 , 12/15/2020, 12/24/2018 COVID-19 Vaccine (2023-2 5 season) 2023 03/15/2021, 03/18/2020, 02/29/2020 DTAP/TDAP/TD VACCINES (2 - T d or Tdap) 04/28/2029 04/28/2019 HPV VACCINES Aged Out No longer eligi ble based on patient's age to complete this topic PNEUMOCOCCAL VACCINE 0-64 YEARS Aged Out No longer eligible b ased on patient's age to complete this topic
--- OUTSIDE RECORDS SUMMARY | 2024-03-11 20:25 | XMS_ITS | Encounter Summary ---
Author Organization [facility] Address [address] [place] [address] Care Team Providers Care Dehydrogenation Operator Head Name Role Phone Unavailable Primary Care Provider Unavailabl e Encounter Details Date Type Department Care Team (Late st Contact Info) Description 06/26/2023 External Device Data STL ABSTRACTION Provider, Abstract [...]
--- OUTSIDE RECORDS SUMMARY | 2024-03-11 20:25 | XMS_ITS | Encounter Summary ---
Author Organization [facility] Address [address] [place] [address] Care Team Providers Care Superintendent Custodian Janitor Name Role Phone Unavailable Primary Care Provider Unavailabl e Encounter Details Date Type Department Care Team (Late st Contact Info) Description 04/29/2023 External Device Data STL ABSTRACTION Provider, Abstract [...]
--- OUTSIDE RECORDS SUMMARY | 2024-03-11 20:25 | XMS_ITS | Encounter Summary ---
Author Organization [facility] Address [address] [place] [address] Care Team Providers Care Continuous Mining Machine Lode Miner Name Role Phone Unavailable Primary Care Provider [...]
--- OUTSIDE RECORDS SUMMARY | 2024-03-11 20:25 | XMS_ITS | Encounter Summary ---
Author Organization [facility] Address [address] [place] [address] Care Team Providers Care Professor Of Medicine Name Role Phone Unavailable Primary Care Provider Unavailabl e Encounter Details Date Type Department Care Team (Late st Contact Info) Description 11/06/2023 External Device Data STL ABSTRACTION Provider, Abstract [...]
--- OUTSIDE RECORDS SUMMARY | 2024-03-11 22:39 | XMS_ITS | Encounter Summary ---
Author Organization [email or web address] Care Team Providers Care Strategic Alliances Manager Name Role Phone [place] Saavedra APRN, CNP Primary Care Provid er Emory Erazo MD Unavailable [phone] Encounter Details Date Type Department Care Team (Latest Contact Info) Description 04/07/2023 Travel Social History Tobacco Use Types Packs/Day Years Used Date Smoking Tobacco: Never Smokeless Tobacco: Never Alcohol Use Standard Drinks/Week Comments Yes 0 (1 standard drink = 0.6 oz pur e alcohol) Social-holiday events etc C Utilities Answer Date Recorded In the past 12 months has [employer], gas, oil, or water company threatened [...] often do you attend chur ch or mu-ism services? More than 4 times per year 04/07/2023 Do you belong to any clubs o r organizations such as voodoo groups, unions, fraternal or athletic groups, or [...] Score - Questions 1-9 0 04/0 08/2022 [facility] - Occupational [...] place to sleep or slept in a fci (including now)? No 04/07/2023 Education Answer Date Recorded What is the highest level of school you have completed or the highest degree you have received? Bachelor's degree (e.g., BA, AB, BS) 05/17/2021 Sexually Active Control Partners Comments Yes Implant Male Comments No Sex and Gender Information Value Date Recorded Sex Assigned at Female 04/04/2023 7:31 PM BALL POINTS INSPECTOR Legal Sex Female 4:36 PM CDT Gender Identity Female 04/04/2023 7:31 PM BALL POINTS INSPECTOR Sexual Orientation Not on file documented as of this encounter Functional Status * Audit-C Score Answer Date of Assessment Author 1 04/07/2023 5:39 PM BALL POINTS INSPECTOR Mychart, System Background * Within the last year, have you been humiliated or emotionally abused in other ways by your partner or ex-partner? Answer Date of Assessment Author No 04/07/2023 5:39 PM BALL POINTS INSPECTOR Mychart, System Background * Within the last year, have you been afraid of your partner or ex-partner? Answer Date of Assessment Author No 04/07/2023 5:39 PM BALL POINTS INSPECTOR Mychart, System Background * Within the last year, have you been raped or forced to have any kind of sexual activity by your partner or ex-partner? Answer Date of Assessment Author No 04/07/2023 5:39 PM BALL POINTS INSPECTOR Mychart, System Background * Within the last year, have you been kicked, hit, slapped, or otherwise physically hurt by your partner or ex-partner? Answer Date of Assessment Author No 04/07/2023 5:39 PM BALL POINTS INSPECTOR Mychart, System Background * Q1: How often do you have a drink containing alcohol? Answer Date of Assessment Author Monthly or less 04/07/2023 5:39 PM BALL POINTS INSPECTOR Mychart, System Background * Q2: How many drinks containing alcohol do you have on a typical day when you are drinking? Answer Date of Assessment Author 1 or 2 04/07/2023 5:39 PM BALL POINTS INSPECTOR Mychart, System Background * Q3: How often do you have six or more drinks on one occasion? Answer Date of Assessment Author Never 04/07/2023 5:39 PM BALL POINTS INSPECTOR Mychart, System Background documented as of this encounter Plan of Treatment Not on file documented as of this encounter Goals Goal Patient Goal Type Associated Problems Recent Progress Patient-Stated? Author I would like ways to control my anxiety and learn coping skills . Behavioral Health On track( 1:47 PM BALL POINTS INSPECTOR) No Ananya Crenshaw, WET POUR MIXER Note: Goal Reviewed with: patient today Readiness to change: Ready to change Department associated with goal: [facility] Steps to achieve goal: will identify at least two coping skills/activities/habits that have helped to manage anxiety in the past. will identify at least three new coping skills/activities/habits that may help to prevent and/or cope with anxiety. 3. Will attend individual and/or group therapy at least 1x/month Anxiety astress Depression On track( 1:47 PM BALL POINTS INSPECTOR) Yes Reina Laguna, WET POUR MIXER Note: Kaylee will report an improved management of anxiety symptoms Goal Reviewed with: patient today Readiness to change: Ready to change Department associated with goal: [facility] Steps to achieve goal: [...] documented as of this encounter Care Teams Strategic Alliances Manager Relationship Specialty Start Date End Date Jamaica Saavedra APRN, METAL SPRAYING MACHINE OPERATOR #[address] [address] PCP - General Advanced Practice Nurse 01/26/21 Emory Erazo MD [address] [id number] Obstetrics & Gynecology 06/30/21 documented as of this encounter
--- OUTSIDE RECORDS SUMMARY | 2024-03-11 22:39 | XMS_ITS | Encounter Summary ---
Author Organization [employer] Care Team Providers Care Jewel Gauger Name Role Phone Jamaica Saavedra APRN, CNP Primary Care Provid er Emory Erazo MD Unavailable [phone] Encounter Details Date Type Department Care [...] Sex Assigned at Female 04/04/2023 7:31 PM SCREEN REPAIRER CRUSHER Legal Sex Female 4:36 PM CDT Gender Identity Female 04/04/2023 7:31 PM SCREEN REPAIRER CRUSHER Sexual Orientation Not on file COVID-19 Exposure [...] . Behavioral Health On track( 1:47 PM SCREEN REPAIRER CRUSHER) No Ananya Crenshaw, PROJECT MANAGER PROCESS DEVELOPMENT Note: Goal Reviewed with: patient today Readiness [...] Anxiety astress Depression On track( 1:47 PM SCREEN REPAIRER CRUSHER) Yes Reina Laguna LCSW Note: Kaylee will [...] documented as of this encounter Care Teams Jewel Gauger Relationship Specialty Start Date End Date Jamaica Saavedra APRN, KRISTINE #[address] [address] PCP - General Advanced Practice Nurse 01/26/21 Emory Erazo MD [address] [address] Obstetrics & Gynecology 06/30/21 documented as of this encounter
--- OUTSIDE RECORDS SUMMARY | 2024-03-11 22:39 | XMS_ITS | Encounter Summary ---
Author Organization [facility] Address [address] [place] [address] Phone Care Team Providers Care Microwave Supervisor Name Role Phone Jamaica Saavedra APRN, CNP Primary Care Provid er Emory Erazo MD Unavailable [phone] Reason for Referral * Radiology Services (Routine) - Closed Specialty Diagnoses / Procedures Referred By Contac t Referred To Contact Radiology Diagnoses Gestational edema, antepartum Procedures US LEFT DUPLEX LOWER EXTREMITY VEINS Emory Erazo MD [address] [address] Phone: tel: fax: Referral ID Status Reason Start Date Expiration Date Visits Re quested Visits Authorized [id number] Closed 12/13/2023 1 1 Reason for Visit * Radiology Services (Routine) - Closed Specialty Diagnoses / Procedures Referred By Contac t Referred To Contact Radiology Diagnoses Gestational edema, antepartum Procedures US LEFT DUPLEX LOWER EXTREMITY VEINS Emory Erazo MD [address] [address] Phone: tel: fax: Referral ID Status Reason Start Date Expiration Date Visits Re quested Visits Authorized [id number] Closed 12/13/2023 1 1 Encounter Details Date Type Department Care Team (Latest Contact Info) Description 12/13/2023 4:30 PM CDT - 12/13/2023 11:59 PM CDT Hospital Encounter [facility] Ultrasound [address] [place] [address] Emory Erazo MD [address] [place] [address] Discharge Disposition: Discharged to home or Selfcare Social History Tobacco Use Types Packs/Day Years Used Date Smoking Tobacco: Never Smokeless Tobacco: Never Alcohol Use Standard Drinks/Week Comments Yes 0 (1 standard drink = 0.6 oz pur e alcohol) Social-holiday events etc [facility] Utilities Answer Date Recorded In the past 12 months has e [employer], gas, oil, or water company threatened to [...] often do you attend chur ch or sabianism services? More than 4 times per year 05/28/2023 Do you belong to any clubs o r organizations such as zoroastrianism groups, unions, fraternal or athletic groups, or [...] Score - Questions 1-9 0 04/0 08/2022 [facility] - Occupational Stress Questionnaire Answer Date [...] place to sleep or slept in a senior care (including now)? No 05/28/2023 Education Answer Date Recorded What is the highest level of school you have completed or the highest degree you have received? Bachelor's degree (e.g., BA, AB, BS) 05/17/2021 Sexually Active Control Partners Comments Yes Implant Male Comments No Sex and Gender Information Value Date Recorded Sex Assigned at Female 04/04/2023 7:31 PM SOLAR SALES ASSESSOR Legal Sex Female 4:36 PM CDT Gender Identity Female 04/04/2023 7:31 PM SOLAR SALES ASSESSOR Sexual Orientation Not on file documented as [...] MOUTH EVERY DAY 90 Capsule 1 05/06/2023 [place] 3 1000 MG Capsule Take 224 mg [...] . Behavioral Health On track( 1:47 PM SOLAR SALES ASSESSOR) No Ananya Crenshaw LCSW Note: Goal Reviewed with: patient today Readiness to change: Ready to change Department associated with goal: [facility] Steps to achieve goal: will identify at least two coping skills/activities/habits that have helped to manage anxiety in the past. will identify at least three new coping skills/activities/habits that may help to prevent and/or cope with anxiety. 3. Will attend individual and/or group therapy at least 1x/month Anxiety astress Depression On track( 1:47 PM SOLAR SALES ASSESSOR) Yes Reina aLguna LCSW Note: Kaylee will report an improved management of anxiety symptoms Goal Reviewed with: patient today Readiness to change: Ready to change Department associated with goal: [facility] Steps to [...] PM T: ??12/13/2023 5:22 PM Report ID: [id number] Reading Location: ??[id number] Procedure Note Joe Haile MD - 12/13/2023 [...] Joe Haile M.D. LL: KORINA Report ID: [id number] Reading Location: [id number] IMPRESSION: No evidence of left lower extremity deep venous thrombosis. Emory Erazo MD [facility] US ORDERABLES Final Result documented in this encounter Visit Diagnoses Diagnosis Gestational edema, antepartum Edema or excessive weight gain, antepartum documented in this encounter Additional Health Concerns Assessment Noted Time PHQ-9 Depression Total Score: 0 06/15/19 23 2:00 PM CDT documented as of this encounter Care Teams Microwave Supervisor Relationship Specialty Start Date End Date Jamaica Saavedra APRN, AUDIO VISUAL DESIGN ENGINEER #[address] [address] PCP - General Advanced Practice Nurse 01/26/21 Emory Erazo MD [address] [address] Obstetrics & Gynecology 06/30/21 documented as of this encounter
--- OUTSIDE RECORDS SUMMARY | 2024-03-11 22:39 | XMS_ITS | Encounter Summary ---
Author Organization [facility] Address [address] [place] [address] Phone Care Team Providers Care Baton Twirler Name Role Phone Jamaica Saavedra APRN, KRISTINE Primary Care Provid er Emory Erazo MD Unavailable [phone] Reason for Visit * Reason Onset Date Comments Medication Refill 10/14/2022 Encounter Details Date Type Department Care Team (Late st Contact Info) Description 10/14/2022 MyChart RX Renewal [facility] - [facility] - [place] [address] [place] [address] Jamaica Saavedra APRN, RECYCLER [address] [address] Medication Renewal Reviewed Social History [...] Sex Assigned at Female 04/04/2023 7:31 PM BLEACH PLANT OPERATOR Legal Sex Female 4:36 PM CDT Gender Identity Female 04/04/2023 7:31 PM BLEACH PLANT OPERATOR Sexual Orientation Not on file documented [...] Provider Dept 06/14/22 Office Visit Jamaica Saavedra, DIRECTOR MARKETING COMMUNICATIONS, [facility] Show[facility] recent visits within past 182 days [...] Behavioral Health On track( 022 1:47 PM BLEACH PLANT OPERATOR) No Ananya Crenshaw LCSW Note: Goal Reviewed with: patient today Readiness to change: Ready to change Department associated with goal: [facility] Steps to achieve goal: will identify at least two coping skills/activities/habits that have helped to manage anxiety in the past. will identify at least three new coping skills/activities/habits that may help to prevent and/or cope with anxiety. 3. Will attend individual and/or group therapy at least 1x/month Anxiety astress Depression On track( 022 1:47 PM BLEACH PLANT OPERATOR) Yes Reina Laguna, SECURITY SME Note: Kaylee will report an improved management of anxiety symptoms Goal Reviewed with: patient today Readiness to change: Ready to change Department associated with goal: [facility] Steps to achieve goal: [...] documented as of this encounter Care Teams Baton Twirler Relationship Specialty Start Date End Date Jamaica Saavedra APRN, RECYCLER [address] [address] PCP - General Advanced Practice Nurse 01/26/21 Emory Erazo MD [address] [address] Obstetrics & Gynecology 06/30/21 documented as of this encounter
--- OUTSIDE RECORDS SUMMARY | 2024-03-11 22:39 | XMS_ITS | Encounter Summary ---
Author Organization [facility] Address [address] [place] [address] Phone Care Team Providers Care Vice Chancellor Name Role Phone Jamaica Saavedra APRN, CNP Primary Care Provid er Emory Erazo MD Unavailable [phone] Reason for Visit * Reason Comments Medication Refill Encounter Details Date Type Department Care Team (Late st Contact Info) Description 05/05/2023 Refill [facility] [address]2 [place] [address] Jasson Bustos MD #[address] [address] Medication Refill Social History Tobacco Use Types Packs/Day Years Used Date Smoking Tobacco: Never Smokeless Tobacco: Never Alcohol Use Standard Drinks/Week Comments Yes 0 (1 standard drink = 0.6 oz pur e alcohol) Social-holiday events etc [facility] Utilities Answer Date Recorded In the past 12 months has [employer], gas, oil, or water company threatened to [...] often do you attend chur ch or evangelical services? More than 4 times per year 05/07/2023 Do you belong to any clubs o r organizations such as mu-ism groups, unions, fraternal or athletic groups, or [...] 04/0 08/2022 [facility] of Occupat ional [facility] - Occupational Stress Questionnaire Answer Date [...] place to sleep or slept in a assisted (including now)? No 05/07/2023 Education Answer Date Recorded What is the highest level of school you have completed or the highest degree you have received? Bachelor's degree (e.g., BA, AB, BS) 05/17/2021 Sexually Active Control Partners Comments Yes Implant Male Comments No Sex and Gender Information Value Date Recorded Sex Assigned at Female 04/04/2023 7:31 PM DANCE DIRECTOR Legal Sex Female 4:36 PM CDT Gender Identity Female 04/04/2023 7:31 PM DANCE DIRECTOR Sexual Orientation Not on file documented as [...] Dept 04/08/23 Office Visit Jamaica Saavedra APRN, DATASTAGE CONSULTANT [facility] Showing recent visits within past [...] adjustment disorder, OCD, or PTSD visit diagnosis E DIRECTOR documented in this encounter Plan of Treatment Not on file documented as of this encounter Goals Goal Patient Goal Type Associated Problems Recent Progress Patient-Stated? Author I would like ways to control my anxiety and learn coping skills . Behavioral Health On track( 1:47 PM DANCE DIRECTOR) No Ananya Crenshaw, EPOXY FABRICATION SUPERVISOR Note: Goal Reviewed with: patient today Readiness to change: Ready to change Department associated with goal: [facility] Steps to achieve goal: will identify at least two coping skills/activities/habits that have helped to manage anxiety in the past. will identify at least three new coping skills/activities/habits that may help to prevent and/or cope with anxiety. 3. Will attend individual and/or group therapy at least 1x/month Anxiety astress Depression On track( 1:47 PM DANCE DIRECTOR) Yes Reina Laguna, EPOXY FABRICATION SUPERVISOR Note: Kaylee will report an improved management of anxiety symptoms Goal Reviewed with: patient today Readiness to change: Ready to change Department associated with goal: [facility] Steps to [...] documented as of this encounter Care Teams Vice Chancellor Relationship Specialty Start Date End Date Jamaica Saavedra APRN, KRISTINE [address] [address] PCP - General Advanced Practice Nurse 01/26/21 Emory Erazo MD [address] [id number] Obstetrics & Gynecology 06/30/21 documented as of this encounter
--- OUTSIDE RECORDS SUMMARY | 2024-03-11 22:39 | XMS_ITS | Encounter Summary ---
Author Organization [facility] Address [address] [place] [address] Phone Care Team Providers Care Mothercraft Nurse Name Role Phone Jamaica Saavedra APRN, CNP Primary Care Provid er Emory Erazo MD Unavailable [phone] Reason for Visit * Reason Comments Medication Problem She is here to discu ss side effects from medication. She says it's causing her dizziness and fatigue. Encounter Details Date Type Department Care Team (Late st Contact Info) Description 04/08/2023 9:45 AM BEVERAGE DISTILLER Office Visit [facility] - Family Medicine [facility] [address]2 [place] [id number] Jamaica Saavedra APRN, CNP [address] [phone] Fatigue, unspecified type (Primary Dx); Generalized anxiety [...] Recorded In the past 12 months has [employer] electric, gas, oil, or water company threatened [...] often do you attend chur ch or holiness services? More than 4 times per year 04/07/2023 Do you belong to any clubs o r organizations such as druze groups, unions, fraternal or athletic groups, or [...] Score - Questions 1-9 0 04/0 08/2022 [facility] of Occupat ional Health - Occupational Stress [...] place to sleep or slept in a mcc (including now)? No 04/07/2023 Education Answer Date Recorded What is the highest level of school you have completed or the highest degree you have received? Bachelor's degree (e.g., BA, AB, BS) 05/17/2021 Sexually Active Control Partners Comments Yes Implant Male Comments No Sex and Gender Information Value Date Recorded Sex Assigned at Female 04/04/2023 7:31 PM BEVERAGE DISTILLER Legal Sex Female 4:36 PM CDT Gender Identity Female 04/04/2023 7:31 PM BEVERAGE DISTILLER Sexual Orientation Not on file documented as of this encounter Last Filed Vital Signs Vital Sign Reading Time Taken Comments Blood Pressure 114/74 04/08/2023 9:47 AM BEVERAGE DISTILLER Pulse 66 04/08/2023 9:47 AM BEVERAGE DISTILLER Temperature 36.3 ??C (97.4 ??F) 04/08/2023 9:47 AM CS T Respiratory Rate 14 04/08/2023 9:47 AM BEVERAGE DISTILLER Oxygen Saturation 99% 04/08/2023 9:47 AM BEVERAGE DISTILLER Inhaled Oxygen Concentration - - Weight 91 kg (200 lb 9.6 oz) 04/08/2023 9:47 AM BEVERAGE DISTILLER Height 162.6 cm (5' 4 ) 04/08/2023 9:47 AM BEVERAGE DISTILLER Body Mass Index 34.43 04/08/2023 9:47 AM BEVERAGE DISTILLER documented in this encounter Progress Notes * [...] Risk, Nutrition, Advanced Care Planning and HCC RAGE DISTILLER * Jamaica Saavedra APRN, CNP - 04/08/2023 9:45 AM CST [facility] [place] [address] [facility] [address] Dept: [phone] Dept Loc: [phone] Loc Patient: Kaylee Melchor : 1995 Sex: [...] her headaches due to lack of time. RAGE DISTILLER * Kathy Fierro - 04/08/2023 9:45 AM CST Urine test performed and the results were Negative. Provider informed and results enteredin the system. RAGE DISTILLER documented in this encounter Plan of Treatment Not on file documented as of this encounter Goals Goal Patient Goal Type Associated Problems Recent Progress Patient-Stated? Author I would like ways to control my anxiety and learn coping skills . Behavioral Health On track( 022 1:47 PM BEVERAGE DISTILLER) No Ananya Crenshaw, CYNTHIA Note: Goal Reviewed [...] astress Depression On track( 022 1:47 PM BEVERAGE DISTILLER) Yes Reina Laguna, CYNTHIA Note: Kaylee will [...] URINE HCG () Routine 04/08/2023 10:26 AM BEVERAGE DISTILLER Fatigue, unspecified type documented in this encounter Results * POCT URINE HCG () (04/08/2023 10:26 AM BEVERAGE DISTILLER) POC URINE Negative POC URINE CONTROL [place] Urine 04/08/2023 10:2 6 AM BEVERAGE DISTILLER Jamaica Saavedra APRN, CNP POINT OF CARE TESTIN G (MANUAL) Final Result * VITAMIN D, 25 HYDROXY TOTAL (04/08/2023) Blood 04/08/2023 Jamaica Saavedra APRN RESIDENTIAL COLLECTIONS CHEMISTRY ORDERABLES Final Result * VITAMIN B12 (04/08/2023) Blood 04/08/2023 Jamaica Saavedra APRN, RESIDENTIAL COLLECTIONS CHEMISTRY ORDERABLES Final Result * THYROID STIMULATING HORMONE (TSH) (04/08/2023) Blood 04/08/2023 Jamaica Saavedra APRN, CNP CHEMISTRY ORDERABLES Final Result * COMPLETE BLOOD COUNT (CBC) WITH DIFF (04/08/2023) Blood 04/08/2023 Jamaica Saavedra APRN, CNP HEMATOLOGY ORDERABLE S Final Result * CMP (COMPREHENSIVE METABOLIC PANEL) (04/08/2023) Blood 04/08/2023 Result [facility] Jamaica Saavedra APRN, CNP CHEMISTRY ORDERABLES Final Result documented in this encounter Visit Diagnoses Diagnosis Fatigue, unspecified type- Primary Generalized anxiety disorder Frequent headaches documented in this encounter Additional Health Concerns Assessment Noted Time PHQ-9 Depression Total Score: 0 06/15/19 23 2:00 PM CDT documented as of this encounter Care Teams Mothercraft Nurse Relationship Specialty Start Date End Date Jamaica Saavedra APRN, CNP #[address] [address] PCP - General Advanced Practice Nurse 01/26/21 Emory Erazo MD [address] [address] Obstetrics & Gynecology 06/30/21 documented as of this encounter
--- OUTSIDE RECORDS SUMMARY | 2024-03-11 22:39 | XMS_ITS | Encounter Summary ---
Author Organization [employer] Care Team Providers Care Primer Charger Name Role Phone Jamaica Saavedra APRN, CNP Primary Care Provid er Emory Erazo MD Unavailable [phone] Encounter Details Date Type Department Care Team (Latest Contact Info) Description 05/07/2023 Travel Social History Tobacco Use Types Packs/Day Years Used Date Smoking Tobacco: Never Smokeless Tobacco: Never Alcohol Use Standard Drinks/Week Comments Yes 0 (1 standard drink = 0.6 oz pur e alcohol) Social-holiday events etc C Utilities Answer Date Recorded In the past 12 months has [employer] electric, gas, oil, or water company threatened [...] often do you attend chur ch or voodoo services? More than 4 times per year 05/07/2023 Do you belong to any clubs o r organizations such as denominational groups, unions, fraternal or athletic groups, or [...] Score - Questions 1-9 0 04/0 08/2022 [facility] of Occupat ional Health - Occupational [...] place to sleep or slept in a residential (including now)? No 05/07/2023 Education Answer Date Recorded What is the highest level of school you have completed or the highest degree you have received? Bachelor's degree (e.g., BA, AB, BS) 05/17/2021 Sexually Active Control Partners Comments Yes Implant Male Comments No Sex and Gender Information Value Date Recorded Sex Assigned at Female 04/04/2023 7:31 PM SOMMELIER Legal Sex Female 4:36 PM CDT Gender Identity Female 04/04/2023 7:31 PM SOMMELIER Sexual Orientation Not on file documented as [...] of Assessment Author Tera 05/07/2023 9:34 AM SOMMELIER Twyla ryan, Martha Ortiz MA documented as of this encounter Plan of Treatment Not on file documented as of this encounter Goals Goal Patient Goal Type Associated Problems Recent Progress Patient-Stated? Author I would like ways to control my anxiety and learn coping skills . Behavioral Health On track( 1:47 PM SOMMELIER) No Ananya Crenshaw, SENIOR INSIGHT MANAGER INTERNATIONAL Note: Goal Reviewed with: patient today Readiness [...] Anxiety astress Depression On track( 1:47 PM SOMMELIER) Yes Reina Laguna, SENIOR INSIGHT MANAGER INTERNATIONAL Note: Kaylee will report an improved management [...] documented as of this encounter Care Teams Primer Charger Relationship Specialty Start Date End Date Jamaica Saavedra APRN, CNP #[address] [phone] PCP - General Advanced Practice Nurse 01/26/21 Emory Erazo MD [address] [facility] [address] [address] Obstetrics & Gynecology 06/30/21 documented as of this encounter
--- OUTSIDE RECORDS SUMMARY | 2024-03-11 22:39 | XMS_ITS | Encounter Summary ---
Author Organization [employer] Care Team Providers Care Rn Intern Name Role Phone Jamaica Saavedra APRN, CNP Primary Care Provid er Emory Erazo MD Unavailable [phone] Encounter Details Date Type Department Care Team (Latest Contact Info) Description 12/13/2023 Travel Social History Tobacco Use Types Packs/Day Years Used Date Smoking Tobacco: Never Smokeless Tobacco: Never Alcohol Use Standard Drinks/Week Comments Yes 0 (1 standard drink = 0.6 oz pur e alcohol) Social-holiday events etc C Utilities Answer Date Recorded In the past 12 months has [employer] electric, gas, oil, or water company threatened [...] often do you attend chur ch or worship services? More than 4 times per year 05/28/2023 Do you belong to any clubs o r organizations such as gnosticism groups, unions, fraternal or athletic groups, or [...] Score - Questions 1-9 0 04/0 08/2022 [facility] Occupat ional Health - Occupational Stress [...] Sex Assigned at Female 04/04/2023 7:31 PM CATH LABORATORY TECHNICIAN Legal Sex Female 4:36 PM CDT Gender Identity Female 04/04/2023 7:31 PM CATH LABORATORY TECHNICIAN Sexual Orientation Not on file documented as of this encounter Plan of Treatment Not on file documented as of this encounter Goals Goal Patient Goal Type Associated Problems Recent Progress Patient-Stated? Author I would like ways to control my anxiety and learn coping skills . Behavioral Health On track( 1:47 PM CATH LABORATORY TECHNICIAN) No Ananya Crenshaw, GAS MASK ASSEMBLER Note: Goal Reviewed with: patient today Readiness to change: Ready to change Department associated with goal: [facility] Steps to achieve goal: will identify at least two coping skills/activities/habits that have helped to manage anxiety in the past. will identify at least three new coping skills/activities/habits that may help to prevent and/or cope with anxiety. 3. Will attend individual and/or group therapy at least 1x/month Anxiety astress Depression On track( 1:47 PM CATH LABORATORY TECHNICIAN) Yes Reina Laguna, GAS MASK ASSEMBLER Note: Kaylee will report an improved management of anxiety symptoms Goal Reviewed with: patient today Readiness to change: Ready to change Department associated with goal: [facility] Steps [...] documented as of this encounter Care Teams Rn Intern Relationship Specialty Start Date End Date Jamaica Saaverda APRN, EXCHANGE SPECIALIST #[address] [address] PCP - General Advanced Practice Nurse 01/26/21 Emory Erazo MD [address] [address] Obstetrics & Gynecology 06/30/21 documented as of this encounter
--- OUTSIDE RECORDS SUMMARY | 2024-03-11 22:39 | XMS_ITS | Encounter Summary ---
Author Organization [employer] Care Team Providers Care Trucking Contractor Name Role Phone Jamaica Saavedra APRN, CNP Primary Care Provid er Emory Erazo MD Unavailable [phone] Encounter Details Date Type Department Care Team (Latest Contact Info) Description 05/28/2023 Travel Social History Tobacco Use Types Packs/Day Years Used Date Smoking Tobacco: Never Smokeless Tobacco: Never Alcohol Use Standard Drinks/Week Comments Yes 0 (1 standard drink = 0.6 oz pur e alcohol) Social-holiday events etc C Utilities Answer Date Recorded In the past 12 months has [employer], gas, oil, or water company threatened [...] often do you attend chur ch or restorationist services? More than 4 times per year 05/28/2023 Do you belong to any clubs o r organizations such as oriental orthodox groups, unions, fraternal or athletic groups, or [...] Score - Questions 1-9 0 04/0 08/2022 [facility] of Occupat ional Health - [...] place to sleep or slept in a penitentiary (including now)? No 05/28/2023 Education Answer Date Recorded What is the highest level of school you have completed or the highest degree you have received? Bachelor's degree (e.g., BA, AB, BS) 05/17/2021 Sexually Active Control Partners Comments Yes Implant Male Comments No Sex and Gender Information Value Date Recorded Sex Assigned at Female 04/04/2023 7:31 PM ASSOCIATE SOFTWARE APPLICATION ENGINEER Legal Sex Female 4:36 PM CDT Gender Identity Female 04/04/2023 7:31 PM ASSOCIATE SOFTWARE APPLICATION ENGINEER Sexual Orientation Not on file documented as [...] . Behavioral Health On track( 1:47 PM ASSOCIATE SOFTWARE APPLICATION ENGINEER) No Ananya Crenshaw, HAND BUNCH MAKER Note: Goal Reviewed with: patient today Readiness [...] Anxiety astress Depression On track( 1:47 PM ASSOCIATE SOFTWARE APPLICATION ENGINEER) Yes Reina Laguna, HAND BUNCH MAKER Note: Kaylee will report an improved management [...] documented as of this encounter Care Teams Trucking Contractor Relationship Specialty Start Date End Date Jamaica Saavedra APRN, PROPERTY MANAGEMENT INTERN #[address] [address] PCP - General Advanced Practice Nurse 01/26/21 Emory Erazo MD [address] [id number] Obstetrics & Gynecology 06/30/21 documented as of this encounter
--- OUTSIDE RECORDS SUMMARY | 2024-03-11 22:39 | XMS_ITS | Encounter Summary ---
Author Organization [facility] Address [address] [place] [address] Phone Care Team Providers Care Document Processing Specialist Name Role Phone Jamaica Saavedra APRN, CNP Primary Care Provid er Emory Erazo MD Unavailable [phone] Reason for Visit * Reason Comments Headache She is here for a 1 month follow up for headaches Encounter Details Date Type Department Care Team (Late st Contact Info) Description 05/28/2023 5:45 PM CDT Office Visit [facility] - Family Medicine [facility] [address] [place] [address] Jamaica Saavedra APRN, CNP [address] [address] Frequent headaches (Primary Dx); Generalized [...] any clubs o r organizations such as spiritism groups, unions, fraternal or athletic groups, or [...] Score - Questions 1-9 0 04/0 08/2022 [facility] - Occupational Stress Questionnaire Answer Date [...] place to sleep or slept in a skilled nursing (including now)? No 05/28/2023 Education Answer Date Recorded What is the highest level of school you have completed or the highest degree you have received? Bachelor's degree (e.g., BA, AB, BS) 05/17/2021 Sexually Active Control Partners Comments Yes Implant Male Comments No Sex and Gender Information Value Date Recorded Sex Assigned at Female 04/04/2023 7:31 PM PACKAGER OR PACKER AND WEIGHER Legal Sex Female 4:36 PM CDT Gender Identity Female 04/04/2023 7:31 PM PACKAGER OR PACKER AND WEIGHER Sexual Orientation Not on file documented as [...] APRN, CNP - 05/28/2023 5:45 PM CDT [facility] - [facility]ILY [facility] #2 [facility] [address] Dept: [phone] Dept Loc: [phone] Loc Patient: Kaylee Melchor : 1995 Sex: [...] BY MOUTH EVERY DAY 90 Capsule 1 Orting 3 1000 MG Capsule Take 224 mg [...] Take 200 mg by mouth daily. - Orting 3 1000 MG Capsule; Take 224 mg [...] . Behavioral Health On track( 1:47 PM PACKAGER OR PACKER AND WEIGHER) No Ananya Crenshaw, TELESALES SUPERVISOR Note: Goal Reviewed with: patient today [...] Anxiety astress Depression On track( 1:47 PM PACKAGER OR PACKER AND WEIGHER) Yes Reina Laguna, TELESALES SUPERVISOR Note: Kaylee will report an improved [...] documented as of this encounter Care Teams Document Processing Specialist Relationship Specialty Start Date End Date Jamaica Saavedra APRN, KRISTINE #[address] [address] PCP - General Advanced Practice Nurse 01/26/21 Emory Erazo MD [address] [address] Obstetrics & Gynecology 06/30/21 documented as of this encounter
--- OUTSIDE RECORDS SUMMARY | 2024-03-11 22:39 | XMS_ITS | Encounter Summary ---
Author Organization [facility] Address [address] [place] [address] Phone Care Team Providers Care Fireworks Assembler Name Role Phone Jamaica Saavedra APRN, CNP Primary Care Provid er Emory Erazo MD Unavailable [phone] Encounter Details Date Type Department Care Team (Late st Contact Info) Description 04/08/2023 11:10 AM KEG RAISER Lab [facility] [address] [facility] [address] [place] [id number] [facility] Lab/Ancillary Other fatigue Discharge Disposition: Discharged to home or Selfcare Social History Tobacco Use Types Packs/Day Years Used Date Smoking Tobacco: Never Smokeless Tobacco: Never Alcohol Use Standard Drinks/Week Comments Yes 0 (1 standard drink = 0.6 oz pur e alcohol) Social-holiday events etc [facility] Utilities Answer Date Recorded In the past 12 months has [employer], gas, oil, or water [employer] threatened to shut off services in your [...] week 04/07/2023 How often do you attend [facility] or islam services? More than 4 times per year 04/07/2023 Do you belong to any clubs o r organizations such as anabaptist groups, unions, fraternal or athletic groups, or [...] Score - Questions 1-9 0 04/0 08/2022 [facility] of Occupat ional Health - Occupational [...] place to sleep or slept in a nursing home (including now)? No 04/07/2023 Education Answer Date Recorded What is the highest level of school you have completed or the highest degree you have received? Bachelor's degree (e.g., BA, AB, BS) 05/17/2021 Sexually Active Control Partners Comments Yes Implant Male Comments No Sex and Gender Information Value Date Recorded Sex Assigned at Female 04/04/2023 7:31 PM KEG RAISER Legal Sex Female 4:36 PM CDT Gender Identity Female 04/04/2023 7:31 PM KEG RAISER Sexual Orientation Not on file documented as of this encounter Progress Notes * Wiliam Velez RMA - 04/08/2023 11:10 AM CST Kaylee presents for lab draw per order of Jamaica Saavedra APN, INTERNATIONAL MARKETING SPECIALIST dated 04/08/23. Specimen collected from right antecubital without incident. QUEST: Vit D, Vit B12, TSH, CMP, CBC RAISER RAISER documented in this encounter Plan of Treatment Not on file documented as of this encounter Goals Goal Patient Goal Type Associated Problems Recent Progress Patient-Stated? Author I would like ways to control my anxiety and learn coping skills . Behavioral Health On track( 022 1:47 PM KEG RAISER) No Ananya Crenshaw, ANALYTICAL SCIENTIST Note: Goal Reviewed with: patient today Readiness to change: Ready to change Department associated with goal: [facility] Steps to achieve goal: will identify at least two coping skills/activities/habits that have helped to manage anxiety in the past. will identify at least three new coping skills/activities/habits that may help to prevent and/or cope with anxiety. 3. Will attend individual and/or group therapy at least 1x/month Anxiety astress Depression On track( 022 1:47 PM KEG RAISER) Yes Reina Laguna, ANALYTICAL SCIENTIST Note: Kaylee will report an improved management of anxiety symptoms Goal Reviewed with: patient today Readiness to change: Ready to change Department associated with goal: [facility] Steps to [...] documented as of this encounter Care Teams Fireworks Assembler Relationship Specialty Start Date End Date Jamaica Saavedra APRN, KRISTINE [address] [phone] PCP - General Advanced Practice Nurse 01/26/21 Emory Erazo MD [address] [address] Obstetrics & Gynecology 06/30/21 documented as of this encounter
--- OUTSIDE RECORDS SUMMARY | 2024-03-11 22:39 | XMS_ITS | Clinical Summary ---
Author Organization [facility] Address [address] [place] [address] Phone Care Team Providers Care Financial Business Analyst Name Role Phone Jamaica Saavedra APRN, CNP Primary Care Provid er Emory Erazo MD Unavailable Allergies Active Allergy Reactions Criticality Noted Date [...] Take 200 mg by mouth daily. Active Kipton 3 1000 MG Capsule Take 224 mg by mouth daily. Active Active Problems Problem Noted Date Diagnosed Date Frequent headaches 05/28/2023 Generalized anxiety disorder 03/27/2021 Major depressive disorder, recurrent, mild 03/27 Encounters Date Type Department Care Team Description 12/13/2023 4:30 PM CDT - 12/13/2023 11:59 PM CDT Hospital Encounter [facility] Ultrasound [address] [place] [address] Emory Erazo MD Discharge Disposition: Discharged to home or Selfcare 12/13/2023 Travel 12/13/2023 Transcribe Orders [facility] Central Scheduling [address] [place] [address] Emory Erazo MD Gestational edema, antepartum (Primary Dx) from Last 3 Months Immunizations Immunization Administration Dates Next Due Covid-19, Mrna, Lnp-s, Pf, 3 0 Mcg/0.3 Ml Dose ([employer]) 03/15/2021,03/18/2020,02/29/2020 Influenza Vaccine 12/13/2022 Influenza Vaccine, Quadrivalent, [...] oz pur e alcohol) Social-holiday events etc [employer] [facility] Utilities Answer Date Recorded In the past 12 months has th e [employer], gas, oil, or water [employer] threatened to shut off services in your [...] How often do you attend chur or oriental orthodox services? More than 4 times per year 05/28/2023 Do you belong to any clubs o r organizations such as bahai groups, unions, fraternal or athletic groups, or [...] Score - Questions 1-9 0 04/0 08/2022 [facility] of Occupat ional Health - Occupational [...] place to sleep or slept in a snf (including now)? No 05/28/2023 Education Answer Date Recorded What is the highest level of school you have completed or the highest degree you have received? Bachelor's degree (e.g., BA, AB, BS) 05/17/2021 Sexually Active Control Partners Comments Yes Implant Male Comments No Sex and Gender Information Value Date Recorded Sex Assigned at Female 04/04/2023 7:31 PM KEY PUNCH OPERATOR Legal Sex Female 4:36 PM CDT Gender Identity Female 04/04/2023 7:31 PM KEY PUNCH OPERATOR Sexual Orientation Not on file Last Filed [...] . Behavioral Health On track( 1:47 PM KEY PUNCH OPERATOR) No Ananya Crenshaw LCSW Note: Goal [...] Anxiety astress Depression On track( 1:47 PM KEY PUNCH OPERATOR) Yes Reina Laguna LCSW Note: Kaylee will [...] PM CDT Gestational edema, antepartum PATHOLOGY CYTOLOGY LAB TECH 10/06/2018 12:00 AM CDT from Last 3 [...] PM T: ??12/13/2023 5:22 PM Report ID: [id number] Reading Location: ??[id number] Procedure Note Joe Haile MD - 12/13/2023 [...] Joe Haile M.D. LL: KORINA Report ID: [id number] Reading Location: [id number] IMPRESSION: No evidence of left lower extremity deep venous thrombosis. us Emory Erazo MD [facility] [place] ORDERABLES Final Result * PATHOLOGY CYTOLOGY LAB TECH (10/06/2018 12:00 AM CDT) 10/06/2018 us Not On File Provider PATHOLOGY/CYTOLOGY ORDERABL ES Final Result AP NON-INTERFACED REFERENCE LABORATORIES from Last 3 Months or Most Recently Relevant to Health [place] [address] [place] [address] ON LICENSE [place] [facility] [place] [address] [employer] [facility] GENERIC Care Teams Financial Business Analyst Relationship Specialty Start Date End Date Jamaica Saavedra APRN, VOCATIONAL EVALUATOR #[address] [phone] PCP - General Advanced Practice Nurse 01/26/21 Emory Erazo MD [address] [phone] Obstetrics & Gynecology 06/30/21
--- OUTSIDE RECORDS SUMMARY | 2024-03-11 22:39 | XMS_ITS | Encounter Summary ---
Author Organization [facility] Address [address] [place] [address] Phone Care Team Providers Care Mfg Assoc Name Role Phone Jamaica Saavedra APRN, CNP Primary Care Provid er Emory Erazo MD Unavailable [phone] Reason for Referral * Radiology Services (Routine) - Closed Specialty Diagnoses / Procedures Referred By Contac t Referred To Contact Radiology Diagnoses Gestational edema, antepartum Procedures US LEFT DUPLEX LOWER EXTREMITY VEINS Emory Erazo MD [address] [facility] [address] Phone: tel: fax: Referral ID Status Reason Start Date Expiration Date Visits Re quested Visits Authorized [id number] Closed 12/13/2023 1 1 Encounter Details Date Type Department Care Team (Latest Contact Info) Description 12/13/2023 Transcribe Orders [facility] Central Scheduling 1 [place] [address] Emory Erazo MD [address] [facility] [address] Gestational edema, antepartum (Primary Dx) Social History Tobacco Use Types Packs/Day Years Used Date Smoking Tobacco: Never Smokeless Tobacco: Never Alcohol Use Standard Drinks/Week Comments Yes 0 (1 standard drink = 0.6 oz pur e alcohol) Social-holiday events etc [facility] Utilities Answer Date Recorded In the [...] often do you attend chur ch or restoration services? More than 4 times per year 05/28/2023 Do you belong to any clubs o r organizations such as muslim groups, unions, fraternal or athletic groups, or [...] Score - Questions 1-9 0 04/0 08/2022 [facility] of Occupat ional Health - Occupational Stress [...] place to sleep or slept in a longterm (including now)? No 05/28/2023 Education Answer Date Recorded What is the highest level of school you have completed or the highest degree you have received? Bachelor's degree (e.g., BA, AB, BS) 05/17/2021 Sexually Active Control Partners Comments Yes Implant Male Comments No Sex and Gender Information Value Date Recorded Sex Assigned at Female 04/04/2023 7:31 PM SHIPYARD SUPERVISOR Legal Sex Female 4:36 PM CDT Gender Identity Female 04/04/2023 7:31 PM SHIPYARD SUPERVISOR Sexual Orientation Not on file documented as of this encounter Plan of Treatment Not on file documented as of this encounter Goals Goal Patient Goal Type Associated Problems Recent Progress Patient-Stated? Author I would like ways to control my anxiety and learn coping skills . Behavioral Health On track( 022 1:47 PM SHIPYARD SUPERVISOR) No Ananya Crenshaw, MILL SUPERVISOR Note: Goal Reviewed with: patient today Readiness to change: Ready to change Department associated with goal: [facility] Steps to achieve goal: will identify at least two coping skills/activities/habits that have helped to manage anxiety in the past. will identify at least three new coping skills/activities/habits that may help to prevent and/or cope with anxiety. 3. Will attend individual and/or group therapy at least 1x/month Anxiety astress Depression On track( 022 1:47 PM SHIPYARD SUPERVISOR) Yes Reina Laguna, MILL SUPERVISOR Note: Kaylee will report an improved management of anxiety symptoms Goal Reviewed with: patient today Readiness to change: Ready to change Department associated with goal: [facility] SERVICES Steps [...] PM T: ??12/13/2023 5:22 PM Report ID: [id number] Reading Location: ??[id number] Procedure Note Joe Haile MD - 12/13/2023 [...] Joe Haile M.D. LL: LL Report ID: [id number] Reading Location: [id number] IMPRESSION: No evidence of left lower extremity deep venous thrombosis. Emory Erazo MD [facility] [place] ORDERABLES Final Result documented in this encounter Visit Diagnoses Diagnosis Gestational edema, antepartum- Primary Edema or excessive weight gain, antepartum Gestational edema, antepartum Edema or excessive weight gain, antepartum documented in this encounter Additional Health Concerns Assessment Noted Time PHQ-9 Depression Total Score: 0 06/15/19 23 2:00 PM CDT documented as of this encounter Care Teams Mfg Assoc Relationship Specialty Start Date End Date Jamaica Saavedra APRN, SET UP TECHNICIAN #[address] [address] PCP - General Advanced Practice Nurse 01/26/21 Emory Erazo MD [address] [place] [address] Obstetrics & Gynecology 06/30/21 documented as of this encounter
--- OUTSIDE RECORDS SUMMARY | 2024-03-11 22:40 | XMS_ITS | Encounter Summary ---
Author Organization [facility] Address [address] [place] [address] Phone Care Team Providers Care Autobody Technician Name Role Phone Jamaica Saavedra APRN, CNP Primary Care Provid er Emory Erazo MD Unavailable [phone] Reason for Visit * Reason Comments Medication Refill Encounter Details Date Type Department Care Team (Late st Contact Info) Description 11/01/2021 [facility]ill [facility] #2 [place] [address] Jamaica Saavedra APRN, CNP #[address] [address] Medication Refill Social History Tobacco [...] Sex Assigned at Female 04/04/2023 7:31 PM MOLD MOVER Legal Sex Female 4:36 PM CDT Gender Identity Female 04/04/2023 7:31 PM MOLD MOVER Sexual Orientation Not on file COVID-19 Exposure [...] Office Visit Jamaica Saavedra APRN, KRISTINE [facility] 06/30/21 Office Visit Jamaica Saavedra APRN, KRISTINE [facility] 05/19/21 Office Visit Jamaica Saavedra APRN, KRISTINE [...] . Behavioral Health On track( 1:47 PM MOLD MOVER) No Ananya Crenshaw, PHOTOGRAPHIC HAND DEVELOPER Note: Goal Reviewed with: patient today Readiness to change: Ready to change Department associated with goal: [facility] Steps to achieve goal: will identify at least two coping skills/activities/habits that have helped to manage anxiety in the past. will identify at least three new coping skills/activities/habits that may help to prevent and/or cope with anxiety. 3. Will attend individual and/or group therapy at least 1x/month Anxiety astress Depression On track( 1:47 PM MOLD MOVER) Yes Reina Laguna, PHOTOGRAPHIC HAND DEVELOPER Note: Kaylee will report an improved management of anxiety symptoms Goal Reviewed with: patient today Readiness to change: Ready to change Department associated with goal: [facility] Steps to [...] mild documented in this encounter Care Teams Autobody Technician Relationship Specialty Start Date End Date Jamaica Saavedra APRN, CNP #[address] [address] PCP - General Advanced Practice Nurse 01/26/21 Emory Erazo MD [address] [phone] Obstetrics & Gynecology 06/30/21 documented as of this encounter
--- OUTSIDE RECORDS SUMMARY | 2024-03-11 22:40 | XMS_ITS | Encounter Summary ---
Author Organization [facility] Care Team Providers Care Boring Machine Operator Vertical Name Role Phone Jamaica Saavedra APRN, CNP Primary Care Provid er Emory Erazo MD Unavailable [phone] Encounter Details Date Type Department Care [...] Assigned at Female 04/04/2023 7:31 PM GAS COMPRESSOR TURBINE OPERATOR Legal Sex Female 4:36 PM CDT Gender Identity Female 04/04/2023 7:31 PM GAS COMPRESSOR TURBINE OPERATOR Sexual Orientation Not on file COVID-19 [...] Behavioral Health On track( 1:47 PM GAS COMPRESSOR TURBINE OPERATOR) No Ananya Crenshaw, SUPERVISOR COOLER SERVICE Note: Goal Reviewed with: patient today Readiness [...] astress Depression On track( 022 1:47 PM GAS COMPRESSOR TURBINE OPERATOR) Yes Reina Laguna, SUPERVISOR COOLER SERVICE Note: Kaylee will report an improved management [...] on filedocumented in this encounter Care Teams Boring Machine Operator Vertical Relationship Specialty Start Date End Date Jamaica Saavedra APRN, CNP #[address] [phone] PCP - General Advanced Practice Nurse 01/26/21 Emory Erazo MD [address] [phone] Obstetrics & Gynecology 06/30/21 documented as of this encounter
--- OUTSIDE RECORDS SUMMARY | 2024-03-11 22:40 | XMS_ITS | Encounter Summary ---
Author Organization [facility] Address [address] [place] [address] Phone Care Team Providers Care Die Holder Name Role Phone Jamaica Saavedra APRN, CNP Primary Care Provid er Reason for Visit * Reason Comments Follow-up Medication Management Encounter Details Date Type Department Care Team (Late st Contact Info) Description 04/06/2021 10:00 AM SURGICAL ASST Office Visit [facility] - Family Medicine [facility] #2 [place] [phone] Jamaica Saavedra APRN, CNP #[address] [phone] Major depressive disorder, recurrent, mild (HCC) (Primary [...] Sex Assigned at Female 04/04/2023 7:31 PM SURGICAL ASST Legal Sex Female 4:36 PM CDT Gender Identity Female 04/04/2023 7:31 PM SURGICAL ASST Sexual Orientation Not on file COVID-19 Exposure Response Date Recorded In the last month, have you been in contact with someone who was confirmed or suspected to have Coronavirus / COVID-19? Yes 04/06/2021 9:42 AM SURGICAL ASST documented as of this encounter Last Filed Vital Signs Vital Sign Reading Time Taken Comments Blood Pressure 112/62 04/06/2021 9:45 AM SURGICAL ASST Pulse 81 04/06/2021 9:45 AM SURGICAL ASST Temperature 36.3 ??C (97.3 ??F) 04/06/2021 9:45 AM CS T Respiratory Rate 18 04/06/2021 9:45 AM SURGICAL ASST Oxygen Saturation 98% 04/06/2021 9:45 AM SURGICAL ASST Inhaled Oxygen Concentration - - Weight 80.9 kg (178 lb 6.4 oz) 04/06/2021 9:45 A M SURGICAL ASST Height 162.6 cm (5' 4 ) 04/06/2021 9:45 AM SURGICAL ASST Body Mass Index 30.62 04/06/2021 9:45 AM SURGICAL ASST documented in this encounter Progress Notes * [...] mouth daily. 01/26/21 Yes Jamaica Saavedra APRN, PROCESS COACH There are no discontinued medications. I have [...] been addressed with the patient today: Depression ICAL ASST * Jamaica Saavedra APRN, KRISTINE - 04/06/2021 10:00 AM CST [facility] [address] [facility] [address] Dept: [phone] Dept Loc: [phone] Loc Patient: Kaylee Melchor : 1995 Sex: [...] ??? POC SARS ANTIGEN AFSHAN CONTROL 10/09/2020 [place] Final ??? POC STREP SCRN 10/09/2020 Presumptive negative Final ??? POC STREP SCREEN CONTROL 10/09/2020 [place] Final ??? SARSCOV2 10/09/2020 NOT DETECTED (Reference Range for this test is Not Detected) Final This test was performed by a RT-PCR method. No results found for: WBC, HEMOGLOBIN, HEMATOCRIT, PLATELETCNT, CHOLESTEROL, TRIGLYCRIDES, HDLCHOLESTE, LDL, PSA, PSASCREEN, INR, HGBA1C, MACRRAND, ESMGNFIL16, FOLAT, ESR, VIT12 No results found for: [...] Return in about 6 weeks (around 05/18/2021). ICAL ASST documented in this encounter Plan of Treatment Not on file documented as of this encounter Goals Goal Patient Goal Type Associated Problems Recent Progress Patient-Stated? Author I would like ways to control my anxiety and learn coping skills . Behavioral Health On track( 022 1:47 PM SURGICAL ASST) No Ananya Crenshaw, GARNETT FEEDER Note: Goal Reviewed with: patient today Readiness [...] astress Depression On track( 022 1:47 PM SURGICAL ASST) Yes Reina Laguna, GARNETT FEEDER Note: Kaylee will report an improved management [...] disorder documented in this encounter Care Teams Die Holder Relationship Specialty Start Date End Date Jamaica Saavedra APRN, KRISTINE #[address] [phone] PCP - General Advanced Practice Nurse 01/26/21 documented as of this encounter
--- OUTSIDE RECORDS SUMMARY | 2024-03-11 22:40 | XMS_ITS | Encounter Summary ---
Author Organization [facility] Address [address] [place] [address] Phone Care Team Providers Care Home Administrator Name Role Phone Jamaica Saavedra APRN, CNP Primary Care Provid er Emory Erazo MD Unavailable [phone] Reason for Visit * Reason Comments Depression Anxiety * Auth/Cert (Routine) Specialty Diagnoses / Procedures Referred By Contlara t Referred To Contact Referral ID Status Reason Start Date Expiration Date Visits Re quested Visits Authorized [id number] 1 1 Encounter Details Date Type Department Care Team (Latest Contact Info) Description 02/06/2022 1:45 PM SENIOR WATER RESOURCES ENGINEER Outpatient Clinic [facility] [address] [place] [phone] Estefania Valera, CYNTHIA Generalized anxiety disorder (Primary [...] Sex Assigned at Female 04/04/2023 7:31 PM SENIOR WATER RESOURCES ENGINEER Legal Sex Female 4:36 PM CDT Gender Identity Female 04/04/2023 7:31 PM SENIOR WATER RESOURCES ENGINEER Sexual Orientation Not on file COVID-19 Exposure Response Date Recorded In the last 10 days, have yo u been in contact with someone who was confirmed or suspected to have Coronavirus/COVID-19? No / Unsure 02/06/2022 12:04 PM SENIOR WATER RESOURCES ENGINEER documented as of this encounter Progress Notes * Estefania Valera, MATTRESS MAKER - 02/06/2022 1:45 PM CST Images from the original note were not included. [facility] BEHAV[facility] HE[facility] CLINICAL PROGRESS NOTE NAME: [...] Department associated with goal: [facility] Steps to achieve goal: [...] Department associated with goal: [facility] Steps to achieve goal: [...] for support and guidance. Estefania Valera LCSW OR WATER RESOURCES ENGINEER documented in this encounter Plan of Treatment Not on file documented as of this encounter Goals Goal Patient Goal Type Associated Problems Recent Progress Patient-Stated? Author I would like ways to control my anxiety and learn coping skills . Behavioral Health On track( 022 1:47 PM SENIOR WATER RESOURCES ENGINEER) No Ananya Crenshaw LCSW Note: Goal Reviewed with: patient today Readiness to change: Ready to change Department associated with goal: [facility] Steps to achieve goal: will identify at least two coping skills/activities/habits that have helped to manage anxiety in the past. will identify at least three new coping skills/activities/habits that may help to prevent and/or cope with anxiety. 3. Will attend individual and/or group therapy at least 1x/month Anxiety astress Depression On track( 022 1:47 PM SENIOR WATER RESOURCES ENGINEER) Yes Reina Laguna, MATTRESS MAKER Note: Kaylee will report an improved management of anxiety symptoms Goal Reviewed with: patient today Readiness to change: Ready to change Department associated with goal: [facility] Steps to achieve goal: [...] mild documented in this encounter Care Teams Home Administrator Relationship Specialty Start Date End Date Jamaica Saavedra APRN, KRISTINE #[address] [phone] PCP - General Advanced Practice Nurse 01/26/21 Emory Erazo MD [address] [address] Obstetrics & Gynecology 06/30/21 documented as of this encounter
--- OUTSIDE RECORDS SUMMARY | 2024-03-11 22:40 | XMS_ITS | Encounter Summary ---
Author Organization [facility] Address [address] [place] [address] Phone Care Team Providers Care Repair Welder Name Role Phone Provider, None Primary Care Provider Unavailabl e Reason for Visit * Reason Comments Sore Throat Encounter Details Date Type Department Care Team (Latest Contact Info) Description 10/09/2020 9:35 AM CDT Urgent Care Visit [facility] - [facility] [place] [address] [place] [id number] Julita Andersen, DEBURRER MACHINE, TILE GRINDER [address] [place] [address] Loss of taste (Primary Dx); Sore throat Discharge Disposition: Discharged to home or Selfcare Social History Tobacco Use Types Packs/Day Years Used Date Smoking Tobacco: Never Smokeless Tobacco: Never Comments Unknown Sex and Gender Information Value Date Recorded Sex Assigned at Female 04/04/2023 7:31 PM MARKET RESEARCH ASSISTANT Legal Sex Female 4:36 PM CDT Gender Identity Female 04/04/2023 7:31 PM MARKET RESEARCH ASSISTANT Sexual Orientation Not on file COVID-19 [...] in a child age 2 or older [employer] last reviewed this educational content on 04/11/2019 ?? [id number] The [employer] All rights reserved. This information is not [...] reviewed this educational content on 04/11/2019 ?? 5515-6401 The [employer] All rights reserved. This information is not [...] SCRN Presumptive negative POC STREP SCREEN CONTROL Software Qa Manager Pass 10/09/2020 10:3 4 AM CDT Julita Andersen DEBURRER MACHINE, TILE GRINDER POINT OF CARE TESTI NG (MANUAL) Final Result * SARS-COV-2 BY MOLECULAR (10/09/2020 10:24 AM CDT) SARSCOV2 NOT DETECTED (Referen ce Range for this test is Not Detected ) [facility] FAST DX 10/10/2020 12:04 PM CDT [facility] Comment:This test was perfor med by a RT-PCR method. Other NASAL STRUCTURE / Unknown Non-Phlebotomy Collection / Unknown 10/09/2020 10:24 AM CDT 10/09/2020 10:[address] [facility] - 10/10/2020 12:04 PM CDT Authorized Fact Sheets about this test for providers and patients are available at: https://www.fda.gov/medical-devices/sjdwrusij-oddyddnebv-xoalijy-devices/emergen cy-us e-authorizations us Julita Andersen APRN, TILE GRINDER MICROBIOLOGY - GENE RAL ORDERABLES Final Result [facility] [address] [place] [address], [place] * POCT SARS ANTIGEN AFSHAN (10/09/2020 9:46 AM CDT) POC SARS ANTIGEN AFSHAN Negative Negative POC SARS ANTIGEN AFSHAN CONTROL Software Qa Manager Pass Swab NASAL STRUCTURE / Unknown 10/09/2020 9:46 AM CDT Julita Andersen APRN, KRISTINE POINT OF CARE TESTI NG (MANUAL) Final Result documented in this encounter Visit Diagnoses Diagnosis Loss of taste- Primary Disturbances of sensation of smell and taste Sore throat Acute pharyngitis documented in this encounter Care Teams Repair Welder Relationship Specialty Start Date End Date Provider, None [place] PCP - General 06/17/17 01/25/21 documented as of this encounter
--- OUTSIDE RECORDS SUMMARY | 2024-03-11 22:40 | XMS_ITS | Encounter Summary ---
Author Organization [employer] Care Team Providers Care Records And Tape Recordings Engineer Name Role Phone Jamaica Saavedra APRN, CNP Primary Care Provid er Emory Erazo MD Unavailable [phone] Encounter Details Date Type Department Care [...] Sex Assigned at Female 04/04/2023 7:31 PM PEANUT SHELLER Legal Sex Female 4:36 PM CDT Gender Identity Female 04/04/2023 7:31 PM PEANUT SHELLER Sexual Orientation Not on file COVID-19 Exposure [...] . Behavioral Health On track( 1:47 PM PEANUT SHELLER) No Ananya Crenshaw, MASSAGE OPERATOR Note: Goal Reviewed with: patient today [...] astress Depression On track( 022 1:47 PM PEANUT SHELLER) Yes Reina Laguna, MASSAGE OPERATOR Note: Kaylee will report an improved [...] on filedocumented in this encounter Care Teams Records And Tape Recordings Engineer Relationship Specialty Start Date End Date Jamaica Saavedra APRN, CNP #[address] [phone] PCP - General Advanced Practice Nurse 01/26/21 Emory Erazo MD [address] [phone] Obstetrics & Gynecology 06/30/21 documented as of this encounter
--- OUTSIDE RECORDS SUMMARY | 2024-03-11 22:40 | XMS_ITS | Encounter Summary ---
Author Organization [employer] Care Team Providers Care Bursar Name Role Phone Jamaica Saavedra APRN, CNP [...] Sex Assigned at Female 04/04/2023 7:31 PM BRAILLE PROOFREADER Legal Sex Female 4:36 PM CDT Gender Identity Female 04/04/2023 7:31 PM BRAILLE PROOFREADER Sexual Orientation Not on file COVID-19 Exposure [...] . Behavioral Health On track( 1:47 PM BRAILLE PROOFREADER) No Ananya Crenshaw, PICKLE WATER PUMP OPERATOR Note: Goal Reviewed with: patient today [...] astress Depression On track( 022 1:47 PM BRAILLE PROOFREADER) Yes Reina Laguna, PICKLE WATER PUMP OPERATOR Note: Kaylee will report an improved [...] on filedocumented in this encounter Care Teams Bursar Relationship Specialty Start Date End Date Jamaica Saavedra APRN, CNP #[address] [phone] PCP - General Advanced Practice Nurse 01/26/21 Emory Erazo MD [address] [phone] Obstetrics & Gynecology 06/30/21 documented as of this encounter
--- OUTSIDE RECORDS SUMMARY | 2024-03-11 22:40 | XMS_ITS | Encounter Summary ---
Author Organization [facility] Care Team Providers Care Athletic Gear Custodian Name Role Phone Jamaica Saavedra APRN, CNP [...] Sex Assigned at Female 04/04/2023 7:31 PM FORECLOSURE CLERK Legal Sex Female 4:36 PM CDT Gender Identity Female 04/04/2023 7:31 PM FORECLOSURE CLERK Sexual Orientation Not on file COVID-19 Exposure Response Date Recorded In the last month, have you been in contact with someone who was confirmed or suspected to have Coronavirus / COVID-19? Yes 04/06/2021 9:42 AM FORECLOSURE CLERK documented as of this encounter Plan of Treatment Not on file documented as of this encounter Goals Goal Patient Goal Type Associated Problems Recent Progress Patient-Stated? Author I would like ways to control my anxiety and learn coping skills . Behavioral Health On track( 022 1:47 PM FORECLOSURE CLERK) No Ananya Crenshaw LCSW Note: Goal Reviewed [...] astress Depression On track( 022 1:47 PM FORECLOSURE CLERK) Yes Reina Laguna, EVP MARKETING Note: Kaylee will report an improved management of anxiety symptoms Goal Reviewed with: patient today Readiness to change: Ready to change Department associated with goal: [facility] Steps to [...] on filedocumented in this encounter Care Teams Athletic Gear Custodian Relationship Specialty Start Date End Date Jamaica Saavedra APRN, KRISTINE #[address] [address] PCP - General Advanced Practice Nurse 01/26/21 documented as of this encounter
--- OUTSIDE RECORDS SUMMARY | 2024-03-11 22:40 | XMS_ITS | Encounter Summary ---
Author Organization [facility] Address [address] [place] [address] Phone Care Team Providers Care Paleontological Helper Name Role Phone Jamaica Saavedra APRN, CNP Primary Care Provid er Emory Erazo MD Unavailable [phone] Reason for Visit * Reason Comments Medication Refill Encounter Details Date Type Department Care Team (Late st Contact Info) Description 08/20/2021 Refill [facility] - Family [facility] [address] [place] [address] Jamaica Saavedra APRN, CNP #[address] [address] Medication Refill Social History Tobacco [...] Sex Assigned at Female 04/04/2023 7:31 PM FLOOR COVERINGS SALESPERSON Legal Sex Female 4:36 PM CDT Gender Identity Female 04/04/2023 7:31 PM FLOOR COVERINGS SALESPERSON Sexual Orientation Not on file documented as [...] Office Visit Jamaica Saavedra APRN, KRISTINE [facility] 05/19/21 Office Visit Jamaica Saavedra APRN, KRISTINE [facility] 04/06/21 Office Visit Jamaica Saavedra APRN, KRISTINE [facility] Showing recent visits within past 182 days and meeting all other requirements Future Appointments Date Type Provider Dept 09/28/21 Appointment Jamaica Saavedra APRN, KRISTINE [facility] Showing future appointments within next 90 days [...] Behavioral Health On track( 022 1:47 PM FLOOR COVERINGS SALESPERSON) No Ananya Crenshaw LCSW Note: Goal Reviewed with: patient today Readiness to change: Ready to change Department associated with goal: [facility] Steps to achieve goal: will identify at least two coping skills/activities/habits that have helped to manage anxiety in the past. will identify at least three new coping skills/activities/habits that may help to prevent and/or cope with anxiety. 3. Will attend individual and/or group therapy at least 1x/month Anxiety astress Depression On track( 022 1:47 PM FLOOR COVERINGS SALESPERSON) Yes Reina Laguna, CYNTHIA Note: Kaylee will report an improved management of anxiety symptoms Goal Reviewed with: patient today Readiness to change: Ready to change Department associated with goal: [facility] Steps to [...] mild documented in this encounter Care Teams Paleontological Helper Relationship Specialty Start Date End Date Jamaica Saavedra APRN, POLITICAL ANTHROPOLOGIST #[address] [phone] PCP - General Advanced Practice Nurse 01/26/21 Emory Erazo MD [address] [address] Obstetrics & Gynecology 06/30/21 documented as of this encounter
--- OUTSIDE RECORDS SUMMARY | 2024-03-11 22:40 | XMS_ITS | Encounter Summary ---
Author Organization [employer] Care Team Providers Care Insole Coverer Name Role Phone Jamaica Saavedra APRN, CNP [...] Sex Assigned at Female 04/04/2023 7:31 PM EMERGENCY DEPARTMENT CLINICIAN Legal Sex Female 4:36 PM CDT Gender Identity Female 04/04/2023 7:31 PM EMERGENCY DEPARTMENT CLINICIAN Sexual Orientation Not on file COVID-19 Exposure Response Date Recorded In the last month, have you been in contact with someone who was confirmed or suspected to have Coronavirus / COVID-19? No / Unsure 05/19/2021 9:54 AM EMERGENCY DEPARTMENT CLINICIAN documented as of this encounter Plan of Treatment Not on file documented as of this encounter Goals Goal Patient Goal Type Associated Problems Recent Progress Patient-Stated? Author I would like ways to control my anxiety and learn coping skills . Behavioral Health On track( 022 1:47 PM EMERGENCY DEPARTMENT CLINICIAN) No Ananya Crenshaw, COMPUTER PROJECT MANAGER Note: Goal Reviewed with: patient today Readiness to change: Ready to change Department associated with goal: [facility]AVIOR[facility] HE[facility] Steps to achieve goal: will identify at least two coping skills/activities/habits that have helped to manage anxiety in the past. will identify at least three new coping skills/activities/habits that may help to prevent and/or cope with anxiety. 3. Will attend individual and/or group therapy at least 1x/month Anxiety astress Depression On track( 022 1:47 PM EMERGENCY DEPARTMENT CLINICIAN) Yes Reina Laguna, COMPUTER PROJECT MANAGER Note: Kaylee will report an improved management of anxiety symptoms Goal Reviewed with: patient today Readiness to change: Ready to change Department associated with goal: [facility] Steps to [...] on filedocumented in this encounter Care Teams Insole Coverer Relationship Specialty Start Date End Date Jamaica Saavedra APRN, CNP #[address] [address] PCP - General Advanced Practice Nurse 01/26/21 documented as of this encounter
--- OUTSIDE RECORDS SUMMARY | 2024-03-11 22:40 | XMS_ITS | Encounter Summary ---
Author Organization [facility] Address [address] [place] [address] Phone Care Team Providers Care Medicaid Specialist Name Role Phone Jamaica Saavedra APRN, CNP Primary Care Provid er Reason for Referral * Consult, Test & Initiate Treatment (Routine) - Closed Specialty Diagnoses / Procedures Referred By Anamaria lay Referred To Contact Behavioral Health Diagnoses Post depression Jamaica Saavedra APRN, CNP #[address] [address] Phone: tel: fax: Ananya Crenshaw, [facility] Phone: tel: fax: Referral ID Status Reason Start Date Expiration Date Visits Re quested Visits Authorized [id number] Closed 01/26/2021 1 1 Scheduling Instructions Kaylee [...] problem list on file for this patient. C JOURNALIST Reason for Visit * Reason Comments New Patient Patient is here to e [facility]. Encounter Details Date Type Department Care Team (Late st Contact Info) Description 01/26/2021 10:00 AM MUSIC JOURNALIST Office Visit [facility] - Family Medicine [facility] [address] [place] [phone] Jamaica Saavedra APRN, RESAW CARRIAGE OPERATOR #[address] [phone] Post depression (Primary Dx); BMI 30.0-30.9,adult; Other [...] Sex Assigned at Female 04/04/2023 7:31 PM MUSIC JOURNALIST Legal Sex Female 4:36 PM CDT Gender Identity Female 04/04/2023 7:31 PM MUSIC JOURNALIST Sexual Orientation Not on file COVID-19 Exposure Response Date Recorded In the last month, have you been in contact with someone who was confirmed or suspected to have Coronavirus / COVID-19? No / Unsure 01/26/2021 9:40 AM MUSIC JOURNALIST documented as of this encounter Last Filed Vital Signs Vital Sign Reading Time Taken Comments Blood Pressure 110/64 01/26/2021 10:09 AM MUSIC JOURNALIST Pulse 90 01/26/2021 10:09 AM MUSIC JOURNALIST Temperature 37.2 ??C (98.9 ??F) 01/26/2021 10:[address] Respiratory Rate 16 01/26/2021 10:09 AM MUSIC JOURNALIST Oxygen Saturation 99% 01/26/2021 10:09 AM MUSIC JOURNALIST Inhaled Oxygen Concentration - - Weight 81 kg (178 lb 9.6 oz) 01/26/2021 10:09 AM MUSIC JOURNALIST Height 162.6 cm (5' 4 ) 01/26/2021 10:09 AM MUSIC JOURNALIST Body Mass Index 30.66 01/26/2021 10:09 AM MUSIC JOURNALIST documented in this encounter Progress Notes * Verenice Dominguez RMA - 01/26/2021 10:00 AM CST Kaylee Melchor is a 25 y.o. female with current BMI: Body mass index is 30.66 kg/m??. Interventions discussed including: encourage daily physical activity and well- balanced diet. C JOURNALIST * Verenice Dominguez RMA - 01/26/2021 10:00 [...] Fall Risk, Nutrition and Advanced Care Planning C JOURNALIST * Jamaica Saavedra APRN, CNP - 01/26/2021 10:00 AM CST [facility] - [facility]ILY MEDICINE - [place] [address]2 [facility] [address] Dept: [phone] Dept Loc: [phone] Loc Patient: Kaylee Melchor : 1995 Sex: female Subjective Subjective: HPI: Kaylee Melchor presents for New Patient (Patient is here to establish care.) . Patient presents today for new patient to establish care. Patient reports that her last PCP was several years ago in [facility]. She reports that her OBGYN is Dr. Manuel at [facility]. Reports her last Pap smear was 2 years ago. Patient seen a dentist and opto metrist in last couple of years. Patient is with 1 child who is [id number]. She works as an ER nurse. Patient [...] normal. Judgment: Judgment normal. PHQ-2 Have You [place] Little Interest or Pleasure in Doing Things?: 1 - Several days Have You [place] Down, Depressed or Hopeless?: 0 - Not [...] Return in about 6 weeks (around 03/09/2021). C JOURNALIST documented in this encounter Plan of Treatment [...] fatigue documented in this encounter Care Teams Medicaid Specialist Relationship Specialty Start Date End Date Jamaica Saavedra APRN, KRISTINE #[address] [address] PCP - General Advanced Practice Nurse 01/26/21 documented as of this encounter
--- OUTSIDE RECORDS SUMMARY | 2024-03-11 22:40 | XMS_ITS | Encounter Summary ---
Author Organization [email or web address] Care Team Providers Care Fisher Diving Name Role Phone Jamaica Saavedra APRN, CNP Primary Care Provid er Emory Erazo MD Unavailable [phone] Encounter Details Date Type Department Care [...] Sex Assigned at Female 04/04/2023 7:31 PM MANAGER FASHION Legal Sex Female 4:36 PM CDT Gender Identity Female 04/04/2023 7:31 PM MANAGER FASHION Sexual Orientation Not on file COVID-19 Exposure [...] . Behavioral Health On track( 1:47 PM MANAGER FASHION) No Ananya Crenshaw, TOBACCO CLOTH RECLAIMER Note: Goal Reviewed with: patient today Readiness to change: Ready to change Department associated with goal: [facility]AVIOR[facility] HE[facility] Steps to achieve goal: will identify at least two coping skills/activities/habits that have helped to manage anxiety in the past. will identify at least three new coping skills/activities/habits that may help to prevent and/or cope with anxiety. 3. Will attend individual and/or group therapy at least 1x/month Anxiety astress Depression On track( 022 1:47 PM MANAGER FASHION) Yes Reina Laguna, TOBACCO CLOTH RECLAIMER Note: Kaylee will report an improved management of anxiety symptoms Goal Reviewed with: patient today Readiness to change: Ready to change Department associated with goal: [facility] Steps to [...] on filedocumented in this encounter Care Teams Fisher Diving Relationship Specialty Start Date End Date Jamaica Saavedra APRN, CNP #[address] [address] PCP - General Advanced Practice Nurse 01/26/21 Emory Erazo MD [address] [phone] Obstetrics & Gynecology 06/30/21 documented as of this encounter
--- OUTSIDE RECORDS SUMMARY | 2024-03-11 22:40 | XMS_ITS | Encounter Summary ---
Author Organization [facility] Address [address] [place] [address] Phone Care Team Providers Care Business Representative Name Role Phone Provider, None Primary Care Provider Unavailabl e Reason for Visit * Reason Onset Date Comments Results 03/12/2020 Encounter Details Date Type Department Care Team (Late st Contact Info) Description 03/12/2020 Telephone [facility] - [facility] [place] [address] [place] [address] Donnell Donnelly, TIARRA [address] [place] [address] Results Social History Tobacco Use Types Packs/Day Years Used Date Smoking Tobacco: Never Assessed Comments Unknown Sex and Gender Information Value Date Recorded Sex Assigned at Female 04/04/2023 7:31 PM MOUNTAIN BIKE GUIDE Legal Sex Female 4:36 PM CDT Gender Identity Female 04/04/2023 7:31 PM MOUNTAIN BIKE GUIDE Sexual Orientation Not on file documented as of this encounter Miscellaneous Notes * Telephone Encounter - Radha Spangler RN - 03/12/2020 8:29 AM CST Patient notified of negative results. TAIN BIKE GUIDE * Telephone Encounter - Radha Spangler RN - 03/12/2020 8:28 AM CST ----- Message from TIARRA Leslie sent at 03/12/2020 8:03 AM MOUNTAIN BIKE GUIDE ----- Please call and let the patient know that her covid testing was negative. Thank you! TAIN BIKE GUIDE documented in this encounter Plan of Treatment Not on file documented as of this encounter Visit Diagnoses Not on filedocumented in this encounter Care Teams Business Representative Relationship Specialty Start Date End Date Provider, None [place] PCP - General 06/17/17 01/25/21 documented as of this encounter
--- OUTSIDE RECORDS SUMMARY | 2024-03-11 22:40 | XMS_ITS | Encounter Summary ---
Author Organization [facility] Address [address] [place] [address] Phone Care Team Providers Care Technical Project Coordinator Name Role Phone Jamaica Saavedra APRN, CNP Primary Care Provid er Emory Erazo MD Unavailable [phone] Encounter Details Date Type Department Care Team (Late st Contact Info) Description 11/15/2021 Telephone [facility] - Family Medicine - [place] #2 [place] [address] Jamaica Saavedra APRN, CNP #[address] [address] Social History Tobacco Use Types [...] Sex Assigned at Female 04/04/2023 7:31 PM GRANITE CHIP TERRAZZO FINISHER Legal Sex Female 4:36 PM CDT Gender Identity Female 04/04/2023 7:31 PM GRANITE CHIP TERRAZZO FINISHER Sexual Orientation Not on file COVID-19 Exposure [...] . Behavioral Health On track( 1:47 PM GRANITE CHIP TERRAZZO FINISHER) No Ananya Crenshaw, CYNTHIA Note: Goal Reviewed with: patient today Readiness to change: Ready to change Department associated with goal: [facility] Steps to achieve goal: will identify at least two coping skills/activities/habits that have helped to manage anxiety in the past. will identify at least three new coping skills/activities/habits that may help to prevent and/or cope with anxiety. 3. Will attend individual and/or group therapy at least 1x/month Anxiety astress Depression On track( 022 1:47 PM GRANITE CHIP TERRAZZO FINISHER) Yes Reina Laguna LCSW Note: Kaylee will report an improved management of anxiety symptoms Goal Reviewed with: patient today Readiness to change: Ready to change Department associated with goal: [facility] Steps to achieve [...] on filedocumented in this encounter Care Teams Technical Project Coordinator Relationship Specialty Start Date End Date Jamaica Saavedra APRN, KRISTINE #[address] [address] PCP - General Advanced Practice Nurse 01/26/21 Emory Erazo MD [address] [address] Obstetrics & Gynecology 06/30/21 documented as of this encounter
--- OUTSIDE RECORDS SUMMARY | 2024-03-11 22:40 | XMS_ITS | Encounter Summary ---
Author Organization [facility] Care Team Providers Care Terminal Makeup Operator Name Role Phone Jamaica Saavedra APRN, [...] Sex Assigned at Female 04/04/2023 7:31 PM SCHOOL TRANSPORTATION SUPERVISOR Legal Sex Female 4:36 PM CDT Gender Identity Female 04/04/2023 7:31 PM SCHOOL TRANSPORTATION SUPERVISOR Sexual Orientation Not on file COVID-19 Exposure Response Date Recorded In the last month, have you been in contact with someone who was confirmed or suspected to have Coronavirus / COVID-19? No / Unsure 03/09/2021 12:04 PM SCHOOL TRANSPORTATION SUPERVISOR documented as of this encounter Plan of Treatment Not on file documented as of this encounter Goals Goal Patient Goal Type Associated Problems Recent Progress Patient-Stated? Author I would like ways to control my anxiety and learn coping skills . Behavioral Health On track( 022 1:47 PM SCHOOL TRANSPORTATION SUPERVISOR) No Ananya Crenshaw, STRIPPER APPRENTICE Note: Goal Reviewed with: patient today Readiness [...] on filedocumented in this encounter Care Teams Terminal Makeup Operator Relationship Specialty Start Date End Date Jamaica Saavedra APRN, BOX CAR CHECKER #[address] [address] PCP - General Advanced Practice Nurse 01/26/21 documented as of this encounter
--- OUTSIDE RECORDS SUMMARY | 2024-03-11 22:40 | XMS_ITS | Encounter Summary ---
Author Organization [facility] Care Team Providers Care Attendant [facility] Name Role Phone Jamaica Saavedra APRN, CNP [...] Sex Assigned at Female 04/04/2023 7:31 PM MILK PASTEURIZER Legal Sex Female 4:36 PM CDT Gender Identity Female 04/04/2023 7:31 PM MILK PASTEURIZER Sexual Orientation Not on file COVID-19 Exposure Response Date Recorded In the last month, have you been in contact with someone who was confirmed or suspected to have Coronavirus / COVID-19? Yes 03/22/2021 10:42 AM MILK PASTEURIZER documented as of this encounter Plan of Treatment Not on file documented as of this encounter Goals Goal Patient Goal Type Associated Problems Recent Progress Patient-Stated? Author I would like ways to control my anxiety and learn coping skills . Behavioral Health On track( 022 1:47 PM MILK PASTEURIZER) No Ananya Crenshaw LCSW Note: Goal Reviewed with: patient today Readiness to change: Ready to change Department associated with goal: [facility] Steps to achieve goal: [...] on filedocumented in this encounter Care Teams Attendant [facility] Relationship Specialty Start Date End Date Jamaica Saavedra APRN, WATCH BAND ASSEMBLER #[address] [phone] PCP - General Advanced Practice Nurse 01/26/21 documented as of this encounter
--- OUTSIDE RECORDS SUMMARY | 2024-03-11 22:40 | XMS_ITS | Encounter Summary ---
Author Organization [facility] Address [address] [place] [address] Phone Care Team Providers Care Field Handyman Name Role Phone Jamaica Saavedra APRN, CNP Primary Care Provid er Emory Erazo MD Unavailable [phone] Reason for Visit * Reason Comments Depression * Auth/Cert Specialty Diagnoses / Procedures Referred By Contlara t Referred To Contact Referral ID Status Reason Start Date Expiration Date Visits Re quested Visits Authorized [id number] 1 1 Encounter Details Date Type Department Care Team (Latest Contact Info) Description 01/01/2022 10:30 AM CDT [facility] [address] [place] [phone] Estefania Valera, FIBRE CEMENT MOULDER Generalized anxiety disorder (Primary Dx); Major depressive [...] Sex Assigned at Female 04/04/2023 7:31 PM RECREATION PROGRAM SPECIALIST Legal Sex Female 4:36 PM CDT Gender Identity Female 04/04/2023 7:31 PM RECREATION PROGRAM SPECIALIST Sexual Orientation Not on file COVID-19 Exposure Response Date Recorded In the last 10 days, have yo u been in contact with someone who was confirmed or suspected to have Coronavirus/COVID-19? No / Unsure 01/01/2022 10:28 AM CDT documented as of this encounter Progress Notes * Estefania Valera, FIBRE CEMENT MOULDER - 01/01/2022 10:30 AM CDT [facility] BE[facility]IOR[facility] CLINICAL PROGRESS NOTE NAME: Kaylee [...] . Behavioral Health On track( 1:47 PM RECREATION PROGRAM SPECIALIST) No Ananya Crenshaw LCSW Note: Goal Reviewed [...] Anxiety astress Depression On track( 1:47 PM RECREATION PROGRAM SPECIALIST) Yes Reina Laguna LCSW Note: Kaylee will report an improved management of anxiety symptoms Goal Reviewed with: patient today Readiness to change: Ready to change Department associated with goal: [facility] Steps [...] mild documented in this encounter Care Teams Field Handyman Relationship Specialty Start Date End Date Jamaica Saavedra APRN, CNP #[address] [phone] PCP - General Advanced Practice Nurse 01/26/21 Emory Erazo MD [address] [address] Obstetrics & Gynecology 06/30/21 documented as of this encounter
--- OUTSIDE RECORDS SUMMARY | 2024-03-11 22:40 | XMS_ITS | Encounter Summary ---
Author Organization [facility] Address [address] [place] [address] Phone Care Team Providers Care Journeyman Sheet Metal Worker Name Role Phone Jamaica Saavedra APRN, CNP Primary Care Provid er Reason for Visit * Reason Comments Anxiety Depression * Auth/Cert Specialty Diagnoses / Procedures Referred By Anamaria lay Referred To Contact Referral ID Status Reason Start Date Expiration Date Visits Re quested Visits Authorized [id number] 1 1 Encounter Details Date Type Department Care Team (Latest Contact Info) Description 03/09/2021 12:00 PM PAN CLEANER [facility] [address] [place] [phone] Ronan Mason, CUSTOM FEED MILL OPERATOR HELPER [address] [place] [address] Major depressive disorder, recurrent, mild (HCC) (Primary [...] Sex Assigned at Female 04/04/2023 7:31 PM PAN CLEANER Legal Sex Female 4:36 PM CDT Gender Identity Female 04/04/2023 7:31 PM PAN CLEANER Sexual Orientation Not on file COVID-19 Exposure Response Date Recorded In the last month, have you been in contact with someone who was confirmed or suspected to have Coronavirus / COVID-19? No / Unsure 03/09/2021 12:04 PM PAN CLEANER documented as of this encounter Patient Instructions * Patient Instructions* Ronan Mason, CUSTOM FEED MILL OPERATOR HELPER - 03/09/2021 12:00 PM PAN CLEANER Images from the original note were not included. If you are in a Mental Health Crisis or having thoughts of harming yourself or others; please call one of the following resources available 24 hours per day: [facility] [phone] [facility]: [phone] National Suicide Prevention Hotline: 6-589- 135- TALK (6619) Behavioral Health Response: 936.222.6306 [facility]: [phone]- ARTZ (9792) [facility] [address] [place] [phone] (call for hours of operation) *Please use parking lot #[address] for easy access to [facility]. (Adult/Pediatric 5+) Or Call 911 or go to your nearest Emergency Room. Non-emergency free phone support for anyone living in the State [facility]. Emotional support, recovery education, self advocacy support and referrals. Saturday through Saturday , 8am-5pm [place] Warm Line [phone] From main menu select option #2, then #5 I Patrol Community Service Officer available for hundreds of languages Staff adept at conversing through video relay service TTY Emotions This video will explore the intense feelings that come after childbirth, and we'll look at the important differences between the baby blues and depression. To view the content, go to this web address: [email or web address] This video will on: 02/09/2023. If you [...] Elsevier Patient Education ?? 2020 [employer] CLEANER CLEANER documented in this encounter Progress Notes * Ronan Mason LCSW - 03/09/2021 12:00 PM CST [facility] INITIAL EVALUATION Name: Kaylee Melchor [...] Perception: No hallucinations Memory: Reported: Short and halfway memory intact Attention: Able to focus during the interview Established and maintained good eye contact Insight/Judgement: Normal insight and judgement FUNCTIONAL ASSESSMENT: Can the patient perform Activities of Daily Living (ADL'S)?: Patient is able to complete ADL's independently Does patient have the ability and the capacity to respond to treatment?: Yes RISK ASSESSMENT: Suicidal Ideation: There is no history of suicidal ideation.. -M[place]ulloch- Suicide Severity Rating Scale: Risk Stratification: Suicide [...] family. Are there any languages other than Luxembourgish spoken in the home? No Are there any Orthodox or Cultural Considerations that may impact treatment in any way? No FAMILY OF ORIGIN: Parent(s)/Caregiver(s): Biological. Place of /where raised. [place], [place] Sibling(s): Yes- Ed, half brother Family [...] College graduate Currently employed? 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 HISTORY OF TRAUMA/ABUSE: Are you a current [...] results found for: ACETAMINOPHE RONAN MASON LCSW CLEANER documented in this encounter Plan of Treatment Not on file documented as of this encounter Goals Goal Patient Goal Type Associated Problems Recent Progress Patient-Stated? Author I would like ways to control my anxiety and learn coping skills . Behavioral Health On track( 022 1:47 PM PAN CLEANER) Ronan Brandt, CUSTOM FEED MILL OPERATOR HELPER Note: Goal Reviewed with: patient today Readiness to change: Ready to change Department associated with goal: [facility] HE[facility] SERVICES Steps to [...] disorder documented in this encounter Care Teams Journeyman Sheet Metal Worker Relationship Specialty Start Date End Date Jamaica Saavedra APRN, TIRE LAYER #[address] [phone] PCP - General Advanced Practice Nurse 01/26/21 documented as of this encounter
--- OUTSIDE RECORDS SUMMARY | 2024-03-11 22:40 | XMS_ITS | Encounter Summary ---
Author Organization [facility] Address [address] [place] [address] Phone Care Team Providers Care Risk Compliance Analyst Name Role Phone Jamaica Little APRN, CNP Primary Care Provid er Encounter Details Date Type Department Care Team (Late st Contact Info) Description 01/26/2021 11:10 AM COUPON REDEMPTION CLERK Lab [facility] [address] [place] [address] Lab [place] Lab/Ancillary Other fatigue; Body mass index 30.0-30.9, [...] Sex Assigned at Female 04/04/2023 7:31 PM COUPON REDEMPTION CLERK Legal Sex Female 4:36 PM CDT Gender Identity Female 04/04/2023 7:31 PM COUPON REDEMPTION CLERK Sexual Orientation Not on file COVID-19 Exposure Response Date Recorded In the last month, have you been in contact with someone who was confirmed or suspected to have Coronavirus / COVID-19? No / Unsure 01/26/2021 9:40 AM COUPON REDEMPTION CLERK documented as of this encounter Progress Notes * Patricia Moreno 01/26/2021 11:10 AM CST Kaylee presents for lab draw per order of jamaica little dated [id number]. Specimen collected fromleft antecubital without incident. [facility] - cbc, cmp, free t3, free t4, tsh ON REDEMPTION CLERK documented in this encounter Plan of Treatment Not on file documented as of this encounter Visit Diagnoses Diagnosis Other fatigue Body mass index 30.0-30.9, adult Body Mass Index 30.0-30.9, adult documented in this encounter Care Teams Risk Compliance Analyst Relationship Specialty Start Date End Date Jamaica Little APRN, CHEMICAL ANALYTICAL SAMPLER #[address] [phone] PCP - General Advanced Practice Nurse 01/26/21 documented as of this encounter
--- OUTSIDE RECORDS SUMMARY | 2024-03-11 22:40 | XMS_ITS | Encounter Summary ---
Author Organization [facility] Address [address] [place] [address] Phone Care Team Providers Care Modern Dancer Name Role Phone Jamaica Saavedra APRN, CNP Primary Care Provid er Emory Erazo MD Unavailable [phone] Reason for Visit * Reason Comments Anxiety Depression * Auth/Cert Specialty Diagnoses / Procedures Referred By Contlara t Referred To Contact Referral ID Status Reason Start Date Expiration Date Visits Re quested Visits Authorized [id number] 1 1 Encounter Details Date Type Department Care Team (Latest Contact Info) Description 11/29/2021 2:00 PM CDT Outpatient Clinic Visit [facility] [address] [place] [phone] Jamaica Saavedra APRN, CNP #[address] [phone] Estefania Valera LCSW Generalized anxiety [...] Sex Assigned at Female 04/04/2023 7:31 PM WOODWINDS TEACHER Legal Sex Female 4:36 PM CDT Gender Identity Female 04/04/2023 7:31 PM WOODWINDS TEACHER Sexual Orientation Not on file COVID-19 Exposure Response Date Recorded In the last 10 days, have yo u been in contact with someone who was confirmed or suspected to have Coronavirus/COVID-19? No / Unsure 11/29/2021 1:02 PM CDT documented as of this encounter Progress Notes * Estefania Valera, PLANT PHYSIOLOGY TEACHER - 11/29/2021 2:00 PM CDT [facility] Secondary EVALUATION Name: Kaylee [...] Perception: No hallucinations Memory: Reported: Short and penitentiary memory intact Attention: Able to focus during [...] . Behavioral Health On track( 1:47 PM WOODWINDS TEACHER) No Ananya Crenshaw LCSW Note: Goal Reviewed with: patient today Readiness to change: Ready to change Department associated with goal: [facility]HAVIORAL HEALTH SERVICES Steps to achieve goal: will identify at least two coping skills/activities/habits that have helped to manage anxiety in the past. will identify at least three new coping skills/activities/habits that may help to prevent and/or cope with anxiety. 3. Will attend individual and/or group therapy at least 1x/month Anxiety astress Depression On track( 1:47 PM WOODWINDS TEACHER) Yes Reina Laguna LCSW Note: Kaylee will report an improved management of anxiety symptoms Goal Reviewed with: patient today Readiness to change: Ready to change Department associated with goal: [facility]AVIOR[facility] HE[facility] SERVICES Steps to [...] mild documented in this encounter Care Teams Modern Dancer Relationship Specialty Start Date End Date Jamaica Saavedra APRN, KRISTINE #[address] [phone] PCP - General Advanced Practice Nurse 01/26/21 Emory Erazo MD [address] [place] [address] Obstetrics & Gynecology 06/30/21 documented as of this encounter
--- OUTSIDE RECORDS SUMMARY | 2024-03-11 22:40 | XMS_ITS | Encounter Summary ---
Author Organization [facility] Address [address] [place] [address] Phone Care Team Providers Care Refrigeration Systems Installer Name Role Phone Jamaica Saavedra APRN, CNP Primary Care Provid er Reason for Visit * Reason Comments Follow-up Encounter Details Date Type Department Care Team (Late st Contact Info) Description 05/19/2021 10:00 AM PIN ATTACHER Office Visit [facility] - Family Medicine [facility] [address] [place] [phone] Jamaica Saavedra APRN, CNP #[address] [phone] Generalized anxiety disorder (Primary Dx); Major depressive [...] Sex Assigned at Female 04/04/2023 7:31 PM PIN ATTACHER Legal Sex Female 4:36 PM CDT Gender Identity Female 04/04/2023 7:31 PM PIN ATTACHER Sexual Orientation Not on file COVID-19 Exposure Response Date Recorded In the last month, have you been in contact with someone who was confirmed or suspected to have Coronavirus / COVID-19? No / Unsure 05/19/2021 9:54 AM PIN ATTACHER documented as of this encounter Last Filed Vital Signs Vital Sign Reading Time Taken Comments Blood Pressure 102/64 05/19/2021 10:03 AM PIN ATTACHER Pulse 70 05/19/2021 10:03 AM PIN ATTACHER Temperature 36.7 ??C (98.1 ??F) 05/19/2021 10:[address] Respiratory Rate 16 05/19/2021 10:03 AM PIN ATTACHER Oxygen Saturation 100% 05/19/2021 10:03 AM PIN ATTACHER Inhaled Oxygen Concentration - - Weight 80.7 kg (178 lb) 05/19/2021 10:03 AM PIN ATTACHER Height 162.6 cm (5' 4 ) 05/19/2021 10:03 AM PIN ATTACHER Body Mass Index 30.55 05/19/2021 10:03 AM PIN ATTACHER documented in this encounter Progress Notes * [...] by mouth daily. 04/06/21 Yes Jamaica Saavedra, MINERAL ORE PROCESSING LABOURER, DINKEY ENGINE MECHANIC There are no discontinued medications. I have [...] the patient today: Functional abuse assessment pap ATTACHER * Jamaica Saavedra APRN, KRISTINE - 05/19/2021 10:00 AM CST [facility] [address] [facility] [address] Dept: [phone] Dept Loc: [phone] Loc Patient: Kaylee Melchor : 1995 Sex: [...] ??? POC SARS ANTIGEN AFSHAN CONTROL 10/09/2020 Spout Tender Pass Final ??? POC STREP SCRN 10/09/2020 Presumptive negative Final ??? POC STREP SCREEN CONTROL 10/09/2020 Spout Tender Pass Final ??? SARSCOV2 10/09/2020 NOT DETECTED (Reference Range for this test is Not Detected) Final This test was performed by a RT-PCR method. No results found for: WBC, HEMOGLOBIN, HEMATOCRIT, PLATELETCNT, CHOLESTEROL, TRIGLYCRIDES, HDLCHOLESTE, LDL, PSA, PSASCREEN, INR, HGBA1C, MACRRAND, JIMIVPUP73, FOLAT, ESR, VIT12 No results found for: [...] Return in about 6 weeks (around 06/30/2021). ATTACHER documented in this encounter Plan of Treatment Not on file documented as of this encounter Goals Goal Patient Goal Type Associated Problems Recent Progress Patient-Stated? Author I would like ways to control my anxiety and learn coping skills . Behavioral Health On track( 1:47 PM PIN ATTACHER) No Ananya Crenshaw, CONSTRUCTION EQUIPMENT OPERATOR Note: Goal Reviewed with: patient today Readiness to change: Ready to change Department associated with goal: [facility] BEHAVIORAL HEALTH SERVICES Steps to achieve goal: will identify at least two coping skills/activities/habits that have helped to manage anxiety in the past. will identify at least three new coping skills/activities/habits that may help to prevent and/or cope with anxiety. 3. Will attend individual and/or group therapy at least 1x/month Anxiety astress Depression On track( 1:47 PM PIN ATTACHER) Yes Reina Laguna, CONSTRUCTION EQUIPMENT OPERATOR Note: Kaylee will report an improved management of anxiety symptoms Goal Reviewed with: patient today Readiness to change: Ready to change Department associated with goal: [facility] BEHAVIORAL HEALTH SERVICES Steps to [...] mild documented in this encounter Care Teams Refrigeration Systems Installer Relationship Specialty Start Date End Date Jamaica Saavedra APRN, DINKEY ENGINE MECHANIC #[address] [phone] PCP - General Advanced Practice Nurse 01/26/21 documented as of this encounter
--- OUTSIDE RECORDS SUMMARY | 2024-03-11 22:40 | XMS_ITS | Encounter Summary ---
Author Organization [facility] Address [address] [place] [address] Phone Care Team Providers Care Supervisor Electronics Assembly Name Role Phone Jamaica Saavedra APRN, CNP Primary Care Provid er Emory Erazo MD Unavailable [phone] Reason for Visit * Reason Comments Cough Patient is here for a cough x 3 weeks, has taken weekly covid tests all are negative Encounter Details Date Type Department Care Team (Late st Contact Info) Description 06/14/2022 3:30 PM CDT Office Visit [facility] - Family Medicine [facility] [address] [place] [phone] Jamaica Saavedra APRN, CNP #[address] [phone] Bronchitis (Primary Dx) Discharge Disposition: Discharged to [...] Sex Assigned at Female 04/04/2023 7:31 PM RAW SCALES OPERATOR Legal Sex Female 4:36 PM CDT Gender Identity Female 04/04/2023 7:31 PM RAW SCALES OPERATOR Sexual Orientation Not on file COVID-19 [...] FAMILY [facility] #2 [facility] [address] Dept: [phone] Dept Loc: [phone] Loc Patient: Kaylee Melchor : 1995 Sex: [...] . Behavioral Health On track( 1:47 PM RAW SCALES OPERATOR) No Ananya Crenshaw LCSW Note: Goal Reviewed with: patient today Readiness to change: Ready to change Department associated with goal: [facility]AVIORAL HEALTH SERVICES Steps to achieve goal: will identify at least two coping skills/activities/habits that have helped to manage anxiety in the past. will identify at least three new coping skills/activities/habits that may help to prevent and/or cope with anxiety. 3. Will attend individual and/or group therapy at least 1x/month Anxiety astress Depression On track( 1:47 PM RAW SCALES OPERATOR) Yes Reina Laguna LCSW Note: Kaylee will report an improved management of anxiety symptoms Goal Reviewed with: patient today Readiness to change: Ready to change Department associated with goal: [facility]IORAL HEALTH SERVICES Steps to achieve goal: [...] documented as of this encounter Care Teams Supervisor Electronics Assembly Relationship Specialty Start Date End Date Jamaica Saavedra APRN, READING SPECIALIST #[address] [phone] PCP - General Advanced Practice Nurse 01/26/21 Emory Erazo MD [address] [phone] Obstetrics & Gynecology 06/30/21 documented as of this encounter
--- OUTSIDE RECORDS SUMMARY | 2024-03-11 22:40 | XMS_ITS | Encounter Summary ---
Author Organization [facility] Care Team Providers Care Grave Cleaner Name Role Phone Jamaica Saavedra APRN, CNP [...] Sex Assigned at Female 04/04/2023 7:31 PM INSPECTOR BRAKE LINING Legal Sex Female 4:36 PM CDT Gender Identity Female 04/04/2023 7:31 PM INSPECTOR BRAKE LINING Sexual Orientation Not on file COVID-19 Exposure Response Date Recorded In the last month, have you been in contact with someone who was confirmed or suspected to have Coronavirus / COVID-19? Yes 03/27/2021 2:50 PM INSPECTOR BRAKE LINING documented as of this encounter Plan of Treatment Not on file documented as of this encounter Goals Goal Patient Goal Type Associated Problems Recent Progress Patient-Stated? Author I would like ways to control my anxiety and learn coping skills . Behavioral Health On track( 022 1:47 PM INSPECTOR BRAKE LINING) No Ananya Crenshwa LCSW Note: Goal Reviewed with: patient today Readiness to change: Ready to change Department associated with goal: [facility] BEHAVIORAL HEALTH SERVICES Steps to achieve goal: will identify at least two coping skills/activities/habits that have helped to manage anxiety in the past. will identify at least three new coping skills/activities/habits that may help to prevent and/or cope with anxiety. 3. Will attend individual and/or group therapy at least 1x/month Anxiety astress Depression On track( 022 1:47 PM INSPECTOR BRAKE LINING) Yes Reina Laguna, FUNDRAISING SALE REPRESENTATIVE Note: Kaylee will report an improved management of anxiety symptoms Goal Reviewed with: patient today Readiness to change: Ready to change Department associated with goal: [facility] BE[facility]AVIORAL HEALTH SERVICES Steps [...] on filedocumented in this encounter Care Teams Grave Cleaner Relationship Specialty Start Date End Date Jamaica Saavedra APRN, KRISTINE #[address] [phone] PCP - General Advanced Practice Nurse 01/26/21 documented as of this encounter
--- OUTSIDE RECORDS SUMMARY | 2024-03-11 22:40 | XMS_ITS | Encounter Summary ---
Author Organization [facility] Address [address] [place] [address] Phone Care Team Providers Care Molding Press Operator Name Role Phone Jamaica Saavedra APRN, KRISTINE Primary Care Provid er Emory Erazo MD Unavailable [phone] Reason for Visit * Reason Comments Follow-up 6 week f/u Encounter Details Date Type Department Care Team (Late st Contact Info) Description 06/30/2021 10:30 AM CDT [facility] [address] [place] [address] Jamaica Saavedra APRN, DRUM DRIER #[address] [phone] Sinus congestion (Primary Dx); Major [...] Sex Assigned at Female 04/04/2023 7:31 PM LCAC RADAR OPERATOR/NAVIGATOR Legal Sex Female 4:36 PM CDT Gender Identity Female 04/04/2023 7:31 PM LCAC RADAR OPERATOR/NAVIGATOR Sexual Orientation Not on file COVID-19 Exposure [...] APRN, CNP - 06/30/2021 10:30 AM CDT [facility] #2 [facility] [address] Dept: [phone] Dept Loc: [phone] Loc Patient: Kaylee Melchor : 1995 Sex: [...] . Behavioral Health On track( 1:47 PM LCAC RADAR OPERATOR/NAVIGATOR) No Ananya Crenshaw LCSW Note: Goal Reviewed with: patient today Readiness to change: Ready to change Department associated with goal: [facility] BEHAVIORAL HEALTH SERVICES Steps to achieve goal: will identify at least two coping skills/activities/habits that have helped to manage anxiety in the past. will identify at least three new coping skills/activities/habits that may help to prevent and/or cope with anxiety. 3. Will attend individual and/or group therapy at least 1x/month Anxiety astress Depression On track( 022 1:47 PM LCAC RADAR OPERATOR/NAVIGATOR) Yes Reina Laguna LCSW Note: Kaylee will report an improved management of anxiety symptoms Goal Reviewed with: patient today Readiness to change: Ready to change Department associated with goal: [facility] BEHAVIORAL HEALTH SERVICES Steps to [...] disorder documented in this encounter Care Teams Molding Press Operator Relationship Specialty Start Date End Date Jamaica Saavedra APRN, DRUM DRIER #[address] [phone] PCP - General Advanced Practice Nurse 01/26/21 Emory Erazo MD [address] [address] Obstetrics & Gynecology 06/30/21 documented as of this encounter
--- OUTSIDE RECORDS SUMMARY | 2024-03-11 22:40 | XMS_ITS | Encounter Summary ---
Author Organization [employer] Care Team Providers Care Adjuster Electrical Contacts Name Role Phone Jamaica Saavedra APRN, CNP Primary Care Provid er Emory Erazo MD Unavailable [phone] Encounter Details Date Type Department Care [...] Sex Assigned at Female 04/04/2023 7:31 PM UNDERWATER HUNTER Legal Sex Female 4:36 PM CDT Gender Identity Female 04/04/2023 7:31 PM UNDERWATER HUNTER Sexual Orientation Not on file COVID-19 Exposure [...] . Behavioral Health On track( 1:47 PM UNDERWATER HUNTER) No Ananya Crenshaw, MEDICATION ADMINISTRATION PROFESSIONAL Note: Goal Reviewed with: patient today Readiness to change: Ready to change Department associated with goal: [facility] Steps to achieve goal: will identify at least two coping skills/activities/habits that have helped to manage anxiety in the past. will identify at least three new coping skills/activities/habits that may help to prevent and/or cope with anxiety. 3. Will attend individual and/or group therapy at least 1x/month Anxiety astress Depression On track( 022 1:47 PM UNDERWATER HUNTER) Yes Reina Laguna, MEDICATION ADMINISTRATION PROFESSIONAL Note: Kaylee will report an improved management of anxiety symptoms Goal Reviewed with: patient today Readiness to change: Ready to change Department associated with goal: [facility] Steps [...] on filedocumented in this encounter Care Teams Adjuster Electrical Contacts Relationship Specialty Start Date End Date Jamaica Saavedra APRN, CNP #[address] [phone] PCP - General Advanced Practice Nurse 01/26/21 Emory Erazo MD [address] [phone] Obstetrics & Gynecology 06/30/21 documented as of this encounter
--- OUTSIDE RECORDS SUMMARY | 2024-03-11 22:40 | XMS_ITS | Encounter Summary ---
Author Organization [facility] Address [address] [place] [address] Phone Care Team Providers Care Low Pressure Boiler Operator Name Role Phone Jamaica Saavedra APRN, CNP Primary Care Provid er Emory Erazo MD Unavailable [phone] Reason for Visit * Reason Comments Ear Pain Cough Encounter Details Date Type Department Care Team (Late st Contact Info) Description 05/26/2022 7:11 AM CDT - 05/26/2022 7:40 AM CDT Emergency [facility] Emergency [address] [place] [id number] Jeffrey Rojas MD [address] [place] [address] Tympanic membrane perforation, marginal, right Discharge Disposition: [...] Assigned at Female 04/04/2023 7:31 PM RESPIRATORY CARE FACULTY Legal Sex Female 4:36 PM CDT Gender Identity Female 04/04/2023 7:31 PM RESPIRATORY CARE FACULTY Sexual Orientation Not on file COVID-19 Exposure [...] sent through Care Everywhere. * Eardrum Rupture Wrnu-ze-Xepo (Polish) * Otitis Media Adult Eyad-sh-Mybj (Polish) documented in this encounter Medications at Time [...] Behavioral Health On track( 1:47 PM RESPIRATORY CARE FACULTY) No Ananya Crenshaw, ENVIRONMENTAL WEB CRAWLER Note: Goal Reviewed with: patient today Readiness to change: Ready to change Department associated with goal: [facility] Steps to achieve goal: will identify at least two coping skills/activities/habits that have helped to manage anxiety in the past. will identify at least three new coping skills/activities/habits that may help to prevent and/or cope with anxiety. 3. Will attend individual and/or group therapy at least 1x/month Anxiety astress Depression On track( 022 1:47 PM RESPIRATORY CARE FACULTY) Yes Reina Laguna, ENVIRONMENTAL WEB CRAWLER Note: Kaylee will report an improved management of anxiety symptoms Goal Reviewed with: patient today Readiness to change: Ready to change Department associated with goal: [facility] Steps [...] right documented in this encounter Care Teams Low Pressure Boiler Operator Relationship Specialty Start Date End Date Jamaica Saavedra APRN, KRISTINE [address] [phone] PCP - General Advanced Practice Nurse 01/26/21 Emory Erazo MD [address] [phone] Obstetrics & Gynecology 06/30/21 documented as of this encounter
--- OUTSIDE RECORDS SUMMARY | 2024-03-11 22:40 | XMS_ITS | Encounter Summary ---
Author Organization [facility] Address [address] [place] [address] Phone Care Team Providers Care Flattening Machine Operator Name Role Phone Provider, None Primary Care Provider Unavailabl e Reason for Visit * Reason Onset Date Comments Need Order 03/10/2020 Encounter Details Date Type Department Care Team (Late st Contact Info) Description 03/10/2020 Telephone [facility] - [facility] Medicine - [place] [address] [place] [address] Alyson Enriquez APRN, CAPPING MACHINE OPERATOR [address] [place] [address] Need Order Social History Tobacco Use Types Packs/Day Years Used Date Smoking Tobacco: Never Assessed Comments Unknown Sex and Gender Information Value Date Recorded Sex Assigned at Female 04/04/2023 7:31 PM SLATE CUTTER OPERATOR Legal Sex Female 4:36 PM CDT Gender Identity Female 04/04/2023 7:31 PM SLATE CUTTER OPERATOR Sexual Orientation Not on file documented as of this encounter Miscellaneous Notes * Telephone Encounter - Estefania Nguyen RN - 03/10/2020 12:03 PM CST Order entered per Meghann, okay to enter prompt care MANIPULATIVE THERAPY SPECIALIST for order as pt had prompt care visit there today for PCR. E CUTTER OPERATOR documented in this encounter Plan of Treatment Not on file documented as of this encounter Visit Diagnoses Diagnosis Loss of taste- Primary Disturbances of sensation of smell and taste Runny nose Other diseases of nasal cavity and sinuses documented in this encounter Additional Health Concerns Infection Onset Date Last Indicated Resolved Time COVID - 19 03/10/2020 03/10/2020 03/11/2020 12:4 7 PM SLATE CUTTER OPERATOR documented as of this encounter Care Teams Flattening Machine Operator Relationship Specialty Start Date End Date Provider, None [place] PCP - General 06/17/17 01/25/21 documented as of this encounter
--- OUTSIDE RECORDS SUMMARY | 2024-03-11 22:40 | XMS_ITS | Encounter Summary ---
Author Organization [employer] Care Team Providers Care Lab Aide Name Role Phone Jamaica Saavedra APRN, CNP [...] COVID-19? No / Unsure 01/26/2021 9:40 AM STONE REPAIRER documented as of this encounter Plan of Treatment Not on file documented as of this encounter Visit Diagnoses Not on filedocumented in this encounter Care Teams Lab Aide Relationship Specialty Start Date End Date Jamaica Saavedra APRN, CNP #[address] [phone] PCP - General Advanced Practice Nurse 01/26/21 documented as of this encounter
--- OUTSIDE RECORDS SUMMARY | 2024-03-11 22:40 | XMS_ITS | Encounter Summary ---
Author Organization [employer] Care Team Providers Care Planer Chain Offbearer Name Role Phone Jamaica Saavedra APRN, CNP Primary Care Provid er Emory Erazo MD Unavailable [phone] Encounter Details Date Type Department Care [...] Sex Assigned at Female 04/04/2023 7:31 PM PORTFOLIO CONSULTANT Legal Sex Female 4:36 PM CDT Gender Identity Female 04/04/2023 7:31 PM PORTFOLIO CONSULTANT Sexual Orientation Not on file COVID-19 Exposure [...] . Behavioral Health On track( 1:47 PM PORTFOLIO CONSULTANT) No Ananya Crenshaw, SLIVER MACHINE OPERATOR Note: Goal Reviewed with: patient today Readiness to change: Ready to change Department associated with goal: [facility] Steps to achieve goal: will identify at least two coping skills/activities/habits that have helped to manage anxiety in the past. will identify at least three new coping skills/activities/habits that may help to prevent and/or cope with anxiety. 3. Will attend individual and/or group therapy at least 1x/month Anxiety astress Depression On track( 022 1:47 PM PORTFOLIO CONSULTANT) Yes Reina Laguna, SLIVER MACHINE OPERATOR Note: Kaylee will report an improved management of anxiety symptoms Goal Reviewed with: patient today Readiness to change: Ready to change Department associated with goal: [facility] Steps to [...] on filedocumented in this encounter Care Teams Planer Chain Offbearer Relationship Specialty Start Date End Date Jamaica Saavedra APRN, CNP #[address] [address] PCP - General Advanced Practice Nurse 01/26/21 Emory Erazo MD [address] [phone] Obstetrics & Gynecology 06/30/21 documented as of this encounter
--- OUTSIDE RECORDS SUMMARY | 2024-03-11 22:40 | XMS_ITS | Encounter Summary ---
Author Organization [facility] Address [address] [place] [address] Phone Care Team Providers Care Cookie Padder Name Role Phone Jamaica Saavedra APRN, CNP Primary Care Provid er Emory Erazo MD Unavailable [phone] Reason for Visit * Reason Comments Follow-up 3 mo Encounter Details Date Type Department Care Team (Late st Contact Info) Description 10/03/2021 10:15 AM CDT Office Visit [facility] - Family [facility] [address] [place] [address] Jamaica Saavedra APRN, CNP #[address] [address] Generalized anxiety disorder (Primary Dx); [...] Sex Assigned at Female 04/04/2023 7:31 PM PROFESSIONAL ARCHITECT Legal Sex Female 4:36 PM CDT Gender Identity Female 04/04/2023 7:31 PM PROFESSIONAL ARCHITECT Sexual Orientation Not on file COVID-19 Exposure [...] APRN, CNP - 10/03/2021 10:15 AM CDT [facility] [address]2 [facility] [address] Dept: [phone] Dept Loc: [phone] Loc Patient: Kaylee Melchor : 1995 Sex: [...] Behavioral Health On track( 022 1:47 PM PROFESSIONAL ARCHITECT) No Ananya Crenshaw LCSW Note: Goal Reviewed [...] astress Depression On track( 022 1:47 PM PROFESSIONAL ARCHITECT) Yes Reina Laguna LCSW Note: Kaylee will [...] mild documented in this encounter Care Teams Cookie Padder Relationship Specialty Start Date End Date Jamaica Saavedra APRN, KRISTINE #[address] [address] PCP - General Advanced Practice Nurse 01/26/21 Emory Erazo MD [address] [address] Obstetrics & Gynecology 06/30/21 documented as of this encounter
--- OUTSIDE RECORDS SUMMARY | 2024-03-11 22:40 | XMS_ITS | Encounter Summary ---
Author Organization [employer] Care Team Providers Care Acquisition Editor Name Role Phone Provider, None Primary Care Provider Unavailabl e Encounter Details Date Type Department Care Team (Latest Contact Info) Description 10/09/2020 Travel Social History Tobacco Use Types Packs/Day Years Used Date Smoking Tobacco: Never Smokeless Tobacco: Never Comments Unknown Sex and Gender Information Value Date Recorded Sex Assigned at Female 04/04/2023 7:31 PM CAT SWAMPER Legal Sex Female 4:36 PM CDT Gender Identity Female 04/04/2023 7:31 PM CAT SWAMPER Sexual Orientation Not on file COVID-19 Exposure [...] documented as of this encounter Care Teams Acquisition Editor Relationship Specialty Start Date End Date Provider, None [place] PCP - General 06/17/17 01/25/21 documented as of this encounter
--- OUTSIDE RECORDS SUMMARY | 2024-03-11 22:40 | XMS_ITS | Encounter Summary ---
Author Organization [employer] Care Team Providers Care Hearing Specialist Name Role Phone Jamaica Saavedra APRN, CNP Primary Care Provid er Emory Erazo MD Unavailable [phone] Encounter Details Date Type Department Care [...] Sex Assigned at Female 04/04/2023 7:31 PM MICA PATCHER Legal Sex Female 4:36 PM CDT Gender Identity Female 04/04/2023 7:31 PM MICA PATCHER Sexual Orientation Not on file COVID-19 Exposure Response Date Recorded In the last 10 days, have yo u been in contact with someone who was confirmed or suspected to have Coronavirus/COVID-19? No / Unsure 02/06/2022 12:04 PM MICA PATCHER documented as of this encounter Plan of Treatment Not on file documented as of this encounter Goals Goal Patient Goal Type Associated Problems Recent Progress Patient-Stated? Author I would like ways to control my anxiety and learn coping skills . Behavioral Health On track( 1:47 PM MICA PATCHER) No Ananya Crenshaw, FIRE ENGINEER Note: Goal Reviewed with: patient today Readiness [...] astress Depression On track( 022 1:47 PM MICA PATCHER) Yes Reina Laguna, FIRE ENGINEER Note: Kaylee will report an improved management [...] on filedocumented in this encounter Care Teams Hearing Specialist Relationship Specialty Start Date End Date Jamaica Saavedra APRN, CNP #[address] [phone] PCP - General Advanced Practice Nurse 01/26/21 Emory Erazo MD [address] [phone] Obstetrics & Gynecology 06/30/21 documented as of this encounter
--- OUTSIDE RECORDS SUMMARY | 2024-03-11 22:40 | XMS_ITS | Encounter Summary ---
Author Organization [facility] Address [address] [place] [address] Phone Care Team Providers Care Skiving Machine Operator Name Role Phone Jamaica Saavedra APRN, CNP Primary Care Provid er Emory Erazo MD Unavailable [phone] Reason for Referral * Consult, Test & Initiate Treatment (Less Than 4 Weeks) - Closed Specialty Diagnoses / Procedures Referred By Contlara t Referred To Contact Behavioral Health Diagnoses Generalized anxiety disorder Major depressive disorder, recurrent, mild (HCC) Jamaica Saavedra APRN, CNP #[address] [address] Phone: tel: fax: Estefania Valera LCSW Referral ID Status Reason Start Date Expiration Date Visits Re quested Visits Authorized [id number] Closed 11/14/2021 1 1 Scheduling Instructions Kaylee is being referred for ADHD screening. Please contact patient for scheduling questions or concerns. Reason for Visit * Reason Comments Follow-up 6 week follow up for anxiety. Encounter Details Date Type Department Care Team ([facility] st Contact Info) Description 11/14/2021 10:00 AM CDT Office Visit [facility] [address] [place] [address] Jamaica Saavedra APRN, LOGISTICS DIRECTOR #[address] [address] Generalized anxiety disorder (Primary Dx); [...] Sex Assigned at Female 04/04/2023 7:31 PM SAP ARIBA CONSULTANT Legal Sex Female 4:36 PM CDT Gender Identity Female 04/04/2023 7:31 PM SAP ARIBA CONSULTANT Sexual Orientation Not on file COVID-19 [...] - 11/14/2021 10:00 AM CDT [facility] [place] [address] [facility] [address] Dept: [phone] Dept Loc: [phone] Loc Patient: Kaylee Melchor : 1995 Sex: [...] Flu immunizations per order of Jamaica Saavedra MANAGER PARTY-BC dated 11/14/21. Administered in left deltoid . [...] Behavioral Health On track( 022 1:47 PM SAP ARIBA CONSULTANT) No Ananya Crenshaw, DOUGH MOLDER Note: Goal Reviewed with: patient today Readiness to change: Ready to change Department associated with goal: [facility] Steps to achieve goal: will identify at least two coping skills/activities/habits that have helped to manage anxiety in the past. will identify at least three new coping skills/activities/habits that may help to prevent and/or cope with anxiety. 3. Will attend individual and/or group therapy at least 1x/month Anxiety astress Depression On track(11/29/2 022 1:47 PM SAP ARIBA CONSULTANT) Yes Reina Laguna, DOUGH MOLDER Note: Kaylee will report an improved management of anxiety symptoms Goal Reviewed with: patient today Readiness to change: Ready to change Department associated with goal: [facility] Steps to achieve goal: [...] disease documented in this encounter Care Teams Skiving Machine Operator Relationship Specialty Start Date End Date Jamaica Saavedra APRN, CNP #[address] [address] PCP - General Advanced Practice Nurse 01/26/21 Emory Erazo MD [address] [address] Obstetrics & Gynecology 06/30/21 documented as of this encounter
--- OUTSIDE RECORDS SUMMARY | 2024-03-11 22:40 | XMS_ITS | Encounter Summary ---
Author Organization [facility] Address [address] [place] [address] Phone Care Team Providers Care Optical Glass Etcher Name Role Phone Jamaica Saavedra APRN, CNP Primary Care Provid er Emory Erazo MD Unavailable [phone] Reason for Visit * Reason Onset Date Comments Medication Refill 04/30/2022 Encounter Details Date Type Department Care Team (Late st Contact Info) Description 04/30/2022 [facility]ill [facility] - [place] [address] [place] [address] Jamaica Saavedra APRN, CNP #[address] [address] Medication Refill Social History Tobacco [...] Sex Assigned at Female 04/04/2023 7:31 PM COMMUNITY EDUCATION COORDINATOR Legal Sex Female 4:36 PM CDT Gender Identity Female 04/04/2023 7:31 PM COMMUNITY EDUCATION COORDINATOR Sexual Orientation Not on file documented as [...] Dept 11/14/21 Office Visit Jamaica Saavedra APRN, VERIFYING MACHINE OPERATOR [facility] [place] Showing recent visits within past 182 [...] Dept 11/14/21 Office Visit Jamaica Saavedra APRN, VERIFYING MACHINE OPERATOR [facility] Showing recent visits within past 182 days and meeting all other requirements Future Appointments No visits were found meeting these conditions. Showing future appointments within next 90 days and meeting all other requirements Passed - Has an encounter in the past 6 months with a depression or anxiety visit diagnosis Passed - Patient has established therapy with Buspirone for at least 6 months UNITY EDUCATION COORDINATOR * Telephone Encounter - Reyna Frazier RN - 05/01/2022 8:11 AM CST busPIRone (BUSPAR) 5 MG Tablet The original prescription was discontinued on 11/14/2021 by Jamaica Saavedra APRN, VERIFYING MACHINE OPERATOR Per 11/14/21 OV note - discontinued due to side effects UNITY EDUCATION COORDINATOR * Telephone Encounter - Jeanine Crook - 04/30/2022 3:39 PM CST Pharmacy called requested refill UNITY EDUCATION COORDINATOR documented in this encounter Plan of Treatment Not on file documented as of this encounter Goals Goal Patient Goal Type Associated Problems Recent Progress Patient-Stated? Author I would like ways to control my anxiety and learn coping skills . Behavioral Health On track( 1:47 PM COMMUNITY EDUCATION COORDINATOR) No Ananya Crenshaw, SPECIAL EQUIPMENT TECHNICIAN Note: Goal Reviewed with: patient today Readiness to change: Ready to change Department associated with goal: [facility] Steps to achieve goal: will identify at least two coping skills/activities/habits that have helped to manage anxiety in the past. will identify at least three new coping skills/activities/habits that may help to prevent and/or cope with anxiety. 3. Will attend individual and/or group therapy at least 1x/month Anxiety astress Depression On track( 1:47 PM COMMUNITY EDUCATION COORDINATOR) Yes Reina Laguna SPECIAL EQUIPMENT TECHNICIAN Note: Kaylee will report an improved management of anxiety symptoms Goal Reviewed with: patient today Readiness to change: Ready to change Department associated with goal: [facility] [...] mild documented in this encounter Care Teams Optical Glass Etcher Relationship Specialty Start Date End Date [place] Saavedra APRN, CNP #[address] [address] PCP - General Advanced Practice Nurse 01/26/21 Emory Erazo MD [address] [address] Obstetrics & Gynecology 06/30/21 documented as of this encounter
--- OUTSIDE RECORDS SUMMARY | 2024-03-11 22:40 | XMS_ITS | Encounter Summary ---
Author Organization [facility] Address [address] [place] [address] Phone Care Team Providers Care Isotope Technologist Name Role Phone Jamaica Saavedra APRN, CNP Primary Care Provid er Reason for Visit * Reason Comments Anxiety * Auth/Cert Specialty Diagnoses / Procedures Referred By Anamaria lay Referred To Contact Referral ID Status Reason Start Date Expiration Date Visits Re quested Visits Authorized [id number] 1 1 Encounter Details Date Type Department Care Team (Latest Contact Info) Description 03/27/2021 3:00 PM FRESH FOODS CAKE DECORATOR Outpatient Clinic [facility] [address] [place] [address] Dez Nieves, STREET SPRINKLER [address] [place] [address] Major depressive disorder, recurrent, mild (HCC) (Primary [...] Sex Assigned at Female 04/04/2023 7:31 PM FRESH FOODS CAKE DECORATOR Legal Sex Female 4:36 PM CDT Gender Identity Female 04/04/2023 7:31 PM FRESH FOODS CAKE DECORATOR Sexual Orientation Not on file COVID-19 Exposure Response Date Recorded In the last month, have you been in contact with someone who was confirmed or suspected to have Coronavirus / COVID-19? Yes 03/27/2021 2:50 PM FRESH FOODS CAKE DECORATOR documented as of this encounter Patient Instructions * Patient Instructions* Dez Nieves, STREET SPRINKLER - 03/27/2021 3:00 PM FRESH FOODS CAKE DECORATOR The One Muscle That Does Not Need [...] thoughts that add to depression or anxiety Xsw-da-cmwpaxq thinking - Looking at things in biszb-fy-eqcsw categories, with no middle ground (???If I [...] without actual evidence. You act like a warehouse clerk (???He must think I???m pathetic?? ) or a psychologist (???I???ll be stuck in this end job [...] the REAL evidence support your negative thoughts? H FOODS CAKE DECORATOR documented in this encounter Progress Notes * Dez Nieves LCSW - 03/27/2021 3:00 PM CST [facility] CLINICAL PROGRESS NOTE NAME: [...] to change Department associated with goal: [facility] Steps to [...] to change Department associated with goal: [facility] Steps to [...] up appointment. 3 weeks DEZ NIEVES LCSW H FOODS CAKE DECORATOR documented in this encounter Plan of Treatment Not on file documented as of this encounter Goals Goal Patient Goal Type Associated Problems Recent Progress Patient-Stated? Author I would like ways to control my anxiety and learn coping skills . Behavioral Health On track( 1:47 PM FRESH FOODS CAKE DECORATOR) No Ananya Crenshaw LCSW Note: Goal Reviewed with: patient today Readiness to change: Ready to change Department associated with goal: [facility] Steps to achieve goal: will identify at least two coping skills/activities/habits that have helped to manage anxiety in the past. will identify at least three new coping skills/activities/habits that may help to prevent and/or cope with anxiety. 3. Will attend individual and/or group therapy at least 1x/month Anxiety astress Depression On track( 1:47 PM FRESH FOODS CAKE DECORATOR) Yes Dez Nieves LCSW Note: Kaylee will report an improved management of anxiety symptoms Goal Reviewed with: patient today Readiness to change: Ready to change Department associated with goal: [facility] Steps to [...] disorder documented in this encounter Care Teams Isotope Technologist Relationship Specialty Start Date End Date [place] Saavedra APRN, SUPPLY CLERK #[address] [phone] PCP - General Advanced Practice Nurse 01/26/21 documented as of this encounter
--- OUTSIDE RECORDS SUMMARY | 2024-03-11 22:40 | XMS_ITS | Encounter Summary ---
Author Organization [facility] Care Team Providers Care Cfa Name Role Phone [place] Saavedra APRN, CNP Primary Care Provid er Emory Erazo MD Unavailable [phone] Encounter Details Date Type Department Care [...] Sex Assigned at Female 04/04/2023 7:31 PM COMPOUND SPECIALIST Legal Sex Female 4:36 PM CDT Gender Identity Female 04/04/2023 7:31 PM COMPOUND SPECIALIST Sexual Orientation Not on file COVID-19 Exposure Response Date Recorded In the last 10 days, have yo u been in contact with someone who was confirmed or suspected to have Coronavirus/COVID-19? No / Unsure 01/14/2022 9:54 AM COMPOUND SPECIALIST documented as of this encounter Plan of Treatment Not on file documented as of this encounter Goals Goal Patient Goal Type Associated Problems Recent Progress Patient-Stated? Author I would like ways to control my anxiety and learn coping skills . Behavioral Health On track( 1:47 PM COMPOUND SPECIALIST) No Ananya Crenshaw, COLLEGE PHYSICS INSTRUCTOR Note: Goal Reviewed with: patient today Readiness to change: Ready to change Department associated with goal: [facility] Steps to achieve goal: will identify at least two coping skills/activities/habits that have helped to manage anxiety in the past. will identify at least three new coping skills/activities/habits that may help to prevent and/or cope with anxiety. 3. Will attend individual and/or group therapy at least 1x/month Anxiety astress Depression On track( 022 1:47 PM COMPOUND SPECIALIST) Yes Reina Laguna, COLLEGE PHYSICS INSTRUCTOR Note: Kaylee will report an improved management of anxiety symptoms Goal Reviewed with: patient today Readiness to change: Ready to change Department associated with goal: [facility] Steps to [...] on filedocumented in this encounter Care Teams Cfa Relationship Specialty Start Date End Date Jamaica Saavedra APRN, CNP #[address] [id number] PCP - General Advanced Practice Nurse 01/26/21 Emory Erazo MD [address] [id number] Obstetrics & Gynecology 06/30/21 documented as of this encounter
--- OUTSIDE RECORDS SUMMARY | 2024-03-11 22:41 | XMS_ITS | Encounter Summary ---
Author Organization [facility] Address [address] [place] [address] Phone Care Team Providers Care Dye Stand Loader Name Role Phone Provider, None Primary Care Provider Unavailabl e Reason for Visit * Reason Comments Finger Injury Encounter Details Date Type Department Care Team (Late st Contact Info) Description 09/02/2019 5:17 PM CDT - 09/02/2019 7:10 PM CDT Emergency [facility] Emergency [address] [place] [address] Kelsea Mcginnis, PAC [address] [place] [address] Open fracture of tuft of distal phalanx of finger Discharge Disposition: Discharged to home or Selfcare Social History Tobacco Use Types Packs/Day Years Used Date Smoking Tobacco: Never Assessed Comments Unknown Sex and Gender Information Value Date Recorded Sex Assigned at Female 04/04/2023 7:31 PM CHIEF ENGINEER WATERWORKS Legal Sex Female 4:36 PM CDT Gender Identity Female 04/04/2023 7:31 PM CHIEF ENGINEER WATERWORKS Sexual Orientation Not on file COVID-19 Exposure [...] * Laceration, Extremity: Stitches, Staple, or Tape ([place]) documented in this encounter Medications at Time [...] file Gets together: Not on file Attends jewish service: Not on file Active member of [...] to verify the correct patient, procedure, equipment, program support assistant and site/side marked as required. Body area: [...] splint applied to R 4th digit by forestry aid technician. Pre and post application neurovascular intact. Imaging [...] to verify the correct patient, procedure, equipment, program support assistant and site/side marked as required. Body area: [...] PM T: ??09/02/2019 6:41 PM Report ID: [id number] Reading Location: ??[id number] Procedure Note Eulalio Ly MD - 09/02/2019 [...] by Eulalio Ly BG: BG Report ID: [id number] Reading Location: [id number] IMPRESSION: Minimally displaced fracture of the 4th distal phalanx. us Kelsea Assumption Page PAC IMG DIAGNOSTIC ORDERABLES Fi nal [...] VENTROGLUTEAL) documented in this encounter Care Teams Dye Stand Loader Relationship Specialty Start Date End Date Provider, None [place] PCP - General 06/17/17 01/25/21 documented as of this encounter
--- OUTSIDE RECORDS SUMMARY | 2024-03-11 22:41 | XMS_ITS | Encounter Summary ---
Author Organization [employer] [facility] Care Team Providers Care Md Physician Dermatologist Name Role Phone Provider, None Primary Care Provider Unavailabl e Encounter Details Date Type Department Care Team (Latest Contact Info) Description 04/17/2019 Travel Social History Tobacco Use Types Packs/Day Years Used Date Smoking Tobacco: Never Assessed Comments Unknown Sex and Gender Information Value Date Recorded Sex Assigned at Female 04/04/2023 7:31 PM MEDICAL RESEARCH ASSISTANT Legal Sex Female 4:36 PM CDT Gender Identity Female 04/04/2023 7:31 PM MEDICAL RESEARCH ASSISTANT Sexual Orientation Not on file documented as of this encounter Plan of Treatment Not on file documented as of this encounter Visit Diagnoses Not on filedocumented in this encounter Care Teams Md Physician Dermatologist Relationship Specialty Start Date End Date Provider, Rosina DEE PCP - General 06/17/17 01/25/21 documented as of this encounter
--- OUTSIDE RECORDS SUMMARY | 2024-03-11 22:41 | XMS_ITS | Encounter Summary ---
Author Organization [facility] Care Team Providers Care Finance Accounting Internship Name Role Phone Provider, None Primary Care Provider Unavailabl e Encounter Details Date Type Department Care Team (Latest Contact Info) Description 09/02/2019 Travel Social History Tobacco Use Types Packs/Day Years Used Date Smoking Tobacco: Never Assessed Comments Unknown Sex and Gender Information Value Date Recorded Sex Assigned at Female 04/04/2023 7:31 PM POLITICAL ORGANIZER Legal Sex Female 4:36 PM CDT Gender Identity Female 04/04/2023 7:31 PM POLITICAL ORGANIZER Sexual Orientation Not on file COVID-19 Exposure [...] on filedocumented in this encounter Care Teams Finance Accounting Internship Relationship Specialty Start Date End Date Provider, None [place] PCP - General 06/17/17 01/25/21 documented as of this encounter
--- OUTSIDE RECORDS SUMMARY | 2024-03-11 22:41 | XMS_ITS | Encounter Summary ---
Author Organization [facility] Address [address] [place] [address] Phone Care Team Providers Care Sld Inclusion Teacher Name Role Phone Provider, None Primary Care Provider Unavailabl e Encounter Details Date Type Department Care Team (Late st Contact Info) Description 01/25/2020 Telephone [facility] [place] [address] [place] [phone] Chris So MD Social History Tobacco Use Types Packs/Day Years Used Date Smoking Tobacco: Never Assessed Comments Unknown Sex and Gender Information Value Date Recorded Sex Assigned at Female 04/04/2023 7:31 PM INJECTION PRESS OPERATOR Legal Sex Female 4:36 PM CDT Gender Identity Female 04/04/2023 7:31 PM INJECTION PRESS OPERATOR Sexual Orientation Not on file documented as of this encounter Miscellaneous Notes * Telephone Encounter - Toña Lancaster RN - 01/25/2020 3:37 PM CST Pt was given the results of the rapid covid swab test. Pt verbalized understanding; denied having any questions or concerns when asked. No signs of distress noted. CTION PRESS OPERATOR documented in this encounter Plan of Treatment Not on file documented as of this encounter Visit Diagnoses Not on filedocumented in this encounter Additional Health Concerns Infection Onset Date Last Indicated Resolved Time COVID - 19 01/25/2020 01/25/2020 02/14/2020 12:1 8 AM INJECTION PRESS OPERATOR documented as of this encounter Care Teams Sld Inclusion Teacher Relationship Specialty Start Date End Date Provider, None [place] PCP - General 06/17/17 01/25/21 documented as of this encounter
--- OUTSIDE RECORDS SUMMARY | 2024-03-11 22:41 | XMS_ITS | Encounter Summary ---
Author Organization [facility] Address [address] [place] [address] Phone Care Team Providers Care Middleware Developer Name Role Phone Provider, None Primary Care Provider Unavailabl e Reason for Visit * Reason Comments Cough Sore Throat Encounter Details Date Type Department Care Team (Late st Contact Info) Description 01/25/2020 9:40 AM PLATE AND FRAME FILTER OPERATOR Urgent Care Visit [facility] Med[facility] - [facility] - [place] [address] [place] [phone] Testing, [facility] Nurse [place] Sore throat (Primary Dx) Discharge Disposition: Discharged to home or Selfcare Social History Tobacco Use Types Packs/Day Years Used Date Smoking Tobacco: Never Assessed Comments Unknown Sex and Gender Information Value Date Recorded Sex Assigned at Female 04/04/2023 7:31 PM PLATE AND FRAME FILTER OPERATOR Legal Sex Female 4:36 PM CDT Gender Identity Female 04/04/2023 7:31 PM PLATE AND FRAME FILTER OPERATOR Sexual Orientation Not on file documented [...] [facility] for rapid Covid 19. E AND FRAME FILTER OPERATOR documented in this encounter Plan of Treatment Not on file documented as of this encounter Procedures Procedure Name Priority Date/Time Associated Diagnosis Comments POCT SARS ANTIGEN AFSHAN Routine 01/25/2020 9:56 AM PLATE AND FRAME FILTER OPERATOR Sore throat documented in this encounter Results * POCT SARS ANTIGEN AFSHAN (01/25/2020 9:56 AM PLATE AND FRAME FILTER OPERATOR) POC SARS ANTIGEN AFSHAN Negative Negative POC SARS ANTIGEN AFSHAN CONTROL Director Pharmacy Services Pass Swab NASAL STRUCTURE / Unknown 01/25/2020 9:56 AM PLATE AND FRAME FILTER OPERATOR us Chris So MD POINT OF CARE TESTING (MANUA L) Final Result documented in this encounter Visit Diagnoses Diagnosis Sore throat- Primary Acute pharyngitis documented in this encounter Additional Health Concerns Infection Onset Date Last Indicated Resolved Time COVID - 19 01/25/2020 01/25/2020 02/14/2020 12:1 8 AM PLATE AND FRAME FILTER OPERATOR documented as of this encounter Care Teams Middleware Developer Relationship Specialty Start Date End Date Provider, None [place] PCP - General 06/17/17 01/25/21 documented as of this encounter
--- OUTSIDE RECORDS SUMMARY | 2024-03-11 22:41 | XMS_ITS | Encounter Summary ---
Author Organization [facility] Address [address] [place] [address] Phone Care Team Providers Care Teacher Emotionally Impaired Name Role Phone Provider, None Primary Care Provider Unavailabl e Encounter Details Date Type Department Care Team (Late st Contact Info) Description 03/10/2020 11:30 AM CLIENT RELATIONS REPRESENTATIVE Lab [facility] [address] [place] [id number] Clinic, [place] Nurse [place] Runny nose (Primary Dx); Loss of taste Discharge Disposition: Discharged to home or Selfcare Social History Tobacco Use Types Packs/Day Years Used Date Smoking Tobacco: Never Assessed Comments Unknown Sex and Gender Information Value Date Recorded Sex Assigned at Female 04/04/2023 7:31 PM CLIENT RELATIONS REPRESENTATIVE Legal Sex Female 4:36 PM CDT Gender Identity Female 04/04/2023 7:31 PM CLIENT RELATIONS REPRESENTATIVE Sexual Orientation Not on file documented as of this encounter Progress Notes * Estefania Nguyen RN - 03/10/2020 11:30 AM CST Patient [facility] drive up nasal POCT Covid swab. Patient swabbed with no difficulty and patient tolerated well. Written instruction given on care at home, and home isolation. Pt given POCT negative results via telephone call. NT RELATIONS REPRESENTATIVE documented in this encounter Plan of Treatment Not on file documented as of this encounter Procedures Procedure Name Priority Date/Time Associated Diagnosis Comments POCT SARS ANTIGEN AFSHAN Routine 03/10/2020 12:07 PM CLIENT RELATIONS REPRESENTATIVE Runny nose Loss of taste documented in this encounter Results * POCT SARS ANTIGEN AFSHAN (03/10/2020 12:07 PM CLIENT RELATIONS REPRESENTATIVE) POC SARS ANTIGEN AFSHAN Negative Negative POC SARS ANTIGEN AFSHAN CONTROL Sales And Marketing Analyst Pass Swab NASAL STRUCTURE / Unknown 03/10/2020 12:07 PM CLIENT RELATIONS REPRESENTATIVE Alyson Enriquez BARIATRIC NURSE, RISK MANAGEMENT CONSULTANT POINT OF CARE LIDA TING (MANUAL) Final Result documented in this encounter Visit Diagnoses Diagnosis Runny nose- Primary Other diseases of nasal cavity and sinuses Loss of taste Disturbances of sensation of smell and taste documented in this encounter Additional Health Concerns Infection Onset Date Last Indicated Resolved Time COVID - 19 03/10/2020 03/10/2020 03/11/2020 12:4 7 PM CLIENT RELATIONS REPRESENTATIVE documented as of this encounter Care Teams Teacher Emotionally Impaired Relationship Specialty Start Date End Date Provider, None [place] PCP - General 06/17/17 01/25/21 documented as of this encounter
--- OUTSIDE RECORDS SUMMARY | 2024-03-11 22:41 | XMS_ITS | Encounter Summary ---
Author Organization [facility] Address [address] [place] [address] Phone Care Team Providers Care Cold Storage Worker Name Role Phone Provider, None Primary Care Provider Unavailabl e Reason for Visit * Reason Comments COVID-19 symptomatic Encounter Details Date Type Department Care Team (Late st Contact Info) Description 03/10/2020 8:50 AM CIVIL DESIGN TECHNICIAN [facility] [place] [address] [place] [phone] Testing, [facility] Nurse [place] Encounter for screening laboratory testing for COVID-19 virus Discharge Disposition: Discharged to home or Selfcare Social History Tobacco Use Types Packs/Day Years Used Date Smoking Tobacco: Never Assessed Comments Unknown Sex and Gender Information Value Date Recorded Sex Assigned at Female 04/04/2023 7:31 PM CIVIL DESIGN TECHNICIAN Legal Sex Female 4:36 PM CDT Gender Identity Female 04/04/2023 7:31 PM CIVIL DESIGN TECHNICIAN Sexual Orientation Not on file documented as of this encounter Progress Notes * Katheryn Goldstein RN - 03/10/2020 8:50 AM CST Pt arrived for Covid testing in personal vehicle. Both nares swabbed with no difficulty per Vannessa Strong RN. Information sheet given. PCR sent to [facility] Lab L DESIGN TECHNICIAN documented in this encounter Plan of Treatment Not on file documented as of this encounter Procedures Procedure Name Priority Date/Time Associated Diagnosis Comments SARS-COV-2 BY MOLECULAR Routine 03/10/2020 8:34 AM CIVIL DESIGN TECHNICIAN Encounter for screening laboratory testing for COVID-19 virus documented in this encounter Results * SARS-COV-2 BY MOLECULAR (03/10/2020 8:34 AM CIVIL DESIGN TECHNICIAN) SARSCOV2 NOT DETECTED (Referen ce Range for this test is Not Detected ) [facility] THERMOFISHER FAST DX 03/11/2020 6:58 PM CIVIL DESIGN TECHNICIAN [facility] Comment:This test was perfor med by a PCR method. Other NASOPHARYNGEAL STRUCTURE / Unknown Non-Phlebotomy Collection / Unknown 03/10/2020 8:34 AM CIVIL DESIGN TECHNICIAN 03/10/2020 8:34 AM CIVIL DESIGN TECHNICIAN Narrative [facility] - 03/11/2020 6:58 PM CIVIL DESIGN TECHNICIAN Authorized Fact Sheets about this test for providers and patients are available at: https://www.fda.gov/medical-devices/rpxsrrxzd-eytdmdvhvh-dkefbjs-devices/emergen cy-us e-authorizations us Chris So MD MICROBIOLOGY - GENERAL ORDER ROGER Final Result [facility] [address] [place] [address], documented in this encounter Visit Diagnoses Diagnosis Encounter for screening laboratory testing for COVID-19 virus documented in this encounter Additional Health Concerns Infection Onset Date Last Indicated Resolved Time COVID - 19 03/10/2020 03/10/2020 03/11/2020 12:4 7 PM CIVIL DESIGN TECHNICIAN documented as of this encounter Care Teams Cold Storage Worker Relationship Specialty Start Date End Date Provider, None [place] PCP - General 06/17/17 01/25/21 documented as of this encounter
--- OUTSIDE RECORDS SUMMARY | 2024-03-11 22:42 | XMS_ITS | Encounter Summary ---
Author Organization [facility] Address [address] [place] [address] Care Team Providers Care Home Stager Name Role Phone Unavailable Primary Care Provider [...]
--- OUTSIDE RECORDS SUMMARY | 2024-03-11 22:42 | XMS_ITS | Encounter Summary ---
Author Organization [facility] Address [address] [place] [address] Care Team Providers Care Integration Manager Name Role Phone Unavailable Primary Care Provider Unavailabl e Encounter Details Date Type Department Care Team (Late st Contact Info) Description 02/23/2023 External Device Data [facility] ABSTRACTION Provider, Abstract [...]
--- OUTSIDE RECORDS SUMMARY | 2024-03-11 22:42 | XMS_ITS | Encounter Summary ---
Author Organization [facility] Address [address] [place] [address] Care Team Providers Care Solution Developer Name Role Phone Unavailable Primary Care Provider [...]
--- OUTSIDE RECORDS SUMMARY | 2024-03-11 22:42 | XMS_ITS | Encounter Summary ---
Author Organization [facility] Address [address] [place] [address] Care Team Providers Care Director University Name Role Phone Unavailable Primary Care Provider Unavailabl e Encounter Details Date Type Department Care Team (Latest Contact Info) Description 11/10/2022 12:12 PM CDT - 11/10/2022 11:59 PM CDT Hospital Encounter [facility] [address] [facility] [address] [place] [address] Litzy Coombs, BROADCAST CHECKER 448 [facility] [address] [place] [address] Discharge Disposition: Home or Self [...] IMPRESSION: Third metatarsal head fracture. Litzy Coombs BROADCAST CHECKER DIAGNOSTIC IMAG ING ORDERABLES documented in this encounter Visit Diagnoses Diagnosis Injury of right foot, initial encounter documented in this encounter
--- OUTSIDE RECORDS SUMMARY | 2024-03-11 22:42 | XMS_ITS | Encounter Summary ---
Author Organization [facility] Address [address] [place] [address] Care Team Providers Care Pattern Attendant Name Role Phone Unavailable Primary Care Provider [...]
--- OUTSIDE RECORDS SUMMARY | 2024-03-11 22:42 | XMS_ITS | Encounter Summary ---
Author Organization [facility] Address [address] [place] [address] Care Team Providers Care Gas And Oil Servicer Name Role Phone Unavailable Primary Care Provider [...]
--- OUTSIDE RECORDS SUMMARY | 2024-03-11 22:42 | XMS_ITS | Encounter Summary ---
Author Organization [facility] Address [address] [place] [address] Care Team Providers Care Administration Clerk Name Role Phone Unavailable Primary Care Provider Unavailabl e Reason for Visit * Reason Comments Foot Injury Onset 1 day. Pt stat es she jumped in the pool injured her right foot. Encounter Details Date Type Department Care Team (Late st Contact Info) Description 11/10/2022 11:45 AM CDT Office Visit [facility] Urgent Care [address] [address] [address] [address] [address] [place] [address] Litzy Coombs, COLOR PRINT INSPECTOR [address] [address] [address] [place] [address] Closed fracture of head of [...] sent through Care Everywhere. * Walking Boot (Gabonese) * Metatarsal Fracture (Gabonese) documented in this encounter Progress Notes * Litzy Coombs, COLOR PRINT INSPECTOR - 11/10/2022 1:42 PM CDT Kaylee Melchor 1995 [id number] Chief Complaint Patient presents with Foot Injury [...] primary care provider, you may call the [facility] at [phone] or the [facility] for referral. 5. Return to an urgent care, ER as needed if worsening or changing symptoms. Patient was provided with a copy of her x-rays on a disc. Patient agreeable to plan of care. Returnto office sooner if symptoms worsen or fail to improve. Call with any questions or concerns. NICANOR Naranjo, COLOR PRINT INSPECTOR-C The medical record reflects the History of [...] primary care provider, you may call the [facility] [email or web address] Line at [phone] or the [facility] for referral. 5. Return to an urgent [...] doctor in 2 weeks for recheck. Call [phone] to get a [facility] doctor referral if you need one. Go to [employer] if you'd rather and choose your own appointment with the provider of your choice by choosing the Next Available Scheduling tab for SILKE Ramires. Your Care Team at the the [facility] seeks to provide Excellent, Safe and Quality [...] the top score. Thank you for choosing [facility] for your care today. It was our [...] IMPRESSION: Third metatarsal head fracture. Litzy Coombs COLOR PRINT INSPECTOR DIAGNOSTIC IMAG ING ORDERABLES documented in this encounter Visit Diagnoses Diagnosis Closed fracture of head of metatarsal bone of right foot, initial encounter- Primary Injury of right foot, initial encounter Injury of right foot, initial encounter documented in this encounter
--- OUTSIDE RECORDS SUMMARY | 2024-03-11 22:42 | XMS_ITS | Encounter Summary ---
Author Organization [facility] Address [address] [place] [address] Care Team Providers Care Inspector And Sorter Name Role Phone Unavailable Primary Care Provider [...]
--- OUTSIDE RECORDS SUMMARY | 2024-03-11 22:42 | XMS_ITS | Encounter Summary ---
Author Organization [facility] Address [address] [place] [address] Care Team Providers Care 4 H Youth Development Specialist Name Role Phone Unavailable Primary Care Provider [...]
--- OUTSIDE RECORDS SUMMARY | 2024-03-11 22:42 | XMS_ITS | Encounter Summary ---
Author Organization [facility] Address [address] [place] [address] Care Team Providers Care Appliance Fixer Name Role Phone Unavailable Primary Care Provider [...]
--- OUTSIDE RECORDS SUMMARY | 2024-03-11 22:42 | XMS_ITS | Clinical Summary ---
Author Organization [facility] Special[facility] [address] [place] [address] [address] [address] Care Team Providers Care Health Coach Name Role Phone Unavailable Primary Care Provider [...]
== END 2024-03-04 21:44 | disposition home or self-care (01) ==
PROVIDERS: Emergency Provider Physician Assistant
DX: N93.8 Other specified abnormal uterine and vaginal bleeding (principal); O72.2 Delayed and secondary postpartum hemorrhage; R82.998 Other abnormal findings in urine
CPT/HCPCS: 36415; 76856; 80053; 81001; 84702; 85025; 85461; 85610; 85730; 86850; 86900; 86901; 87086; 99284

== ENCOUNTER 2024-03-13 00:10 | Day surgery (SDC) | payer OTHER, SELFPAY ==
[2024-03-12 14:20] VITALS: BMI 33.3
--- NOTE | 2024-03-12 14:25 | PC.NURSE ---
Report to the Outpatient Waiting Room, entrance under the green pavilion located off [facility], at time _1100_ on date _[id number]_. Planned Procedure Time: _1pm_.? Time changes happen often and if your time is changed the preop area will call you the afternoon before. - You and your visitor will be asked to self-screen and do not enter if you have any COVID symptoms. Please call surgeon if you need to reschedule. - A mask is optional within the hospital at this time. Patients may have clear liquids (water, carbonated beverages, clear teas, apple juice) until 3 hours prior to surgery with a maximum of 20 ounces. - No food from midnight until time of surgery and no smoking. This includes no chewing gum, candy or mints. Take only the following medications with a SIP of water on the morning of surgery: ___Fluoxetine DO NOT STOP ANY OF YOUR OTHER PRESCRIPTION MEDICATIONS PRIOR TO SURGERY EXCEPT THE FOLLOWING Medications to discontinue per physician ___Hold Vitamin till after surgery. Date to take last dose Please no make-up, nail bahraini, hairspray, perfume, deodorant, or body powder the day of surgery.? No jewelry (including any body piercings) or valuables the day of surgery, leave them at home.? Please take a shower or bath the night before, or the morning of, surgery with an antibacterial soap.? Wear comfortable, loose fitting clothing.? - Jewelry must be removed prior to entering the operating room.? Rings and piercings that are not removed may be cut off. - The hospital will not accept responsibility for valuables.? - Please leave all valuables, including medications, at home the day of surgery. If you are going home after surgery, a licensed jinrikisha driver must drive you home.? - NO public transportation without another adult if you receive anesthesia. - We recommend that an adult stay with you for 24 hours following discharge. - We also recommend that you do not drive, make important decision, drink alcoholic beverages, or take any drugs that were not prescribed by your health care provider for at least 24 hours after your discharge time. Follow any additional instructions given to you from your surgeon. Telephone instructions given to __Kaylee___and asked if any additional questions and then verbalized understanding. Patient advised to call surgeon office or pre surgery nurse liaison [phone] if any additional questions.
[2024-03-13] MEDS: ACETAMINOPHEN 500 MG TABLET 1000 MG PO (11:25)
[2024-03-13 11:48] VITALS: BP 95/54; PULSE 72; RESP 16; TEMP 36.6; O2SAT 100
--- NOTE | 2024-03-13 12:04 | PM.IMHP ---
H&P: HPI History of Present Illness Date/Time: 03/13/24 12:04 Chief Complaint: vaginal bleeding. Narrative: 28 y/o who had a vaginal delivery on 02/19/24. On PPD14 she had a gush of blood and was seen in the ED. Hgb was 12.8, vitals were stable, bleeding decreased. Ultrasound exam showed thickened endometrium. We decided to send her home for observation. Her bleeding has improved, but is still fairly heavy. Some cramping. No fevers. . Baby is doing well. Review of Systems Review of Systems: All systems reviewed & are unremarkable except as noted in HPI and below PMFSH Family History Family History Father Hypertension Diabetes mellitus Mother Depression Sibling ADHD Social History Social History Smoking status: Never smoker Second hand tobacco smoke exposure: No Substance use: never Do You Feel Safe in your Home?: Yes Lack of Transportation: No Lack of Food: Never True Current Housing: I Have Housing Concerned About Future Housing: No Difficulty Paying Gas/Electric Bills: No Difficulty Paying for Meds: No Currently Unemployed: No Education: Bachelor's Degree Difficulty w/ Childcare or Family Care: No Living arrangements: with family Gender identity (if verbalized by the patient): Female Spiritual care concerns: No Meds Home Medications and Allergies Home Medications ?Medication ?Instructions ?Recorded ?Confirmed ?Type vit no.95-ferrous 1 tablet PO DAILY 04/09/19 03/13/24 History fumarate 28 mg-folic acid 800 mcg tablet () fluoxetine 40 mg capsule 40 mg PO DAILY 01/29/24 03/13/24 History ibuprofen 600 mg tablet 600 mg PO Q6H PRN cramps #30 tabs 02/19/24 03/12/24 Rx Allergies Allergy/AdvReac Type Severity Reaction Status Date / Time prednisone AdvReac Intermediate Palpitation Verified 03/13/24 11:27 s Vital Signs Vital Signs - 24 hr 03/13/24 11:48 Temperature 36.6 C Pulse Rate 72 Respiratory Rate 16 Blood Pressure 95/54 L Pulse Oximetry 100 Oxygen Delivery Room Air Exam Const: Orientation/consciousness: patient oriented x3 Other: Well-developed, well-nourished female in no acute distress. Neck: Thyroid: thyroid normal Lymphatic: no lymphadenopathy noted (in neck, axilla or inguinal nodes) Resp: Effort & Inspection: normal respiratory effort Auscultation: clear to auscultation bilaterally Cardio: Rate: regular rate Rhythm: regular rhythm Heart sounds: S1 normal heart sound present and S2 normal heart sound present GI: Other: ABD: Soft, nontender, nondistended. No guarding or rebound tenderness. No hepatosplenomegaly. : General: Yes no CVA tenderness Other: External genitalia: normal female hair distribution, without lesion. Urethral meatus: no lesion, non prolapsed. Bladder: no mass, nontender Vagina: lochia noted. Cervix: no lesion or discharge. Cervix open to digital exam. Uterus: firm, involuting well, freely mobile, nontender Adnexa: no mass or tenderness. Anus/perineum: no lesions, nontender Back/Spine/Pelvis: Back: no CVA tenderness Skin: General skin exam: normal color and no rashes or lesions noted Neuro: General: patient oriented x3 Extrem: Other: Extremities: nontender with no edema Psych: Mental Status: mental status grossly normal Affect: normal affect Assessment and Plan Assessment and plan (1) bleeding: Code(s): O72.1 - Other immediate hemorrhage Status: Acute Assessment and Plan: A: bleeding with possible retained placental fragment. P: Offered dilation and suction curettage. She understands risks of surgery to include risks of anesthesia, risks of pain, infection, bleeding, blood products, thromboembolic phenomena and damage to adjacent structures such as bowel, bladder, ureters, blood vessels and nerves. She understands all these risks and elects to proceed with surgery.
--- NOTE | 2024-03-13 12:22 | P.PNAN_ITS ---
Anes - Initial Pre Proc Eval Procedure: Operation Date: 03/13/24 13:00 Proposed Procedures p Suction Dilatation and Curettage - Emory Erazo MD Date/Time: 03/13/24 12:22 Surgeon: Emory Erazo MD Pre Op Diagnosis: post bleeding Patient Data Age: 28 Gender: F Height: 1.63 m Weight: 88.2 kg Last Vital Signs Temp 36.6 C 03/13/24 11:48 Pulse 72 03/13/24 11:48 Resp 16 03/13/24 11:48 BP 95/54 L 03/13/24 11:48 Pulse Ox 100 03/13/24 11:48 O2 Del Method Room Air 03/13/24 11:48 Allergies Allergy/AdvReac Type Severity Reaction Status Date / Time prednisone AdvReac Intermediate Palpitation Verified 03/13/24 11:27 s Home Medications ?Medication ?Instructions ?Recorded ?Confirmed ?Type vit no.95-ferrous 1 tablet PO DAILY 04/09/19 03/13/24 History fumarate 28 mg-folic acid 800 mcg tablet () fluoxetine 40 mg capsule 40 mg PO DAILY 01/29/24 03/13/24 History ibuprofen 600 mg tablet 600 mg PO Q6H PRN cramps #30 tabs 02/19/24 03/12/24 Rx Results Review: All pre-operative results and documents have been reviewed as part of the pre- operative evaluation. REPLACED BY [facility] Past Medical History Medical History (Updated 03/13/24 @ 12:22 by Suleman Peguero DO) Depression Anxiety Trigeminal neuralgia Family History Family History Father Hypertension Diabetes mellitus Mother Depression Sibling ADHD Social History Social History Smoking status: Never smoker Second hand tobacco smoke exposure: No Substance use: never Do You Feel Safe in your Home?: Yes Lack of Transportation: No Lack of Food: Never True Current Housing: I Have Housing Concerned About Future Housing: No Difficulty Paying Gas/Electric Bills: No Difficulty Paying for Meds: No Currently Unemployed: No Education: Bachelor's Degree Difficulty w/ Childcare or Family Care: No Living arrangements: with family Gender identity (if verbalized by the patient): Female Spiritual care concerns: No Anes - Eval Final PreProcedure Day of Procedure 03/13/24 12:22 Patient weight: obese Heart: regular rate and rhythm Lungs: clear to auscultation Airway: Mallampati scale class II Neurological: alert and oriented Last oral intake: >/= 8 hours ASA classification: II Emergent: no Anesthetic plan: proceed Anesthesia type and monitoring: general GIVS and standard monitoring Results Review: All pre-operative results and documents have been reviewed as part of the pre- operative evaluation. Informed Consent: The patient's anesthetic plan and its attendant risks and benefits were discussed with the patient/family/POA. Questions were solicited and answers provided to the satisfaction of the patient/family/POA.
--- NOTE | 2024-03-13 12:35 | WPDHPUPDATE1 ---
History and Physical Update Update Date/Time: 03/13/24 12:35 History and Physical has been reviewed, including an updated exam of the patient. There are NO changes in the patient's condition. Risks, benefits, and alternatives have been discussed and questions answered. Patient agrees to proceed with procedure.
[2024-03-13] MEDS: LIDOCAINE 1% LOCAL INJ 20 ML VIAL 10 ML INFILTRATE (13:06)
--- NOTE | 2024-03-13 13:18 | W.PM.PROC2 ---
Procedure Note - Detailed Date of Procedure 03/13/24 Pre-op Diagnosis bleeding Post-op Diagnosis Same Procedure Performed Dilation and suction curettage Surgeon Emory Erazo MD Anesthesia MAC and Local (1% lidocaine) Findings Debris / tissue in the endometrial cavity, suspicious for retained products of conception. Description of Procedure The patient was taken to the operating room where she was prepared and draped in the usual sterile fashion in the dorsal lithotomy position. The bladder was drained with a red rubber catheter. A sterile speculum was placed into the vagina. The anterior lip of the cervix was grasped with a single-tooth tenaculum. Ten mL of 1% lidocaine was administered in a paracervical block. The cervix was already dilated -- an 8 mm Hegar dilator was able to be passed. The 8mm curved tip suction curette was advanced. Suction curettage was performed and products of conception were aspirated. Sharp curettage was then performed until a good uterine cry was noted. A final pass with the suction curette was made. The tenaculum was removed. Hemostasis was excellent. Sponge, lap, needle and instrument counts were correct. The patient was taken to the recovery room in stable condition. I was present and scrubbed for the entire procedure. Estimated Blood Loss 50 Drains No Packing No Pathology Yes (Endometrial curettings) Complications None Condition Stable Disposition PACU
[2024-03-13 13:22] VITALS: BP 108/54; PULSE 60; RESP 14; TEMP 36.1; O2SAT 97
[2024-03-13 13:52] VITALS: BP 111/64; PULSE 59; RESP 14
[2024-03-13 14:15] VITALS: BP 110/69; PULSE 49; RESP 14
[2024-03-13] MEDS: LACTATED RINGERS 1,000 ML 30 ML IV CONT (14:15)
[2024-03-13] MEDS: KETOROLAC 30 MG/ML VIAL (*BKC) IV PUSH (14:15)
[2024-03-13 14:28] VITALS: BP 101/62; PULSE 51
== END 2024-03-13 14:30 | disposition home or self-care (01) ==
PROVIDERS: Visit Provider Obstetrics & Gynecology
PROC: (CPT 59160; principal; 2024-03-13 13:00)
DX: R93.89 Abnormal findings on diagnostic imaging of other specified body structures (principal); F32.A Depression, unspecified; F41.9 Anxiety disorder, unspecified; G50.0 Trigeminal neuralgia; G89.18 Other acute postprocedural pain; E66.9 Obesity, unspecified; Z68.33 Body mass index [BMI] 33.0-33.9, adult; Z79.1 Long term (current) use of non-steroidal anti-inflammatories (NSAID)
CPT/HCPCS: 59160; 88305; A9270; J1885; J2003; J2250; J2704; J7120